=== PATIENT | male | born 1970 | race Caucasian/White ===

== ENCOUNTER → 2017-12-21 13:32 | Outpatient (REF) | payer OTHER, SELFPAY ==
[2017-12-21 20:14] LABS: Amphetamine/Metha Screen,Urine Negative ng/mL (<1000); Barbiturates Screen,Urine Negative ng/mL (<200); Benzodiazepines Screen,Urine Negative ng/mL (200); Cannabinoid Screen,Urine Negative ng/mL (<50); Cocaine Screen,Urine Negative ng/g (<300); Methadone Screen,Urine Negative ng/mL (<300); Opiate Screen,Urine Positive ng/mL (<300); Phencyclidine Screen,Urine Negative ng/mL (<25)
== END ==
LOC: LAB 13:32
PROVIDERS: Visit Provider Emergency Medicine
DX: Z79.899 Other long term (current) drug therapy (principal)
CPT/HCPCS: 80305

== ENCOUNTER → 2018-02-07 10:53 | Outpatient (REF) | payer OTHER, SELFPAY ==
[2018-02-07 14:09] LABS: Amphetamine/Metha Screen,Urine Negative ng/mL (<1000); Barbiturates Screen,Urine Negative ng/mL (<200); Benzodiazepines Screen,Urine Negative ng/mL (200); Cannabinoid Screen,Urine Negative ng/mL (<50); Cocaine Screen,Urine Negative ng/g (<300); Methadone Screen,Urine Negative ng/mL (<300); Opiate Screen,Urine Positive ng/mL (<300); Phencyclidine Screen,Urine Negative ng/mL (<25)
== END ==
LOC: LAB 10:53
PROVIDERS: Visit Provider Emergency Medicine
DX: Z79.899 Other long term (current) drug therapy (principal)
CPT/HCPCS: 80305

== ENCOUNTER → 2018-04-06 13:00 | Outpatient (REF) | payer OTHER, SELFPAY ==
[2018-04-07 19:13] LABS: Amphetamine/Metha Screen,Urine Negative ng/mL (<1000); Barbiturates Screen,Urine Negative ng/mL (<200); Benzodiazepines Screen,Urine Negative ng/mL (200); Cannabinoid Screen,Urine Negative ng/mL (<50); Cocaine Screen,Urine Negative ng/g (<300); Methadone Screen,Urine Negative ng/mL (<300); Opiate Screen,Urine Negative ng/mL (<300); Phencyclidine Screen,Urine Negative ng/mL (<25)
== END ==
LOC: LAB 13:00
PROVIDERS: Visit Provider Emergency Medicine
DX: Z79.899 Other long term (current) drug therapy (principal)
CPT/HCPCS: 80305

== ENCOUNTER → 2018-05-06 09:33 | Outpatient (CLI) | payer OTHER, SELFPAY ==
[2018-05-06 19:33] LABS: Amphetamine/Metha Screen,Urine Negative ng/mL (<1000); Barbiturates Screen,Urine Negative ng/mL (<200); Benzodiazepines Screen,Urine Negative ng/mL (200); Cannabinoid Screen,Urine Negative ng/mL (<50); Cocaine Screen,Urine Negative ng/g (<300); Methadone Screen,Urine Negative ng/mL (<300); Opiate Screen,Urine Negative ng/mL (<300); Phencyclidine Screen,Urine Negative ng/mL (<25)
== END ==
PROVIDERS: Visit Provider Emergency Medicine
DX: Z79.899 Other long term (current) drug therapy (principal)
CPT/HCPCS: 80305

== ENCOUNTER → 2018-05-10 16:52 | Outpatient (CLI) | payer OTHER, SELFPAY | PROVIDERS: Visit Provider Emergency Medicine | DX: Z79.899 Other long term (current) drug therapy (principal) ==

== ENCOUNTER → 2018-06-09 22:46 | Outpatient (CLI) | payer OTHER, SELFPAY ==
--- NOTE | 2018-06-09 23:01 | XR_ITS ---
XR shoulder LT min 2V HISTORY: Pain following injury ITS.REASON: WORK INJURY. LEFT SHOULDER PAIN ORDERING PHYSICIAN: Osorio Barroso MD PATIENT AGE: 47 years Comparison: None FINDINGS: Hypertrophic changes are present at the acromioclavicular joint with a small well-circumscribed calcific density along the superior aspect of the joint. Bony spurring is present superiorly and inferiorly may be causing impingement symptomatology. A small subarticular cystic area suspected overlying the humeral head medially. No fracture or dislocation. No lytic or blastic change. IMPRESSION: No acute fracture Osteoarthritic change of the acromioclavicular joint
== END ==
PROVIDERS: PCP Emergency Medicine; Visit Provider Emergency Medicine
DX: M25.512 Pain in left shoulder (principal)
CPT/HCPCS: 73030

== ENCOUNTER → 2018-08-03 09:19 | Outpatient (CLI) | payer OTHER, SELFPAY ==
[2018-08-03 14:11] LABS: Amphetamine/Metha Screen,Urine Negative ng/mL (<1000); Barbiturates Screen,Urine Negative ng/mL (<200); Benzodiazepines Screen,Urine Negative ng/mL (<200); Cannabinoid Screen,Urine Negative ng/mL (<50); Cocaine Screen,Urine Negative ng/mL (<300); Methadone Screen,Urine Negative ng/mL (<300); Opiate Screen,Urine Positive ng/mL (<300); Phencyclidine Screen,Urine Negative ng/mL (<25)
== END ==
PROVIDERS: Visit Provider Emergency Medicine
DX: Z79.899 Other long term (current) drug therapy (principal)
CPT/HCPCS: 80305

== ENCOUNTER → 2018-09-02 09:57 | Outpatient (REF) | payer OTHER, SELFPAY ==
[2018-09-02 18:14] LABS: Amphetamine/Metha Screen,Urine Negative ng/mL (<1000); Barbiturates Screen,Urine Negative ng/mL (<200); Benzodiazepines Screen,Urine Negative ng/mL (<200); Cannabinoid Screen,Urine Negative ng/mL (<50); Cocaine Screen,Urine Negative ng/mL (<300); Methadone Screen,Urine Negative ng/mL (<300); Opiate Screen,Urine Positive ng/mL (<300); Phencyclidine Screen,Urine Negative ng/mL (<25)
== END ==
LOC: LAB 09:57
PROVIDERS: Visit Provider Emergency Medicine
DX: Z79.899 Other long term (current) drug therapy (principal)
CPT/HCPCS: 80305

== ENCOUNTER → 2018-09-30 13:47 | Outpatient (CLI) | payer OTHER, SELFPAY ==
[2018-09-30 15:47] LABS: Amphetamine/Metha Screen,Urine Negative ng/mL (<1000); Barbiturates Screen,Urine Negative ng/mL (<200); Benzodiazepines Screen,Urine Negative ng/mL (<200); Cannabinoid Screen,Urine Negative ng/mL (<50); Cocaine Screen,Urine Negative ng/mL (<300); Methadone Screen,Urine Negative ng/mL (<300); Opiate Screen,Urine Negative ng/mL (<300); Phencyclidine Screen,Urine Negative ng/mL (<25)
== END ==
PROVIDERS: Visit Provider Emergency Medicine
DX: Z79.899 Other long term (current) drug therapy (principal)
CPT/HCPCS: 80305

== ENCOUNTER → 2018-10-31 14:44 | Outpatient (CLI) | payer OTHER, SELFPAY ==
[2018-10-31 15:19] LABS: Amphetamine/Metha Screen,Urine Negative ng/mL (<1000); Barbiturates Screen,Urine Negative ng/mL (<200); Benzodiazepines Screen,Urine Negative ng/mL (<200); Cannabinoid Screen,Urine Negative ng/mL (<50); Cocaine Screen,Urine Negative ng/mL (<300); Methadone Screen,Urine Negative ng/mL (<300); Opiate Screen,Urine Negative ng/mL (<300); Phencyclidine Screen,Urine Negative ng/mL (<25)
== END ==
PROVIDERS: Visit Provider Emergency Medicine
DX: Z79.899 Other long term (current) drug therapy (principal)
CPT/HCPCS: 80305

== ENCOUNTER → 2018-12-01 13:57 | Outpatient (CLI) | payer OTHER, SELFPAY ==
[2018-12-01 14:41] LABS: Amphetamine/Metha Screen,Urine Negative ng/mL (<1000); Barbiturates Screen,Urine Negative ng/mL (<200); Benzodiazepines Screen,Urine Negative ng/mL (<200); Cannabinoid Screen,Urine Negative ng/mL (<50); Cocaine Screen,Urine Negative ng/mL (<300); Methadone Screen,Urine Negative ng/mL (<300); Opiate Screen,Urine Positive ng/mL (<300); Phencyclidine Screen,Urine Negative ng/mL (<25)
== END ==
PROVIDERS: Visit Provider Emergency Medicine
DX: Z79.899 Other long term (current) drug therapy (principal)
CPT/HCPCS: 80305

== ENCOUNTER → 2019-02-01 18:56 | Outpatient (CLI) | payer OTHER, SELFPAY ==
[2019-02-01 20:30] LABS: Amphetamine/Metha Screen,Urine Negative ng/mL (<1000); Barbiturates Screen,Urine Negative ng/mL (<200); Benzodiazepines Screen,Urine Negative ng/mL (<200); Cannabinoid Screen,Urine Negative ng/mL (<50); Cocaine Screen,Urine Negative ng/mL (<300); Methadone Screen,Urine Negative ng/mL (<300); Opiate Screen,Urine Positive ng/mL (<300); Phencyclidine Screen,Urine Negative ng/mL (<25)
== END ==
PROVIDERS: Visit Provider Emergency Medicine
DX: Z79.899 Other long term (current) drug therapy (principal)
CPT/HCPCS: 80305

== ENCOUNTER → 2019-03-31 14:01 | Outpatient (CLI) | payer OTHER, SELFPAY ==
[2019-03-31 15:16] LABS: Amphetamine/Metha Screen,Urine Negative ng/mL (<1000); Barbiturates Screen,Urine Negative ng/mL (<200); Benzodiazepines Screen,Urine Negative ng/mL (<200); Cannabinoid Screen,Urine Negative ng/mL (<50); Cocaine Screen,Urine Negative ng/mL (<300); Methadone Screen,Urine Negative ng/mL (<300); Opiate Screen,Urine Positive ng/mL (<300); Phencyclidine Screen,Urine Negative ng/mL (<25)
== END ==
PROVIDERS: Visit Provider Emergency Medicine
DX: M50.30 Other cervical disc degeneration, unspecified cervical region (principal)
CPT/HCPCS: 80305

== ENCOUNTER → 2019-05-30 14:08 | Outpatient (CLI) | payer OTHER, SELFPAY ==
[2019-05-30 16:16] LABS: Amphetamine/Metha Screen,Urine Negative ng/mL (<1000); Barbiturates Screen,Urine Negative ng/mL (<200); Benzodiazepines Screen,Urine Negative ng/mL (<200); Cannabinoid Screen,Urine Negative ng/mL (<50); Cocaine Screen,Urine Negative ng/mL (<300); Methadone Screen,Urine Negative ng/mL (<300); Opiate Screen,Urine Positive ng/mL (<300); Phencyclidine Screen,Urine Negative ng/mL (<25)
== END ==
PROVIDERS: Visit Provider Emergency Medicine
DX: Z79.899 Other long term (current) drug therapy (principal)
CPT/HCPCS: 80305

== ENCOUNTER → 2019-08-01 13:21 | Outpatient (CLI) | payer OTHER, SELFPAY ==
[2019-08-01 13:53] LABS: Alanine Aminotransferase 90 U/L (12-78); Albumin Level 4.4 gm/dL (3.4-5.0); Albumin/Globulin Ratio 1.1 (1.1-1.8); Alkaline Phosphatase 89 U/L (46-116); Anion Gap 15.8 mEq/L (5-15); Aspartate Amino Transferase 44 U/L (15-37); Bilirubin,Total 0.5 mg/dL (0.2-1.0); Blood Urea Nitrogen 16 mg/dL (7-18); Calcium 9.6 mg/dL (8.5-10.1); Carbon Dioxide 29 mmol/L (21.0-32.0); Chloride 101 mmol/L (98-107); Creatinine,Serum 1.29 mg/dL (0.70-1.30); Estimated Glomerular Filt Rate 59 ml/min (>60); GFR (African American) 71 ML/MIN (>60); Glucose 163 mg/dL (74-106); Potassium 3.8 mmoL/L (3.5-5.1); Sodium 142 mmol/L (136-145); Total Protein,Serum 8.4 gm/dL (6.4-8.2)
[2019-08-01 14:14] LABS: Basophils % 0.3 % (0.1-2.0); Eosinophils % 0.2 % (0.1-12.0); Hematocrit 47.2 % (42.0-52.0); Hemoglobin 15.7 g/dL (14.1-18.0); Lymphocytes # 2.1 K/mm3 (0.7-4.5); Lymphocytes % 18.3 % (10-50); Mean Corpuscular HGB Conc 33.2 g/dL (31.8-35.4); Mean Corpuscular Hemoglobin 32.2 pg (27.0-31.2); Mean Corpuscular Volume 96.9 fl (80-94); Monocytes # 0.5 K/mm3 (0.1-1.0); Monocytes % 4.3 % (1.7-9.3); Neutrophils # 8.9 K/mm3 (1.8-7.8); Neutrophils % 76.9 % (37.0-80.0); Platelet Count 197 K/mm3 (142-424); Red Blood Count 4.87 M/mm3 (4.60-6.20); Red Cell Distribution Width 14.2 % (11.5-17.5); White Blood Count 11.6 K/mm3 (4.8-10.8)
[2019-08-02 07:28] LABS: Vitamin D 25 Hydroxy 26.8 ng/mL (30.0-100.0)
[2019-08-02 17:34] LABS: Hemoglobin A1C 5.7 % (0.0-7.0)
[2019-08-04 11:42] LABS: Vitamin B12 306 pg/mL (232-1245)
== END ==
PROVIDERS: Visit Provider Emergency Medicine
DX: I10 Essential (primary) hypertension (principal); R71.8 Other abnormality of red blood cells; R73.9 Hyperglycemia, unspecified
CPT/HCPCS: 80053; 82607; 82652; 82746; 83036; 85025

== ENCOUNTER → 2019-09-29 13:35 | Outpatient (CLI) | payer OTHER, SELFPAY ==
[2019-09-29 15:49] LABS: Amphetamine/Metha Screen,Urine Negative ng/mL (<1000); Barbiturates Screen,Urine Negative ng/mL (<200); Benzodiazepines Screen,Urine Negative ng/mL (<200); Cannabinoid Screen,Urine Negative ng/mL (<50); Cocaine Screen,Urine Negative ng/mL (<300); Methadone Screen,Urine Negative ng/mL (<300); Opiate Screen,Urine Positive ng/mL (<300); Phencyclidine Screen,Urine Negative ng/mL (<25)
== END ==
PROVIDERS: Visit Provider Emergency Medicine
DX: Z79.899 Other long term (current) drug therapy (principal)
CPT/HCPCS: 80305

== ENCOUNTER → 2020-01-23 13:39 | Outpatient (CLI) | payer OTHER, SELFPAY ==
[2020-01-23 15:17] LABS: Amphetamine/Metha Screen,Urine Negative ng/ml (<1000)
[2020-01-23 15:18] LABS: Barbiturates Screen,Urine Negative ng/ml (<200); Benzodiazepines Screen,Urine Negative ng/ml (<200)
[2020-01-23 15:19] LABS: Cannabinoid Screen,Urine Negative ng/ml (<50)
[2020-01-23 15:20] LABS: Cocaine Screen,Urine Negative ng/ml (<300); Methadone Screen,Urine Negative ng/ml (<300)
[2020-01-23 15:21] LABS: Opiate Screen,Urine Positive ng/ml (<300)
[2020-01-23 15:22] LABS: Phencyclidine Screen,Urine Negative ng/ml (<25)
== END ==
PROVIDERS: Visit Provider Emergency Medicine
DX: M54.16 Radiculopathy, lumbar region (principal)
CPT/HCPCS: 80305

== ENCOUNTER → 2020-06-14 13:30 | Outpatient (CLI) | payer OTHER, SELFPAY ==
[2020-06-14 13:38] LABS: Basophils % 0.4 % (0.1-2.0); Eosinophils # 0.4 K/mm3 (0.0-0.4); Eosinophils % 4.4 % (0.1-12.0); Hematocrit 43.2 % (42.0-52.0); Hemoglobin 15.1 g/dL (14.1-18.0); Lymphocytes # 2.8 K/mm3 (0.7-4.5); Lymphocytes % 27.5 % (10-50); Mean Corpuscular Hemoglobin 33.4 pg (27.0-31.2); Mean Corpuscular Volume 95.4 fl (80-94); Mean Platelet Volume 11.3 fl (7.4-10.4); Monocytes # 0.7 K/mm3 (0.1-1.0); Monocytes % 6.7 % (1.7-9.3); Neutrophils # 6.2 K/mm3 (1.8-7.8); Neutrophils % 61.1 % (37.0-80.0); Platelet Count 157 K/mm3 (142-424); Red Blood Count 4.53 M/mm3 (4.60-6.20); Red Cell Distribution Width 14.6 % (11.5-17.5); White Blood Count 10.1 K/mm3 (4.8-10.8)
[2020-06-14 13:43] LABS: Chloride 104 mmol/L (98-107); Potassium 4.3 mmoL/L (3.5-5.1); Sodium 140 mmol/L (136-145)
[2020-06-14 13:46] LABS: Alanine Aminotransferase 34 U/L (12-78); Albumin Level 4.2 g/dl (3.5-5.0); Alkaline Phosphatase 77 U/L (38-126); Anion Gap 12.3 mEq/L (5-15); Aspartate Amino Transferase 28 U/L (17-59); Bilirubin,Total 0.5 mg/dl (0.2-1.3); Blood Urea Nitrogen 20 mg/dl (9-20); Carbon Dioxide 28 mmol/L (22.0-30.0); Cholesterol 179 mg/dl (140-200); Estimated Glomerular Filt Rate 78 ml/min (>60); GFR (African American) 95 ML/MIN (>60); Total Protein,Serum 7.1 g/dl (6.3-8.2); Triglycerides 122 mg/dl (30-150); VLDL Cholesterol 24 mg/dL (0-40)
[2020-06-14 13:47] LABS: Calcium 9.3 mg/dl (8.4-10.2); Chol/HDL Ratio 4.1 (1-3.5); Glucose 117 mg/dl (74-100); HDL Cholesterol 44 mg/dl (40-60)
[2020-06-14 13:58] LABS: Direct LDL Cholesterol 116.74 mg/dL (100-129); Erythrocyte Sedimentation Rate 7 mm/hr (0-20)
[2020-06-14 14:04] LABS: 25-OH Vitamin D, Total 47.6 ng/mL (30-100); T4 (Thyroxine) 6.7 ug/dl (5.53-11.0)
[2020-06-14 14:17] LABS: Thyroid Stimulating Hormone 1.21 uIU/mL (0.465-4.68)
[2020-06-14 16:26] LABS: Albumin/Globulin Ratio 1.4 (1.1-1.8); Globulin 2.9 g/dL (1.3-3.2)
== END ==
PROVIDERS: Visit Provider Emergency Medicine
DX: I10 Essential (primary) hypertension (principal); Z79.899 Other long term (current) drug therapy
CPT/HCPCS: 80053; 80061; 82306; 84436; 84443; 85025; 85651

== ENCOUNTER → 2020-06-26 09:42 | Outpatient (CLI) | payer OTHER, SELFPAY | PROVIDERS: PCP Emergency Medicine; Visit Provider Emergency Medicine | DX: M54.5 Low back pain (principal) ==

== ENCOUNTER → 2020-07-18 12:54 | Outpatient (CLI) | payer OTHER, SELFPAY ==
--- NOTE | 2020-07-18 13:00 | MR_ITS ---
PROCEDURE: MR CERVICAL SPINE WO CON CLINICAL INDICATION: neck pain NECK PAIN, TROUBLE RAISING ARMS, PAIN IN BOTH HANDS, PINS AND NEEDLES FEELING IN BOTH HANDS. BEST IMAGES POSSIBLE, PATIENT IN TERRIBLE PAIN, TOOK MEDS FOR PAIN AND RELAXATION WITH LITTLE RELIEF. 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 3-D MIP and myelographic images are also rendered and reviewed FINDINGS: Motion artifact obscures fine detail. Low signal to noise ratio is noted. There is normal alignment. C2-C3: Small posterior disc protrusion versus prominent posterior longitudinal ligament without impingement. C3-C4: Minimal bulging disc. C4-C5: Small central disc protrusion C5-C6: Mild degenerative disc disease. C6-C7: Mild bulging disc C7-T1: Unremarkable IMPRESSION: This exam is very limited secondary to patient motion. Suggest repeating at no additional charge. There is a small central disc protrusion which appears to be at C4-C5 and a small posterior disc protrusion versus prominent posterior longitudinal ligament at C2-C3 with other degenerative changes. Would definitely not base any surgical treatment based on this exam. Dictated by: Luís Zimmerman MD 07/19/2020 14:50 Luís Zimmerman MD in [place] 07/19/2020 14:50
--- NOTE | 2020-07-18 13:00 | MR_ITS ---
PROCEDURE: MR LUMBAR SPINE WO CON CLINICAL INDICATION: back pain LOW BACK PAIN, BILATERAL LEG TINGLING AND NUMBNESS, PREVIOUS BACK SURGERY X2. PREVIOUS MRI 12-11-15 BEST IMAGE POSSIBLE PATIENT IN TERRIBLE PAIN, TOOK MEDS FOR PAIN AND RELAXATION. 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 3-D MIP and myelographic images are also rendered and reviewed FINDINGS: There is mild degree of motion artifact which does limit fine detail evaluation with low signal to noise ratio. There is normal alignment. The spinal cord ends at the L2 level. L1-L2 unremarkable. L2-L3 unremarkable. L3-L4 unremarkable. L4-5 mild facet ligamentum hypertrophy with mild bilateral lateral recess narrowing and mild bilateral foraminal narrowing. L5-S1: There is degenerative disc disease with facet and ligamentum hypertrophy with postsurgical changes from prior laminectomy at L5-S1. There is bulging disc with some minimal central disc protrusion versus osteophyte formation. There is moderate bilateral foraminal narrowing from posterior endplate hypertrophic change and bulging disc.. The foraminal narrowing may be slightly greater on the right compared to the left. No extruded herniated disc are evident. IMPRESSION: Somewhat limited study secondary to motion artifact. Consider repeat exam at no additional charge to the patient if the patient can lie still. L4-5 mild facet ligamentum hypertrophy with mild bilateral lateral recess narrowing and mild bilateral foraminal narrowing. L5-S1: There is degenerative disc disease with facet and ligamentum hypertrophy with postsurgical changes from prior laminectomy at L5-S1. There is bulging disc with some minimal central disc protrusion versus osteophyte formation. There is moderate bilateral foraminal narrowing from posterior endplate hypertrophic change and bulging disc.. The foraminal narrowing may be slightly greater on the right compared to the left. No extruded herniated disc are evident. Dictated by: Luís Zimmerman MD 07/19/2020 14:34 Luís Zimmerman MD in [place] 07/19/2020 14:34
== END ==
PROVIDERS: PCP Emergency Medicine; Visit Provider Emergency Medicine
DX: M54.2 Cervicalgia (principal); M51.16 Intervertebral disc disorders with radiculopathy, lumbar region
CPT/HCPCS: 72141; 72148; 76376

== ENCOUNTER → 2020-09-12 07:59 | Outpatient (CLI) | payer OTHER, SELFPAY ==
--- NOTE | 2020-09-12 07:59 | MR_ITS ---
PROCEDURE: MR CERVICAL SPINE WO CON CLINICAL INDICATION: neck pain BILATERAL ARM PAIN, NUMBNESS, AND TINGLING. HEADACHE. 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 X1YR. COMPARISON: MR MR CERVICAL SPINE WO CON from 07/18/2020 TECHNIQUE: Standard multiplanar multiecho sequences are performed without contrast. 3-D MIP and myelographic images are also rendered and reviewed FINDINGS: There is normal alignment. There is generalized motion artifact which does decrease fine detail. Cannot adequately evaluate the cord due to the motion. C2-C3: Minimal central disc protrusion versus prominent posterior longitudinal ligament without impingement. C3-C4: Unremarkable. C4-C5: Unremarkable. C5-C6: Minimal bulging disc. C6-C7: Minimal bulging disc. C7-T1: Unremarkable IMPRESSION: This exam is limited secondary to motion artifact. Mild cervical spondylosis as described above. No obvious large extruded herniated disc or canal stenosis. Dictated by: Luís Zimmerman MD 09/14/2020 11:37 Luís Zimmerman MD in [place] 09/14/2020 11:37
== END ==
PROVIDERS: PCP Emergency Medicine; Visit Provider Emergency Medicine
DX: M54.2 Cervicalgia (principal)
CPT/HCPCS: 72141; 76376

== ENCOUNTER 2021-04-15 21:11 | Emergency (ER) | payer OTHER, SELFPAY ==
[2021-04-15] VITALS (7 sets, daily range): BP systolic 179–225; BP diastolic 107–122; PULSE 62–74; RESP 18–20; TEMP 36.7–37.1; O2SAT 93–96; BMI 28.2
--- NOTE | 2021-04-15 21:32 | XR_ITS ---
PROCEDURE INFORMATION: Exam: XR Pelvis Exam date and time: 04/15/2021 9:32 PM Age: 50 years old Clinical indication: Injury or trauma; Fall; Blunt trauma (contusions or hematomas); Bilateral; Pelvic region; Injury date: 04/15/2021; Injury details: Fell 4-5 ft off ladder; Prior surgery; Surgery date: 6+ months; Surgery type: Femoral ian; Patient HX: Fell off ladder and landed on left side; Additional info: Fall with left shoulder and arm pain TECHNIQUE: Imaging protocol: XR pelvis. Views: 1 or 2 view. COMPARISON: No relevant prior studies available. FINDINGS: Bones/joints: No acute fracture or dislocation. Intramedullary ian and transverse screw are seen in the proximal femur. Mild bilateral hip joint space narrowing. The SI joints and pubic symphysis are unremarkable. Soft tissues: Unremarkable. IMPRESSION: No acute findings.
--- NOTE | 2021-04-15 21:32 | XR_ITS ---
PROCEDURE INFORMATION: Exam: XR Left Elbow Exam date and time: 04/15/2021 9:32 PM Age: 50 years old Clinical indication: Injury or trauma; Blunt trauma (contusions or hematomas); Injury date: 04/15/2021; Injury details: Fell 4-5 ft off ladder; Patient HX: Pain left elbow post fall; Additional info: Fall with left shoulder and arm pain TECHNIQUE: Imaging protocol: XR Left elbow. Views: 3 or more views. COMPARISON: [facility] SHOULDCMLT XR shoulder LT min 2V 06/09/2018 10:56 PM FINDINGS: Bones/joints: No acute fracture or dislocation. Normal bone mineralization. Soft tissues: No effusion or soft tissue swelling. IMPRESSION: No acute findings.
--- NOTE | 2021-04-15 21:32 | XR_ITS ---
PROCEDURE INFORMATION: Exam: XR Left Hand Exam date and time: 04/15/2021 9:32 PM Age: 50 years old Clinical indication: Injury or trauma; Blunt trauma (contusions or hematomas); Injury date: 04/15/2021; Injury details: Fell 4-5 ft off ladder; Patient HX: Pain left hand post fall; Additional info: Fall with left shoulder and arm pain TECHNIQUE: Imaging protocol: XR Left hand. Views: 3 or more views. COMPARISON: No relevant prior studies available. FINDINGS: Bones/joints: No acute fracture or dislocation. Joint spaces are preserved. Normal bone mineralization. Normal carpal bone alignment. Radiocarpal joint is preserved. Soft tissues: No soft tissue swelling or radiopaque foreign body. IMPRESSION: No acute findings.
--- NOTE | 2021-04-15 21:32 | CT_ITS ---
PROCEDURE INFORMATION: Exam: CT Thoracic Spine Without Contrast Exam date and time: 04/15/2021 9:32 PM Age: 50 years old Clinical indication: Injury or trauma; Fall; Blunt trauma (contusions or hematomas); Injury date: 04/15/2021; Injury details: Fell off ladder 4-5 feet and pain left shoulder and arm; Additional info: Fall with left shoulder and arm pain TECHNIQUE: Imaging protocol: Computed tomography images of the thoracic spine without contrast. Radiation optimization: All CT scans at this facility use at least one of these dose optimization techniques: automated exposure control; mA and/or kV adjustment per patient size (includes targeted exams where dose is matched to clinical indication); or iterative reconstruction. COMPARISON: No relevant prior studies available. FINDINGS: Vertebrae: No acute fracture. Normal alignment. Discs/Spinal canal/Neural foramina: No significant disc protrusion. No severe spinal canal stenosis. No significant neural foraminal narrowing. Soft tissues: Unremarkable. Vasculature: Mild atherosclerotic changes of the arteries. Mediastinum: Stigmata of old granulomatous disease. Other findings: Please see separate report for CT chest. IMPRESSION: No acute fracture or malalignment of the thoracic spine.
--- NOTE | 2021-04-15 21:32 | XR_ITS ---
PROCEDURE INFORMATION: Exam: XR Left Humerus Exam date and time: 04/15/2021 9:32 PM Age: 50 years old Clinical indication: Injury or trauma; Fall; Blunt trauma (contusions or hematomas); Arm, upper; Injury date: 04/15/2021; Injury details: Fell off ladder 4-5 ft; Patient HX: Fell left shoulder pain; Additional info: Fall with left shoulder and arm pain TECHNIQUE: Imaging protocol: XR Left humerus. Views: 2 or more views. COMPARISON: CR SHOULDCMLT XR shoulder LT min 2V 06/09/2018 10:56 PM FINDINGS: Bones/joints: No acute fracture or dislocation. Normal bone mineralization. Degenerative changes at the acromioclavicular joint. Soft tissues: Normal. IMPRESSION: No acute findings.
--- NOTE | 2021-04-15 21:32 | XR_ITS ---
PROCEDURE INFORMATION: Exam: XR Left Shoulder Exam date and time: 04/15/2021 9:32 PM Age: 50 years old Clinical indication: Injury or trauma; Fall; Blunt trauma (contusions or hematomas); Injury date: 04/15/2021; Injury details: Fell off ladder; Patient HX: Fell 4-5 ft and pain left shoulder and arm; Additional info: Fall with left shoulder and arm pain TECHNIQUE: Imaging protocol: XR Left shoulder. Views: 2 or more views. COMPARISON: CR SHOULDCMLT XR shoulder LT min 2V 06/09/2018 10:56 PM FINDINGS: Bones/joints: No acute fracture or dislocation. Normal bone mineralization. Moderate AC joint marginal spurring. Glenohumeral joint is normal. Included ribs are unremarkable. Soft tissues: No soft tissue swelling or radiopaque foreign body. IMPRESSION: No acute findings. AC joint degenerative change.
--- NOTE | 2021-04-15 21:32 | XR_ITS ---
PROCEDURE INFORMATION: Exam: XR Left Forearm Exam date and time: 04/15/2021 9:32 PM Age: 50 years old Clinical indication: Injury or trauma; Fall; Blunt trauma (contusions or hematomas); Arm, lower; Left; Injury date: 04/15/2021; Injury details: Fell off ladder 4-5 ft; Additional info: Fall with left shoulder and arm pain TECHNIQUE: Imaging protocol: XR Left forearm. Views: 2 views. COMPARISON: CR SHOULDCMLT XR shoulder LT min 2V 06/09/2018 10:56 PM FINDINGS: Bones/joints: No acute fracture or dislocation. Normal bone mineralization. No significant degenerative changes. Soft tissues: Normal. IMPRESSION: No acute findings.
--- NOTE | 2021-04-15 21:32 | CT_ITS ---
PROCEDURE INFORMATION: Exam: CT Head Without Contrast Exam date and time: 04/15/2021 9:32 PM Age: 50 years old Clinical indication: Injury or trauma; Fall; Blunt trauma (contusions or hematomas); Without loss of consciousness; Injury date: 03/29/2021; Injury details: Fell 4-5 feet off ladder landed on left side; Patient HX: Fell pain left shoulder and arm. Trauma protocol; Additional info: Fall with left shoulder and arm pain TECHNIQUE: Imaging protocol: Computed tomography of the head without contrast. Radiation optimization: All CT scans at this facility use at least one of these dose optimization techniques: automated exposure control; mA and/or kV adjustment per patient size (includes targeted exams where dose is matched to clinical indication); or iterative reconstruction. COMPARISON: [facility] CT HEAD W/O CONTRAST 08/20/2017 3:34 PM FINDINGS: Brain: Normal. No hemorrhage. Unremarkable white matter. No mass effect. Cerebral ventricles: No ventriculomegaly. Bones/joints: Unremarkable. No acute fracture. Paranasal sinuses: Visualized sinuses are unremarkable. No fluid levels. Mastoid air cells: Visualized mastoid air cells are well aerated. Soft tissues: Unremarkable. IMPRESSION: No acute intracranial abnormality.
--- NOTE | 2021-04-15 21:32 | XR_ITS ---
PROCEDURE INFORMATION: Exam: XR Chest Exam date and time: 04/15/2021 9:32 PM Age: 50 years old Clinical indication: Injury or trauma; Fall; Blunt trauma (contusions or hematomas); Injury date: 04/15/2021; Injury details: Fell off ladder 4-5 ft; Patient HX: Trauma protocol. Fell off ladder landed on left side pain left shoulder; Additional info: Fall with left shoulder and arm pain TECHNIQUE: Imaging protocol: XR of the chest. Views: 4 or more views. COMPARISON: CR CXR2 CHEST-AP VIEW ONLY 08/20/2017 3:41 PM FINDINGS: Lungs: Unremarkable. No consolidation. Pleural spaces: Unremarkable. No pleural effusion. No pneumothorax. Heart/Mediastinum: Unremarkable. No cardiomegaly. Bones/joints: Unremarkable. IMPRESSION: No acute findings.
--- NOTE | 2021-04-15 21:32 | CT_ITS ---
PROCEDURE INFORMATION: Exam: CT Cervical Spine Without Contrast Exam date and time: 04/15/2021 9:32 PM Age: 50 years old Clinical indication: Injury or trauma; Fall; Blunt trauma; Injury date: 04/15/2021; Injury details: Fell off ladder 4-5 feet and landed on left side pain left shoulder and arm; Additional info: Fall with left shoulder and arm pain TECHNIQUE: Imaging protocol: Computed tomography images of the cervical spine without contrast. Radiation optimization: All CT scans at this facility use at least one of these dose optimization techniques: automated exposure control; mA and/or kV adjustment per patient size (includes targeted exams where dose is matched to clinical indication); or iterative reconstruction. COMPARISON: [facility] CT CERVICAL SPINE W/O CONT 08/20/2017 3:37 PM FINDINGS: Bones/joints: Straightening of the curvature of the cervical spine is likely positional. Discs/Spinal canal/Neural foramina: Multilevel degenerative changes of the cervical spine producing multiple levels of mild spinal canal stenosis. Mastoid air cells: Small right mastoid effusion. Lungs: Lung apices are normal. Soft tissues: Unremarkable. IMPRESSION: No acute fracture or malalignment of the cervical spine.
[2021-04-15 22:01] LABS: Chloride 103 mmol/L (98-107); Sodium 142 mmol/L (136-145)
[2021-04-15 22:02] LABS: Potassium 3.3 mmoL/L (3.5-5.1)
[2021-04-15 22:03] LABS: Basophils % 0.4 % (0.1-2.0); Eosinophils # 0.3 K/mm3 (0.0-0.4); Eosinophils % 2.9 % (0.1-12.0); Hematocrit 45.1 % (42.0-52.0); Lymphocytes # 3.2 K/mm3 (0.7-4.5); Lymphocytes % 29.6 % (10-50); Mean Corpuscular HGB Conc 33.4 g/dL (31.8-35.4); Mean Corpuscular Hemoglobin 31.2 pg (27.0-31.2); Mean Corpuscular Volume 93.6 fl (80-94); Mean Platelet Volume 9.4 fl (7.4-10.4); Monocytes # 0.6 K/mm3 (0.1-1.0); Monocytes % 5.9 % (1.7-9.3); Neutrophils # 6.5 K/mm3 (1.8-7.8); Neutrophils % 61.3 % (37.0-80.0); Platelet Count 171 K/mm3 (142-424); Red Blood Count 4.81 M/mm3 (4.60-6.20); Red Cell Distribution Width 13.7 % (11.5-17.5); White Blood Count 10.7 K/mm3 (4.8-10.8)
[2021-04-15 22:04] LABS: Alanine Aminotransferase 32 U/L (12-78); Alkaline Phosphatase 91 U/L (38-126); Aspartate Amino Transferase 34 U/L (17-59); Bilirubin,Total 0.3 mg/dl (0.2-1.3); Blood Urea Nitrogen 19 mg/dl (9-20); Creatinine Clearance Estimated 102 mL/min (50-200); Estimated Glomerular Filt Rate 64 ml/min (>60); GFR (African American) 77 ML/MIN (>60)
[2021-04-15 22:05] LABS: Albumin Level 4.5 g/dl (3.5-5.0); Albumin/Globulin Ratio 1.4 (1.1-1.8); Anion Gap 9.3 mEq/L (5-15); Calcium 9.2 mg/dl (8.4-10.2); Carbon Dioxide 33 mmol/L (22.0-30.0); Globulin 3.2 g/dL (1.3-3.2); Glucose 150 mg/dl (74-100); Total Protein,Serum 7.7 g/dl (6.3-8.2)
[2021-04-15 22:10] LABS: C-Reactive Protein 3.2 mg/L (0-4)
--- NOTE | 2021-04-15 22:24 | PC.NURSE ---
patient back for radiology
[2021-04-15 22:27] LABS: Procalcitonin 0.046 ng/mL (0.0-2.0)
[2021-04-15 22:29] LABS: Erythrocyte Sedimentation Rate 15 mm/hr (0-20)
--- NOTE | 2021-04-15 22:29 | [facility].EDFALL ---
ED Disposition Clinical Impression: Hypertensive urgency Fall Qualifiers: Encounter type: initial encounter Qualified Code(s): W19.XXXA - Unspecified fall, initial encounter Upper extremity injury Qualifiers: Encounter type: initial encounter Laterality: left Qualified Code(s): S49.92XA - Unspecified injury of left shoulder and upper arm, initial encounter Concussion without loss of consciousness Qualifiers: Encounter type: initial encounter Qualified Code(s): S06.0X0A - Concussion without loss of consciousness, initial encounter Disposition: Home, Self-Care Condition on Discharge: Good Instructions: DI for Concussion Additional Instructions: use meds and see pcp for follow up Referrals: Osorio Barroso MD [Primary Care Provider] - - Critical Care Critical Care Time: No Attestation: On 04/15/21, the high probability of a clinically significant, sudden or life threatening deterioration of the following system(s) required my full and direct attention, intervention and personal management. The time I documented below is in addition to time spent performing reported procedures but includes the following listed in this critical care notation. Medical Decision Making - Medical Records Medical records reviewed: Yes: I reviewed the patient's medical records. - Jose De Jesus Inquiry Pt receiving controlled substance: No Vital Signs: 04/15/21 21:13 Temperature 98.7 F Temperature Source Oral Pulse Rate [Right] 63 Respiratory Rate 20 Blood Pressure [Right Arm] 195/111 H Blood Pressure Mean [Right Arm] 139 Blood Pressure Source [Right Arm] Automatic Cuff 02 Sat by Pulse Oximetry 94 L Oxygen Delivery Method Room Air - Lab Data Lab results reviewed: Yes: I reviewed the patient's lab results. Lab Results 04/15/21 21:20: WBC 10.7, RBC 4.81, Hgb 15.0, Hct 45.1, MCV 93.6, MCH 31.2, MCHC 33.4, RDW 13.7, Plt Count 171, MPV 9.4, Neut % (Auto) 61.3, Lymph % (Auto) 29.6, [place] % (Auto) 5.9, Eos % (Auto) 2.9, Baso % (Auto) 0.4, Neut # (Auto) 6.5, Lymph # (Auto) 3.2, [place] # (Auto) 0.6, Eos # (Auto) 0.3, Baso # (Auto) 0.0, ESR 15 04/15/21 21:20: Sodium 142, Potassium 3.3 L, Chloride 103, Carbon Dioxide 33 H, Anion Gap 9.3, BUN 19, Creatinine 1.20, Estimated Creat Clear 102, Estimated GFR 64, Est GFR ( Amer) 77, Glucose 150 H, Calcium 9.2, Total Bilirubin 0.3, AST 34, ALT 32, Alkaline Phosphatase 91, C-Reactive Protein 3.2, Total Protein 7.7, Albumin 4.5, Globulin 3.2, Albumin/Globulin Ratio 1.4, Procalcitonin 0.046 Result diagrams: 04/15/21 21:20 04/15/21 21:20 Orders (Tests/Meds): ED MEDICATIONS Generic Name Dose Route Start Last Admin Trade Name Freq PRN Reason Stop Dose Admin Sodium Chloride 1,000 mls @ 999 mls/hr 04/15/21 21:45 Sod Chlor 0.9% 1000ml Bag IV 04/15/21 22:45 .[id number] LUZ Discontinued Medications Generic Name Dose Route Start Last Admin Trade Name Freq PRN Reason Stop Dose Admin Hydromorphone HCl 1 mg 04/15/21 21:39 Hydromorphone 2mg/Ml Syringe IV 04/15/21 21:40 ONCE ONE Ondansetron HCl 4 mg 04/15/21 21:39 Ondansetron 4mg/2ml Vial IV 04/15/21 21:40 ONCE ONE ORDERS Category Date Time Status UA [Urinalysis and Microscopic] Stat Lab 04/15/21 21:38 Ordered - Radiology Data #1 Image(s): Chest, Shoulder, Humerus, Elbow, Forearm, Hand, Pelvis - CT Data CT Scan: Head, C-Spine, T-Spine Time Received: 22:[address] Reviewed: Yes: I have viewed the radiologist's interpretation Preliminary Findings: No Fracture Seen Fall HPI - General Chief Complaint: Fall Stated Complaint: fell off ladder 2000 - 4 ft Time Seen by Provider: 04/15/21 21:20 Mode of Arrival: Ambulatory Source of Information: Patient, Spouse, Medical Record Limitations: No Limitations Description of Symptoms (Recalled from ER Triage Doc. by RN): Pt report to falling about 4ft off a ladder, landing on left shoulder/arm. Pt denies any LOC, chest pain, SOB, dizziness, or N/V.
== END 2021-04-15 23:33 | disposition home or self-care (01) ==
PROVIDERS: Emergency Provider Emergency Medicine; PCP Emergency Medicine
DX: I16.0 Hypertensive urgency (principal); S06.0X0A Concussion without loss of consciousness, initial encounter; S49.92XA Unspecified injury of left shoulder and upper arm, initial encounter; W11.XXXA Fall on and from ladder, initial encounter; Y92.019 Unspecified place in single-family (private) house as the place of occurrence of the external cause; E78.5 Hyperlipidemia, unspecified; I10 Essential (primary) hypertension; F17.210 Nicotine dependence, cigarettes, uncomplicated
CPT/HCPCS: 70450; 71045; 72125; 72128; 72170; 73030; 73060; 73080; 73090; 73130; 80053; 84145; 85025; 85651; 86140; 96374; 96375; 96376; 99282; J2405

== ENCOUNTER → 2021-05-27 13:30 | Outpatient (CLI) | payer OTHER, SELFPAY ==
[2021-05-27 14:54] LABS: Amphetamine/Metha Screen,Urine Negative ng/ml (<1000)
[2021-05-27 14:55] LABS: Barbiturates Screen,Urine Negative ng/ml (<200); Benzodiazepines Screen,Urine Negative ng/ml (<200)
[2021-05-27 14:56] LABS: Cannabinoid Screen,Urine Negative ng/ml (<50)
[2021-05-27 14:57] LABS: Cocaine Screen,Urine Negative ng/ml (<300)
[2021-05-27 14:58] LABS: Methadone Screen,Urine Negative ng/ml (<300); Opiate Screen,Urine Negative ng/ml (<300)
[2021-05-27 14:59] LABS: Phencyclidine Screen,Urine Negative ng/ml (<25)
== END ==
PROVIDERS: Visit Provider Emergency Medicine
DX: Z79.899 Other long term (current) drug therapy (principal)
CPT/HCPCS: 80305

== ENCOUNTER → 2021-08-01 15:20 | Outpatient (CLI) | payer OTHER, SELFPAY ==
[2021-08-01 15:40] LABS: Basophils # 0.1 K/mm3 (0-0.2); Basophils % 0.6 % (0.1-2.0); Eosinophils # 0.2 K/mm3 (0.0-0.4); Eosinophils % 1.6 % (0.1-12.0); Hematocrit 49.7 % (42.0-52.0); Hemoglobin 16.4 g/dL (14.1-18.0); Lymphocytes # 2.1 K/mm3 (0.7-4.5); Lymphocytes % 16.9 % (10-50); Mean Corpuscular Hemoglobin 32.6 pg (27.0-31.2); Mean Corpuscular Volume 98.8 fl (80-94); Mean Platelet Volume 12.9 fl (7.4-10.4); Monocytes # 0.7 K/mm3 (0.1-1.0); Monocytes % 6.1 % (1.7-9.3); Neutrophils # 9.1 K/mm3 (1.8-7.8); Neutrophils % 74.9 % (37.0-80.0); Platelet Count 180 K/mm3 (142-424); Red Blood Count 5.03 M/mm3 (4.60-6.20); Red Cell Distribution Width 13.8 % (11.5-17.5); White Blood Count 12.1 K/mm3 (4.8-10.8)
[2021-08-01 16:26] LABS: Free T4 (Free Thyroxine) 1.13 ng/dl (0.78-2.19)
[2021-08-01 16:31] LABS: Alanine Aminotransferase 23 U/L (12-78); Albumin Level 4.6 g/dl (3.5-5.0); Albumin/Globulin Ratio 1.3 (1.1-1.8); Alkaline Phosphatase 98 U/L (38-126); Anion Gap 16.9 mEq/L (5-15); Aspartate Amino Transferase 27 U/L (17-59); Bilirubin,Total 0.6 mg/dl (0.2-1.3); Blood Urea Nitrogen 12 mg/dl (9-20); Calcium 9.6 mg/dl (8.4-10.2); Carbon Dioxide 32 mmol/L (22.0-30.0); Chloride 101 mmol/L (98-107); Chol/HDL Ratio 4.8 (1-3.5); Cholesterol 190 mg/dl (140-200); Estimated Glomerular Filt Rate 78 ml/min (>60); GFR (African American) 95 ML/MIN (>60); Globulin 3.5 g/dL (1.3-3.2); Glucose 96 mg/dl (74-100); HDL Cholesterol 40 mg/dl (40-60); Potassium 3.9 mmoL/L (3.5-5.1); Sodium 146 mmol/L (136-145); Total Protein,Serum 8.1 g/dl (6.3-8.2); Triglycerides 152 mg/dl (30-150); VLDL Cholesterol 30 mg/dL (0-40)
[2021-08-01 16:41] LABS: Direct LDL Cholesterol 117.16 mg/dL (100-129)
[2021-08-01 17:01] LABS: Thyroid Stimulating Hormone 0.65 uIU/mL (0.465-4.68)
== END ==
PROVIDERS: Visit Provider Emergency Medicine
DX: E66.3 Overweight (principal); Z68.29 Body mass index [BMI] 29.0-29.9, adult
CPT/HCPCS: 80053; 80061; 84439; 84443; 85025

== ENCOUNTER → 2021-09-03 08:08 | Outpatient (CLI) | payer OTHER, SELFPAY ==
--- NOTE | 2021-09-03 | CA_ITS ---
APPROVED REPORT Exam: Exercise Treadmill Technologist: Deb Marte Ht: 6 ft 1 in Wt: 213 lbs BSA: 2.21 m2 HR: 48 bpm BP: 142/92 mmHg Indications: Chest pain, Bruit bilat Medical History Medications: Amlodipine,,,,, Lisinopril,,,,, Vitamin B12,,,,, Vitamin D3,,,,, Atorvastatin,,,,, HCTZ,,,,, Carvedilol,,,,, PERCOCET,,,,, Tramadol,,,,, CloPIdogrel,,,,, Vitamin D2,,,,, Trazodone,,,,, Stress Test Details Test: Thai HR Resting HR: 47 bpm Max Heart Rate (APMHR): 167 bpm Max HR Achieved: 116 bpm Target HR (85% APMHR): 141 bpm % of APMHR: 69 Recovery HR: 55 bpm BP Resting BP: 142.0/92.0 mmHg Max BP: 208.0/100.0 mmHg Recovery BP: 153.0/86.0 mmHg ECG Resting ECG: Marked sinus bradycardia, cannot rule out old septal [place], NS T wave abnormalities inferior and lateral Clinical Exercise duration: 09:38 min Highest Stage Achieved: Exercise capacity: 10.1 METs Stress ECG Conclusion Patient exercised 9:38 on Thai Protocol. Test stopped due to shortness of air, fatigue. Symptoms: No chest pain. Brief dizziness in early recovery. Arrhythmias/Ectopy: Occasional PAC ST-T Changes: Normal ST response to exercise. Conclusion: Nondiagnostic GXT to heart rate achieved (65% of PM). Blunted heart rate response on beta wally. Myoview images reported separately. Test Summary Stage 3 03:00 14.0 3.4 99 . 208/100 . . REST . . . . . . . Standing REST 02:51 0.0 0.0 47 . 142/ 92 . . Stage 1 01:00 10.0 1.7 71 . . . . Stage 1 02:00 10.0 1.7 77 . . . . Stage 1 03:00 10.0 1.7 72 . 154/ 98 . . Stage 2 01:00 12.0 2.5 77 . . . . Stage 2 02:00 12.0 2.5 82 . . . . Stage 2 03:00 12.0 2.5 81 . . . . Stage 3 01:00 14.0 3.4 94 . 208/100 . . Stage 3 . . . . . . . Myoview Injected Stage 3 02:00 14.0 3.4 93 . 208/100 . . Stage 3 03:00 14.0 3.4 99 . 208/100 . . Stage 4 00:38 16.0 4.2 109 . . . Stop exercise at 09:38 RECOVERY 01:00 0.0 0.0 78 . . . . RECOVERY 02:00 0.0 0.0 66 . . . . RECOVERY 03:00 0.0 0.0 63 . 206/ 98 . . RECOVERY 04:00 0.0 0.0 62 . 184/ 93 . . RECOVERY 05:00 0.0 0.0 57 . 184/ 93 . . RECOVERY 06:00 0.0 0.0 61 . 153/ 86 . . RECOVERY 07:00 0.0 0.0 59 . 153/ 86 . . RECOVERY 07:23 0.0 0.0 58 . 153/ 86 . . Electronically signed by : Charles Petersen MD 09/04/2021 09:55:59
--- NOTE | 2021-09-03 08:22 | CA_ITS ---
APPROVED REPORT Sampling Theory Teacher: CT Laterality: Bilateral Indications: bruits, DIZZINESS Risk Factors Hypertension: Doppler Spectral Velocity Analysis ECA (R) 103.30/ cm/s ECA (L) 71.80/ cm/s dICA (R) 64.20/26.20 cm/s dICA (L) 69.50/30.50 cm/s Garcia (R) 49.20/23.00 cm/s Garcia (L) 51.30/18.00 cm/s pICA (R) 55.60/19.80 cm/s pICA (L) 48.90/16.10 cm/s dCCA (R) 78.60/23.20 cm/s dCCA (L) 79.30/20.20 cm/s pCCA (R) 105.50/19.50 cm/s pCCA (L) 106.20/26.90 cm/s Vert (R) 53.20/ cm/s Vert (L) 37.40/ cm/s ICA/CCA 0.80 ICA/CCA 0.90 Findings Duplex evaluation demonstrates stenosis of the right proximal internal carotid artery in the range of 20-49%. Duplex evaluation demonstrates stenosis of the left proximal internal carotid artery in the range of 20-49%. Duplex evaluation demonstrates antegrade flow of the bilateral Vertebral Arteries. Thyroid cysts noted. Conclusion Duplex evaluation demonstrates stenosis of the right proximal internal carotid artery in the range of 20-49%. Duplex evaluation demonstrates stenosis of the left proximal internal carotid artery in the range of 20-49%. Duplex evaluation demonstrates antegrade flow of the bilateral Vertebral Arteries. Thyroid cysts noted. Electronically signed by : Luís Zimmerman MD 09/03/2021 16:27:06
--- NOTE | 2021-09-03 09:32 | NM_ITS ---
APPROVED REPORT Exam: Nuclear Stress Test Indication: HTN, FM HX., C.P., SOB, SYNCOPE, FATIGUE, BRUIT KATIE Patient Location: Outpatient Stress Tech: Deb Marte PR Tech:Stephanie Johnston, RL RT (R)(N)(M) Ht: 6 ft 1 in Wt: 220 lbs HR: 48 bpm BSA: 2.24 m2 BMI: 29.0 History: HTN, FM HX., C.P., SOB, SYNCOPE, FATIGUE, BRUIT KATIE PT COULD NOT LAY ON STOMACH FOR PRONE IMAGES DUE TO PAIN IN RT SHOULDER Procedure: Patient exercised on Thai protocol 9:38 minutes and sec, resting heart rate 48 bpm, resting blood pressure 142/96 mmHg, with exercise maximum heart rate achived was 109 bpm which is 65 % of the maximum predicted heart rate and blood pressure was 208/100 mmHg. Test was stopped due to SOA, FATIGUE. Patient denied any complaint of chest pain. Patient has good exercise capacity, achieved 10.0 METs of workload on treadmill, the blood pressure response to exercise was Hypertensive. Electrocardiogram Sinus rhythm, with exercise there is less than 1.[address] segment depression noted from the baseline EKG. The EKG portion of the exercise Myoview is nondiagnostic as patient did not achieve the target heart rate. Cardiac Stress and Resting SPECT Images: Cardiac Stress and Resting SPECT images were obtained using technetium 99m Myoview 30.3 mCi stress and 10.28 mCi at rest. Gated SPECT for analysis of segmental wall motion and calculation of the ejection fraction also done, prone images were not obtained due to patient factors. Cardiac stress and resting SPECT images show a fixed defect in the inferior wall with normal contractility on gated SPECT is likely secondary to soft tissue attenuation, no reversible ischemia seen, computer derived ejection fraction is 47% with no regional wall motion abnormality. Right ventricle is normal size and contractility. Conclusion: 1. The EKG portion of the exercise Myoview is nondiagnostic as patient did not achieve the target heart rate, patient has good exercise capacity achieved 10.0 METS of workload on treadmill, the blood pressure response to exercise was hypertensive, there was no exercise-induced chest discomfort. 2. No obvious scintigraphic evidence of reversible ischemia seen, fixed defect in the inferior wall is likely secondary to soft tissue attenuation. Compared right ejection fraction is 47% with no regional wall motion abnormality, right ventricle is normal size and contractility. Electronically signed by : Charles Petersen MD 09/04/2021 10:51:25
--- NOTE | 2021-09-03 10:52 | HMH.ITSHM ---
Current Home Medications as stated by this patient Freddie Soliman or cash applications representative. []rosuvastatin, levothyroxin, lisinopril, glipizide, omeprazole, metformin, asp
== END ==
PROVIDERS: PCP Emergency Medicine; Visit Provider Emergency Medicine
DX: R07.9 Chest pain, unspecified (principal); R09.89 Other specified symptoms and signs involving the circulatory and respiratory systems
CPT/HCPCS: 78452; 93017; 93880; A9502

== ENCOUNTER → 2021-10-01 07:17 | Outpatient (CLI) | payer OTHER, SELFPAY | PROVIDERS: PCP Emergency Medicine; Visit Provider Emergency Medicine | DX: I10 Essential (primary) hypertension (principal); R94.39 Abnormal result of other cardiovascular function study | CPT/HCPCS: 93225; 93226 ==

== ENCOUNTER → 2021-10-08 08:02 | Outpatient (CLI) | payer OTHER, SELFPAY ==
--- NOTE | 2021-10-08 08:03 | CA_ITS ---
APPROVED REPORT Wooden Tank Erector: Radha Sanchez RVT Study Quality: Good Indications: hypertension Risk Factors Hypertension Renal Artery Doppler Origin (R) 169.0/ cm/sec Proximal (R) 187.8/ cm/sec Mid (R) 147.4/ cm/sec Distal (R) 109.8/ cm/sec Renal Aorta Ratio (R) 0.00 Segmental A. (R) 31.0/12.1 cm/sec RI: 0.60 Segmental A. Sup (R) 31.0/12.1 cm/sec Segmental A. Mid (R) 29.3/13.8 cm/sec Segmental A. Inf (R) 24.1/12.1 cm/sec Origin (L) 98.2/ cm/sec Proximal (L) 117.0/ cm/sec Mid (L) 98.2/ cm/sec Distal (L) 130.0/ cm/sec Renal Aorta Ratio (L) 0.00 Segmental A. (L) 54.4/14.6 cm/sec RI: 0.73 Segmental A. Sup (L) 43.8/22.5 cm/sec Segmental A. Mid (L) 54.4/14.6 cm/sec Segmental A. Inf (L) 37.1/13.3 cm/sec Renal Measurements Kidney Size (R) 11.1x8.1 cm Cortical Thickness (R) 1.4 cm Kidney Size (L) 11.1x6.7 cm Cortical Thickness (L) 1.5 cm Findings Study suggests less than 60% stenosis of the right renal artery. Study suggests no evidence of stenosis of the left renal artery. There is a 2.1 X 1.9 cm hypoechoiec lesion mid pole of left kidney. Consider dedicated renal ultrasound for further evaluation Conclusion Study suggests less than 60% stenosis of the right renal artery. Study suggests no evidence of stenosis of the left renal artery. There is a 2.1 X 1.9 cm hypoechoiec lesion mid pole of left kidney. Consider dedicated renal ultrasound for further evaluation Electronically signed by : Luís Zimmerman MD 10/08/2021 17:19:20
== END ==
PROVIDERS: PCP Emergency Medicine; Visit Provider Emergency Medicine
DX: I10 Essential (primary) hypertension (principal)
CPT/HCPCS: 93976

== ENCOUNTER → 2021-10-16 18:34 | Outpatient (CLI) | payer OTHER, SELFPAY | PROVIDERS: PCP Emergency Medicine; Visit Provider Emergency Medicine | DX: Z20.822 Contact with and (suspected) exposure to COVID-19 (principal) | CPT/HCPCS: C9803; U0003; U0005 ==

== ENCOUNTER → 2021-10-17 07:48 | Outpatient (CLI) | payer OTHER, SELFPAY ==
--- NOTE | 2021-10-17 07:48 | US_ITS ---
PROCEDURE: US KIDNEY CLINICAL INDICATION: COMPARISON: US CA RENAL ARTERY DUPLEX from 10/08/2021 FINDINGS: The right kidney is [id number]. No hydronephrosis, cortical thinning, or renal mass or perinephric fluid collection is evident. The left kidney is [id number]. No hydronephrosis, cortical thinning, or renal mass or perinephric fluid collection is evident. IMPRESSION: Unremarkable bilateral renal ultrasound Dictated by: Luís Zimmerman MD 10/17/2021 18:14 Luís Zimmerman MD in OV 10/17/2021 18:14
== END ==
PROVIDERS: PCP Emergency Medicine; Visit Provider Emergency Medicine
DX: N28.9 Disorder of kidney and ureter, unspecified (principal)
CPT/HCPCS: 76770

== ENCOUNTER → 2022-02-28 17:48 | Outpatient (CLI) | payer OTHER, SELFPAY | PROVIDERS: PCP Emergency Medicine; Visit Provider Physician Assistant | DX: Z01.812 Encounter for preprocedural laboratory examination (principal); Z11.52 Encounter for screening for COVID-19; R07.89 Other chest pain; R55 Syncope and collapse; R00.1 Bradycardia, unspecified; I44.0 Atrioventricular block, first degree; I10 Essential (primary) hypertension; R94.31 Abnormal electrocardiogram [ECG] [EKG] | CPT/HCPCS: C9803; U0003; U0005 ==

== ENCOUNTER 2022-03-02 09:18 | Day surgery (SDC) | payer OTHER, SELFPAY ==
[2022-03-02] VITALS (9 sets, daily range): BP systolic 110–166; BP diastolic 63–109; PULSE 52–87; RESP 18; O2SAT 97–98; BMI 32.1
--- NOTE | 2022-03-02 | IR_ITS ---
APPROVED REPORT Patient Location: Outpatient Blue Leather Sorter: RL Templeton RT (R) PROCEDURES 1. Pocket formation for Permanent Pacemaker Placement. 2. Placement of an atrial sensing and pacing coil into the right atrial appendage. 3. Placement of a ventricular sensing and pacing coil in the right ventricular apex. 4. Permanent Pacemaker Placement. INDICATION 1 AV block, Bradycardia Informed consent was obtained prior to the procedure. COMPLICATIONS NONE Estimated Blood Loss: LESS THAN 10 ML TECHNIQUE 1% Lidocaine with epinephrine used to anesthetized the left anterior aspect of the chest. Scalpel was used to make the initial cutaneous incision while electrocautery was used to dissect down tinto the fascia. The fascia was lifted off the pectoralis muscle and digitally manipulated creating a pocket for the pacemaker. The patient was then placed in Trendelenburg position and the subclavian vein was accessed twice via the Selinger technique, there are two wires in the vein. A 6 Cypriot sheath was placed under fluoroscopic guidance into the subclavian vein over one of the wires while keeping the other wire in place within the subclavian vein. The dilator was removed from the sheath. Using fluoroscopic guidance, the ventricular lead was placed into the right ventricular apex, screwed and secured into place. Electronic interrogation proved acceptable thresholds and voltage within the lead. Using 3-0 silk, the ventricular lead was then secured into place. Lead was secured to the facia using the 3-0 silk. Following this, the sheath was pealed away. An additional 6 Cypriot fresh sheath and dilator was placed over the existing wire. Using fluoroscopic guidance, the atrial lead was the placed into the right atrial appendage and screwed and secured in place. Electrical interrogation demonstrated acceptable thresholds and voltage number. The atrial lead was then secured into place using 3-0 silk. 1 gram of Ancef was used to flush the pocket. Following the pacemaker generator being secured to the fascia and in place, Monocryl was used to close the subcutaneous layers while gary were used to close the cutaneous layer. A pressure dressing was placed and the patient was transferred to the postop holding area in stable condition for postoperative care. INTERROGATION Generator Model number: TakipiROSALBA OLGUIN DR, L311 Generator Serial number: [id number] Atrial lead model number: INGEVITY+ 52CM, 7841 Atrial lead serial number: [id number] P-wave: 4.0mV Impedence: 1.0V@0.4ms Threshold: 719 ohms Right Ventricular lead model number: PHILIP+ 59CM, 7842 Right Ventricular lead serial number: [id number] R-wave: 25.0mV Impedence: 0.5V@0.4ms Threshold: 8700 ohms Pacing Parameters: Mode: DDDR Base/Max Track: 60/130 ppm No diaphragmatic stimulation at 10 volts. IMPRESSION 1. Succesful pocket formation for Permanent Pacemaker Placement. 2. Successful placement of an atrial sensing and pacing coil into the right atrial appendage. 3. Successful placement of a ventricular sensing and pacing coil in the right ventricular apex. 4. Successful Permanent Pacemaker Placement. PLAN 1. Follow up office visit, post op wound care Electronically signed by : Mann Berman MD 03/05/2022 12:09:36
--- NOTE | 2022-03-02 09:25 | XR_ITS ---
FINAL REPORT CLINICAL HISTORY: Confirm pacemaker/AID placement FINDINGS: SINGLE VIEW CHEST. There is cardiomegaly. A left subclavian pacemaker is present. There is pulmonary vascular congestion. The mediastinum is unremarkable. There is mild left lung opacities favoring edema. There is no pneumothorax. IMPRESSION: Mild left lung opacities favoring edema. Reviewed, Interpreted and Dictated by Vaibhav Hathaway III, MD Transcribed by Louise Isidro Authenticated by Vaibhav Hathaway III, MD on 03/02/2022 02:46:55 PM [facility]
[2022-03-02 10:09] LABS: Basophils # 0.2 K/mm3 (0-0.2); Basophils % 2.2 % (0.1-2.0); Eosinophils # 0.3 K/mm3 (0.0-0.4); Hematocrit 46.8 % (42.0-52.0); Hemoglobin 15.4 g/dL (14.1-18.0); Lymphocytes # 1.8 K/mm3 (0.7-4.5); Mean Corpuscular HGB Conc 32.9 g/dL (31.8-35.4); Mean Corpuscular Hemoglobin 32.5 pg (27.0-31.2); Mean Corpuscular Volume 98.6 fl (80-94); Mean Platelet Volume 9.2 fl (7.4-10.4); Monocytes # 0.6 K/mm3 (0.1-1.0); Monocytes % 6.7 % (1.7-9.3); Neutrophils # 6.6 K/mm3 (1.8-7.8); Neutrophils % 69.1 % (37.0-80.0); Platelet Count 187 K/mm3 (142-424); Red Blood Count 4.75 M/mm3 (4.60-6.20); Red Cell Distribution Width 14.3 % (11.5-17.5); White Blood Count 9.6 K/mm3 (4.8-10.8)
[2022-03-02 10:11] LABS: Chloride 105 mmol/L (98-107)
[2022-03-02 10:12] LABS: Potassium 3.8 mmoL/L (3.5-5.1); Sodium 140 mmol/L (136-145)
[2022-03-02 10:14] LABS: Blood Urea Nitrogen 18 mg/dl (9-20); Creatinine Clearance Estimated 118 mL/min (50-200); Estimated Glomerular Filt Rate 70 ml/min (>60); GFR (African American) 85 ML/MIN (>60)
[2022-03-02 10:15] LABS: Anion Gap 10.8 mEq/L (5-15); Calcium 8.9 mg/dl (8.4-10.2); Carbon Dioxide 28 mmol/L (22.0-30.0); Glucose 134 mg/dl (74-100)
== END 2022-03-02 15:17 | disposition home or self-care (01) ==
LOC: CATHLAB 09:20
PROVIDERS: PCP Emergency Medicine; Visit Provider Internal Medicine
DX: I44.0 Atrioventricular block, first degree (principal); Z79.899 Other long term (current) drug therapy; Z88.8 Allergy status to other drugs, medicaments and biological substances; I10 Essential (primary) hypertension; I70.1 Atherosclerosis of renal artery; I25.10 Atherosclerotic heart disease of native coronary artery without angina pectoris; R55 Syncope and collapse
CPT/HCPCS: 33208; 71045; 80048; 85025; C1785; C1898; J2405

== ENCOUNTER 2023-03-18 09:57 | Emergency (ER) | payer OTHER, SELFPAY ==
[2023-03-18 09:58] VITALS: BP 181/82; PULSE 71; RESP 16; TEMP 36.7; O2SAT 98; BMI 28.3
--- NOTE | 2023-03-18 10:21 | HMH.EDGENADL ---
Discharge Plan Disposition Patient Disposition: Home, Self-Care Prescriptions Prescriptions: New Cipro HC 0.2-1 % drops,suspension 3 drp otic (ear) BID 10 Days Qty: 10 0RF azithromycin 250 mg tablet See Rx Instructions .ROUTE .COMPLEX Qty: 6 0RF Rx Instructions: For 250 mg dose pack: take 500 mg today (day 1), then 250 mg for 4 days (days 2-5) cefdinir 300 mg capsule 300 mg PO BID 10 Days Qty: 20 0RF No Action cyanocobalamin (vitamin B-12) 1,000 mcg/mL solution 1,000 mcg IM MONTHLY amlodipine 10 mg tablet 10 mg PO DAILY PRN (Reason: hypertension) 90 Days Qty: 90 1RF cholecalciferol (vitamin D3) 25 mcg (1,000 unit) capsule 1,000 unit PO DAILY 30 Days Qty: 30 1RF clonidine HCl 0.1 mg tablet 0.1 mg PO HS Qty: 30 1RF alprazolam [Xanax] 0.25 mg tablet 0.25 mg PO TID Qty: 90 1RF pregabalin 100 mg capsule 100 mg PO TID PRN (Reason: nerve) Qty: 90 1RF tramadol 50 mg tablet 50 mg PO TID PRN (Reason: breakthrough pain) Qty: 90 1RF oxycodone-acetaminophen [Percocet] 10-325 mg tablet 1 tab PO QID PRN (Reason: pain) Qty: 120 0RF lisinopril 20 mg tablet See Rx Instructions .ROUTE .COMPLEX Qty: 270 0RF Dose Instruction: TAKE 2 TABLET BY MOUTH EVERY MORNING AND 1 AT BEDTIME Rx Instructions: TAKE 2 TABLET BY MOUTH EVERY MORNING AND 1 AT BEDTIME carvedilol 25 mg tablet See Rx Instructions .ROUTE .COMPLEX Qty: 120 0RF Dose Instruction: TAKE 2 TABLETS BY MOUTH TWICE DAILY FOR HIGH BLOOD PRESSURE Rx Instructions: TAKE 2 TABLETS BY MOUTH TWICE DAILY FOR HIGH BLOOD PRESSURE Referrals Follow up/Referrals: Osorio Barroso MD [Primary Care Provider] - See instructions Activity Restrictions/Add. Instructions Additional Instructions/Restrictions: We will make an appointment for you for ENT for next week you should be given information about your appointments before discharge. Return with any changes in mental status high fevers that will not be treated with Tylenol and ibuprofen or worsening of her symptoms after 4872 hours. Clinical Impressions Clinical Impression: Acute right otitis media, External otitis of right ear, Acute mastoiditis without complications, right ear Instructions Patient Instructions: DI for Diarrhea and Traveler's Diarrhea -- Adult, DI for Diarrhea and Traveler's Diarrhea -- Child, DI for Nausea -- Adult, DI for Nausea -- Child Discharge ED Provider: Kristina Richard General Adult HPI General Chief complaint: Nausea/Vomiting/Diarrhea Stated complaint: Fever, ear pain, vomiting Time Seen by Provider: 03/18/23 10:21 History of Present Illness HPI narrative: Patient is a 52-year-old male presenting with severe right ear pain. Had a mild cough that preceded his presentation today which started about a week ago and over the last 4 days has had severe right ear pain. States that any movement of the ear causes severe pain. Denies any swimming or hot tub use. States he has been febrile at home up to 104 orally. No dental pain or preceding sinus pain. No neurologic symptoms. Related Data Home Medications Medication Instructions Recorded Confirmed cyanocobalamin (vitamin B-12) 1,000 mcg IM MONTHLY Supplement 11/20/19 02/05/23 1,000 mcg/mL injection solution Previous Rx's Medication Instructions Recorded alprazolam 0.25 mg tablet (Xanax) 0.25 mg PO TID #90 tabs 02/05/23 amlodipine 10 mg tablet 10 mg PO DAILY PRN hypertension 90 02/05/23 days #90 tabs cholecalciferol (vitamin D3) 25 1,000 unit PO DAILY Supplement 30 02/05/23 mcg (1,000 unit) capsule days #30 caps clonidine HCl 0.1 mg tablet 0.1 mg PO HS #30 tabs 02/05/23 oxycodone-acetaminophen 10 mg-325 1 tab PO QID PRN pain #120 tabs 02/05/23 mg tablet (Percocet) pregabalin 100 mg capsule 100 mg PO TID PRN nerve #90 caps 02/05/23 tramadol 50 mg tablet 50 mg PO TID PRN breakthrough pain 02/05/23 #90 tabs lisinopril 20 mg tablet See Rx Instruction
[2023-03-18 10:30] VITALS: BP 183/95; PULSE 65; O2SAT 98
--- NOTE | 2023-03-18 10:33 | CT_ITS ---
FINAL REPORT TECHNIQUE: After the administration of IV contrast, axial images through the temporal bones was performed by computed tomography. Sagittal and coronal reformatted images were obtained and reviewed. This study was performed with techniques to keep radiation doses as low as reasonably achievable (ALARA). Individualized dose reduction techniques using automated exposure control or adjustment of mA and/or kV according to the patient's size were employed. CLINICAL HISTORY: severe right ear pain, fever to 104, mastoid ttp FINDINGS: Right temporal bone: The internal auditory canal has an unremarkable appearance. The inner ear structures are unremarkable. The external auditory canal has an unremarkable appearance. No abnormality is identified of the middle ear cavity. The ossicles are intact. The mastoid air cells and mastoid antrum have an unremarkable appearance. No bony mass is identified. Left temporal bone: The internal auditory canal has an unremarkable appearance. The inner ear structures are unremarkable. There is fluid or debris in the right external auditory canal. There is partial opacification of the right middle ear cavity. The ossicles are intact. There is partial opacification of multiple mastoid air cells. No bony mass is identified. There is mucosal thickening in multiple sinuses. There is no evidence of abnormal contrast enhancement on the postcontrast images. IMPRESSION: Right otomastoiditis. Small amount of fluid in several left mastoid air cells. Widespread sinusitis. Reviewed, Interpreted and Dictated by Vaibhav Hathaway III, MD Transcribed by Keiko Cope Authenticated and . [facility]
[2023-03-18 10:45] LABS: Basophils % 0.4 % (0.1-2.0); Eosinophils % 0.1 % (0.1-12.0); Hematocrit 41.5 % (42.0-52.0); Hemoglobin 14.4 g/dL (14.1-18.0); Lymphocytes # 1.9 K/mm3 (0.7-4.5); Mean Corpuscular HGB Conc 34.8 g/dL (31.8-35.4); Mean Corpuscular Hemoglobin 32.5 pg (27.0-31.2); Mean Corpuscular Volume 93.3 fl (80-94); Mean Platelet Volume 9.8 fl (7.4-10.4); Monocytes # 0.7 K/mm3 (0.1-1.0); Neutrophils # 7.4 K/mm3 (1.8-7.8); Neutrophils % 73.6 % (37.0-80.0); Platelet Count 135 K/mm3 (142-424); Red Blood Count 4.44 M/mm3 (4.60-6.20); Red Cell Distribution Width 13.9 % (11.5-17.5)
[2023-03-18 10:46] LABS: Chloride 99 mmol/L (98-107); Potassium 3.2 mmoL/L (3.5-5.1); Sodium 138 mmol/L (136-145)
[2023-03-18 10:49] LABS: Alanine Aminotransferase 22 U/L (12-78); Albumin Level 4.2 g/dl (3.5-5.0); Albumin/Globulin Ratio 1.1 (1.1-1.8); Alkaline Phosphatase 73 U/L (38-126); Anion Gap 12.2 mEq/L (5-15); Aspartate Amino Transferase 29 U/L (17-59); Bilirubin,Total 0.6 mg/dl (0.2-1.3); Blood Urea Nitrogen 10 mg/dl (9-20); Calcium 8.4 mg/dl (8.4-10.2); Carbon Dioxide 30 mmol/L (22.0-30.0); Creatinine Clearance Estimated 106 mL/min (50-200); Estimated Glomerular Filt Rate 70 ml/min (>60); GFR (African American) 84 ML/MIN (>60); Globulin 3.7 g/dL (1.3-3.2); Glucose 115 mg/dl (74-100); Total Protein,Serum 7.9 g/dl (6.3-8.2)
[2023-03-18 10:55] LABS: C-Reactive Protein 85.2 mg/L (0-4)
[2023-03-18 11:03] VITALS: BP 203/97; PULSE 68; O2SAT 98
[2023-03-18 11:41] LABS: Erythrocyte Sedimentation Rate 38 mm/hr (0-20)
[2023-03-18 12:07] VITALS: BP 163/85; PULSE 66; O2SAT 96
--- NOTE | 2023-03-18 12:47 | PC.NURSE ---
Rounded on patient, no needs at this time. SO at BS. Call light within reach
[2023-03-18 14:05] VITALS: BP 170/88; PULSE 64; RESP 20; TEMP 36.7; O2SAT 99
[2023-03-18 14:07] VITALS: BP 170/88; PULSE 64; RESP 17; TEMP 36.7; O2SAT 98
== END 2023-03-18 14:09 | disposition home or self-care (01) ==
PROVIDERS: Emergency Provider Student in an Organized Health Care Education/Training Program; PCP Emergency Medicine
DX: H70.001 Acute mastoiditis without complications, right ear (principal); R50.9 Fever, unspecified
CPT/HCPCS: 70481; 80053; 85025; 85651; 86140; 96360; 96374; 96375; 99285; J2405; Q9967

== ENCOUNTER → 2023-06-08 17:04 | Outpatient (CLI) | payer OTHER, SELFPAY ==
[2023-06-08 17:58] LABS: Amphetamine/Metha Screen,Urine Negative ng/ml (<1000)
[2023-06-08 17:59] LABS: Barbiturates Screen,Urine Negative ng/ml (<200)
[2023-06-08 18:00] LABS: Benzodiazepines Screen,Urine Negative ng/ml (<200)
[2023-06-08 18:01] LABS: Cannabinoid Screen,Urine Negative ng/ml (<50)
[2023-06-08 18:02] LABS: Cocaine Screen,Urine Negative ng/ml (<300); Methadone Screen,Urine Negative ng/ml (<300)
[2023-06-08 18:03] LABS: Opiate Screen,Urine Positive ng/ml (<300)
[2023-06-08 18:04] LABS: Phencyclidine Screen,Urine Negative ng/ml (<25)
== END ==
PROVIDERS: PCP Emergency Medicine; Visit Provider Emergency Medicine
DX: Z79.899 Other long term (current) drug therapy (principal)
CPT/HCPCS: 80305

== ENCOUNTER 2023-10-23 14:43 | Inpatient (IN) | payer OTHER, SELFPAY ==
[2023-10-23] VITALS (14 sets, daily range): BP systolic 156–197; BP diastolic 83–107; PULSE 57–71; RESP 14–24; TEMP 36.4–38.2; O2SAT 95–100; BMI 28.3; BMI 29.1
--- NOTE | 2023-10-23 14:55 | ECG_ITS ---
APPROVED REPORT Exam: Resting ECG HR:60 bpm ECG Measurements Heart Rate 60 AXES AR 263 P 65 QRSd 128 QRS 39 QT 414 T 24 QTc 416 Conclusion ELECTRONIC ATRIAL PACEMAKER POSSIBLE INFERIOR MYOCARDIAL INFARCTION , PROBABLY OLD [30 ms Q WAVE IN II/aVF] ABNORMAL RHYTHM ECG UNCONFIRMED REPORT Electronically signed by : Pedrito Fernández MD 10/25/2023 08:25:30
--- NOTE | 2023-10-23 15:14 | XR_ITS ---
PROCEDURE INFORMATION: Exam: XR Right Shoulder Exam date and time: 10/23/2023 3:28 PM Age: 53 years old Clinical indication: Pain; Shoulder; Right; Additional info: Shoulder pain TECHNIQUE: Imaging protocol: Radiologic exam of the right shoulder. Views: 2 or more views. COMPARISON: [facility] [id number] 01/13/2017 11:07 AM FINDINGS: Bones/joints: No evidence of acute fracture or malalignment. Moderate chronic humeral degenerative osteoarthrosis with bulky marginal osteophyte along the inferior margin of the humeral head and subchondral sclerotic changes in the inferior glenoid. Mild degenerative acromioclavicular osteoarthrosis. Soft tissues: Unremarkable. IMPRESSION: 1. No evidence of acute osseous abnormality in the right shoulder. 2. Degenerative osteoarthrosis, as above.
--- NOTE | 2023-10-23 15:14 | XR_ITS ---
PROCEDURE INFORMATION: Exam: XR Right Hip Exam date and time: 10/23/2023 3:32 PM Age: 53 years old Clinical indication: Hip pain; Right hip; Additional info: Right hip pain TECHNIQUE: Imaging protocol: Radiologic exam of the right hip. Views: 2 or 3 views hip with pelvis when performed. COMPARISON: CR XR PELVIS 1-2V 04/15/2021 9:58 PM FINDINGS: Bones/joints: No evidence of acute fracture or malalignment. Pubic symphysis and bilateral sacroiliac joints are congruent. Soft tissues: Unremarkable. IMPRESSION: No evidence of acute osseous abnormality in the right hip.
--- NOTE | 2023-10-23 15:14 | XR_ITS ---
PROCEDURE INFORMATION: Exam: XR Chest Exam date and time: 10/23/2023 3:28 PM Age: 53 years old Clinical indication: Dyspnea; Prior surgery; Surgery date: 6+ months; Surgery type: Pacemaker TECHNIQUE: Imaging protocol: Radiologic exam of the chest. Views: 1 view. COMPARISON: CR XR CHEST PORTABLE 03/02/2022 1:04 PM FINDINGS: Tubes, catheters and devices: AICD in place, with leads appearing to be in stable position accounting for differences in technique. Lungs: No evidence of acute airspace consolidation. No pulmonary edema. Pleural spaces: No significant pleural effusion. No pneumothorax. Heart/Mediastinum: Cardiomediastinal silouhette is within normal limits. Bones/joints: No evidence of acute osseous abnormality. IMPRESSION: No evidence of acute cardiopulmonary disease.
--- OUTSIDE RECORDS SUMMARY | 2023-10-23 15:15 | XMS_ITS | Clinical Summary ---
Author Name Unknown Address [address] [place] [address] Phone Organization [facility] Address [address] [place] [address] Phone Care Team Providers Care Nurseryman Assistant Name Role Phone Unavailable Unavailable Conditions or Problems No information available. Medications No information available. Medications Administered No information available. Allergies, Adverse Reactions, Alerts No information available. Results No information available. Plan of Care No information available. Procedures No information available. Vital Signs No information available. Immunizations No information available. Advance Directives No information available.
--- NOTE | 2023-10-23 15:18 | HMH.EDCP ---
Discharge Plan Disposition Patient Disposition: Admitted Condition: Fair Clinical Impressions Clinical Impression: Severe sepsis, Nausea vomiting and diarrhea, Cough, JUANITA (acute kidney injury), Acute dehydration, Myocardial injury, Hypokalemia Discharge ED Provider: Mike Giron HPI <Kristina Richard MD - Last Filed: 10/23/23 16:39> General Chief Complaint: Shortness of Breath/Dyspnea Stated Complaint: fever, cough, shoulder/hip pain, heart feels funny Time Seen by Provider: 10/23/23 14:59 Mode of Arrival: Ambulatory Source of Information: Patient Limitations: No Limitations Description of Symptoms (Recalled from ER Triage Doc. by RN): Presenets to ED with c/o low grade temp. x 1 week and V/D that started last night at approx. 0330 that followed with SOA and chest discomfort. Patient further reports chronic shoulder pain that has worsened as well as hip pain. PMH: HTN, 1 stent placed, and a pacemaker. +Brilinita. History of Present Illness HPI narrative: Is a 53-year-old male presents today with multiple complaints. States he had nausea vomiting diarrhea and cough and a low-grade fever up to 100.1 at home over the last several days. Also states he is having right shoulder pain and right hip pain to the point where he was having a hard time ambulating and moving around last night. Patient has full range of motion in his right shoulder and his right hip. Has known osteoarthritis in those regions. Also complains of some chest discomfort after vomiting last night states he feels like there is some pressure around his heart or that he strained a muscle around his heart. Also complains of shortness of breath. Related Data Home Medications Medication Instructions Recorded Confirmed rosuvastatin 40 mg tablet 40 mg PO DAILY Cholesterol 10/01/23 10/24/23 ticagrelor 90 mg tablet (Brilinta) 90 mg PO BID Blood Thinner 10/01/23 10/24/23 carvedilol 25 mg tablet 50 mg PO BIDWMEAL High Blood 10/24/23 10/24/23 Pressure oxycodone-acetaminophen 10 mg-325 1 tab PO QIDP PRN Moderate Pain 10/24/23 10/24/23 mg tablet (Scale Score 5-6) pregabalin 100 mg capsule 100 mg PO TIDP PRN NERVE PAIN 10/24/23 10/24/23 tramadol 50 mg tablet 50 mg PO TIDP PRN Breakthrough 10/24/23 10/24/23 Pain, Severe Previous Rx's Medication Instructions Recorded cholecalciferol (vitamin D3) 25 1,000 unit PO DAILY Supplement 30 02/05/23 mcg (1,000 unit) capsule days #30 caps allopurinol 100 mg tablet 100 mg PO DAILY 30 days #30 tabs 10/25/23 hydralazine 25 mg tablet 25 mg PO TIDP PRN SBP >170 30 days 10/25/23 #90 tabs irbesartan 300 mg tablet 300 mg PO DAILY 30 days #30 tabs 10/25/23 nifedipine 60 mg tablet,extended 60 mg PO BID 30 days #60 tabs 10/25/23 release spironolactone 50 mg tablet 50 mg PO DAILY 30 days #30 tabs 10/25/23 Allergies Allergy/AdvReac Type Severity Reaction Status Date / Time Androgenic Anabolic Steroid Allergy Mild Verified 10/23/23 17:42 aspirin [ASPIRIN] Allergy Unknown FACIAL Verified 10/23/23 17:42 SWELLING Penicillins [PENICILLINS] Allergy Unknown FACIAL Verified 10/23/23 17:42 SWELLING Sulfa (Sulfonamide Allergy Unknown Verified 10/23/23 17:42 Antibiotics) [SULFA (SULFONAMIDE ANTIBIOTICS)] morphine AdvReac Mild Vomiting Verified 10/23/23 17:42 [facility] <Kristina Richard MD - Last Filed: 10/23/23 16:39> [facility] Disclaimer: The information contained in this section may have been updated after the patient was seen, as this information can be updated by other users. Medical History (Updated 10/25/23 @ 12:00 by Karina Saleh APRN) 1st degree AV block Abnormal electrocardiography JUANITA (acute kidney injury) Bradycardia Bright's disease Cardiac pacemaker in situ Chest pain Chronic serous otitis media of right ear Coronary artery disease Femur fracture, left Hearing loss in right ear History of left heart catheterization (LHC) HTN (hypertension) Hyperlipidemia Impacted cerumen of right ear Non-ST
[2023-10-23 15:27] LABS: Basophils # 0.1 K/mm3 (0-0.2); Basophils % 0.4 % (0.1-2.0); Eosinophils # 0.3 K/mm3 (0.0-0.4); Eosinophils % 2.7 % (0.1-12.0); Lymphocytes # 3.1 K/mm3 (0.7-4.5); Lymphocytes % 24.8 % (10-50); Mean Corpuscular HGB Conc 33.3 g/dL (31.8-35.4); Mean Corpuscular Hemoglobin 32.4 pg (27.0-31.2); Mean Corpuscular Volume 97.3 fl (80-94); Mean Platelet Volume 9.5 fl (7.4-10.4); Monocytes # 0.7 K/mm3 (0.1-1.0); Monocytes % 5.3 % (1.7-9.3); Neutrophils # 8.3 K/mm3 (1.8-7.8); Neutrophils % 66.8 % (37.0-80.0); Platelet Count 202 K/mm3 (142-424); Red Cell Distribution Width 14.2 % (11.5-17.5); White Blood Count 12.4 K/mm3 (4.8-10.8)
--- NOTE | 2023-10-23 15:28 | PC.NURSE ---
Rounded on patient call light within reach
[2023-10-23 15:31] LABS: Alanine Aminotransferase 38 U/L (12-78); Alkaline Phosphatase 104 U/L (38-126); Aspartate Amino Transferase 41 U/L (17-59); Bilirubin,Total 0.3 mg/dl (0.2-1.3); Blood Urea Nitrogen 31 mg/dl (9-20); Carbon Dioxide 33 mmol/L (22.0-30.0); Chloride 100 mmol/L (98-107); Creatinine Clearance Estimated 64 mL/min (50-200); Estimated Glomerular Filt Rate 39 ml/min (>60); GFR (African American) 48 ML/MIN (>60); Glucose 151 mg/dl (74-100); Magnesium 2.1 mg/dl (1.6-2.3); Phosphorous 2.5 mg/dl (2.5-4.5)
[2023-10-23 15:32] LABS: Lipase 85 U/L (23-300)
[2023-10-23 15:33] LABS: Albumin Level 4.4 g/dl (3.5-5.0); Albumin/Globulin Ratio 1.2 (1.1-1.8); Anion Gap 7.9 mEq/L (5-15); Globulin 3.6 g/dL (1.3-3.2); Sodium 138 mmol/L (136-145)
[2023-10-23 15:36] LABS: D-Dimer 2.01 ug/mL (0.0-0.5)
[2023-10-23 15:39] LABS: Potassium 2.9 mmoL/L (3.5-5.1)
[2023-10-23 15:45] LABS: NT Pro Brain Natriuretic Pep. 389 pg/mL (0-125); Troponin I 0.04 ng/ml (0.00-0.034)
--- NOTE | 2023-10-23 15:52 | CT_ITS ---
PROCEDURE INFORMATION: Exam: CTA Chest With Contrast Exam date and time: 10/23/2023 4:17 PM Age: 53 years old Clinical indication: Shortness of breath; Prior surgery; Surgery date: 6+ months; Surgery type: Pacemaker; Additional info: Cp, SOA, dimer 2 TECHNIQUE: Imaging protocol: Computed tomographic angiography of the chest with contrast. Exam focused on the arteries. 3D rendering (Not supervised by radiologist): MIP and/or 3D reconstructed images were created by the technologist. Radiation optimization: All CT scans at this facility use at least one of these dose optimization techniques: automated exposure control; mA and/or kV adjustment per patient size (includes targeted exams where dose is matched to clinical indication); or iterative reconstruction. Contrast material: ISOVUE; Contrast volume: 70 ml; Contrast route: INTRAVENOUS (IV); REPORTING DATA: Count of CT and Cardiac NM exams in prior 12 months: This patient has received [address] and 0 known cardiac nuclear medicine studies in the 12 months prior to the current study. COMPARISON: CR XR CHEST PORTABLE 10/23/2023 3:28 PM FINDINGS: Tubes, catheters and devices: AICD in place with lead tips in appropriate position. Pulmonary arteries: No evidence of pulmonary embolism. Aorta: No aortic dissection or aneurysm. Lungs: No evidence of acute airspace consolidation. No pulmonary edema. Click pulmonary granuloma Pleural spaces: No pneumothorax. No pleural effusion. Heart: No cardiomegaly. No significant pericardial effusion. Lymph nodes: Calcified lymph nodes consistent with chronic sequelae of prior granulomatous disease. No pathologically enlarged lymph nodes by CT criteria. Stomach and bowel: Radiopaque 2.5 x 1.0 cm tablet-like object is noted in the gastric fundus with an identical presumed tablet/oral medication retained in the upper esophagus suggestive of dysphasia. Bones/joints: Multi-level bridging disc osteophytes in the mid thoracic spine compatible with diffuse idiopathic skeletal hyperostosis (DISH). No evidence of acute osseous abnormality. Soft tissues: Gynecomastia. IMPRESSION: 1. No evidence of pulmonary embolism or other acute cardiopulmonary process. 2. Radiopaque 2.5 x 1.0 cm presumed tablet/oral medication retained in the upper esophagus suggestive of dysphasia. No evidence of obstructing mass in the esophagus or mediastinum. 3. Gynecomastia. 4. Diffuse idiopathic skeletal hyperostosis (DISH).
[2023-10-23 15:58] LABS: Erythrocyte Sedimentation Rate 102 mm/hr (0-20)
[2023-10-23 16:24] LABS: Lactic Acid 1.6 mmol/L (0.7-2.1)
[2023-10-23 16:25] LABS: Adenovirus,PCR Not Detected (NotDetected); Coronavirus 19, PCR Not Detected (NotDetected); Coronavirus 229E Not Detected (NotDetected); Coronavirus NL63 Not Detected (NotDetected); Coronavirus OC43 Not Detected (NotDetected); Coronovirus HKU1,PCR Not Detected (NotDetected); Human Metapneumovirus Not Detected (NotDetected); Influenza A, PCR Not Detected (NotDetected); Influenza AH1, 2009 Not Detected (NotDetected); Influenza AH1, PCR Not Detected (NotDetected); Influenza AH3,PCR Not Detected (NotDetected); Influenza B, PCR Not Detected (NotDetected); Parainfluenza 1, PCR Not Detected (NotDetected); Parainfluenza 2, PCR Not Detected (NotDetected); Parainfluenza 3, PCR Not Detected (NotDetected); Parainfluenza 4, PCR Not Detected (NotDetected); Respiratory Syncytial Virus Not Detected (NotDetected); Rhinovirus/Enterovirus Not Detected (NotDetected)
--- NOTE | 2023-10-23 16:32 | PC.NURSE ---
called pharmacy machine container washer for vanc consult
--- NOTE | 2023-10-23 16:33 | PC.NURSE ---
SPEAKING WITH (HOSPITALIST) ABOUT A POSSIBLE ADMIT
--- NOTE | 2023-10-23 16:41 | PC.NURSE ---
Rounded on patient; call light within reach
--- NOTE | 2023-10-23 16:47 | EXP.HP ---
History of Present Illness *Admission Date: 10/23/23 *Reason for visit:: fatigue, pain, nausea and vomiting *History of present illness: Mr. Soliman 53-year-old gentleman with history of difficult to control hypertension, pacemaker placement, CAD, Bright disease , and arthritis. He presented to the ER today because of almost a week of low-grade temperature (Tmax 101), and onset of nausea and vomiting over the past 48 hours. He developed acute worsening of pain in the past 24 hours in his right shoulder and right hip. Denies any blood in his vomit or stool. Pain in his shoulders and hip have been so bad that he has been crawling around on the floor to get around. Complaining of some chest discomfort from his vomiting feeling like he has strained his heart. Some intermittent shortness of breath. No loss of consciousness or syncope. Extensive discussion with patient and at bedside about his cardiac history, blood pressure, chronic pain. He states that he has had a few heart caths. His blood pressure has been very difficult to control for years. Has wide fluctuations with common finding of blood pressure 220/120. Of note had a stent placed at [facility] on September 01. At that time his creatinine was reported to be 1.5-1.6. Has had no labs since to assess for improvement. Still making urine. Has not felt well since starting meds at that time. Of note Natan is new after his cath and he has been on a new blood pressure medication which includes chlorthalidone for the past 2-1/2 to 3 months. Workup in the ER concerning for sepsis with organ dysfunction given creatinine 1.8, tachypnea, leukocytosis of 12, and fevers. Unclear source. ER requested admission for further management. Initiated on broad-spectrum antibiotics with fluid bolus in the ER. Cultures obtained. On arrival to the floor, reviewed patient's history further. 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 There is uncertainty as to whether he seen a utilization management nurse before. Does not recall ever having had a renal biopsy. No known history of gout, Given his polyarthritis, I added uric acid to his labs prior to arrival to the floor. Uric acid noted to be 9.5. Review of chart shows that he had a renal ultrasound and 2020 with duplex as well. Normal renal ultrasound with no thinning of the cortices. Less than 60% stenosis of right renal artery. No stenosis on the left. [facility] Disclaimer: The information contained in this section may have been updated after the patient was seen, as this information can be updated by other users. Medical History 1st degree AV block Abnormal electrocardiography Bradycardia Bright's disease Chest pain Chronic serous otitis media of right ear Femur fracture, left Hearing loss in right ear History of left heart catheterization (LHC) HTN (hypertension) Impacted cerumen of right ear Symptomatic bradycardia Syncope Tympanosclerosis, right ear Surgical History History of back surgery History of facial surgery Family History Family history of myocardial infarction Father Mother Social History Smoking Status: Never smoker alcohol intake: current substance use type: denies use current occupational status: employed Travel in the last 8 weeks: None household members: spouse housing: house Review of Systems Review of Systems Review of systems (narrative): 14 point review of systems performed, pertinent positives and negatives as per HPI Meds Home Medications and Allergies Home Medications Medication Instructions Recorded Confirmed Type cholecalciferol (vitamin D3) 25 1,000 unit PO DAILY Supplement 02/05/23 10/23/23 Rx mcg (1,000 unit) capsule days #30 caps carvedilol 25 mg tablet See Rx Instructions .Rou
[2023-10-23 16:52] LABS: Uric Acid 9.5 mg/dl (3.5-8.5)
--- NOTE | 2023-10-23 17:19 | PC.NURSE ---
Rounded on patient and . Nothing needed at this time. Call light within reach of patient
--- NOTE | 2023-10-23 17:20 | PC.NURSE ---
Called report to Jono MARC
[2023-10-23 17:25] LABS: Microscopic, Urine URINE MICROSCOPIC (MICROSCOPIC)
[2023-10-23 17:32] LABS: Appearance,Urine CLEAR (Clear); Bilirubin,Urine Negative (Negative); Blood, Urine TRACE-I (Negative); Color,Urine YELLOW (Yellow); Glucose,Urine (UA) Negative (Negative); Ketones,Urine Negative (Negative); Leukocyte Esterase,Urine Negative (Negative); Nitrate,Urine Negative (Negative); Protein,Urine Negative (Negative); Specific Gravity, Urine 1.015 (1.005-1.030); Urobilinogen,Urine 0.2 EU/dl (0.2)
--- NOTE | 2023-10-23 17:34 | PC.NURSE ---
arrived to floor by stretcher from ED
[2023-10-23 17:53] LABS: RBC,Urine Occasional #/hpf (0-3); Squamous Epithelial Cell,Urine Occasional #/hpf (0-5)
[2023-10-23 18:35] LABS: Troponin I 0.05 ng/ml (0.00-0.034)
[2023-10-23 21:34] LABS: Troponin I 0.06 ng/ml (0.00-0.034)
[2023-10-24] VITALS (7 sets, daily range): BP systolic 122–169; BP diastolic 76–103; PULSE 60–62; RESP 18–22; TEMP 36.5–37.2; O2SAT 97–100
--- NOTE | 2023-10-24 01:05 | ECG_ITS ---
APPROVED REPORT Exam: Resting ECG HR:63 bpm ECG Measurements Heart Rate 63 AXES ND 264 P 84 QRSd 100 QRS 35 QT 415 T 8 QTc 423 Conclusion ELECTRONIC ATRIAL PACEMAKER SEPTAL MYOCARDIAL INFARCTION , PROBABLY OLD [40+ ms Q WAVE IN V1/V2] MODERATE T-WAVE ABNORMALITY, CONSIDER LATERAL ISCHEMIA [-0.1+ mV T-WAVE IN I/aVL/V5/V6] ABNORMAL ECG UNCONFIRMED REPORT Electronically signed by : Pedrito Fernández MD 10/27/2023 18:29:32
--- NOTE | 2023-10-24 01:24 | PC.NURSE ---
Addendum entered by Sri Alvares RN 10/24/23 01:50: Patient is back in bed states chest discomfort is gone and no longer SOB. No new needs Original Note: With 1am round patient complained of chest discomfort and shortness of breath. Patient states he has been dealing with the same issues since the pacemaker was placed months ago. VS were obtained BP was 154/93 HR was 63, O2 was 98% on RA. RN obtained an EKG and looks unchanged form the first one in the ER. The patient states that this feels no different than what he had been dealing with. RN educated patient that if it got worse to please let RN know and we got up into the chair to help with SOB. Patient remains on tele where he is paced. No other issues at this time.
--- NOTE | 2023-10-24 05:13 | PC.NURSE ---
Patient has had a decent night. Has not slept much. Has been up to the chair a couple times and up to the bathroom. Still complaining of hip pain and shoulder pain. See pervious noted about chest discomfort through the night. No other issues noted by patient
[2023-10-24 07:42] LABS: Basophils % 0.2 % (0.1-2.0); Eosinophils # 0.4 K/mm3 (0.0-0.4); Eosinophils % 5.2 % (0.1-12.0); Hematocrit 37.9 % (42.0-52.0); Hemoglobin 13.2 g/dL (14.1-18.0); Lymphocytes # 2.1 K/mm3 (0.7-4.5); Lymphocytes % 28.6 % (10-50); Mean Corpuscular HGB Conc 34.9 g/dL (31.8-35.4); Mean Corpuscular Hemoglobin 33.6 pg (27.0-31.2); Mean Corpuscular Volume 96.3 fl (80-94); Mean Platelet Volume 9.5 fl (7.4-10.4); Monocytes # 0.6 K/mm3 (0.1-1.0); Monocytes % 8.1 % (1.7-9.3); Neutrophils # 4.4 K/mm3 (1.8-7.8); Neutrophils % 57.9 % (37.0-80.0); Platelet Count 191 K/mm3 (142-424); Red Blood Count 3.93 M/mm3 (4.60-6.20); Red Cell Distribution Width 13.9 % (11.5-17.5); White Blood Count 7.5 K/mm3 (4.8-10.8)
[2023-10-24 07:56] LABS: Alanine Aminotransferase 34 U/L (12-78); Alkaline Phosphatase 95 U/L (38-126); Aspartate Amino Transferase 40 U/L (17-59); Bilirubin,Total 0.5 mg/dl (0.2-1.3); Blood Urea Nitrogen 21 mg/dl (9-20); Calcium 8.8 mg/dl (8.4-10.2); Carbon Dioxide 31 mmol/L (22.0-30.0); Chloride 103 mmol/L (98-107); Creatinine Clearance Estimated 93 mL/min (50-200); Estimated Glomerular Filt Rate 57 ml/min (>60); GFR (African American) 69 ML/MIN (>60); Glucose 127 mg/dl (74-100); Magnesium 1.7 mg/dl (1.6-2.3)
[2023-10-24 07:58] LABS: Albumin/Globulin Ratio 1.2 (1.1-1.8); Anion Gap 7.2 mEq/L (5-15); Globulin 3.4 g/dL (1.3-3.2); Potassium 3.2 mmoL/L (3.5-5.1); Sodium 138 mmol/L (136-145); Total Protein,Serum 7.4 g/dl (6.3-8.2)
[2023-10-24 08:02] LABS: C-Reactive Protein 12.7 mg/L (0-4)
--- NOTE | 2023-10-24 08:13 | EXP.PHA.CONS ---
Pharmacy Consult Date: 10/24/23 Time: 08:14 Referring provider: DR AREVALO Reason for Consult:: VANCOMYCIN DOSING CONSULT Allergies Allergy/AdvReac Type Severity Reaction Status Date / Time Androgenic Anabolic Steroid Allergy Mild Verified 10/23/23 17:42 aspirin [ASPIRIN] Allergy Unknown FACIAL Verified 10/23/23 17:42 SWELLING Penicillins [PENICILLINS] Allergy Unknown FACIAL Verified 10/23/23 17:42 SWELLING Sulfa (Sulfonamide Allergy Unknown Verified 10/23/23 17:42 Antibiotics) [SULFA (SULFONAMIDE ANTIBIOTICS)] morphine AdvReac Mild Vomiting Verified 10/23/23 17:42 Home Medications Medication Instructions Recorded Confirmed Type cholecalciferol (vitamin D3) 25 1,000 unit PO DAILY Supplement 30 02/05/23 10/23/23 Rx mcg (1,000 unit) capsule days #30 caps carvedilol 25 mg tablet See Rx Instructions .Route 07/19/23 10/23/23 Rx .COMPLEX #120 tabs azilsartan medoxomil 40 1 tab PO DAILY 08/05/23 10/23/23 History mg-chlorthalidone 25 mg tablet (Edarbyclor) hydralazine 25 mg tablet 25 mg PO Q6H 08/05/23 10/23/23 History amlodipine 10 mg tablet 10 mg PO DAILY 10/01/23 10/23/23 History oxycodone-acetaminophen 10 mg-325 1 tab PO QID PRN pain #120 tabs 10/01/23 10/23/23 Rx mg tablet (Percocet) pregabalin 100 mg capsule 100 mg PO TID PRN nerve #90 caps 10/01/23 10/23/23 Rx rosuvastatin 40 mg tablet 40 mg PO DAILY 10/01/23 10/23/23 History ticagrelor 90 mg tablet (Brilinta) 90 mg PO BID 10/01/23 10/23/23 History tramadol 50 mg tablet 50 mg PO TID PRN breakthrough pain 10/01/23 10/23/23 Rx #90 tabs New Prescriptions to Start Prescriptions: Height: 1.85 m Weight: 102.739 kg Laboratory Results:: Laboratory Results - last 24 hr 10/23/23 14:59: WBC 12.4 H, RBC 4.00 L, Hgb 13.0 L, Hct 39.0 L, MCV 97.3 H, MCH 32.4 H, MCHC 33.3, RDW 14.2, Plt Count 202, MPV 9.5, Neut % (Auto) 66.8, Lymph % (Auto) 24.8, [place] % (Auto) 5.3, Eos % (Auto) 2.7, Baso % (Auto) 0.4, Neut # (Auto) 8.3 H, Lymph # (Auto) 3.1, [place] # (Auto) 0.7, Eos # (Auto) 0.3, Baso # (Auto) 0.1, ESR 102 H, D-Dimer 2.01 H, Sodium 138, Potassium 2.9 L*, Chloride 100, Carbon Dioxide 33 H, Anion Gap 7.9, BUN 31 H, Creatinine 1.80 H, Estimated Creat Clear 64, Estimated GFR 39 L, Est GFR ( Amer) 48 L, Glucose 151 H, Uric Acid 9.5 H, Calcium 9.0, Phosphorus 2.5, Magnesium 2.1, Total Bilirubin 0.3, AST 41, ALT 38, Alkaline Phosphatase 104, Troponin I 0.04 H, C-Reactive Protein 17.0 H, NT-Pro-B Natriuret Pep 389 H, Total Protein 8.0, Albumin 4.4, Globulin 3.6 H, Albumin/Globulin Ratio 1.2, Lipase 85 10/23/23 15:59: Lactate 1.6 10/23/23 16:12: Chlamy pneumoniae PCR TNP, Adenovirus (PCR) Not detected, B. pertussis DNA (PCR) TNP, Coronavirus OC43 (PCR) Not detected, Coronavirus HKU1 (PCR) Not detected, Coronavirus 229E (PCR) Not detected, SARS-CoV-2 (PCR) Not detected, Coronavirus NL63 (PCR) Not detected, Human Metapneumovir PCR Not detected, Influenza A (H1) PCR Not detected, Influ A (H1N1/09) PCR Not detected, Influenza A (H3) PCR Not detected, Influenza Type A (PCR) Not detected, Influenza Type B (PCR) Not detected, M. pneumoniae (PCR) TNP, Parainfluenza 1 (PCR) Not detected, Parainfluenza 2 (PCR) Not detected, Parainfluenza 3 (PCR) Not detected, Parainfluenza 4 (PCR) Not detected, RSV (PCR) Not detected, Entero/Rhino (PCR) Not detected 10/23/23 17:20: Urine Color Yellow, Urine Appearance Clear, Urine pH 6.0, Ur Specific [place] 1.015, Urine Protein Negative, Urine Glucose (UA) Negative, Urine Ketones Negative, Urine Blood Trace-i, Urine Nitrate Negative, Urine Bilirubin Negative, Urine Urobilinogen 0.2, Ur Leukocyte Esterase Negative, Urine RBC Occasional, Urine WBC None, Ur Squamous Epith Cells Occasional, Urine Bacteria None 10/23/23 18:06: Troponin I 0.05 H 10/23/23 20:47: Troponin I 0.06 H 10/24/23 06:00: Sodium 138, Potassium 3.2 L, Chloride 103, Carbon Dioxide 31 H, Anion Gap 7.2, BUN 21 H D, Creatinine 1.30 H D, Estimated Creat Clear 93, Estimated GFR
--- NOTE | 2023-10-24 08:22 | HMH.PHAINT1 ---
Pharmacy Intervention Comments: MEDICATION RECONCILIATION COMPLETE USING EXTERNAL PHARMACY FILL HISTORY, JUNAID REPORT, AND NOTE FROM MOST RECENT MD OFFICE VISIT.
[2023-10-24 11:59] LABS: Erythrocyte Sedimentation Rate 38 mm/hr (0-20)
--- NOTE | 2023-10-24 14:58 | EXP.ACUTE.PN ---
Subjective *Date: 10/24/23 *Time: 14:58 Interval history: Patient still having pain in his hips today but ambulatory and able to walk in the mar[place]. Stable on room air. Blood pressure showing improvement current. He had no chest pain or shortness of breath. No nausea or vomiting. Afebrile since admission. Medical Exam Vital signs and Labs for Last 24 Hours: Vital Signs Temp Pulse Pulse Resp BP BP Pulse Ox 10/24/23 13:00 10/24/23 11:00 10/24/23 09:00 10/24/23 08:00 10/24/23 12:01 161/88 H 10/24/23 11:27 98.0 F 61 18 161/103 H 99 10/24/23 07:41 97.7 F 62 18 169/101 H 100 10/24/23 04:00 60 10/24/23 04:00 97.8 F 61 18 131/76 97 10/24/23 07:00 10/24/23 05:00 10/24/23 03:00 10/24/23 00:00 60 10/23/23 20:00 60 10/24/23 01:00 10/24/23 00:00 98.4 F 60 20 122/76 98 10/23/23 23:00 10/23/23 21:00 10/23/23 20:00 10/23/23 19:41 97.7 F 60 18 157/83 H 98 10/23/23 18:46 10/23/23 17:47 66 10/23/23 18:19 100.8 F H 10/23/23 17:50 62 99 10/23/23 17:50 10/23/23 17:42 98.4 F 62 20 197/98 H 99 10/23/23 17:23 97.6 F 62 22 197/106 H 10/23/23 17:02 62 197/106 H 100 10/23/23 16:31 61 24 156/105 H 99 10/23/23 16:27 66 20 179/93 H 98 10/23/23 16:01 71 14 184/107 H 99 10/23/23 15:46 64 162/91 H 99 10/23/23 15:30 57 L 18 167/88 H 95 O2 Del Method 10/24/23 13:00 Room Air 10/24/23 11:00 Room Air 11/26/23 09:00 Room Air 10/24/23 08:00 Room Air 10/24/23 12:01 10/24/23 11:27 Room Air 10/24/23 07:41 Room Air 10/24/23 04:00 10/24/23 04:00 Room Air 10/24/23 07:00 Room Air 10/24/23 05:00 Room Air 10/24/23 03:00 Room Air 10/24/23 00:00 10/23/23 20:00 10/24/23 01:00 Room Air 10/24/23 00:00 Room Air 10/23/23 23:00 Room Air 10/23/23 21:00 Room Air 10/23/23 20:00 Room Air 10/23/23 19:41 Room Air 10/23/23 18:46 Room Air 10/23/23 17:47 10/23/23 18:19 10/23/23 17:50 Room Air 10/23/23 17:50 Room Air 10/23/23 17:42 Room Air 10/23/23 17:23 Room Air 10/23/23 17:02 10/23/23 16:31 Room Air 10/23/23 16:27 10/23/23 16:01 10/23/23 15:46 10/23/23 15:30 Room Air Intake and Output 10/23/23 10/24/23 10/24/23 23:59 07:59 15:59 Intake Total 1141 / 1501 360 / 1501 Output Total 0 / 0 Balance 1141 / 1501 360 / 1501 Intake: Intake, Oral Amount 241 / 601 360 / 601 Intake, Total IV Amount 900 / 900 KCl 10mEq/100ml 100 ml @ 100 300 / 300 mls/hr IV Q1H LUZ Rx#:[id number] Metronidaz/Sod Chl 500 mg In 100 / 100 100 ml @ 100 mls/hr IV Q8H [facility] Rx#:[id number] Vancomycin HCl 2,000 mg In 0.9 500 / 500 % Sodium Chloride 500 ml @ 166 mls/hr IV ONCE ONE Rx#:[id number] Output: Output, Urine Amount 0 / 0 Other: Number of Unmeasured Voids 2 Weight 100.244 kg 102.739 kg 102.739 kg Patient Weight 10/24/23 23:59 Weight 102.739 kg Laboratory Results - last 24 hr 10/23/23 14:59: WBC 12.4 H, RBC 4.00 L, Hgb 13.0 L, Hct 39.0 L, MCV 97.3 H, MCH 32.4 H, MCHC 33.3, RDW 14.2, Plt Count 202, MPV 9.5, Neut % (Auto) 66.8, Lymph % (Auto) 24.8, [place] % (Auto) 5.3, Eos % (Auto) 2.7, Baso % (Auto) 0.4, Neut # (Auto) 8.3 H, Lymph # (Auto) 3.1, [place] # (Auto) 0.7, Eos # (Auto) 0.3, Baso # (Auto) 0.1, ESR 102 H, D-Dimer 2.01 H, Sodium 138, Potassium 2.9 L*, Chloride 100, Carbon Dioxide 33 H, Anion Gap 7.9, BUN 31 H, Creatinine 1.80 H, Estimated Creat Clear 64, Estimated GFR 39 L, Est GFR ( Amer) 48 L, Glucose 151 H, Uric Acid 9.5 H, Calcium 9.0, Phosphorus 2.5, Magnesium 2.1, Total Bilirubin 0.3, AST 41, ALT 38, Alkaline Phosphatase 104, Troponin I 0.04 H, C-Reactive Protein 17.0 H, NT-Pro-B Natriuret Pep 389 H, Total Protein 8.0, Albumin 4.4, Globulin 3.6 H, Albumin/Globulin Ratio 1.2, Lipase 85 10/23/23 15
--- NOTE | 2023-10-24 18:35 | PC.NURSE ---
pt continues to have rt hip and shoulder pain but stating it feels much better than yesterday. ambulating around room and halls. pt has had better pain control since change in pain meds. x1 c/o nausea earlier this shit, with relief per mar. pt c/o nausea again after 2nd dose (this shift) of flaygl, pt believes flaygl is the cause of nausea both times today. notified md. pts at , no needs at this time.
[2023-10-25] VITALS: BP 147/81; PULSE 60; PULSE 63; RESP 20; TEMP 36.8; O2SAT 97
--- NOTE | 2023-10-25 03:58 | EXP.DC.SUM ---
General Admission date:: 10/23/23 Discharge date: 10/25/23 HPI HPI HPI: Mr. Soliman 53-year-old gentleman with history of difficult to control hypertension, pacemaker placement, CAD, Bright disease , and arthritis. He presented to the ER today because of almost a week of low-grade temperature (Tmax 101), and onset of nausea and vomiting over the past 48 hours. He developed acute worsening of pain in the past 24 hours in his right shoulder and right hip. Denies any blood in his vomit or stool. Pain in his shoulders and hip have been so bad that he has been crawling around on the floor to get around. Complaining of some chest discomfort from his vomiting feeling like he has strained his heart. Some intermittent shortness of breath. No loss of consciousness or syncope. Extensive discussion with patient and at bedside about his cardiac history, blood pressure, chronic pain. He states that he has had a few heart caths. His blood pressure has been very difficult to control for years. Has wide fluctuations with common finding of blood pressure 220/120. Of note had a stent placed at [facility] on September 01. At that time his creatinine was reported to be 1.5-1.6. Has had no labs since to assess for improvement. Still making urine. Has not felt well since starting meds at that time. Of note Natan is new after his cath and he has been on a new blood pressure medication which includes chlorthalidone for the past 2-1/2 to 3 months. Workup in the ER concerning for sepsis with organ dysfunction given creatinine 1.8, tachypnea, leukocytosis of 12, and fevers. Unclear source. ER requested admission for further management. Initiated on broad-spectrum antibiotics with fluid bolus in the ER. Cultures obtained. On arrival to the floor, reviewed patient's history further. 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 There is uncertainty as to whether he seen a division engineer before. Does not recall ever having had a renal biopsy. No known history of gout, Given his polyarthritis, I added uric acid to his labs prior to arrival to the floor. Uric acid noted to be 9.5. Review of chart shows that he had a renal ultrasound and 2020 with duplex as well. Normal renal ultrasound with no thinning of the cortices. Less than 60% stenosis of right renal artery. No stenosis on the left. Hospital Course Hospital Course Hospital Course: 53-year-old Male with Difficult to Control Hypertension, Chronic Pain, Chronic Opiate Therapy, CAD, Recent Stent Placement. Presented to the ER with Nausea and Vomiting and Worsening Pain in His Shoulders and Hip on the Right Side. On Evaluation, Concern for Sepsis and Hypertension. Discussed Case with ER, Request Admission for Further Workup of His Sepsis/SIRS Criteria, Suspected Infection. Medicine Agreed to Admit for Further Management. Patient Found to Have Elevated Uric Acid on Additional Labs. Initiated on Broad-Spectrum Antibiotics. Blood Pressure Difficult to Control and Severely Elevated. Concern for JUANITA Versus CKD. Patient showed improvement in blood pressure with adjustment in regimen. White cell count normalized within 24 hours of initiating antibiotics. Been afebrile since admission. Improved mobility with increased pain control and initiation of treatment for gout. Low concern for sepsis. Stable to discharge home after evaluation by cardiology. Will need close follow-up with his primary scallop binder. Significant medication changes made. Problems addressed as follows: Sepsis Versus Severe Sepsis Versus SIRS, symptoms defervesced -Patient Was Febrile, Tachypneic, Leukocytosis, Suspected Infectious Source with Viral Versus GI. Has been afebrile since admission. White cell count is normalized by morning after admission. Treated with antibiotics for 48 hours. Cultures did not report back positive. Given defervescent's of symptoms, other explanations for his presentation, will discontinue antibiotics. Cont
[2023-10-25 04:00] VITALS: BP 178/94; PULSE 62; PULSE 67; RESP 20; TEMP 36.6; O2SAT 98; BMI 29.2
--- NOTE | 2023-10-25 05:15 | PC.NURSE ---
Patient has had a decent night tonight. Has been in pain most of the night. See MAR. Has been up walking around in the room and in the hallway states it helps a little. Patient has not had any chest pain or SOB that was told to RN. Patient remains paced on tele. No other issues noted.
[2023-10-25 07:26] LABS: Anion Gap 8.2 mEq/L (5-15); Blood Urea Nitrogen 19 mg/dl (9-20); Calcium 8.8 mg/dl (8.4-10.2); Carbon Dioxide 32 mmol/L (22.0-30.0); Chloride 102 mmol/L (98-107); Creatinine Clearance Estimated 84 mL/min (50-200); Estimated Glomerular Filt Rate 53 ml/min (>60); GFR (African American) 64 ML/MIN (>60); Glucose 117 mg/dl (74-100); Potassium 3.2 mmoL/L (3.5-5.1); Sodium 139 mmol/L (136-145)
[2023-10-25 07:33] VITALS: BP 174/87; PULSE 66; RESP 19; TEMP 36.6; O2SAT 98
[2023-10-25 07:33] LABS: Uric Acid 3.6 mg/dl (3.5-8.5)
[2023-10-25 07:35] LABS: Basophils % 0.3 % (0.1-2.0); Eosinophils # 0.5 K/mm3 (0.0-0.4); Eosinophils % 5.3 % (0.1-12.0); Hematocrit 36.5 % (42.0-52.0); Hemoglobin 12.7 g/dL (14.1-18.0); Lymphocytes # 2.1 K/mm3 (0.7-4.5); Lymphocytes % 23.2 % (10-50); MANUAL DIFFERENTIAL MANUAL DIFFERENTIAL (MANUAL DIFF); Mean Corpuscular HGB Conc 34.8 g/dL (31.8-35.4); Mean Corpuscular Hemoglobin 33.2 pg (27.0-31.2); Mean Corpuscular Volume 95.4 fl (80-94); Mean Platelet Volume 9.4 fl (7.4-10.4); Monocytes # 0.6 K/mm3 (0.1-1.0); Monocytes % 6.3 % (1.7-9.3); Neutrophils # 5.8 K/mm3 (1.8-7.8); Platelet Count 203 K/mm3 (142-424); Red Blood Count 3.82 M/mm3 (4.60-6.20); Red Cell Distribution Width 14.1 % (11.5-17.5); White Blood Count 8.9 K/mm3 (4.8-10.8)
[2023-10-25 07:39] LABS: C-Reactive Protein 35.3 mg/L (0-4)
[2023-10-25 07:54] LABS: Magnesium 1.8 mg/dl (1.6-2.3)
[2023-10-25 09:17] LABS: Eosinophils % 6 % (0-3); Lymphocytes % 29 % (10-50); Monocytes % 7 % (2-9); Neutrophils % 58 % (42-76); Platelet Estimate Normal; RBC Morphology Normal; Total Cells Counted 100
[2023-10-25 09:41] LABS: Erythrocyte Sedimentation Rate 58 mm/hr (0-20)
[2023-10-25 10:23] LABS: Troponin I 0.03 ng/ml (0.00-0.034)
[2023-10-25 11:33] VITALS: BP 182/108; PULSE 62; RESP 20; TEMP 36.6; O2SAT 99
--- NOTE | 2023-10-25 11:53 | EXP.CARD.CON ---
History of Present Illness History of Present Illness Consult date: 10/25/23 Requesting physician: Satish Mike Consult reason: chest pain and shortness of breath Chief complaint: chest pain, SOA History of present illness: This is a 53-year-old white gentleman with a history of coronary artery disease, hypertension, hyperlipidemia, pacemaker placement who presented to the emergency department with complaints of chest pain, shortness of breath and low-grade fever. The patient states that he was having a low-grade fever for about a week with nausea, vomiting and diarrhea for 48 hours prior to arrival. He states that he began to get really short of breath and have worsening chest pain after he started vomiting. The patient reports that he had a stent at [facility] in August 2023. He does report that since that time he has been having chest pain intermittently but it did worsen once he was vomiting. He describes this as a sharp pressure in the substernal aspect of his chest. He states it does not radiate. He reports that it is associated with shortness of breath. He states that he has just not felt right since having his most recent stenting and being started on a new blood pressure medication called Edarbi chlor. The patient reports that he notices he is having the chest pain when his blood pressure is significantly elevated. He reports that his blood pressure has dropped low a few times and he notices the chest pain then as well. However, with his blood pressures under good control he does not experience the chest pain. He is also been having right shoulder and right leg pain so much so that he was unable to walk at times. The patient had a stent placed to his coronary arteries on September 01. He is unsure which artery he had stented. He states that he is feeling better now than when he first got admitted since they have stopped his Edarbi chlor and switched his blood pressure medications around. He is still having some chest pain intermittently but this is much better. He did have an elevated troponin consistent with a non-STEMI. [facility] Disclaimer: The information contained in this section may have been updated after the patient was seen, as this information can be updated by other users. Medical History (Updated 10/25/23 @ 12:00 by Karina Saleh APRN) 1st degree AV block Abnormal electrocardiography JUANITA (acute kidney injury) Bradycardia Bright's disease Cardiac pacemaker in situ Chest pain Chronic serous otitis media of right ear Coronary artery disease Femur fracture, left Hearing loss in right ear History of left heart catheterization (LHC) HTN (hypertension) Hyperlipidemia Impacted cerumen of right ear Non-STEMI (non-ST elevated myocardial infarction) Symptomatic bradycardia Syncope Tympanosclerosis, right ear Surgical History History of back surgery History of facial surgery Family History Family history of myocardial infarction Father Mother Social History Smoking Status: Never smoker alcohol intake: current substance use type: denies use current occupational status: employed Travel in the last 8 weeks: None household members: spouse housing: house Review of Systems Review of Systems Review of systems:: pertinent systems reviewed and negative unless documented below Constitutional Constitutional: Reports system reviewed and no additional complaints, except as documented, Reports chills, Reports fatigue, Reports fever(s) and Reports lethargy Eyes Eyes: Reports system reviewed and no additional complaints, except as documented ENT Ears, Nose, Mouth, and Throat: Reports system reviewed and no additional complaints, except as documented *Cardiovascular Cardiovascular: Reports system reviewed and no additional complaints, except as documented,
[2023-10-25 11:56] VITALS: BP 164/92
--- OUTSIDE RECORDS SUMMARY | 2023-10-25 15:15 | XMS_ITS | Clinical Summary ---
Author Name Unknown Address [address] [place] [address] Phone Organization [facility] Address [address] [place] [address] Phone Care Team Providers Care Mainstreaming Facilitator Name Role Phone Unavailable Unavailable Conditions or Problems No information available. Medications No information available. Medications Administered No information available. Allergies, Adverse Reactions, Alerts No information available. Results No information available. Plan of Care No information available. Procedures No information available. Vital Signs No information available. Immunizations No information available. Advance Directives No information available.
--- NOTE | 2023-10-28 13:41 | CARE MANAGER ---
Contacted patient related to hospital discharge. He states he is aware of new medications and follow up appointments. Denies questions or concerns. MONICO Harrington
== END 2023-10-25 13:25 | disposition home or self-care (01) | DRG 871 ==
LOC: ER 16:39 → 2ND 16:59
PROVIDERS: Student in an Organized Health Care Education/Training Program; Admitting Provider Internal Medicine Adolescent Medicine; Emergency Provider Emergency Medicine; PCP Emergency Medicine; Visit Provider Internal Medicine Adolescent Medicine
DX: A41.9 Sepsis, unspecified organism (principal); R65.21 Severe sepsis with septic shock; N17.9 Acute kidney failure, unspecified; I5A Non-ischemic myocardial injury (non-traumatic); E86.0 Dehydration; E87.6 Hypokalemia; Z95.0 Presence of cardiac pacemaker; E78.5 Hyperlipidemia, unspecified; I25.10 Atherosclerotic heart disease of native coronary artery without angina pectoris; I25.2 Old myocardial infarction; M19.011 Primary osteoarthritis, right shoulder; M16.11 Unilateral primary osteoarthritis, right hip; Z95.5 Presence of coronary angioplasty implant and graft; N18.9 Chronic kidney disease, unspecified; M10.9 Gout, unspecified; G89.29 Other chronic pain; I12.9 Hypertensive chronic kidney disease with stage 1 through stage 4 chronic kidney disease, or unspecified chronic kidney disease; Z79.899 Other long term (current) drug therapy; Z79.01 Long term (current) use of anticoagulants
CPT/HCPCS: 36415; 71045; 71275; 73030; 73502; 80048; 80053; 81001; 83605; 83690; 83735; 83880; 84100; 84484; 84550; 85007; 85014; 85018; 85025; 85048; 85049; 85378; 85651; 86140; 87040; 87632; 87635; 93005; 99291; G0378; J0692; J2405; J3370; J3475; Q9967

== ENCOUNTER → 2023-11-02 10:46 | Outpatient (CLI) | payer OTHER, SELFPAY ==
[2023-11-02 11:29] LABS: Basophils % 0.4 % (0.1-2.0); Eosinophils # 0.6 K/mm3 (0.0-0.4); Eosinophils % 6.2 % (0.1-12.0); Hematocrit 38.3 % (42.0-52.0); Hemoglobin 13.4 g/dL (14.1-18.0); Lymphocytes # 2.4 K/mm3 (0.7-4.5); Lymphocytes % 23.9 % (10-50); Mean Corpuscular HGB Conc 34.9 g/dL (31.8-35.4); Mean Corpuscular Hemoglobin 33.6 pg (27.0-31.2); Mean Corpuscular Volume 96.2 fl (80-94); Monocytes # 0.5 K/mm3 (0.1-1.0); Monocytes % 5.2 % (1.7-9.3); Neutrophils # 6.4 K/mm3 (1.8-7.8); Neutrophils % 64.2 % (37.0-80.0); Platelet Count 214 K/mm3 (142-424); Red Blood Count 3.98 M/mm3 (4.60-6.20); Red Cell Distribution Width 13.7 % (11.5-17.5)
[2023-11-02 12:00] LABS: NT Pro Brain Natriuretic Pep. 190 pg/mL (0-125)
[2023-11-02 12:06] LABS: 25-OH Vitamin D, Total 38.7 ng/mL (30-100)
[2023-11-02 12:07] LABS: Free T4 (Free Thyroxine) 0.97 ng/dl (0.78-2.19)
[2023-11-02 12:42] LABS: Chloride 103 mmol/L (98-107)
[2023-11-02 12:43] LABS: Potassium 4.6 mmoL/L (3.5-5.1); Sodium 140 mmol/L (136-145)
[2023-11-02 12:45] LABS: Alanine Aminotransferase 38 U/L (12-78); Alkaline Phosphatase 88 U/L (38-126); Anion Gap 10.6 mEq/L (5-15); Aspartate Amino Transferase 32 U/L (17-59); Bilirubin,Total 0.4 mg/dl (0.2-1.3); Blood Urea Nitrogen 25 mg/dl (9-20); Carbon Dioxide 31 mmol/L (22.0-30.0); Cholesterol 202 mg/dl (140-200); Estimated Glomerular Filt Rate 45 ml/min (>60); GFR (African American) 55 ML/MIN (>60); Iron 87 ug/dL (49-181)
[2023-11-02 12:46] LABS: Albumin Level 4.4 g/dl (3.5-5.0); Albumin/Globulin Ratio 1.3 (1.1-1.8); Calcium 9.2 mg/dl (8.4-10.2); Chol/HDL Ratio 6.3 (1-3.5); Globulin 3.4 g/dL (1.3-3.2); Glucose 123 mg/dl (74-100); HDL Cholesterol 32 mg/dl (40-60); Total Protein,Serum 7.8 g/dl (6.3-8.2)
[2023-11-02 12:55] LABS: Total Iron Binding Capacity 321 ug/dL (261-462)
[2023-11-02 12:57] LABS: Direct LDL Cholesterol 84.86 mg/dL (100-129)
[2023-11-02 13:01] LABS: Triglycerides 481 mg/dl (30-150)
[2023-11-02 13:14] LABS: Uric Acid 5.2 mg/dl (3.5-8.5)
[2023-11-02 13:17] LABS: Prostate Specific Ag Screen 0.6 ng/ml (0.0-4.0)
[2023-11-02 13:21] LABS: Ferritin 217 ng/ml (17.9-464)
[2023-11-02 13:26] LABS: Hemoglobin A1C 5.4 % (4.0-6.0)
[2023-11-02 13:45] LABS: Thyroid Stimulating Hormone 1.08 uIU/mL (0.465-4.68)
[2023-11-02 14:04] LABS: Vitamin B12 377 pg/mL (239-931)
[2023-11-03 11:13] LABS: Testosterone,Total 617 ng/dL (264-916)
== END ==
LOC: LAB 10:47
PROVIDERS: Internal Medicine; PCP Nurse Practitioner Family; Visit Provider Nurse Practitioner Family
DX: R06.00 Dyspnea, unspecified (principal); D64.9 Anemia, unspecified; I20.89 Other forms of angina pectoris; I21.4 Non-ST elevation (NSTEMI) myocardial infarction; I10 Essential (primary) hypertension; M10.9 Gout, unspecified; N17.9 Acute kidney failure, unspecified; E55.9 Vitamin D deficiency, unspecified; M13.0 Polyarthritis, unspecified; E78.5 Hyperlipidemia, unspecified; F41.9 Anxiety disorder, unspecified; R53.83 Other fatigue; G89.29 Other chronic pain; Z13.1 Encounter for screening for diabetes mellitus; R94.31 Abnormal electrocardiogram [ECG] [EKG]; E66.3 Overweight; Z68.29 Body mass index [BMI] 29.0-29.9, adult; Z95.0 Presence of cardiac pacemaker; Z79.899 Other long term (current) drug therapy; Z12.5 Encounter for screening for malignant neoplasm of prostate
CPT/HCPCS: 36415; 80053; 80061; 82306; 82607; 82728; 83036; 83540; 83550; 83880; 84403; 84439; 84443; 84550; 85025; G0103

== ENCOUNTER → 2023-11-05 10:36 | Outpatient (CLI) | payer OTHER, SELFPAY ==
--- NOTE | 2023-11-05 10:38 | CA_ITS ---
APPROVED REPORT EXAM: Comprehensive 2D, Doppler, and color-flow Echocardiogram General Dentist: Radha Sanchez RVT Ht: 6 ft 1 in Wt: 227lbs BSA: 2.27 BP: 142/76 mmHg Indications: ANGINA,PACER,BRIGHTS DISEASE,HX NSTEMI,HTN,HLD 2D Dimensions LA Volume 74.90 mL LA Volume Index 33.00 mL/m2 (M/F) 16-34 M-Mode Dimensions RVDd 3.00 cm (0.9-2.6) LA Diam 3.30 cm (1.9-4.0) LVDd 5.21 cm (3.5-5.7) LVDs 3.61 cm (3.5-5.7) IVSd 1.25 cm (0.6-1.1) PWd 0.81 cm (0.6-1.1) EF (Teich) 57.90% FS 30.70% EDV (Teich) 130.10 mL TAPSE 2.26 (<1.7) ESV (Teich) 54.80 mL LV Diastology E Decel Time 210 (160-240 msec) E/A Ratio 0.7 Aortic Valve SELENE Index 1.30 cm2/m2 AoV Peak Doni. 168.0 (50-130 cm/s) AO Peak GR. 11.30 mmHg AO Mean GR. 5.30 (<5 mmHg) AO VTI 35.0 (18-25 cm) SELENE (VTI) 3.04 (2.5-4.5 cm2) Mitral Valve MV E Max Doni. 61.0 (40-130 cm/s) MV A Velocity 93.0 (40-130 cm/s) E/A Ratio 0.65 MV PHT 62.0 ms Pulmonary Valve PV Peak Velocity 92.0 (50-150 cm/s) Left Ventricle The left ventricle is normal size. The left ventricular systolic function is normal. The left ventricular ejection fraction is within the normal range. There is increased LV wall thickness. There is normal LV segmental wall motion. Transmitral Doppler flow pattern suggests impaired LV relaxation. LVEF is 60%. Right Ventricle The right ventricle is normal size. The right ventricular systolic function is normal. Atria The left atrium size is normal. The right atrium size is normal. There is no Doppler evidence of interatrial shunt. Aortic Valve The aortic valve opens well. There is no aortic valvular stenosis. No aortic regurgitation is present. Mitral Valve The mitral valve is normal in structure. No evidence of mitral valve stenosis. Trace mitral regurgitation. Tricuspid Valve The tricuspid valve leaflets are thin and pliable. Trace tricuspid regurgitation. There is insufficient TR jet to estimate RVSP. Pulmonic Valve The pulmonary valve is normal in structure. Trace pulmonic regurgitation. Great Vessels The aortic root is normal in size. The ascending aorta is normal in size. IVC is normal in size and collapses >50% with inspiration. Pericardium There is no pericardial effusion. Other Information Study Quality: Fair Conclusion Normal biventricular systolic function. No significant valvular stenosis or regurgitation. Electronically signed by : Kathrine Rea MD 11/08/2023 21:06:29
== END ==
PROVIDERS: PCP Family Medicine; Visit Provider Internal Medicine
DX: I11.9 Hypertensive heart disease without heart failure (principal); I21.4 Non-ST elevation (NSTEMI) myocardial infarction; I25.119 Atherosclerotic heart disease of native coronary artery with unspecified angina pectoris; R06.00 Dyspnea, unspecified; R94.31 Abnormal electrocardiogram [ECG] [EKG]; Z95.0 Presence of cardiac pacemaker; E78.5 Hyperlipidemia, unspecified; Z72.0 Tobacco use
CPT/HCPCS: 93306

== ENCOUNTER 2023-11-08 07:58 | Day surgery (SDC) | payer OTHER, SELFPAY ==
[2023-11-08] VITALS (12 sets, daily range): BP systolic 128–149; BP diastolic 64–92; PULSE 60–97; RESP 15–17; O2SAT 96–99; BMI 29.9
--- NOTE | 2023-11-08 | IR_ITS ---
APPROVED REPORT Patient Location: Outpatient [facility] Farmer: RL Sandhu RT (R) PROCEDURES Right heart catheterization Left heart catheterization Left ventriculogram Selective coronary angiogram INDICATION Pulmonary hypertension, Angina pectoris, Informed consent was obtained prior to the procedure. COMPLICATIONS None Estimated Blood Loss: Less than 10 mls TECHNIQUE One percent lidocaine was used to anesthetize the right anterior aspect of the right wrist. The right radial artery was accessed via the Seldinger technique and a 6 Iranian hydrophilic sheath was placed in the right radial artery. Following this one percent lidocaine was used to anesthetize the right anterior aspect of the right neck. The right internal jugular vein was accessed via the Seldinger technique and a 7 Iranian sheath was placed in the right internal jugular vein. Following this an arterial cocktail was administered using 5000U heparin, 2.5 mg verapamil, 1mg Lidocaine and 800mcg nitroglycerin into the right radial sheath. A papa catheter was used to perform left heart catheterization left ventriculogram and selective coronary angiography while a [place]-Geraldine catheter was used to perform right heart catheterization. Saturations were obtained in the pulmonary artery and right atrium. At the end of the procedure the arterial sheath was removed good hemostasis was achieved using Traclet band. Patient was transferred to the postop holding area in stable condition for venous sheath removal. ANGIOGRAPHIC RESULTS The left main artery Normal The left anterior descending artery Has mild proximal and mid vessel 10 to 20% luminal irregularities The circumflex artery Large dominant giving rise to large ramus intermedius with 10% luminal irregularities. The circumflex artery itself has 10% luminal regularities The right coronary artery Vestigial normal The VITAL ventriculogram reveals Not performed The left ventricular end-diastolic pressure Not measured RA pressure 11 mmHg Pulmonary artery pressure 33/20 mmHg Pulmonary artery occlusion pressure 14 mmHg Right atrial saturation 76% Pulmonary artery saturation 73% Aortic saturation 96% Hemoglobin 14.1 Cardiac output 5.9 L/min Cardiac index 2.9 IMPRESSION Mild nonflow limiting coronary disease Mild pulmonary hypertension Borderline elevated pulmonary artery occlusion pressure PLAN 1. Continue medical management 2. Risk factor modification Electronically signed by : Mann Berman MD 11/08/2023 10:02:17
[2023-11-08 08:05] LABS: Microscopic, Urine URINE MICROSCOPIC (MICROSCOPIC)
[2023-11-08 08:56] LABS: Basophils # 0.1 K/mm3 (0-0.2); Basophils % 0.4 % (0.1-2.0); Eosinophils # 0.9 K/mm3 (0.0-0.4); Eosinophils % 6.9 % (0.1-12.0); Hematocrit 40.2 % (42.0-52.0); Hemoglobin 14.1 g/dL (14.1-18.0); Lymphocytes # 2.7 K/mm3 (0.7-4.5); Lymphocytes % 20.6 % (10-50); Mean Corpuscular Hemoglobin 33.7 pg (27.0-31.2); Mean Corpuscular Volume 96.3 fl (80-94); Mean Platelet Volume 9.2 fl (7.4-10.4); Monocytes # 0.6 K/mm3 (0.1-1.0); Monocytes % 4.9 % (1.7-9.3); Neutrophils # 8.8 K/mm3 (1.8-7.8); Neutrophils % 67.1 % (37.0-80.0); Platelet Count 233 K/mm3 (142-424); Red Blood Count 4.17 M/mm3 (4.60-6.20); Red Cell Distribution Width 13.8 % (11.5-17.5); White Blood Count 13.2 K/mm3 (4.8-10.8)
[2023-11-08 09:09] LABS: Chloride 103 mmol/L (98-107)
[2023-11-08 09:10] LABS: Potassium 4.4 mmoL/L (3.5-5.1); Sodium 137 mmol/L (136-145)
[2023-11-08 09:13] LABS: Anion Gap 12.4 mEq/L (5-15); Blood Urea Nitrogen 23 mg/dl (9-20); Calcium 9.1 mg/dl (8.4-10.2); Carbon Dioxide 26 mmol/L (22.0-30.0); Creatinine Clearance Estimated 76 mL/min (50-200); Estimated Glomerular Filt Rate 45 ml/min (>60); GFR (African American) 55 ML/MIN (>60); Glucose 144 mg/dl (74-100)
[2023-11-08 10:49] LABS: Appearance,Urine CLEAR (Clear); Bilirubin,Urine Negative (Negative); Blood, Urine Negative (Negative); Color,Urine YELLOW (Yellow); Glucose,Urine (UA) Negative (Negative); Ketones,Urine Negative (Negative); Leukocyte Esterase,Urine Negative (Negative); Nitrate,Urine Negative (Negative); Protein,Urine Negative (Negative); Urobilinogen,Urine 0.2 EU/dl (0.2)
[2023-11-08 11:37] LABS: Benzodiazepines Screen,Urine Negative ng/ml (<200)
[2023-11-08 11:38] LABS: Amphetamine/Metha Screen,Urine Negative ng/ml (<1000)
[2023-11-08 11:39] LABS: Barbiturates Screen,Urine Negative ng/ml (<200); Methadone Screen,Urine Negative ng/ml (<300)
[2023-11-08 11:40] LABS: Cannabinoid Screen,Urine Negative ng/ml (<50); Cocaine Screen,Urine Negative ng/ml (<300)
[2023-11-08 11:41] LABS: Opiate Screen,Urine Positive ng/ml (<300)
[2023-11-08 11:42] LABS: Phencyclidine Screen,Urine Negative ng/ml (<25)
[2023-11-08 11:44] LABS: Squamous Epithelial Cell,Urine Occasional #/hpf (0-5); WBC,Urine Occasional #/hpf (0-3)
[2023-11-08 11:45] LABS: Bacteria,Urine Trace /lpf
[2023-11-08 14:44] LABS: CATHL Arterial O2 SAT 73.9 % (90-100); CATHL Venous O2 SAT 76.3 % (75-80)
== END 2023-11-08 12:56 | disposition home or self-care (01) ==
PROVIDERS: PCP Nurse Practitioner Family; Visit Provider Internal Medicine
DX: I27.20 Pulmonary hypertension, unspecified (principal); I10 Essential (primary) hypertension; F11.90 Opioid use, unspecified, uncomplicated; Z79.899 Other long term (current) drug therapy; G89.29 Other chronic pain; M10.9 Gout, unspecified; N17.9 Acute kidney failure, unspecified; D64.9 Anemia, unspecified; F17.210 Nicotine dependence, cigarettes, uncomplicated; Z79.01 Long term (current) use of anticoagulants; I20.89 Other forms of angina pectoris
CPT/HCPCS: 80048; 80305; 81001; 82810; 84155; 85025; 87086; 93460; 99152; C1725; C1760; C1769; C1894; J1644; Q9967

== ENCOUNTER → 2023-11-15 09:21 | Outpatient (CLI) | payer OTHER, SELFPAY ==
[2023-11-15 10:10] LABS: Basophils % 0.4 % (0.1-2.0); Eosinophils # 0.5 K/mm3 (0.0-0.4); Hematocrit 40.5 % (42.0-52.0); Hemoglobin 14.3 g/dL (14.1-18.0); Lymphocytes # 2.3 K/mm3 (0.7-4.5); Lymphocytes % 23.2 % (10-50); Mean Corpuscular HGB Conc 35.2 g/dL (31.8-35.4); Mean Corpuscular Hemoglobin 33.4 pg (27.0-31.2); Mean Corpuscular Volume 94.8 fl (80-94); Mean Platelet Volume 8.9 fl (7.4-10.4); Monocytes # 0.7 K/mm3 (0.1-1.0); Monocytes % 6.9 % (1.7-9.3); Neutrophils # 6.3 K/mm3 (1.8-7.8); Neutrophils % 64.5 % (37.0-80.0); Platelet Count 193 K/mm3 (142-424); Red Blood Count 4.27 M/mm3 (4.60-6.20); Red Cell Distribution Width 13.4 % (11.5-17.5); White Blood Count 9.8 K/mm3 (4.8-10.8)
[2023-11-15 10:56] LABS: Albumin Level 4.6 g/dl (3.5-5.0); Anion Gap 12.4 mEq/L (5-15); Blood Urea Nitrogen 21 mg/dl (9-20); Calcium 9.2 mg/dl (8.4-10.2); Carbon Dioxide 26 mmol/L (22.0-30.0); Chloride 106 mmol/L (98-107); Estimated Glomerular Filt Rate 42 ml/min (>60); GFR (African American) 51 ML/MIN (>60); Glucose 78 mg/dl (74-100); Phosphorous 3.5 mg/dl (2.5-4.5); Potassium 4.4 mmoL/L (3.5-5.1); Sodium 140 mmol/L (136-145)
== END ==
PROVIDERS: PCP Nurse Practitioner Family; Visit Provider Hospitalist
DX: N28.9 Disorder of kidney and ureter, unspecified (principal)
CPT/HCPCS: 36415; 80069; 85025

== ENCOUNTER → 2023-11-23 08:05 | Outpatient (POV) | payer OTHER, SELFPAY ==
[2023-11-23 08:35] VITALS: BP 143/77; PULSE 60; RESP 18; O2SAT 98; BMI 29.0
--- NOTE | 2023-11-23 09:49 | EXP.PAIN.OV ---
HPI Data of Consult Patient: new to practice Consult date: 11/23/23 Requesting Physician: Lester Burt CRNA Primary Care Provider: Kim Ortiz APRN Family Provider: Dharmesh Consult Narrative Reason for consult: Chronic cervical neck pain. Bilateral arm radicular symptoms. History of present illness: Mr. Soliman is a 53 year old male who comes our clinic today for initial consultation regarding chronic cervical neck pain he describes as constant, dull, sharp, stabbing. Patient also complains of bilateral arm radicular symptoms to the hands. Patient also complains of low back as well as hip and leg radicular symptoms at times. Patient has tried and failed oral steroids in the recent past which resulted in psychosis. Requiring a emergency room visit. Patient also has recent history of coronary artery disease requiring cardiac stent. Pacemaker. Patient is currently taking Brilinta daily. Patient also taking hydrocodone 10 mg 1 p.o. 4 times daily. Tramadol 50 mg 1 p.o. 3 times daily. Lyrica 100 mg 1 p.o. 3 times daily. Patient on an assortment of blood pressure medications as well. I reviewed in detail with the patient regarding cervical imaging that was done in 2019. His cervical imaging is essentially unremarkable. There is some mild spondylosis throughout the cervical spine. However no disc bulge or spinal stenosis reported. Also discussed with the patient his lumbar MRI from 2019. Patient does not have any extruded or herniated disc at this time. However he does have some bulging disc at 4 5, and 5 S1. Patient's main complaint is cervical spine as well as cervical radicular symptoms. CC: Lester Burt CRNA [facility] Disclaimer: The information contained in this section may have been updated after the patient was seen, as this information can be updated by other users. Medical History 1st degree AV block Abnormal electrocardiogram [ECG] [EKG] Abnormal electrocardiography JUANITA (acute kidney injury) Bradycardia Bright's disease Cardiac pacemaker in situ Chest pain Chronic serous otitis media of right ear Coronary artery disease Femur fracture, left ian in place Hearing loss in right ear History of left heart catheterization (LHC) HTN (hypertension) Established with [facility] cardiology Hyperlipidemia Impacted cerumen of right ear Cleaned under the microscope Non-STEMI (non-ST elevated myocardial infarction) Pulmonary arterial hypertension Symptomatic bradycardia Syncope Tympanosclerosis, right ear Surgical History History of back surgery History of facial surgery Family History Father Family history of myocardial infarction Mother Family history of myocardial infarction Social History (Updated 11/23/23 @ 08:36 by Sherie Doyle RN) Smoking Status: Current every day smoker tobacco type: cigarettes packs per day: 1 alcohol intake: current substance use type: denies use current occupational status: unemployed Travel in the last 8 weeks: None household members: spouse housing: house Meds Home Medications and Allergies Home Medications Medication Instructions Recorded Confirmed Type cholecalciferol (vitamin D3) 25 1,000 unit PO DAILY Supplement 30 02/05/23 11/23/23 Rx mcg (1,000 unit) capsule days #30 caps carvedilol 25 mg tablet 50 mg PO BIDWMEAL High Blood 10/24/23 11/23/23 History Pressure pregabalin 100 mg capsule 100 mg PO TIDP PRN NERVE PAIN 10/24/23 11/23/23 History tramadol 50 mg tablet 50 mg PO TIDP PRN Breakthrough 10/24/23 11/23/23 History Pain, Severe hydralazine 25 mg tablet 25 mg PO TIDP PRN SBP >170 30 days 10/25/23 11/23/23 Rx #90 tabs oxycodone-acetaminophen 10 mg-325 1 tab PO Q6H PRN Moderate Pain 11/09/23 11/23/23 Rx mg tablet (Scale Score 5-6) 30 days #120 tabs nitrofurantoin 100 mg PO Q12H 7 days #14 caps 11/12/23 11/23/23 Rx monohydrate/macrocrystals 100 mg capsule (Macrobid) isosorbide mononitrate 30 mg 30 mg PO DAILY #30 tabs 11/15/23 11/23/23 Rx tablet,extended release 24 hr allopurinol 100 mg tablet 100 mg PO DAILY 30 days #30 tabs 11/18/23 11/23/23 Rx irbesartan 300 mg tablet 300 mg PO DAILY 30 days #30 tabs 11/18/23 11/23/23 Rx nifedipine 60 mg tablet,extended 60 mg PO BID 30 days #60 tabs 11/18/23 11/23/23 Rx release spironolactone 50 mg tablet 50 mg PO DAILY 30 days #30 tabs 11/18/23 11/23/23 Rx ticagrelor 90 mg tablet (Brilinta) 90 mg PO BID Blood Thinner #90 tabs 11/18/23 11/23/23 Rx New Prescriptions to Start Prescriptions: Allergies Allergy/AdvReac Type Severity Reaction Status Date / Time Androgenic Anabolic Steroid Allergy Mild Verified 11/15/23 10:10 aspirin [ASPIRIN] Allergy Unknown FACIAL Verified 11/15/23 10:10 SWELLING Penicillins [PENICILLINS] Allergy Unknown FACIAL Verified 11/15/23 10:10 SWELLING Sulfa (Sulfonamide Allergy Unknown Verified 11/15/23 10:10 Antibiotics) [SULFA (SULFONAMIDE ANTIBIOTICS)] morphine AdvReac Mild Vomiting Verified 11/15/23 10:10 thiazide diuretics Allergy Severe Gout Uncoded 11/15/23 10:10 Objective Vital signs: Pulse Resp BP Pulse Ox O2 Del Method 60 18 143/77 H 98 Room Air 11/23/23 08:35 11/23/23 08:35 11/23/23 08:35 11/23/23 08:35 11/23/23 08:35 Assessment and Plan *Assessment and plan (1) Chronic pain: Status: Chronic Qualifiers: Chronic pain type: chronic pain syndrome Qualified Code(s): G89.4 - Chronic pain syndrome Category: Medical Code(s): G89.29 - Other chronic pain (2) Opioid use: Status: Acute Category: Medical Code(s): F11.90 - Opioid use, unspecified, uncomplicated (3) Cervical pain (neck): Status: Acute Category: Medical Code(s): M54.2 - Cervicalgia (4) Cervical radiculopathy: Status: Acute Category: Medical Code(s): M54.12 - Radiculopathy, cervical region Plan Discussed in detail with the patient regarding treatment options. My suggestion is new CT imaging of the cervical spine. This will help us further discern pathology. I informed the patient we would refer him to neurosurgery if in fact his imaging dictated. Also, patient was told from his PCP Dr. Barroso's office we would take over his narcotic pain medication prescription writing. However, I informed the patient we would not prescribe any scheduled medications at the time of the initial consultation. Also, I informed the patient and his it is possible we do not take over any of his scheduled medications. We briefly discussed intrathecal pain pump for his chronic pain syndrome. However, I informed them I felt it was necessary for us to update imaging on the cervical spine since this is his main complaint prior to making any decisions moving forward. They agreed.
== END ==
LOC: SC.PAIN 08:06
PROVIDERS: PCP Nurse Practitioner Family; Visit Provider Nurse Anesthetist, Certified Registered
DX: G89.4 Chronic pain syndrome (principal); F11.90 Opioid use, unspecified, uncomplicated; M54.2 Cervicalgia; M54.12 Radiculopathy, cervical region
CPT/HCPCS: 99202; G0463

== ENCOUNTER 2023-12-06 10:49 | Outpatient (CLI) | payer OTHER, SELFPAY ==
--- NOTE | 2023-12-06 10:53 | CT_ITS ---
FINAL REPORT TECHNIQUE: Axial images were obtained from skull base to the thoracic inlet by computed tomography. Coronal and sagittal reconstruction process performed. This study was performed with techniques to keep radiation doses as low as reasonably achievable (ALARA). Individualized dose reduction techniques using automated exposure control or adjustment of mA and/or kV according to the patient''s size were employed. CLINICAL HISTORY: NECK PAIN COMPARISON: 04/15/2021 FINDINGS: There is no acute fracture or subluxation. There are mild to moderate degenerative changes. The disc spaces are preserved. The facets are normally aligned. The soft tissues are unremarkable. Limited images of the lung apices are unremarkable. C2-3: Probable small central disc protrusion. C3-4: Disc osteophyte complex with mild right neuroforaminal narrowing. C4-5: Disc osteophyte complex and small central disc protrusion. C5-6: Disc osteophyte complex with mild left neuroforaminal narrowing. C6-7: Disc osteophyte complex. C7-T1: Unremarkable. IMPRESSION: No acute fracture. Small central disc protrusions at C2-3 and C4-5. Mild neuroforaminal narrowing at C3-4 and C5-6. Reviewed, Interpreted and Dictated by Vaibhav Hathaway III, MD Transcribed by Sylwia Starr Authenticated and [facility]
== END 2023-12-06 23:59 ==
LOC: RAD 10:50
PROVIDERS: PCP Nurse Practitioner Family; Visit Provider Nurse Practitioner Family
DX: M54.2 Cervicalgia (principal)
CPT/HCPCS: 72125

== ENCOUNTER 2023-12-08 18:44 | Outpatient (CLI) | payer OTHER, SELFPAY ==
[2023-12-08 20:44] LABS: Amphetamine/Metha Screen,Urine Negative ng/ml (<1000); Barbiturates Screen,Urine Negative ng/ml (<200); Benzodiazepines Screen,Urine Negative ng/ml (<200); Cannabinoid Screen,Urine Negative ng/ml (<50); Methadone Screen,Urine Negative ng/ml (<300); Opiate Screen,Urine Negative ng/ml (<300); Phencyclidine Screen,Urine Negative ng/ml (<25)
[2023-12-08 20:49] LABS: Cocaine Screen,Urine Negative ng/ml (<300)
[2023-12-15 08:15] LABS: Opiates Negative (Cutoff=100); Oxycodone (GC/MS) >3000 ng/mL (Cutoff=100); Oxymorphone (GC/MS) 191 ng/mL (Cutoff=100)
== END 2023-12-08 23:59 ==
LOC: LAB.DROPOF 18:44
PROVIDERS: PCP Nurse Practitioner Family; Visit Provider Nurse Practitioner Family
DX: Z79.899 Other long term (current) drug therapy (principal); M54.12 Radiculopathy, cervical region
CPT/HCPCS: 80307; 80361; 80365; G0480

== ENCOUNTER → 2023-12-15 13:11 | Outpatient (POV) | payer OTHER, SELFPAY ==
--- NOTE | 2023-12-15 13:25 | A.OFFVIS_ITS ---
[facility] Pain Management SOAP Note Subjective:: Patient is a pleasant 53-year-old male who presents today for follow-up of cervical CT findings. We are currently treating the patient for neck pain with cervical radiculopathy symptoms, low back pain with lumbar radiculopathy symptoms. Today he rates his pain an 8 out of 10. Denies any new trauma or injury. He states he continues to have pain in his neck and low back with radiating symptoms to his extremities. Patient does describe this as a constant dull sensation with occasional sharp shooting pains and numbness and tingling into his hands and feet. He states the pain is constant and does state the pain interferes with his ability to perform activities of daily living such as c ooking and cleaning. Patient has tried and failed conservative treatment such as oral medication, heat and ice, topicals, physical therapy, at home stretching exercise for longer than 6 weeks as well as previous back surgery. He is currently managed with Percocet 10 mg 4 times a day and pregabalin 100 mg 3 times a day from his PCP. His Jose De Jesus has been reviewed and is appropriate. Review of Systems: General: No recent weight changes, no fever, no sleep disturbances Respiratory: No cough, no shortness of air, no recurring pulmonary infections Cardiovascular/peripheral vascular: No chest pain, no palpitations, no edema, no shortness of breath Gastrointestinal: No new onset incontinence, normal bowel movements reported Genitourinary: No new onset incontinence Musculoskeletal: Low back pain, leg pain, neck pain, arm pain, chronic pain Psychiatric: [Normal mood/affect] Neurological: [Denies weakness in extremities], [denies balance issues] Objective:: Physical Exam: General: Alert and oriented x3, no acute distress, pleasant and cooperative Lungs: Respirations even and unlabored, symmetrical chest expansion Eyes: PERRL Musculoskeletal: Flexion and extension of lumbar [spine] somewhat guarded secondary to pain, [antalgic gait noted] Neurological: Speech clear, no gross sensory deficit TECHNIQUE: Axial images were obtained from skull base to the thoracic inlet by computed tomography. Coronal and sagittal reconstruction process performed. This study was performed with techniques to keep radiation doses as low as reasonably achievable (ALARA). Individualized dose reduction techniques using automated exposure control or adjustment of mA and/or kV according to the patient''s size were employed. CLINICAL HISTORY: NECK PAIN COMPARISON: 04/15/2021 FINDINGS: There is no acute fracture or subluxation. There are mild to moderate degenerative changes. The disc spaces are preserved. The facets are normally aligned. The soft tissues are unremarkable. Limited images of the lung apices are unremarkable. C2-3: Probable small central disc protrusion. C3-4: Disc osteophyte complex with mild right neuroforaminal narrowing. C4-5: Disc osteophyte complex and small central disc protrusion. C5-6: Disc osteophyte complex with mild left neuroforaminal narrowing. C6-7: Disc osteophyte complex. C7-T1: Unremarkable. IMPRESSION: No acute fracture. Small central disc protrusions at C2-3 and C4-5. Mild neuroforaminal narrowing at C3-4 and C5-6. Reviewed, Interpreted and Dictated by Vaibhav Hathaway III, MD Transcribed by Sylwia Starr Authenticated and [facility] Assessment:: Degenerative disc disease cervical spine with cervical radiculopathy symptoms, low back pain with lumbar radiculopathy symptoms Plan:: Patient continues to experience significant pain throughout multiple areas including his cervical and lumbar spine. I have discussed with the patient that he may benefit from a intrathecal pain pump trial. Risk and benefits were discussed with the patient and he would like to proceed forward with this plan of care. I will order a psychological evaluation and if he is deemed an appropriate candidate at a later date we will proceed forward with a intrathecal pain pump trial. Patient will return to clinic in 1 month for reevaluation of symptoms and plan of care. Patient has been instructed to contact the clinic with any concerns before the next appointment. Dr. Olivier has reviewed this note and agrees with this plan of care. This note was dictated using voice recognition software and make contain errors or omissions. [facility] Disclaimer: The information contained in this section may have been updated after the patient was seen, as this information can be updated by other users. Medical History 1st degree AV block Abnormal electrocardiogram [ECG] [EKG] Abnormal electrocardiography JUANITA (acute kidney injury) Bradycardia Bright's disease Cardiac pacemaker in situ Chest pain Chronic serous otitis media of right ear Coronary artery disease Femur fracture, left ian in place Hearing loss in right ear History of left heart catheterization (LHC) HTN (hypertension) Established with [facility] cardiology Hyperlipidemia Impacted cerumen of right ear Cleaned under the microscope Non-STEMI (non-ST elevated myocardial infarction) Pulmonary arterial hypertension Symptomatic bradycardia Syncope Tympanosclerosis, right ear Surgical History History of back surgery History of facial surgery Family History Father Family history of myocardial infarction Mother Family history of myocardial infarction Social History (Updated 11/23/23 @ 08:36 by Sherie Doyle RN) Smoking Status: Current every day smoker tobacco type: cigarettes packs per day: 1 alcohol intake: current substance use type: denies use current occupational status: unemployed Travel in the last 8 weeks: None household members: spouse housing: house
[2023-12-15 15:56] VITALS: BP 172/79; PULSE 72; RESP 18; O2SAT 99
== END ==
LOC: SC.PAIN 13:11
PROVIDERS: PCP Internal Medicine; Visit Provider Nurse Practitioner Family
DX: M50.10 Cervical disc disorder with radiculopathy, unspecified cervical region (principal); M51.16 Intervertebral disc disorders with radiculopathy, lumbar region
CPT/HCPCS: 99212; G0463

== ENCOUNTER 2024-01-06 08:02 | Outpatient (CLI) | payer OTHER, SELFPAY ==
--- NOTE | 2024-01-06 08:06 | XR_ITS ---
FINAL REPORT CLINICAL HISTORY: FEVER,CHILLS COMPARISON: 10/23/2023 FINDINGS: Two views of the chest were obtained. The heart size and pulmonary vascularity are within normal limits. A left subclavian pacemaker remains in place. The mediastinum is normal. No acute pulmonary abnormality is identified. There is no pneumothorax. The bony thorax is intact. IMPRESSION: No active cardiopulmonary disease. Reviewed, Interpreted and Dictated by Vaibhav Hathaway III, MD Transcribed by Pauline Miranda Authenticated and [facility]
== END 2024-01-06 23:59 ==
LOC: RAD 08:04
PROVIDERS: PCP Nurse Practitioner Family; Visit Provider Internal Medicine Nephrology
DX: R50.9 Fever, unspecified (principal); M54.50 Low back pain, unspecified
CPT/HCPCS: 71046; 87086

== ENCOUNTER → 2024-01-13 08:51 | Outpatient (POV) | payer OTHER, SELFPAY ==
--- NOTE | 2024-01-13 09:37 | A.OFFVIS_ITS ---
[facility] Pain Management SOAP Note Subjective:: Patient is a pleasant 53-year-old male who presents today for follow-up of psychological evaluation. Currently treating the patient for degenerative disc disease of cervical spine with cervical radiculopathy symptoms, low back pain with lumbar radiculopathy symptoms. Today he rates his pain a 9 out of 10. Patient denies any new trauma or injury. He does state that he continues to have chronic overall back pain that is constant. He states the pain does interfere with his ability to perform activities of daily living such as cooking and cleaning. Patient at our last visit had been discussed with antibiotics the intrathecal pain pump trial was something he would like to proceed forward with. Today he states he still would like to move forward with this plan of care. Patient has tried and failed conservative treatment such as oral medication, heat and ice, physical therapy, at home stretching exercise for longer than 6 weeks as well as previous back surgery. He is currently managed with Percocet 10 mg 4 times a day and pregabalin 100 mg 3 times a day from his primary care carlos brink. His Jose De Jesus has been reviewed and is appropriate. Review of Systems: General: No recent weight changes, no fever, no sleep disturbances Respiratory: No cough, no shortness of air, no recurring pulmonary infections Cardiovascular/peripheral vascular: No chest pain, no palpitations, no edema, no shortness of breath Gastrointestinal: No new onset incontinence, normal bowel movements reported Genitourinary: No new onset incontinence Musculoskeletal: Neck pain, low back pain Psychiatric: [Normal mood/affect] Neurological: [Denies weakness in extremities], [denies balance issues] Objective:: Physical Exam: General: Alert and oriented x3, no acute distress, pleasant and cooperative Lungs: Respirations even and unlabored, symmetrical chest expansion Eyes: PERRL Musculoskeletal: Flexion and extension of lumbar [spine] somewhat guarded secondary to pain, [antalgic gait noted] Neurological: Speech clear, no gross sensory deficit Assessment:: Degenerative disc disease of cervical and lumbar spine with cervical and lumbar radiculopathy symptoms, chronic pain syndrome Plan:: Patient continues to experience significant pain throughout back with limited range of motion in his lumbar spine. I have reviewed over the risk and benefits of the intrathecal pain pump trial and he would like to proceed forward with this option. Patient was deemed an appropriate candidate for the device from his psychological evaluation. Patient has tried and failed conservative therapies including previous back surgery. We will submit to insurance for the intrathecal pain pump trial and contact the patient once we have approval with date and time. Patient is currently on blood thinner written by Dr. Berman's office. We will reach out to his office and confirm he can stop this medication prior to this procedure. I have also discussed with the patient that we will have him wean down off of his regular pain medication prior to the trial of date for more accurate results. Patient has been instructed to contact the clinic with any concerns before the next appointment. Dr. Olivier has reviewed this note and agrees with this plan of care. This note was dictated using voice recognition software and make contain errors or omissions. [facility] Disclaimer: The information contained in this section may have been updated after the patient was seen, as this information can be updated by other users. Medical History 1st degree AV block Abnormal electrocardiogram [ECG] [EKG] Abnormal electrocardiography JUANITA (acute kidney injury) Bradycardia Bright's disease Cardiac pacemaker in situ Chest pain Chronic serous otitis media of right ear Coronary artery disease Femur fracture, left ian in place Hearing loss in right ear History of left heart catheterization (LHC) HTN (hypertension) Established with [facility] cardiology Hyperlipidemia Impacted cerumen of right ear Cleaned under the microscope Non-STEMI (non-ST elevated myocardial infarction) Pulmonary arterial hypertension Symptomatic bradycardia Syncope Tympanosclerosis, right ear Surgical History History of back surgery History of facial surgery Family History Father Family history of myocardial infarction Mother Family history of myocardial infarction Social History Smoking Status: Current every day smoker tobacco type: cigarettes packs per day: 1 alcohol intake: current substance use type: denies use current occupational status: unemployed Travel in the last 8 weeks: None household members: spouse housing: house
[2024-01-13 10:50] VITALS: BP 134/68; PULSE 60; RESP 18; O2SAT 97
== END ==
LOC: SC.PAIN 08:51
PROVIDERS: PCP Nurse Practitioner Family; Visit Provider Nurse Practitioner Family
DX: M50.10 Cervical disc disorder with radiculopathy, unspecified cervical region (principal); M51.16 Intervertebral disc disorders with radiculopathy, lumbar region; G89.4 Chronic pain syndrome
CPT/HCPCS: 99212; G0463

== ENCOUNTER 2024-01-24 15:08 | Outpatient (CLI) | payer OTHER, SELFPAY ==
[2024-01-24 16:35] LABS: Chloride 109 mmol/L (98-107); Potassium 4.4 mmoL/L (3.5-5.1); Sodium 140 mmol/L (136-145)
[2024-01-24 16:38] LABS: Anion Gap 9.4 mEq/L (5-15); Blood Urea Nitrogen 30 mg/dl (9-20); Calcium 9.5 mg/dl (8.4-10.2); Carbon Dioxide 26 mmol/L (22.0-30.0); Estimated Glomerular Filt Rate 49 ml/min (>60); GFR (African American) 59 ML/MIN (>60); Glucose 85 mg/dl (74-100)
[2024-01-24 16:46] LABS: NT Pro Brain Natriuretic Pep. 69.9 pg/mL (0-125)
== END 2024-01-24 23:59 ==
LOC: LAB 15:08
PROVIDERS: PCP Nurse Practitioner Family; Visit Provider Internal Medicine
DX: R06.00 Dyspnea, unspecified (principal); I20.89 Other forms of angina pectoris; I27.21 Secondary pulmonary arterial hypertension; R94.31 Abnormal electrocardiogram [ECG] [EKG]; I21.4 Non-ST elevation (NSTEMI) myocardial infarction; I10 Essential (primary) hypertension; E78.5 Hyperlipidemia, unspecified; N05.9 Unspecified nephritic syndrome with unspecified morphologic changes; Z95.0 Presence of cardiac pacemaker
CPT/HCPCS: 36415; 80048; 83880

== ENCOUNTER 2024-02-01 07:53 | Outpatient (CLI) | payer OTHER, SELFPAY ==
--- NOTE | 2024-02-01 | CA_ITS ---
FINAL REPORT TECHNIQUE: Grayscale, color Doppler and duplex Doppler ultrasound of the kidneys, aorta and renal arteries was performed. Multiple velocities were measured. CLINICAL HISTORY: HTN,ABN KIDNEY FUNCTION COMPARISON: None FINDINGS: Aorta velocity: 116 cm/sec Right kidney: 11.1 cm. No evidence of hydronephrosis or mass. Right intrarenal RI: 0.54-0.67 Right renal artery velocity: 205 cm/sec. Right RAR (Renal artery-Aortic Ratio): 1.77 Left Kidney: 11.2 cm. No evidence of hydronephrosis or mass. Left intrarenal RI: 0.44-0.62 Left renal artery velocity: 181 cm/sec. Left RAR (Renal Artery-Aortic Ratio): 1.56 IMPRESSION: Less than 60% renal artery stenosis bilaterally. CT angiogram or postcontrast MR angiogram would be more sensitive for evaluation of possible renal artery stenosis. Reviewed, Interpreted and Dictated by Vaibhav Hathaway III, MD Transcribed by Jailyn Granados Authenticated and [facility]
--- NOTE | 2024-02-01 08:22 | US_ITS ---
FINAL REPORT TECHNIQUE: Ultrasound images of the kidneys and bladder were obtained. CLINICAL HISTORY: ABN RENAL FUNCTION COMPARISON: 10/17/2021 FINDINGS: The right kidney measures 11.2 cm in length. It is normal in echogenicity. There is no hydronephrosis. The left kidney measures 11.0 cm in length. It is normal in echogenicity. There is no hydronephrosis. The spleen is unremarkable. There is fatty infiltration of the liver. IMPRESSION: Unremarkable renal ultrasound. Incidental fatty liver. Reviewed, Interpreted and Dictated by Vaibhav Hathaway III, MD Transcribed by Jailyn Granados Authenticated and [facility]
[2024-02-01 08:55] LABS: Microscopic, Urine URINE MICROSCOPIC (MICROSCOPIC)
[2024-02-01 09:13] LABS: Basophils # 0.1 K/mm3 (0-0.2); Basophils % 0.7 % (0.1-2.0); Eosinophils # 0.4 K/mm3 (0.0-0.4); Eosinophils % 4.2 % (0.1-12.0); Hematocrit 43.7 % (42.0-52.0); Hemoglobin 14.2 g/dL (14.1-18.0); Lymphocytes # 2.2 K/mm3 (0.7-4.5); Lymphocytes % 25.1 % (10-50); Mean Corpuscular HGB Conc 32.6 g/dL (31.8-35.4); Mean Corpuscular Hemoglobin 32.4 pg (27.0-31.2); Mean Corpuscular Volume 99.5 fl (80-94); Monocytes # 0.7 K/mm3 (0.1-1.0); Monocytes % 7.5 % (1.7-9.3); Neutrophils # 5.4 K/mm3 (1.8-7.8); Neutrophils % 62.6 % (37.0-80.0); Platelet Count 227 K/mm3 (142-424); Red Blood Count 4.39 M/mm3 (4.60-6.20); Red Cell Distribution Width 13.2 % (11.5-17.5); White Blood Count 8.7 K/mm3 (4.8-10.8)
[2024-02-01 09:17] LABS: Appearance,Urine CLEAR (Clear); Bilirubin,Urine Negative (Negative); Blood, Urine Negative (Negative); Color,Urine YELLOW (Yellow); Glucose,Urine (UA) Negative (Negative); Ketones,Urine Negative (Negative); Leukocyte Esterase,Urine Negative (Negative); Nitrate,Urine Negative (Negative); PH,Urine 5.5 (5.0-8.5); Protein,Urine Negative (Negative); Urobilinogen,Urine 0.2 EU/dl (0.2)
[2024-02-01 10:02] LABS: Albumin Level 4.9 g/dl (3.5-5.0); Anion Gap 18.2 mEq/L (5-15); Bacteria,Urine Trace /lpf; Blood Urea Nitrogen 26 mg/dl (9-20); Calcium 9.9 mg/dl (8.4-10.2); Carbon Dioxide 23 mmol/L (22.0-30.0); Chloride 104 mmol/L (98-107); Estimated Glomerular Filt Rate 53 ml/min (>60); GFR (African American) 64 ML/MIN (>60); Glucose 200 mg/dl (74-100); Potassium 4.2 mmoL/L (3.5-5.1); Sodium 141 mmol/L (136-145); WBC,Urine Occasional #/hpf (0-3)
[2024-02-01 12:20] LABS: Creatinine,Urine Random 22 mg/dL (Not Estab.)
[2024-02-02 11:13] LABS: Complement C3 126 mg/dL (82-167)
[2024-02-03 15:12] LABS: Albumin, U 42.9 % (.); Alpha-1-Globulin, U 4.2 % (.); Alpha-2-Globulin, U 15.7 % (.); Beta Globulin, U 16.1 % (.); Gamma Globulin, U 21.1 % (.); M-Spike, % Not Observed % (Not Observed); Protein,Total,Urine <4.0 mg/dL (Not Estab.)
[2024-02-05 09:37] LABS: PDF: SCANNED IMAGE
[2024-02-09 23:19] LABS: Renin 7.821
[2024-02-09 23:20] LABS: Antinuclear Antibodies, IFA Positive
== END 2024-02-01 23:59 ==
PROVIDERS: PCP Nurse Practitioner Family; Visit Provider Internal Medicine Nephrology
DX: N28.9 Disorder of kidney and ureter, unspecified (principal)
CPT/HCPCS: 36415; 76770; 80069; 81001; 82088; 82570; 84156; 84166; 84244; 85025; 86038; 86161; 93976

== ENCOUNTER 2024-02-03 18:16 | Outpatient (CLI) | payer OTHER, SELFPAY | END 2024-02-03 23:59 | LOC: LAB.DROPOF 18:20 | PROVIDERS: PCP Internal Medicine Nephrology; Visit Provider Internal Medicine Nephrology | DX: N28.9 Disorder of kidney and ureter, unspecified (principal) | CPT/HCPCS: 82570; 84156; 84166 ==

== ENCOUNTER 2024-02-11 18:27 | Outpatient (CLI) | payer OTHER, SELFPAY ==
[2024-02-11 21:32] LABS: Collection Time,Urine 24 hours; Total Volume,Urine 1400 mL (800-1800)
[2024-02-11 21:53] LABS: Creatinine 24 Hour,Urine 1554 mg/24hr (630-2500)
[2024-02-11 21:54] LABS: Creatinine,Urine Random 111 mg/dL (Not Estab.)
[2024-02-15 14:16] LABS: Albumin, U 61.6 % (.); Alpha-1-Globulin, U 2.5 % (.); Alpha-2-Globulin, U 9.3 % (.); Beta Globulin, U 13.7 % (.); Gamma Globulin, U 12.8 % (.); M-Spike, % Not Observed % (Not Observed); Prot,24hr calculated 195 mg/24 hr (30-150); Protein,Total,Urine 13.9 mg/dL (Not Estab.)
[2024-02-16 08:11] LABS: PDF: SCANNED IMAGE
== END 2024-02-11 23:59 ==
LOC: LAB 18:31
PROVIDERS: PCP Nurse Practitioner Family; Visit Provider Internal Medicine Nephrology
DX: Z79.899 Other long term (current) drug therapy (principal); I25.10 Atherosclerotic heart disease of native coronary artery without angina pectoris; R06.09 Other forms of dyspnea; I10 Essential (primary) hypertension
CPT/HCPCS: 82570; 84156; 84166

== ENCOUNTER 2024-02-23 08:05 | Emergency (ER) | payer OTHER, SELFPAY ==
[2024-02-23] VITALS (10 sets, daily range): BP systolic 115–137; BP diastolic 63–78; PULSE 60–65; RESP 14–18; TEMP 36.4–36.6; O2SAT 94–98; BMI 30.9
--- NOTE | 2024-02-23 08:06 | ECG_ITS ---
APPROVED REPORT Exam: Resting ECG HR:63 bpm ECG Measurements Heart Rate 63 AXES MA 209 P 21 QRSd 105 QRS 24 QT 420 T 94 QTc 427 Conclusion ELECTRONIC ATRIAL PACEMAKER NONSPECIFIC ST & T-WAVE ABNORMALITY Electronically signed by : DONNY ELLIS, 02/23/2024 15:27:54
--- NOTE | 2024-02-23 08:12 | XR_ITS ---
FINAL REPORT TECHNIQUE: Chest PA & Lateral CLINICAL HISTORY: chest pain/shortness of breath COMPARISON: 01/06/2024 FINDINGS: 2 views of the chest were performed. The heart size is mildly enlarged. A left-sided pacer is present. The mediastinum is within normal limits. There is no acute cardiopulmonary process. There are no pleural effusions. There is no pneumothorax. The bony thorax appears intact. IMPRESSION: No acute cardiopulmonary process. Reviewed, Interpreted and Dictated by Ravin Alford MD Transcribed by Jailyn Granados Authenticated and [facility]
--- NOTE | 2024-02-23 08:14 | PC.NURSE ---
DR ELLIS AT BEDSIDE
--- NOTE | 2024-02-23 08:14 | PC.NURSE ---
Dr. Nick at BS for pt eval
[2024-02-23 08:17] LABS: Influenza A, PCR Not Detected (NotDetected); Influenza B, PCR Not Detected (NotDetected)
--- NOTE | 2024-02-23 08:19 | ED_ITS ---
Discharge Plan Disposition Patient Disposition: Home, Self-Care Condition: Good Prescriptions Prescriptions: No Action allopurinol 100 mg tablet 100 mg PO DAILY 30 Days Qty: 30 1RF cholecalciferol (vitamin D3) 25 mcg (1,000 unit) capsule 1,000 unit PO DAILY 30 Days Qty: 30 1RF isosorbide mononitrate 60 mg tablet extended release 24 hr 60 mg PO DAILY Qty: 30 4RF hydralazine 50 mg tablet 50 mg PO BID PRN (Reason: SBP >170) 30 Days Qty: 60 3RF oxycodone-acetaminophen 10-325 mg tablet 1 tab PO Q6H PRN (Reason: Moderate Pain (Scale Score 5-6)) 30 Days Qty: 120 0RF carvedilol 25 mg tablet 50 mg PO BIDWMEAL Qty: 120 2RF irbesartan 300 mg tablet 300 mg PO DAILY 30 Days Qty: 30 0RF Brilinta 90 mg tablet 90 mg PO BID Qty: 90 0RF spironolactone 50 mg tablet See Rx Instructions .ROUTE .COMPLEX Qty: 30 0RF Dose Instruction: TAKE ONE TABLET BY MOUTH ONCE A DAY Rx Instructions: TAKE ONE TABLET BY MOUTH ONCE A DAY Referrals Follow up/Referrals: Provider,Referral, MD [Referring] - See instructions Activity Restrictions/Add. Instructions Additional Instructions/Restrictions: You were evaluated in the emergency department today. Please take Tylenol at home as needed for pain and fever. Hydrate is much as possible. 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 Return to the emergency department for new or worsening symptoms. Clinical Impressions Clinical Impression: COVID-19, Arthralgia, Chest pressure Instructions Patient Instructions: DI for COVID-19 (Suspected or Confirmed ) Discharge ED Provider: Brigid Nick General Adult HPI General Chief complaint: Chest Pain Stated complaint: chest pain Time Seen by Provider: 02/23/24 08:12 History of Present Illness HPI narrative: This patient is a 53-year-old male with a history of chronic pain with opioid dependence, polyarthritis, CAD, hypertension, hyperlipidemia, cardiac pacemaker, and pulmonary hypertension presenting to the emergency department for evaluation with concern for body aches, back pain, chest pressure, and generally feeling unwell that started yesterday. According to the patient's , he was evaluated yesterday in cardiology clinic yesterday and had medications changed. He had been having high blood pressure issues as well as ankle swelling, so he was taken off of nifedipine and started on hydralazine 3 times a day. Previously, he had only been on hydralazine as needed. She notes that yesterday, he started having bodyaches, and overnight he complained of significant joint pain, mostly generalized. She notes that he did have a positive EVERARDO at nephrology, which she is being worked up for, however this severe joint pain is out of the ordinary for him. He also complains of the chest pressure. She denies that she is concerned that the male have the flu, as everyone at home is currently sick. Of note, patient has been holding brilinta (last dose 02/19) for carpal tunnel surgery, scheduled tentatively for Saturday 02/24. Related Data Previous Rx's Medication Instructions Recorded carvedilol 25 mg tablet 50 mg (2 x 25 mg) PO BIDWMEAL High 12/28/23 Blood Pressure #120 tabs allopurinol 100 mg tablet 100 mg PO DAILY 30 days #30 tabs 01/06/24 cholecalciferol (vitamin D3) 25 1,000 unit PO DAILY Supplement 30 01/06/24 mcg (1,000 unit) capsule days #30 caps irbesartan 300 mg tablet 300 mg PO DAILY 30 days #30 tabs 01/21/24 oxycodone-acetaminophen 10 mg-325 1 tab PO Q6H PRN Moderate Pain 02/01/24 mg tablet (Scale Score 5-6) 30 days #120 tabs ticagrelor 90 mg tablet (Brilinta) 90 mg PO BID Blood Thinner #90 tabs 02/02/24 isosorbide mononitrate 60 mg 60 mg PO DAILY #30 tabs 02/07/24 tablet,extended release 24 hr spironolactone 50 mg tablet See Rx Instructions .Route 02/18/24 .COMPLEX #30 tabs hydralazine 50 mg tablet 50 mg PO BID PRN SBP >170 30 days 02/22/24 #60 tabs Allergies Allergy/AdvReac Type Severity Reaction Status Date / Time Androgenic Anabolic Steroid Allergy Mild Verified 02/22/24 14:17 aspirin [ASPIRIN] Allergy Unknown FACIAL Verified 02/22/24 14:17 SWELLING Penicillins [PENICILLINS] Allergy Unknown FACIAL Verified 02/22/24 14:17 SWELLING Sulfa (Sulfonamide Allergy Unknown Verified 02/22/24 14:17 Antibiotics) [SULFA (SULFONAMIDE ANTIBIOTICS)] morphine AdvReac Mild Vomiting Verified 02/22/24 14:17 NSAIDS (Non-Steroidal AdvReac Other Verified 02/23/24 08:38 Anti-Inflamma thiazide diuretics Allergy Severe Other Uncoded 02/23/24 08:38 [facility] Disclaimer: The information contained in this section may have been updated after the patient was seen, as this information can be updated by other users. Medical History Pulmonary arterial hypertension Abnormal electrocardiogram [ECG] [EKG] Non-STEMI (non-ST elevated myocardial infarction) Hyperlipidemia Coronary artery disease Bright's disease Femur fracture, left History of left heart catheterization (LHC) Cardiac pacemaker in situ JUANITA (acute kidney injury) Chronic serous otitis media of right ear Impacted cerumen of right ear Hearing loss in right ear Tympanosclerosis, right ear Syncope Symptomatic bradycardia 1st degree AV block Bradycardia Chest pain Abnormal electrocardiography HTN (hypertension) Surgical History History of facial surgery History of back surgery Family History Father Family history of myocardial infarction Mother Family history of myocardial infarction Social History Smoking Status: Never smoker alcohol intake: current substance use type: denies use current occupational status: unemployed Travel in the last 8 weeks: None household members: spouse housing: house ROS Obtained: Yes All systems reviewed & no additional complaints except as documented Physical Exam General General appearance: alert and in no apparent distress Head Head exam: atraumatic and normocephalic Eye Eye exam: Present normal appearance, PERRL and EOMI ENT ENT exam: Present normal exam, normal oropharynx, mucous membranes moist and normal external ear exam Neck Neck exam: Present normal inspection, full ROM and trachea midline; Absent tenderness Chest Chest inspection: Present normal inspection and symmetric chest wall rise; Absent tenderness Respiratory Respiratory exam: Present normal lung sounds bilaterally; Absent respiratory distress, wheezes, stridor or accessory muscle use Cardiovascular Cardiovascular exam: Present regular rate and normal rhythm Abdominal Exam Abdominal exam: Present soft; Absent distention, tenderness or guarding Extremities Exam Extremities exam: Present normal inspection, full ROM and normal capillary refill; Absent tenderness or edema Back Exam Back exam: Present normal inspection and full ROM; Absent tenderness Neurological Exam Neurological exam: Present alert, oriented X3, CN II-XII intact and normal gait; Absent motor sensory deficit Psychiatric Psychiatric exam: Present normal affect and normal mood Skin Skin exam: Present warm and dry Medical Decision Making Medical Records Medical records reviewed: Yes I reviewed the patient's medical records. Jose De Jesus Inquiry Pt receiving controlled substance: No Vital Signs: 02/23/24 08:05 02/23/24 08:30 02/23/24 09:00 Temperature 97.8 F Temperature Source Oral Pulse Rate 64 65 Pulse Rate [Apical] 63 Respiratory Rate 18 14 15 Blood Pressure 118/74 122/73 Blood Pressure [Right Arm] 137/71 Blood Pressure Mean [Right Arm] 93 Blood Pressure Source [Right Arm] Automatic Cuff Blood Pressure Position [Right Arm] Sitting 02 Sat by Pulse Oximetry 97 96 97 Oxygen Delivery Method Room Air Room Air Room Air 02/23/24 09:30 02/23/24 10:00 02/23/24 10:54 Temperature Temperature Source Pulse Rate 63 61 60 Pulse Rate [Apical] Respiratory Rate Blood Pressure 122/71 118/70 118/78 Blood Pressure [Right Arm] Blood Pressure Mean [Right Arm] Blood Pressure Source [Right Arm] Blood Pressure Position [Right Arm] 02 Sat by Pulse Oximetry 97 94 L 97 Oxygen Delivery Method Room Air Room Air 02/23/24 11:00 02/23/24 11:31 02/23/24 11:45 Temperature Temperature Source Pulse Rate 62 60 60 Pulse Rate [Apical] Respiratory Rate Blood Pressure 131/67 135/70 135/70 Blood Pressure [Right Arm] Blood Pressure Mean [Right Arm] Blood Pressure Source [Right Arm] Blood Pressure Position [Right Arm] 02 Sat by Pulse Oximetry 97 98 96 Oxygen Delivery Method Room Air Room Air Lab Data Lab results reviewed: Yes I reviewed the patient's lab results. Lab Results 02/23/24 08:11: WBC 6.3, RBC 4.05 L, Hgb 13.2 L, Hct 40.9 L, MCV 100.9 H, MCH 32.5 H, MCHC 32.2, RDW 13.8, Plt Count 144, MPV 9.6, Neut % (Auto) 65.7, Lymph % (Auto) 23.4, [place] % (Auto) 8.1, Eos % (Auto) 1.6, Baso % (Auto) 1.2, Neut # (Auto) 4.1, Lymph # (Auto) 1.5, [place] # (Auto) 0.5, Eos # (Auto) 0.1, Baso # (Auto) 0.1, Sodium 136, Potassium 4.0, Chloride 105, Carbon Dioxide 26, Anion Gap 9.0, BUN 24 H, Creatinine 1.60 H, Estimated Creat Clear 79, Estimated GFR 45 L, Est GFR ( Amer) 55 L, Glucose 199 H, Calcium 8.9, Total Bilirubin 0.3, AST 44, ALT 58, Alkaline Phosphatase 76, Total Creatine Kinase 173 H, Troponin I 0.05 H, NT-Pro-B Natriuret Pep 219 H, Total Protein 7.1, Albumin 4.0, Globulin 3.1, Albumin/Globulin Ratio 1.3, SARS-CoV-2 (PCR) Detected A, Influenza A Untype (PCR) Not detected, Influenza Type B (PCR) Not detected 02/23/24 10:35: Urine Color Yellow, Urine Appearance Clear, Urine pH 6.0, Ur Specific Hoffman >= 1.030, Urine Protein Trace, Urine Glucose (UA) Negative, Urine Ketones Negative, Urine Blood Negative, Urine Nitrate Negative, Urine Bilirubin Negative, Urine Urobilinogen 0.2, Ur Leukocyte Esterase Negative, Urine RBC Occasional, Urine WBC Occasional, Ur Squamous Epith Cells Occasional, Urine Bacteria Trace 02/23/24 11:08: Troponin I 0.04 H 02/23/24 08:11 02/23/24 08:11 Orders (Tests/Meds): ED MEDICATIONS Discontinued Medications Generic Name Dose Route Start Last Admin Trade Name Freq PRN Reason Stop Dose Admin Acetaminophen 1,000 mg 02/23/24 08:22 02/23/24 08:43 Acetaminophen 1,000mg/100ml Vial IV 02/23/24 08:23 1,000 mg ONCE ONE Administration Lactated Ringer's 1,000 mls @ 999 mls/hr 02/23/24 09:21 02/23/24 09:30 Lactated Ringer's 1000 Ml Bag IV 02/23/24 10:21 999 mls/hr .Q1H1M ONE Administration Ketorolac Tromethamine 15 mg 02/23/24 08:22 02/23/24 08:38 Ketorolac 30mg/Ml Vial IV 02/23/24 08:23 Not Given ONCE ONE Morphine Sulfate 4 mg 02/23/24 09:21 02/23/24 09:28 Morphine 4mg/Ml Syringe IV 02/23/24 09:22 Not Given ONCE ONE Ondansetron HCl 4 mg 02/23/24 09:21 02/23/24 09:30 Ondansetron 4mg/2ml Vial IV 02/23/24 09:22 4 mg ONCE ONE Administration Oxycodone HCl 5 mg 02/23/24 09:26 02/23/24 09:30 Oxycodone 5mg Immediate Release Tablet PO 02/23/24 09:27 5 mg ONCE ONE Administration ORDERS Category Date Time Status XR chest 2V Stat Exams 02/23/24 08:12 Completed Complete Blood Count Auto Diff Stat Lab 02/23/24 08:11 Completed Comprehensive Metabolic Panel Stat Lab 02/23/24 08:11 Completed Creatine Kinase Stat Lab 02/23/24 08:11 Completed NT Pro Brain Natriuretic Pep. Stat Lab 02/23/24 08:11 Completed Rapid PCR Covid and Flu A/B Stat Lab 02/23/24 08:11 Completed Troponin I Q3H Lab 02/23/24 11:08 Completed Troponin I Q3H Lab 02/23/24 14:15 Ordered Troponin I Stat Lab 02/23/24 08:11 Completed Urinalysis and Microscopic Stat Lab 02/23/24 10:35 Completed ECG Data Tracing #1: I reviewed this ECG and interpreted as documented below: Paced rhythm at [address] changes concerning for ischemia. ECG initial impression date: 02/23/24 ECG initial impression time: 08:08 HEART Score History (anamnesis): Slightly suspicious ECG: Non-specific disturbance Age: 45-65 years Risk factors: Atherosclerosis history Troponin: 1-3x normal limit HEART Score: 5 Medical Decision Narrative: In summary, this patient is a 53-year-old male presenting to the Emergency Department for evaluation of chest pressure and generalized body ache. Differential diagnoses considered include but are not limited to viral syndrome, pneumonia, respiratory failure, ACS, dysrhythmia, rhabdomyolysis, CHF exacerbation. Ruling out the most morbid conditions drove assessment. On exam, the patient is resting in bed with normal vital signs on cardiac telemetry. Workup included CBC, CMP, troponin, BNP, CK, urinalysis, chest x- ray, and viral swab. Patient was given IV acetaminophen for symptomatic improvement. I independently interpreted chest x-ray prior to the radiologist read and noted no acute focal consolidation, pneumothorax, or other concerns. Please see their read for final interpretation. Labs were obtained that demonstrated mildly elevated initial troponin at 0.05, however patient has chronically elevated troponins, likely related to chronic kidney disease. Patient does test positive for COVID-19, which I feel is likely the source of all of his symptoms. He continues to have pain after administration of Tylenol, so he was given a bolus of IV fluids as well as oral oxycodone, as he is chronically on opiates at home, to assess for symptomatic improvement in his polyarthralgias. At 0915, patient was placed in ED observation status pending second troponin and reassessment to determine whether or not the patient would be appropriate for discharge versus admission. The patient was provided serial reevaluations and cardiac monitoring while awaiting ultimate disposition. Ultimately, around noon, the patient's second troponin came back at 0.04, which is not significantly changed from prior troponin. Vitals are reassuring on cardiac telemetry, and overall he states that he is feeling better. I had an interactive discussion with Felix with cardiology who advised that he felt patient was okay for discharge from cardiac standpoint given stable troponins and no significant changes on EKG. Patient and family agreeable to this plan. At this time, it is deemed that patient is appropriate for discharge with instructions for supportive management of COVID-19. Strict return precautions were given. Patient was ultimately discharged at 12:15 PM after 3 hours in ED observation. Critical Care Critical Care Time Critical Care Time: No
--- NOTE | 2024-02-23 08:19 | PC.NURSE ---
PT TO XR
[2024-02-23 08:21] LABS: Basophils # 0.1 K/mm3 (0-0.2); Basophils % 1.2 % (0.1-2.0); Eosinophils # 0.1 K/mm3 (0.0-0.4); Eosinophils % 1.6 % (0.1-12.0); Hematocrit 40.9 % (42.0-52.0); Hemoglobin 13.2 g/dL (14.1-18.0); Lymphocytes # 1.5 K/mm3 (0.7-4.5); Lymphocytes % 23.4 % (10-50); Mean Corpuscular HGB Conc 32.2 g/dL (31.8-35.4); Mean Corpuscular Hemoglobin 32.5 pg (27.0-31.2); Mean Corpuscular Volume 100.9 fl (80-94); Mean Platelet Volume 9.6 fl (7.4-10.4); Monocytes # 0.5 K/mm3 (0.1-1.0); Monocytes % 8.1 % (1.7-9.3); Neutrophils # 4.1 K/mm3 (1.8-7.8); Neutrophils % 65.7 % (37.0-80.0); Platelet Count 144 K/mm3 (142-424); Red Blood Count 4.05 M/mm3 (4.60-6.20); Red Cell Distribution Width 13.8 % (11.5-17.5); White Blood Count 6.3 K/mm3 (4.8-10.8)
--- NOTE | 2024-02-23 08:22 | PC.NURSE ---
PT RETURNED FROM XR
[2024-02-23 08:34] LABS: Chloride 105 mmol/L (98-107); Sodium 136 mmol/L (136-145)
[2024-02-23 08:36] LABS: Alanine Aminotransferase 58 U/L (12-78); Alkaline Phosphatase 76 U/L (38-126); Aspartate Amino Transferase 44 U/L (17-59); Bilirubin,Total 0.3 mg/dl (0.2-1.3); Blood Urea Nitrogen 24 mg/dl (9-20); Creatine Kinase 173 U/L (55-170); Creatinine Clearance Estimated 79 mL/min (50-200); Estimated Glomerular Filt Rate 45 ml/min (>60); GFR (African American) 55 ML/MIN (>60)
[2024-02-23 08:37] LABS: Albumin/Globulin Ratio 1.3 (1.1-1.8); Calcium 8.9 mg/dl (8.4-10.2); Globulin 3.1 g/dL (1.3-3.2); Glucose 199 mg/dl (74-100); Total Protein,Serum 7.1 g/dl (6.3-8.2)
[2024-02-23] MEDS: ACETAMINOPHEN 1,000MG/100ML VIAL 1000 MG IV (08:43)
--- NOTE | 2024-02-23 08:45 | PC.NURSE ---
Called lab, per Dr. Nick, to ensure they saw the added order for a BNP. Lab reports it it running now.
[2024-02-23 08:47] LABS: Troponin I 0.05 ng/ml (0.00-0.034)
[2024-02-23 09:07] LABS: NT Pro Brain Natriuretic Pep. 219 pg/mL (0-125)
[2024-02-23 09:13] LABS: Carbon Dioxide 26 mmol/L (22.0-30.0)
[2024-02-23 09:17] LABS: Coronavirus 19, PCR Detected (NotDetected)
--- NOTE | 2024-02-23 09:24 | PC.NURSE ---
ROUNDED ON PT, SITTING ON BEDSIDE. REPORTS NO RELIEF FROM IV TYLENOL. NOTIFIED
[2024-02-23] MEDS: LACTATED RINGERS 1000ML 1,000 ML 999 ML IV (09:30)
[2024-02-23] MEDS: ONDANSETRON 4MG/2ML VIAL 4 MG IV (09:30)
[2024-02-23] MEDS: OXYCODONE 5MG IMMEDIATE RELEASE TABLET 5 MG PO (09:30)
[2024-02-23 10:39] LABS: Microscopic, Urine URINE MICROSCOPIC (MICROSCOPIC)
[2024-02-23 10:43] LABS: Appearance,Urine CLEAR (Clear); Bilirubin,Urine Negative (Negative); Blood, Urine Negative (Negative); Color,Urine YELLOW (Yellow); Glucose,Urine (UA) Negative (Negative); Ketones,Urine Negative (Negative); Leukocyte Esterase,Urine Negative (Negative); Nitrate,Urine Negative (Negative); Protein,Urine TRACE (Negative); Specific Gravity, Urine >= 1.030 (1.005-1.030); Urobilinogen,Urine 0.2 EU/dl (0.2)
--- NOTE | 2024-02-23 11:11 | PC.NURSE ---
second trop collected and sent to lab
[2024-02-23 11:13] LABS: Bacteria,Urine Trace /lpf; RBC,Urine Occasional #/hpf (0-3); Squamous Epithelial Cell,Urine Occasional #/hpf (0-5); WBC,Urine Occasional #/hpf (0-3)
[2024-02-23 11:52] LABS: Troponin I 0.04 ng/ml (0.00-0.034)
--- NOTE | 2024-02-23 12:07 | PC.NURSE ---
called cardiology per Dr Nick to speak with them about this pt
--- NOTE | 2024-02-23 12:08 | PC.NURSE ---
DR ELLIS SPEAKING WITH CARDIOLOGY
--- NOTE | 2024-02-23 12:08 | PC.NURSE ---
DR ELLIS AT BEDSIDE TO UPDATE PT AND
== END 2024-02-23 12:19 | disposition home or self-care (01) ==
PROVIDERS: Emergency Provider Emergency Medicine; PCP Nurse Practitioner Family
DX: U07.1 COVID-19 (principal); R07.9 Chest pain, unspecified; M79.18 Myalgia, other site; I27.20 Pulmonary hypertension, unspecified; I11.9 Hypertensive heart disease without heart failure; I25.10 Atherosclerotic heart disease of native coronary artery without angina pectoris; E78.5 Hyperlipidemia, unspecified; Z95.0 Presence of cardiac pacemaker
CPT/HCPCS: 71046; 80053; 81001; 82550; 83880; 84484; 85025; 87636; 93005; 96361; 96374; 96375; 99285; J0131; J2405

== ENCOUNTER 2024-03-10 09:50 | Day surgery (SDC) | payer OTHER, SELFPAY ==
[2024-03-10 09:54] VITALS: BP 151/76; PULSE 52; RESP 16; TEMP 36.3; O2SAT 96; BMI 4530.4
[2024-03-10] MEDS: LIDOCAINE 1% 30ML PF VIAL 30 ML (11:53)
[2024-03-10] MEDS: FENTANYL 100MCG/2ML VIAL 100 MCG (11:53)
[2024-03-10] MEDS: CLINDAMYCIN PHOSPHATE/D5W 900 MG/50 ML PIGGYBACK 100 MG IV (11:54)
[2024-03-10 11:55] VITALS: BP 168/93; PULSE 63; RESP 18; O2SAT 97
[2024-03-10 11:56] VITALS: BP 168/93; PULSE 61; RESP 18; O2SAT 97
[2024-03-10 12:05] VITALS: BP 145/87; PULSE 60; RESP 18; O2SAT 95
[2024-03-10 12:20] VITALS: BP 129/80; PULSE 60; RESP 18; O2SAT 97
[2024-03-10 12:31] VITALS: BP 143/94; PULSE 61; RESP 18; O2SAT 100
--- NOTE | 2024-03-10 14:35 | EXP.PAIN.PRO ---
Procedure Date: 03/10/24 Time: 14:35 Anesthesiologist:: Shawn Olivier MD Complications:: None Pre-procedure Diagnosis:: Postlaminectomy syndrome lumbar spine with lumbar radiculopathy symptoms Post-procedure Diagnosis:: Same Indications for Procedure:: This patient is a pleasant 53-year-old white male who we are treating for postlaminectomy syndrome lumbar spine with lumbar radiculopathy symptoms. He has failed all previous conservative treatments including injections, oral medications, physical therapy and previous surgery. This patient presents for a intrathecal pump trial today. He has had a successful psychological evaluation. He is weaned off of his oral pain medications. Procedure Details:: Pain pump trial Informed consent was obtained and the risk and benefits of the procedure was explained to the patient. The patient was taken to the procedure room and placed prone on the procedure table. Patient was prepped and draped in sterile fashion. C-arm fluoroscopy was used to view the lumbar spine. The skin and subcutaneous tissues were anesthetized using lidocaine. I placed a 18-gauge spinal needle into the L2-L3 interspace and advanced until clear CSF was obtained. After this intrathecal catheter was inserted and advanced very easily to the L1 vertebral body. The needle was withdrawn. We were able to freely withdraw clear CSF through the catheter. We then injected intrathecal opioid single shot bolus of 25 mcg followed by saline and followed by the previous CSF that was withdrawn. The needle and catheter were then removed and a Band-Aid was placed. Patient tolerated the procedure well with no complications. We reevaluated the patient after 30 minutes to 1 hour. He was also reassessed by physical therapy. This patient had 90 to 100% relief in pain symptoms. Pain score is a 1 out of 10. He was walking better he was much more functional. By all indications this did seem to be a successful intrathecal pump trial. If patient decides to proceed with permanent we will plan on permanent with intrathecal morphine 1 mg per ml to start at 150 mcg/day. Catheter entry will be at the L2-L3 vertebral bodies catheter tip will be at the T8 vertebral body. Plan and Disposition:: We will follow-up with him in 1 week to assess efficacy of this trial. Again if successful we will plan on intrathecal morphine 1 mg per mall to start at 150 mcg/day with catheter tip at the T8 vertebral body and catheter entry at L2-L3.
== END 2024-03-10 12:32 | disposition home or self-care (01) ==
LOC: SC.PAINP 09:50
PROVIDERS: PCP Nurse Practitioner Family; Visit Provider Anesthesiology
DX: M96.1 Postlaminectomy syndrome, not elsewhere classified (principal); M54.16 Radiculopathy, lumbar region
CPT/HCPCS: 62323

== ENCOUNTER 2024-03-14 11:05 | Outpatient (POV) | payer OTHER, SELFPAY | END 2024-03-14 23:59 | disposition home or self-care (01) | LOC: SC 11:05 | PROVIDERS: Visit Provider Nurse Practitioner | DX: Z00.00 Encounter for general adult medical examination without abnormal findings (principal) ==

== ENCOUNTER 2024-03-16 14:28 | Outpatient (CLI) | payer OTHER, SELFPAY ==
--- NOTE | 2024-03-16 14:36 | XR_ITS ---
FINAL REPORT CLINICAL HISTORY: right wrist pain COMPARISON: None FINDINGS: RIGHT WRIST Three views demonstrate no acute fracture or dislocation. There are mild to moderate hypertrophic changes of osteoarthritis at the basilar joint. There is no significant ulnar positive or negative variance. The soft tissues are unremarkable. IMPRESSION: Hypertrophic changes without acute bony abnormality. Reviewed, Interpreted and Dictated by Ravin Alford MD Transcribed by Jailyn Granados Authenticated and [facility]
--- NOTE | 2024-03-16 14:36 | XR_ITS ---
FINAL REPORT CLINICAL HISTORY: left wrist pain COMPARISON: None FINDINGS: LEFT WRIST Three views demonstrate no acute fracture or dislocation. There are minimal hypertrophic changes of the left basilar joint consistent with minimal osteoarthritis. The soft tissues are unremarkable. IMPRESSION: Minimal hypertrophic changes without acute bony abnormality. Reviewed, Interpreted and Dictated by Ravin Alford MD Transcribed by Jailyn Granados Authenticated and . [facility]
== END 2024-03-16 23:59 | disposition home or self-care (01) ==
LOC: RAD 14:29
PROVIDERS: PCP Nurse Practitioner Family; Visit Provider Orthopaedic Surgery
DX: M25.531 Pain in right wrist (principal); M25.532 Pain in left wrist
CPT/HCPCS: 73110

== ENCOUNTER 2024-03-20 08:18 | Outpatient (POV) | payer OTHER, SELFPAY ==
[2024-03-20 08:35] VITALS: BP 136/78; PULSE 60; RESP 18; TEMP 36.8; O2SAT 99; BMI 30.9
--- NOTE | 2024-03-20 09:15 | A.OFFVIS_ITS ---
[facility] Pain Management SOAP Note Subjective:: Patient is a pleasant 53-year-old male who presents today for follow-up of pain pump trial on 03/10/2024. Currently treating the patient for degenerative disc disease of cervical spine with cervical radiculopathy symptoms, low back pain with lumbar radiculopathy symptoms. Today he rates his pain a 9 out of 10. Patient denies any new trauma or injury. He does state that he had 90 to 100% relief with the pain pump trial. Patient was tried with fentanyl 25 mcg bolus. Patient states that this did ended up for at least a couple more hours from the time he left the hospital. Patient states that he did feel like this was allowing him to be more functional with decreased pain symptoms. He states that this does seem to be a better option than his current oral pain medication. He does state that he is scheduled for carpal tunnel surgery on March 29 and that they will be planning on doing his opposite wrist in future as well as rotator cuff surgery. Patient states that the rotator cuff surgery is not scheduled at this time and I really do not know when this will be exactly. He does state this is being done by Moisés Nino here at [facility]. He does state today he is back to his baseline and that his pain does interfere with his ability to perform activities of daily living such as cooking and cleaning. Patient has tried and failed conservative treatment such as oral medication, heat and ice, physical therapy, at home stretching exercise for longer than 6 weeks as well as previous back surgery. He is currently managed with Percocet 10 mg 4 times a day and pregabalin 100 mg 3 times a day from his primary care provider. His Jose De Jesus has been reviewed and is appropriate. Review of Systems: General: No recent weight changes, no fever, no sleep disturbances Respiratory: No cough, no shortness of air, no recurring pulmonary infections Cardiovascular/peripheral vascular: No chest pain, no palpitations, no edema, no shortness of breath Gastrointestinal: No new onset incontinence, normal bowel movements reported Genitourinary: No new onset incontinence Musculoskeletal: Neck pain, low back pain Psychiatric: [Normal mood/affect] Neurological: [Denies weakness in extremities], [denies balance issues] Objective:: Physical Exam: General: Alert and oriented x3, no acute distress, pleasant and cooperative Lungs: Respirations even and unlabored, symmetrical chest expansion Eyes: PERRL Musculoskeletal: Flexion and extension of lumbar [spine] somewhat guarded secondary to pain, [antalgic gait noted] Neurological: Speech clear, no gross sensory deficit Assessment:: 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 Risk and benefits have been discussed and they still wish to continue with this plan of care. Patient denies have a signed agreement that if we proceed forward with the intrathecal pump that there will be a decrease in oral pain medications if this is applicable with the overall goal 2-no oral opioids once the intrathecal pain pump is established. Prior to the intrathecal trial patient was on a fixed schedule with her medications and patient has been compliant with her medication regimen. We will submit for the intrathecal pain pump implant. Patient has tried and failed conservative therapies such as oral medication, heat and ice, t opicals, physical therapy, continued at home stretching exercises. Patient has been counseled regarding his upcoming surgeries that it will be something he will have to talk to his woolen suiting shrinker and anesthesia regarding the increased risk of additional anesthesia. Patient acknowledges understanding. Patient did also discussed at length his previous morphine intolerance with severe vomiting. I have discussed with patient and Dr. Olivier that we will plan on starting him off on Dilaudid 1 mg/mL with a starting dose of 0.1 mg/day with the catheter inserted and advanced to the L1 vertebral body. We will submit to insurance for the intrathecal pain pump implant and contact the patient once we have approval. Patient is on blood thinner from Dr. Berman's office and will have to stop this medication prior to this procedure. Patient has been instructed to contact the clinic with any concerns before the next appointment. Dr. Olivier has reviewed this note and agrees with this plan of care. This note was dictated using voice recognition software and make contain errors or omissions. [facility] Disclaimer: The information contained in this section may have been updated after the patient was seen, as this information can be updated by other users. Medical History Pulmonary arterial hypertension Abnormal electrocardiogram [ECG] [EKG] Non-STEMI (non-ST elevated myocardial infarction) Hyperlipidemia Coronary artery disease Bright's disease Femur fracture, left ian in place History of left heart catheterization (LHC) Cardiac pacemaker in situ JUANITA (acute kidney injury) Chronic serous otitis media of right ear Impacted cerumen of right ear Cleaned under the microscope Hearing loss in right ear Tympanosclerosis, right ear Syncope Symptomatic bradycardia 1st degree AV block Bradycardia Chest pain Abnormal electrocardiography HTN (hypertension) Established with [facility] cardiology Surgical History History of facial surgery History of back surgery Family History Father Family history of myocardial infarction Mother Family history of myocardial infarction Social History Smoking Status: Never smoker alcohol intake: current substance use type: denies use current occupational status: employed Travel in the last 8 weeks: None household members: spouse housing: house
== END 2024-03-20 23:59 ==
LOC: SC.PAIN 08:19
PROVIDERS: PCP Nurse Practitioner Family; Visit Provider Nurse Practitioner Family
DX: M50.10 Cervical disc disorder with radiculopathy, unspecified cervical region (principal); M51.16 Intervertebral disc disorders with radiculopathy, lumbar region; M96.1 Postlaminectomy syndrome, not elsewhere classified; G89.4 Chronic pain syndrome
CPT/HCPCS: 99212; G0463

== ENCOUNTER 2024-03-24 19:03 | Outpatient (CLI) | payer OTHER, SELFPAY ==
[2024-03-24 19:31] LABS: Chloride 107 mmol/L (98-107); Potassium 4.6 mmoL/L (3.5-5.1); Sodium 141 mmol/L (136-145)
[2024-03-24 19:34] LABS: Blood Urea Nitrogen 27 mg/dl (9-20); Estimated Glomerular Filt Rate 39 ml/min (>60); GFR (African American) 48 ML/MIN (>60)
[2024-03-24 19:35] LABS: Anion Gap 12.6 mEq/L (5-15); Calcium 9.7 mg/dl (8.4-10.2); Carbon Dioxide 26 mmol/L (22.0-30.0); Glucose 84 mg/dl (74-100)
== END 2024-03-24 23:59 | disposition home or self-care (01) ==
LOC: LAB 19:04
PROVIDERS: PCP Nurse Practitioner Family; Visit Provider Physician Assistant
DX: I25.118 Atherosclerotic heart disease of native coronary artery with other forms of angina pectoris (principal); I10 Essential (primary) hypertension
CPT/HCPCS: 80048

== ENCOUNTER 2024-03-29 09:22 | Day surgery (SDC) | payer OTHER, SELFPAY ==
[2024-03-28 10:32] VITALS: BMI 30.9
[2024-03-29] VITALS (11 sets, daily range): BP systolic 115–168; BP diastolic 70–98; PULSE 50–63; RESP 14–18; TEMP 36.2–36.5; O2SAT 93–97
[2024-03-29] MEDS: LACTATED RINGERS 1000ML 1,000 ML 25 ML IV (09:38)
--- NOTE | 2024-03-29 12:17 | P.PNANES_ITS ---
[facility] Disclaimer: The information contained in this section may have been updated after the patient was seen, as this information can be updated by other users. Medical History History of fracture of leg Pacemaker Pulmonary arterial hypertension Abnormal electrocardiogram [ECG] [EKG] Non-STEMI (non-ST elevated myocardial infarction) Hyperlipidemia Coronary artery disease Bright's disease Femur fracture, left History of left heart catheterization (LHC) Cardiac pacemaker in situ JUANITA (acute kidney injury) Chronic serous otitis media of right ear Impacted cerumen of right ear Hearing loss in right ear Tympanosclerosis, right ear Syncope Symptomatic bradycardia 1st degree AV block Bradycardia Chest pain Abnormal electrocardiography HTN (hypertension) Surgical History History of facial surgery History of back surgery Family History Father Family history of myocardial infarction Mother Family history of myocardial infarction Other Family history of diabetes mellitus Social History Smoking Status: Never smoker alcohol intake: never substance use type: denies use current occupational status: employed and unemployed Travel in the last 8 weeks: None household members: spouse housing: house [facility] Anesthesia Checklist Patient Identification Patient Identification: Arm Band, Family and Verbal (Name & ) Structural Data Admitted From: Home Planned Operative Procedure/s: Endoscopic CT Release Consent for Planned Operative Procedure(s) Verified: Yes Verified Documents: Surgical Consent and History and Physical NPO Status Verified Time NPO: 19:30 Chart Verification Results Verified: CBC, BMP, ECG and Chest Xray Additional verifications Patient : No Anesthesia Reactions: No Hx Blood Transfusions: No Blood Transfusion Reaction: No Cardiovascular Assessment Heart Sounds: S1 & S2 Pulse Rhythm: Irregular Peripheral Edema: No Airway Assessment Mallampati Score:: Class II C-Spine Mobility Assessed: Yes (Limited extension & flexion) TMJ Mobility Assessed: Yes Dentition: Edentulous Neurological Assessment Level of Consciousness: Awake, Alert, Appropriate and Follows Commands Hx Seizures: No Numbness or tingling in extremities: Yes (arms & legs) Anesthesia Plan Anesthesia Risk discussed: Yes Anesthesia Plan: Verified ASA Class: III Anesthesia Type: MAC
[2024-03-29] MEDS: CLINDAMYCIN PHOSPHATE/D5W 900 MG/50 ML PIGGYBACK 106 MG IV (12:30)
[2024-03-29] MEDS: LIDOCAINE 1% W/EPI 1:100,000 20ML VIAL 20 ML (12:51)
--- NOTE | 2024-03-29 13:07 | EXP.OP.NOTE ---
Date of procedure: 03/29/24 Pre-op Diagnosis:: Left carpal tunnel syndrome Post-op Diagnosis:: Same Procedure performed:: Left endoscopic carpal tunnel release Surgeon:: Jakob Nino DO MECHANIC SENIOR:: Maricel Juan Anesthesia: LMA Estimated blood loss (mL): 0 Operative findings:: See dictation Operative note:: Patient was identified preoperatively. Left wrist marked with yes my initials. Transferred operative suite placed upon operating bed. General anesthesia ministered airway secured. Left upper extremity and prepped draped normal sterile fashion. Once prepped and draped final operative timeout performed to identify proper patient procedure and extremity. Everyone involved the case agreed. No count indication beginning. Did receive preoperative antibiotics with clindamycin. Marking pen was used to angelica plan incision over the volar aspect of the wrist skin crease. Esmarch was used to exsanguinate the extremity and pneumatic tourniquet inflated to 250 mmHg. Skin apices incise the skin careful dissection is taken down to identify the most proximal aspect transverse carpal ligament. Retractors were placed. The dilators from the segue endoscopic carpal tunnel set was utilized followed by the 4.0 mm sled. Then I introduced a camera into the carpal tunnel and into the sled the transverse carpal ligament clearly seen superiorly within the wound. The probe was used to identify the most distal aspect of the transverse carpal ligament rasp was used to remove soft tissue from the undersurface of the transverse carpal ligament and the hook blade was used to incise the transverse carpal ligament and perform complete carpal tunnel release. This was directly visualized. Irrigation of the wound was then performed skin was closed with nylon stitch sterile hand dressing placed. Patient waken from anesthesia taken recovery in stable condition Condition: stable Disposition: PACU Complications:: None apparent
--- NOTE | 2024-03-29 13:18 | P.PNANES_ITS ---
[facility] Anesthesia Record Part I Anesthesia Record I Intake, IV Amount: 300 Hydration: Adequate Estimated blood loss (mL): 5 Urine output (mL): 0 Blood Products used (#): none Blood Pressure: 115/75 SaO2: 94 Pulse Rate: 61 Airway Patency: Patent Respiratory Rate: 15 Temperature: 97.2 F Patient is:: Drowsy, Oral/Nasal airway (10.0 oral airway) and Stable Stable to PACU at:: 13:17
--- NOTE | 2024-03-29 15:44 | P.PNANES_ITS ---
[facility] Anesthesia Record Part II Anesthesia Record Part II Discharge Time: 13:42 Destination: Surgical Day Care (OP Surgery) PACU nurse assessment reviewed?: Yes Patient Condition:: Good Anesthesia Complications:: None Swallowing reflex intact?: Yes Airway Patency: Patent Cyanosis?: No Blood Pressure: 141/90 SaO2: 96 Respiratory Rate: 16 Pulse Rate: 63 Temperature: 97.2 F Mental Status: Alert & Oriented Pain level:: 3 Nausea and/or vomitting:: None Intake, IV Amount: 300 Hydration: Adequate
== END 2024-03-29 14:08 | disposition home or self-care (01) ==
PROVIDERS: PCP Nurse Practitioner Family; Visit Provider Orthopaedic Surgery
PROC: (CPT 64721; principal; 2024-03-29 11:15)
DX: G56.02 Carpal tunnel syndrome, left upper limb (principal)
CPT/HCPCS: 29848; 96374

== ENCOUNTER 2024-04-07 06:03 | Day surgery (SDC) | payer OTHER, SELFPAY ==
[2024-04-07] VITALS (10 sets, daily range): BP systolic 114–149; BP diastolic 75–101; PULSE 59–66; RESP 18; TEMP 36.2–36.6; O2SAT 93–98; BMI 30.9
[2024-04-07] MEDS: LACTATED RINGERS 1000ML 1,000 ML 25 ML IV (06:23)
[2024-04-07 06:57] LABS: Basophils # 0.1 K/mm3 (0-0.2); Basophils % 0.7 % (0.1-2.0); Eosinophils # 0.6 K/mm3 (0.0-0.4); Eosinophils % 5.5 % (0.1-12.0); Hematocrit 39.7 % (42.0-52.0); Hemoglobin 13.3 g/dL (14.1-18.0); Lymphocytes # 2.2 K/mm3 (0.7-4.5); Lymphocytes % 22.2 % (10-50); Mean Corpuscular HGB Conc 33.4 g/dL (31.8-35.4); Mean Corpuscular Hemoglobin 32.7 pg (27.0-31.2); Mean Corpuscular Volume 97.8 fl (80-94); Mean Platelet Volume 8.8 fl (7.4-10.4); Monocytes # 0.8 K/mm3 (0.1-1.0); Monocytes % 8.1 % (1.7-9.3); Neutrophils # 6.2 K/mm3 (1.8-7.8); Neutrophils % 63.4 % (37.0-80.0); Platelet Count 191 K/mm3 (142-424); Red Blood Count 4.06 M/mm3 (4.60-6.20); White Blood Count 9.8 K/mm3 (4.8-10.8)
--- NOTE | 2024-04-07 07:03 | EXP.ANES.CKL ---
[facility] Disclaimer: The information contained in this section may have been updated after the patient was seen, as this information can be updated by other users. Medical History History of fracture of leg Pacemaker Pulmonary arterial hypertension Abnormal electrocardiogram [ECG] [EKG] Non-STEMI (non-ST elevated myocardial infarction) Hyperlipidemia Coronary artery disease Bright's disease Femur fracture, left History of left heart catheterization (LHC) Cardiac pacemaker in situ JUANITA (acute kidney injury) Chronic serous otitis media of right ear Impacted cerumen of right ear Hearing loss in right ear Tympanosclerosis, right ear Syncope Symptomatic bradycardia 1st degree AV block Bradycardia Chest pain Abnormal electrocardiography HTN (hypertension) Surgical History History of facial surgery History of back surgery Family History Father Family history of myocardial infarction Mother Family history of myocardial infarction Other Family history of diabetes mellitus Social History Smoking Status: Never smoker alcohol intake: never substance use type: denies use current occupational status: employed and unemployed Travel in the last 8 weeks: None household members: spouse housing: house [facility] Anesthesia Checklist Patient Identification Patient Identification: Arm Band and Verbal (Name & ) Structural Data Admitted From: Home Planned Operative Procedure/s: IPPP Consent for Planned Operative Procedure(s) Verified: Yes NPO Status Verified Time NPO: 00:00 Chart Verification Results Verified: CBC, BMP and ECG Additional verifications Anesthesia Reactions: No Hx Blood Transfusions: No Blood Transfusion Reaction: No Airway Assessment Mallampati Score:: Class II C-Spine Mobility Assessed: Yes TMJ Mobility Assessed: Yes Dentition: Edentulous Neurological Assessment Level of Consciousness: Awake Hx Seizures: No Numbness or tingling in extremities: Yes Anesthesia Plan Anesthesia Risk discussed: Yes Anesthesia Plan: Verified ASA Class: III Anesthesia Type: MAC
[2024-04-07 07:08] LABS: Anion Gap 16.7 mEq/L (5-15); Blood Urea Nitrogen 24 mg/dl (9-20); Calcium 9.5 mg/dl (8.4-10.2); Carbon Dioxide 25 mmol/L (22.0-30.0); Chloride 103 mmol/L (98-107); Creatinine Clearance Estimated 90 mL/min (50-200); Estimated Glomerular Filt Rate 53 ml/min (>60); GFR (African American) 64 ML/MIN (>60); Glucose 117 mg/dl (74-100); Potassium 4.7 mmoL/L (3.5-5.1); Sodium 140 mmol/L (136-145)
[2024-04-07] MEDS: VANCOMYCIN HCL 2,000 MG in 0.9 % SODIUM CHLORIDE 250 ML 125 MG IV (07:28)
[2024-04-07 07:40] LABS: Amphetamine/Metha Screen,Urine Negative ng/ml (<1000)
[2024-04-07 07:41] LABS: Barbiturates Screen,Urine Negative ng/ml (<200)
[2024-04-07 07:42] LABS: Benzodiazepines Screen,Urine Negative ng/ml (<200); Cannabinoid Screen,Urine Negative ng/ml (<50)
[2024-04-07 07:43] LABS: Cocaine Screen,Urine Negative ng/ml (<300); Methadone Screen,Urine Negative ng/ml (<300)
[2024-04-07 07:46] LABS: Opiate Screen,Urine Positive ng/ml (<300); Phencyclidine Screen,Urine Negative ng/ml (<25)
[2024-04-07] MEDS: LIDOCAINE 1% W/EPI 1:100,000 20ML VIAL 40 ML (07:46)
[2024-04-07] MEDS: SODIUM CHLORIDE 0.9% 20ML VIAL 40 ML IV (07:47)
[2024-04-07] MEDS: GENTAMICIN 80 MG/2 ML VIAL (07:48)
--- NOTE | 2024-04-07 08:47 | EXP.OP.NOTE ---
Date of procedure: 04/07/24 Pre-op Diagnosis:: Postlaminectomy syndrome lumbar spine with lumbar radiculopathy symptoms Post-op Diagnosis:: Same Procedure performed:: Permanent placement intrathecal pain pump with tunneled intrathecal catheter and pump generator placement Surgeon:: Shawn Olivier MD CHOREOGRAPHY DIRECTOR:: Sulaiman Waldron Anesthesia: MAC Estimated blood loss (mL): 5 Clinical Note:: This patient is a pleasant 53-year-old white male who we are treating for low back pain with lumbar radicular symptoms. He has failed all previous conservative treatments including injections, oral medications, physical therapy and he is not a candidate for surgery. He has had a successful psychological evaluation and a successful intrathecal pump trial. He presents for permanent placement of his intrathecal pain pump today. Operative findings:: None Operative note:: Informed consent was obtained risk and benefits of the procedure were explained to the patient. The patient was taken the operating room placed prone on the procedure table. He was prepped and draped in sterile fashion. C-arm fluoroscopy was used to view the left flank. [place]wick between the 12th rib and iliac crest the skin and subcutaneous tissues were anesthetized using lidocaine. I made incision dissected out the pump pocket. C-arm fluoroscopy was then used to view the lumbar spine. The skin and subcutaneous tissues adjacent to the L4-5 interspace were anesthetized using lidocaine. I made an incision dissected down to the lumbar paraspinous fascia. A 17-gauge spinal needle was inserted and advanced into the L3-L4 interspace until clear CSF was obtained. After this intrathecal catheter was inserted and advanced to the T10 vertebral body. We are unable to advance any further posteriorly as there was kinking of the catheter. Catheter was midline and posterior it was in good position at the T10 vertebral body. The stylette of the catheter and the needle withdrawn. The catheter was secured to the fascia with an anchor device and 2-0 Prolene. I tunneled the catheter from the back to the pump pocket and attached catheter to the pump. Prior to this I filled the pump with 20 mL of intrathecal Dilaudid 1 mg/mL. We were able to freely withdraw clear CSF through the sideport. The pump was then placed in the pocket with an antibiotic pouch. Both incisions were then closed with 2-0 Vicryl followed by 4-0 nylon and gary. The patient was placed in an abdominal binder taken recovery in stable condition. The patient tolerated the procedure well with no complications. Patient was given some postop medications for postop pain. He was discharged home neurologic intact with good relief of pain symptoms. Pump was interrogated and started at 100 mcg/day of intrathecal Dilaudid. Plan and disposition: We will follow-up with this patient in 1 week for wound check and reprogram. Will follow-up in 2 to 3 weeks for suture and staple removal. Condition: stable Disposition: PACU Complications:: None
[2024-04-07] MEDS: HYDROMORPHONE 2MG/ML SYRINGE 0.5 MG IV ×2 (08:56→09:03)
[2024-04-07] MEDS: OXYCODONE 10MG W/APAP 325MG TABLET 1 EACH PO (09:25)
[2024-04-07] MEDS: CYCLOBENZAPRINE 10MG TABLET 10 MG PO (10:07)
== END 2024-04-07 10:10 | disposition home or self-care (01) ==
PROVIDERS: PCP Nurse Practitioner Family; Visit Provider Anesthesiology
PROC: (CPT 62350; principal; 2024-04-07 07:30)
DX: M96.1 Postlaminectomy syndrome, not elsewhere classified (principal); M54.16 Radiculopathy, lumbar region
CPT/HCPCS: 62350; 62362; 80048; 80307; 85025; 96374; C1755; C1772; J2704; J3370

== ENCOUNTER 2024-04-13 11:15 | Outpatient (POV) | payer OTHER, SELFPAY ==
[2024-04-13 11:31] VITALS: BP 132/78; PULSE 79; RESP 18; O2SAT 98; BMI 31.6
--- NOTE | 2024-04-13 11:52 | EXP.PAIN.PRO ---
Procedure Date: 04/13/24 Time: 11:52 Anesthesiologist:: Brigid Nino APRN Complications:: None Pre-procedure Diagnosis:: Degenerative disc disease of cervical and lumbar spine with cervical and lumbar radiculopathy symptoms, lumbar postlaminectomy syndrome, chronic pain syndrome Post-procedure Diagnosis:: Same Indications for Procedure:: Patient is a pleasant 53-year-old male who presents today for 1 week postop of intrathecal pain pump placement on 04/07/2024. Today he rates his pain a 8 out of 10. Patient states he continues to have pain throughout his back and bilateral shoulders. He denies any new issues following this procedure and states overall he has done well. Patient does state he still has not gotten a surgical date for his shoulder surgery. He states they are waiting on insurance approval. Patient does state since having his pump placed that he was decreased on the oral pain medications and that he is only taking these as needed just for the shoulder pain. Patient is currently managed with Percocet 10 mg twice a day and pregabalin 100 mg 3 times a day from his PCP. He denies any side effects from these medications. Patient is currently managed with Dilaudid 1 mg/mL with a daily dose of 100 mcg/day. He denies any side effects from this medication. His Jose De Jesus has been reviewed and is appropriate. Review of Systems: General: No recent weight changes, no fever, no sleep disturbances Respiratory: No cough, no shortness of air, no recurring pulmonary infections Cardiovascular/peripheral vascular: No chest pain, no palpitations, no edema, no shortness of breath Gastrointestinal: No new onset incontinence, normal bowel movements reported Genitourinary: No new onset incontinence Musculoskeletal: Low back pain, bilateral shoulder pain Psychiatric: [Normal mood/affect] Neurological: [Denies weakness in extremities], [denies balance issues] Skin: Incision sites are clean, dry, well-approximated with minimal erythema noted and gary intact Procedure Details:: Informed consent was obtained and the risk and benefits of the procedure were explained to the patient. Patient was taken to the procedure room where noninvasive monitoring was placed including noninvasive blood pressure cuff and pulse oximeter. Patient's pump was interrogated and was reprogrammed to Dilaudid 0.115 mg/day. The patient tolerated the procedure well with no complications. Plan and Disposition:: Patient tolerated his intrathecal increase with no complications and was discharged neurologically intact. Patient was counseled to continue his postop restrictions for the full 6 weeks including no submerging in water until his incisions are fully healed, minimal bending, twisting or lifting and to continue to wear his abdominal binder to prevent seroma formation. I have counseled the patient that he is at increased risk due to taking oral pain medications and his pump however due to his chronic pain related to his shoulder and rotator cuff tear that he is waiting on surgery we do understand that this is only for temporary basis. Patient has been counseled that once he has surgery we will plan on making sure he is not on any orals and just managed with the intrathecal pain pump. Patient acknowledges understanding and agrees with this plan of care. We will order the patient a compounded cream. Patient will return to clinic in 2 weeks for reevaluation of symptoms and plan of care as well as staple removal. He is incision is clean, dry, well-approximated with gary intact and minimal erythema noted. Patient has been instructed to contact the clinic with any concerns before the next appointment. Dr. Olivier has reviewed this note and agrees with this plan of care. This note was dictated using voice recognition software and make contain errors or omissions. -- It Is medically necessary for this patient to continue to have their intrathecal pump refilled at regular intervals. This patient had an intrathecal pain pump implanted after meeting criteria of chronic intractable pain for greater than 3 months and failing conservative treatments. Patient has committed and been compliant to the treatment plan and all planned follow up care. Since implantation of the intrathecal pain pump, the patient has had decreased pain and been more functional. Oral medications have been reduced including intake of oral opioids. Patient continues to do well with intrathecal therapy with decrease in pain symptoms and increase in functional status. Stopping intrathecal medications can lead to life threatening withdrawal, seizures, cardiac arrest, severe pain, and possible . Pumps that are not refilled at regular intervals can be damages and cause and need for replacement. We continually titrate dose and concentration to optimize pain relief and function. We are limited in concentration for certain drugs to safely deliver medications through the pump and stay within the recommendations from the Polyan[employer] Consensus [employer] Guidelines. Depending on dose and concentration these pumps may need to be refilled sooner than 3 months as we titrate.
== END 2024-04-13 23:59 | disposition home or self-care (01) ==
PROVIDERS: PCP Nurse Practitioner Family; Visit Provider Nurse Practitioner Family
DX: M50.10 Cervical disc disorder with radiculopathy, unspecified cervical region (principal); M51.16 Intervertebral disc disorders with radiculopathy, lumbar region; M96.1 Postlaminectomy syndrome, not elsewhere classified; G89.4 Chronic pain syndrome; Z97.8 Presence of other specified devices; Z45.1 Encounter for adjustment and management of infusion pump
CPT/HCPCS: 62368; 99212; G0463

== ENCOUNTER 2024-05-01 11:09 | Outpatient (POV) | payer OTHER, SELFPAY ==
--- NOTE | 2024-05-01 11:29 | EXP.PAIN.PRO ---
Procedure Date: 05/01/24 Time: 11:29 Anesthesiologist:: Brigid Nino APRN Complications:: None Pre-procedure Diagnosis:: Degenerative disc disease of cervical and lumbar spine with cervical and lumbar radiculopathy symptoms, lumbar postlaminectomy syndrome, chronic pain syndrome Post-procedure Diagnosis:: Same Indications for Procedure:: Patient is a pleasant 53-year-old male who presents today for intrathecal adjustment and reprogram as well as suture and staple removal. Patient rates his pain today a 6 out of 10. Patient denies any new trauma or injury. He does state that he still doing well with his pump however feels like it could use additional adjustment. Patient is currently managed with Dilaudid 1 mg/mL with 0.115 mg/day. He denies any side effects from this medication. Patient is also managed with Percocet 10 mg twice a day and pregabalin 100 mg 3 times a day from his PCP for his other aches and pains until he has his shoulder surgery. His Jose De Jesus has been reviewed and is appropriate. Physical Exam: General: Alert and oriented x3, no acute distress, pleasant and cooperative Lungs: Respirations even and unlabored, symmetrical chest expansion Eyes: PERRL Musculoskeletal: Flexion and extension of lumbar [spine] somewhat guarded secondary to pain, [antalgic gait noted] Neurological: Speech clear, no gross sensory deficit Skin: Incisions sites are clean, dry, well-approximated with minimal erythema Procedure Details:: Informed consent was obtained and the risk and benefits of the procedure were explained to the patient. Patient was taken to the procedure room where noninvasive monitoring was placed including noninvasive blood pressure cuff and pulse oximeter. Patient's pump was interrogated and was reprogrammed to Dilaudid 0.1382 mg/day. The patient tolerated the procedure well with no complications. Plan and Disposition:: Patient tolerated his intrathecal increase with no complications and was discharged neurologically intact. Patient was counseled to continue his postop restrictions now that the sutures are out. Steri-Strips were applied. Patient will return to clinic in 1 month for reevaluation of symptoms and plan of care. We will see the patient back in the clinic at the next intrathecal refill. Patient has been instructed to contact the clinic with any concerns before the next appointment. Dr. Olivier has reviewed this note and agrees with this plan of care. This note was dictated using voice recognition software and make contain errors or omissions. -- It Is medically necessary for this patient to continue to have their intrathecal pump refilled at regular intervals. This patient had an intrathecal pain pump implanted after meeting criteria of chronic intractable pain for greater than 3 months and failing conservative treatments. Patient has committed and been compliant to the treatment plan and all planned follow up care. Since implantation of the intrathecal pain pump, the patient has had decreased pain and been more functional. Oral medications have been reduced including intake of oral opioids. Patient continues to do well with intrathecal therapy with decrease in pain symptoms and increase in functional status. Stopping intrathecal medications can lead to life threatening withdrawal, seizures, cardiac arrest, severe pain, and possible . Pumps that are not refilled at regular intervals can be damages and cause and need for replacement. We continually titrate dose and concentration to optimize pain relief and function. We are limited in concentration for certain drugs to safely deliver medications through the pump and stay within the recommendations from the Polyanalges[employer] Consensus Committee Guidelines. Depending on dose and concentration these pumps may need to be refilled sooner than 3 months as we titrate.
[2024-05-01 11:50] VITALS: BP 144/73; PULSE 60; RESP 18; O2SAT 96; BMI 30.3
== END 2024-05-01 23:59 | disposition home or self-care (01) ==
PROVIDERS: Visit Provider Nurse Practitioner Family
DX: M50.10 Cervical disc disorder with radiculopathy, unspecified cervical region (principal); M51.16 Intervertebral disc disorders with radiculopathy, lumbar region; M96.1 Postlaminectomy syndrome, not elsewhere classified; G89.4 Chronic pain syndrome; Z97.8 Presence of other specified devices; Z45.1 Encounter for adjustment and management of infusion pump; Z48.02 Encounter for removal of sutures
CPT/HCPCS: 62368; 99212; 99213; G0463

== ENCOUNTER 2024-05-08 10:35 | Outpatient (POV) | payer OTHER, SELFPAY ==
[2024-05-08 11:09] VITALS: BP 135/85; PULSE 72; RESP 18; O2SAT 98; BMI 30.3
--- NOTE | 2024-05-08 11:24 | P.PCN_ITS ---
Procedure Date: 05/08/24 Time: 11:24 Anesthesiologist:: Brigid Nino APRN Complications:: None Pre-procedure Diagnosis:: Degenerative disc disease of cervical and lumbar spine with cervical and lumbar radiculopathy symptoms, lumbar postlaminectomy syndrome, chronic pain syndrome Post-procedure Diagnosis:: Same Indications for Procedure:: Patient is a pleasant 53-year-old male who presents today for intrathecal adjustment and reprogram. Today he rates his pain a 9 out of 10. Patient s tates that he does feel like he has had increased pain from our last visit unrelated to any specific trauma or injury. Patient does state from our last visit that he was delayed when he picked up his antibiotic from surgery and he just needed finished it however that his had noticed some drainage and some odor and did apply an occlusive dressing. Patient states that today does not seem to be intensified but did want to come in for follow-up and verify that his incision was doing okay. Patient is currently managed with Dilaudid 1 mg/mL with a daily dose of 0.1382 mg/day. He denies any side effects from this medication. He is also prescribed Percocet and pregabalin from his PCP for other pains. His Jose De Jesus has been reviewed and is appropriate. Physical Exam: General: Alert and oriented x3, no acute distress, pleasant and cooperative Lungs: Respirations even and unlabored, symmetrical chest expansion Eyes: PERRL Musculoskeletal: Flexion and extension of lumbar [spine] somewhat guarded secondary to pain, [antalgic gait noted] Neurological: Speech clear, no gross sensory deficit Skin: Left lateral incision does have moderate erythema noted along the lateral side with minimal drainage noted Procedure Details:: Informed consent was obtained and the risk and benefits of the procedure were explained to the patient. Patient was taken to the procedure room where noninvasive monitoring was placed including noninvasive blood pressure cuff and pulse oximeter. Patient's pump was interrogated and was reprogrammed to Dilaudid 0.1587 mg/day. The patient tolerated the procedure well with no complications. Plan and Disposition:: Patient tolerated his increase with no complications. I have counseled the patient as a precaution due to the drainage and odor that his did notice over the weekend I will send in a 7-day supply of antibiotics. Due to the patient's sulfa allergy we will not send in Bactrim but did clindamycin 300 mg 3 times daily. Patient was discharged neurologically intact. Patient will return to clinic in a week and a half for reevaluation of symptoms and plan of care. We will see the patient back in the clinic at the next intrathecal refill. Patient has been instructed to contact the clinic with any concerns before the next appointment. Dr. Olivier has reviewed this note and agrees with this plan of care. This note was dictated using voice recognition software and make contain errors or omissions. -- It Is medically necessary for this patient to continue to have their intrathecal pump refilled at regular intervals. This patient had an intrathecal pain pump implanted after meeting criteria of chronic intractable pain for greater than 3 months and failing conservative treatments. Patient has committed and been compliant to the treatment plan and all planned follow up care. Since implantation of the intrathecal pain pump, the patient has had decreased pain and been more functional. Oral medications have been reduced including intake of oral opioids. Patient continues to do well with intrathecal therapy with decrease in pain symptoms and increase in functional status. Stopping intrathecal medications can lead to life threatening withdrawal, seizures, cardiac arrest, severe pain, and possible . Pumps that are not refilled at regular intervals can be damages and cause and need for replacement. We continually titrate dose and concentration to optimize pain relief and function. We are limited in concentration for certain drugs to safely deliver medications through the pump and stay within the recommendations from the Polyanalges[employer] Consensus Committee Guidelines. Depending on dose and concentration these pumps may need to be refilled sooner than 3 months as we titrate.
== END 2024-05-08 23:59 | disposition home or self-care (01) ==
PROVIDERS: Visit Provider Nurse Practitioner Family
DX: M50.10 Cervical disc disorder with radiculopathy, unspecified cervical region (principal); M51.16 Intervertebral disc disorders with radiculopathy, lumbar region; M96.1 Postlaminectomy syndrome, not elsewhere classified; G89.4 Chronic pain syndrome; Z45.1 Encounter for adjustment and management of infusion pump; Z97.8 Presence of other specified devices
CPT/HCPCS: 62368; 99212; G0463

== ENCOUNTER 2024-05-10 07:21 | Day surgery (SDC) | payer OTHER, SELFPAY ==
[2024-05-08 14:28] VITALS: BMI 30.7
[2024-05-10 07:45] VITALS: BP 130/70; PULSE 62; RESP 16; TEMP 36.4; O2SAT 96
[2024-05-10] MEDS: LACTATED RINGERS 1000ML 1,000 ML 25 ML IV (07:55)
--- NOTE | 2024-05-10 08:09 | P.PNANES_ITS ---
[facility] Disclaimer: The information contained in this section may have been updated after the patient was seen, as this information can be updated by other users. Medical History History of fracture of leg Pacemaker Pulmonary arterial hypertension Abnormal electrocardiogram [ECG] [EKG] Non-STEMI (non-ST elevated myocardial infarction) Hyperlipidemia Coronary artery disease Bright's disease Femur fracture, left History of left heart catheterization (LHC) Cardiac pacemaker in situ JUANITA (acute kidney injury) Chronic serous otitis media of right ear Impacted cerumen of right ear Hearing loss in right ear Tympanosclerosis, right ear Syncope Symptomatic bradycardia 1st degree AV block Bradycardia Chest pain Abnormal electrocardiography HTN (hypertension) Surgical History History of facial surgery History of back surgery Family History Father Family history of myocardial infarction Mother Family history of myocardial infarction Other Family history of diabetes mellitus Social History Smoking Status: Never smoker alcohol intake: never substance use type: denies use current occupational status: retired Travel in the last 8 weeks: None household members: spouse housing: house [facility] Anesthesia Checklist Patient Identification Patient Identification: Arm Band and Verbal (Name & ) Structural Data Admitted From: Home Planned Operative Procedure/s: CTR Consent for Planned Operative Procedure(s) Verified: Yes Verified Documents: Surgical Consent, History and Physical and Cardiac Clearance NPO Status Verified Time NPO: 00:00 Additional verifications Anesthesia Reactions: No Hx Blood Transfusions: Yes Blood Transfusion Reaction: No Airway Assessment Mallampati Score:: Class IV C-Spine Mobility Assessed: Yes TMJ Mobility Assessed: Yes Dentition: Good Dentition Neurological Assessment Level of Consciousness: Awake Hx Seizures: No Numbness or tingling in extremities: No Anesthesia Plan Anesthesia Risk discussed: Yes Anesthesia Plan: Verified ASA Class: III Anesthesia Type: MAC
[2024-05-10] MEDS: CLINDAMYCIN PHOSPHATE/D5W 900 MG/50 ML PIGGYBACK 100 MG IV (09:50)
[2024-05-10] MEDS: LIDOCAINE 1% W/EPI 1:100,000 20ML VIAL 20 ML (09:50)
--- NOTE | 2024-05-10 10:09 | EXP.OP.NOTE ---
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 Right wrist marked with yes my initials. Taken operating placed upon operating bed given sedation. Right upper extremity was prepped and draped in normal sterile fashion. Once prepped and draped final operative timeout performed to identify proper patient procedure and extremity. Everyone involved the case agreed. There is no count indication beginning. Did receive preoperative antibiotics. Marking pen was used to angelica bony landmarks of the wrist as well as planned incision over the volar wrist. Esmarch was used to exsanguinate the extremity and pneumatic tourniquet was inflated to 250 mmHg. Local anesthesia was infiltrated to the skin incision site and around the carpal tunnel with 1% lidocaine with epinephrine. Once adequate anesthesia obtained skin knife is used to incise through skin careful dissection was taken down with the scissors and Ragnell retractors to identify the most proximal aspect of the transverse carpal ligament. Skin hook retractor was placed. The smaller dilator followed by the larger dilator from the segue endoscopic carpal tunnel set was utilized followed by the right sided sled into the carpal tunnel. Once this was completed camera was placed in the sled and into the carpal tunnel transverse carpal ligament clearly seen superiorly within the camera. Probe was used to identify the most distal aspect the transverse carpal ligament rasp was used to remove soft tissue from the undersurface of the transverse carpal ligament and then the hook knife was used to open the transverse carpal ligament for release of the carpal tunnel. Irrigation performed skin closed with nylon suture sterile hand dressing placed patient waken anesthesia taken recovery stable condition. Condition: stable Disposition: PACU Complications:: None apparent
[2024-05-10 10:14] VITALS: BP 124/59; PULSE 60; RESP 19; TEMP 36.8; O2SAT 93
[2024-05-10 10:24] VITALS: BP 129/77; PULSE 60; RESP 18; O2SAT 92
[2024-05-10 10:44] VITALS: BP 129/82; PULSE 60; RESP 17; O2SAT 94
== END 2024-05-10 10:44 | disposition home or self-care (01) ==
PROVIDERS: PCP Nurse Practitioner Family; Visit Provider Orthopaedic Surgery
PROC: (CPT 64721; principal; 2024-05-10 09:00)
DX: G56.01 Carpal tunnel syndrome, right upper limb (principal)
CPT/HCPCS: 29848; 96374; J1100; J2250; J2405; J3010; J7120

== ENCOUNTER 2024-05-15 10:14 | Outpatient (CLI) | payer OTHER, SELFPAY ==
[2024-05-15 10:20] LABS: Microscopic, Urine URINE MICROSCOPIC (MICROSCOPIC)
[2024-05-15 10:41] LABS: Hematocrit 38.1 % (42.0-52.0); Hemoglobin 12.7 g/dL (14.1-18.0); Mean Corpuscular HGB Conc 33.4 g/dL (31.8-35.4); Mean Corpuscular Hemoglobin 32.5 pg (27.0-31.2); Mean Corpuscular Volume 97.3 fl (80-94); Platelet Count 185 K/mm3 (142-424); Red Blood Count 3.92 M/mm3 (4.60-6.20); Red Cell Distribution Width 14.4 % (11.5-17.5); White Blood Count 9.6 K/mm3 (4.8-10.8)
[2024-05-15 10:43] LABS: Appearance,Urine CLEAR (Clear); Bilirubin,Urine Negative (Negative); Blood, Urine Negative (Negative); Color,Urine YELLOW (Yellow); Glucose,Urine (UA) Negative (Negative); Ketones,Urine Negative (Negative); Leukocyte Esterase,Urine Negative (Negative); Nitrate,Urine Negative (Negative); Protein,Urine Negative (Negative); Specific Gravity, Urine 1.025 (1.005-1.030); Urobilinogen,Urine 0.2 EU/dl (0.2)
[2024-05-15 11:01] LABS: Bacteria,Urine Trace /lpf
[2024-05-15 11:03] LABS: Creatinine,Urine Random 161 mg/dL (Not Estab.)
[2024-05-15 11:49] LABS: Albumin Level 4.3 g/dl (3.5-5.0); Chloride 104 mmol/L (98-107); Potassium 4.7 mmoL/L (3.5-5.1); Sodium 139 mmol/L (136-145)
[2024-05-15 11:52] LABS: Anion Gap 12.7 mEq/L (5-15); Blood Urea Nitrogen 27 mg/dl (9-20); Calcium 9.9 mg/dl (8.4-10.2); Carbon Dioxide 27 mmol/L (22.0-30.0); Estimated Glomerular Filt Rate 53 ml/min (>60); GFR (African American) 64 ML/MIN (>60); Glucose 118 mg/dl (74-100); Phosphorous 4.2 mg/dl (2.5-4.5)
[2024-05-15 12:28] LABS: Intact Parathyroid Hormone 25.6 pg/mL (7.5-53.5)
[2024-05-15 12:41] LABS: 25-OH Vitamin D, Total 56.2 ng/mL (30-100)
== END 2024-05-15 23:59 | disposition home or self-care (01) ==
LOC: LAB 10:15
PROVIDERS: PCP Nurse Practitioner Family; Visit Provider Nurse Practitioner
DX: N17.9 Acute kidney failure, unspecified (principal); E55.9 Vitamin D deficiency, unspecified; Z68.33 Body mass index [BMI] 33.0-33.9, adult; E66.9 Obesity, unspecified
CPT/HCPCS: 36415; 80069; 81001; 82306; 82570; 83970; 84156; 85014; 85018; 85048; 85049

== ENCOUNTER 2024-05-15 13:26 | Outpatient (POV) | payer OTHER, SELFPAY | END 2024-05-15 23:59 | disposition home or self-care (01) | LOC: SC 13:26 | PROVIDERS: Visit Provider Nurse Practitioner | DX: Z00.00 Encounter for general adult medical examination without abnormal findings (principal) ==

== ENCOUNTER 2024-05-18 15:11 | Outpatient (POV) | payer OTHER, SELFPAY ==
--- NOTE | 2024-05-18 15:33 | EXP.PAIN.PRO ---
Procedure Date: 05/18/24 Time: 15:33 Anesthesiologist:: Brgiid Nino APRN Complications:: None Pre-procedure Diagnosis:: Degenerative disc disease of cervical and lumbar spine with cervical and lumbar radiculopathy symptoms, lumbar postlaminectomy syndrome, chronic pain Post-procedure Diagnosis:: Same Indications for Procedure:: Patient is a pleasant 53-year-old male who presents today for intrathecal adjustment and reprogram. Today he rates his pain a 3 out of 10. He does state that his pain is better however when he is up doing more activity the pain will increase. Patient is currently managed with intrathecal Dilaudid 1 mg/mL with a daily dose of 0.1587 mg/day. Patient denies any side effects from this medication. He is requesting a little increase. Patient is prescribed Percocet and pregabalin from his PCP for other pains related to his shoulder that is going to have surgery coming up on. Patient does state that his incision is still doing well and that it has not been draining. He states he does still have the small open area but does feel like it is improved from our last visit. His Jose De Jesus has been reviewed and is appropriate. Physical Exam: General: Alert and oriented x3, no acute distress, pleasant and cooperative Lungs: Respirations even and unlabored, symmetrical chest expansion Eyes: PERRL Musculoskeletal: Flexion and extension of lumbar [spine] somewhat guarded secondary to pain, [antalgic gait noted] Neurological: Speech clear, no gross sensory deficit Skin: Incisions are clean, dry, overall well-approximated overall with minimal erythema noted Procedure Details:: Informed consent was obtained and the risk and benefits of the procedure were explained to the patient. Patient was taken to the procedure room where noninvasive monitoring was placed including noninvasive blood pressure cuff and pulse oximeter. Patient's pump was interrogated and was reprogrammed to Dilaudid 0.1828 mg/day. The patient tolerated the procedure well with no complications. Plan and Disposition:: Patient tolerated his intrathecal increase with no complications and was discharged neurologically intact. I did marriage counselor the patient that I do believe the lateral incision is just going to take longer to heal. Patient incision does look fine and does not look like its infected. Patient had been given antibiotic at his last visit. Patient was counseled to still continue his postop restrictions of minimal bending, twisting or lifting, no submerging in water until his incision is fully healed and to continue to use his abdominal binder as needed to prevent seroma formation. We will plan on seeing the patient back in 3 weeks for reevaluation of symptoms and plan of care. Patient has been instructed to contact the clinic with any concerns before the next appointment. Dr. Olivier has reviewed this note and agrees with this plan of care. This note was dictated using voice recognition software and make contain errors or omissions. -- It Is medically necessary for this patient to continue to have their intrathecal pump refilled at regular intervals. This patient had an intrathecal pain pump implanted after meeting criteria of chronic intractable pain for greater than 3 months and failing conservative treatments. Patient has committed and been compliant to the treatment plan and all planned follow up care. Since implantation of the intrathecal pain pump, the patient has had decreased pain and been more functional. Oral medications have been reduced including intake of oral opioids. Patient continues to do well with intrathecal therapy with decrease in pain symptoms and increase in functional status. Stopping intrathecal medications can lead to life threatening withdrawal, seizures, cardiac arrest, severe pain, and possible . Pumps that are not refilled at regular intervals can be damages and cause and need for replacement. We continually titrate dose and concentration to optimize pain relief and function. We are limited in concentration for certain drugs to safely deliver medications through the pump and stay within the recommendations from the Polyanalgesic Consensus Committee Guidelines. Depending on dose and concentration these pumps may need to be refilled sooner than 3 months as we titrate.
[2024-05-18 15:45] VITALS: BP 131/70; PULSE 60; RESP 18; O2SAT 99; BMI 31.6
== END 2024-05-18 23:59 | disposition home or self-care (01) ==
PROVIDERS: PCP Nurse Practitioner Family; Visit Provider Nurse Practitioner Family
DX: M50.10 Cervical disc disorder with radiculopathy, unspecified cervical region (principal); M51.16 Intervertebral disc disorders with radiculopathy, lumbar region; M96.1 Postlaminectomy syndrome, not elsewhere classified; G89.29 Other chronic pain; Z97.8 Presence of other specified devices; Z45.1 Encounter for adjustment and management of infusion pump
CPT/HCPCS: 62368; 99213; G0463

== ENCOUNTER 2024-06-08 15:00 | Outpatient (POV) | payer OTHER, SELFPAY ==
[2024-06-08 15:23] VITALS: BP 151/73; PULSE 58; RESP 16; O2SAT 97; BMI 31.6
--- NOTE | 2024-06-08 15:30 | EXP.PAIN.PRO ---
Procedure Date: 06/08/24 Time: 15:30 Anesthesiologist:: Brigid Nino APRN Complications:: None Pre-procedure Diagnosis:: Degenerative disc disease of cervical and lumbar spine with cervical and lumbar radiculopathy symptoms, lumbar postlaminectomy syndrome, chronic pain syndrome Post-procedure Diagnosis:: same Indications for Procedure:: Patient is a pleasant 53-year-old male who presents today for follow-up. 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 Patient does state however that he was been doing over using a sickle to cut grass around his pond when he started having worsening pain. Patient does state that it requires a lot of bending when you are using that and that he is not sure if he just pulled something however the pain has continued. Patient is currently managed with Dilaudid 1 mg/mL with a daily dose of 0.1828 mg/day. He denies any side effects from this medication. Patient is prescribed Percocet and pregabalin from his PCP and compounded cream from our office. Patient is still scheduled to have shoulder surgery coming up. His Jose De Jesus has been reviewed and is appropriate. Physical Exam: General: Alert and oriented x3, no acute distress, pleasant and cooperative Lungs: Respirations even and unlabored, symmetrical chest expansion Eyes: PERRL Musculoskeletal: Flexion and extension of lumbar [spine] somewhat guarded secondary to pain, [antalgic gait noted] Neurological: Speech clear, no gross sensory deficit Procedure Details:: Informed consent was obtained and the risk and benefits of the procedure were explained to the patient. Patient was taken to the procedure room where noninvasive monitoring was placed including noninvasive blood pressure cuff and pulse oximeter. Patient's pump was interrogated and was reprogrammed to Dilaudid 0.2196 milligrams per day. The patient tolerated the procedure well with no complications. Plan and Disposition:: Patient tolerated his intrathecal increase with no complications and was discharged neurologically intact. I have counseled the patient that it may be that he just pulled a muscle and will take time. Patient states its only been 3 days. I have counseled the patient that I would like to see him back in 2 weeks to evaluate if the pain has improved and if not we may look into ordering some imaging. Patient is agreeable to this plan of care. Patient has been instructed to contact the clinic with any concerns before the next appointment. Dr. Olivier has reviewed this note and agrees with this plan of care. This note was dictated using voice recognition software and make contain errors or omissions. -- It Is medically necessary for this patient to continue to have their intrathecal pump refilled at regular intervals. This patient had an intrathecal pain pump implanted after meeting criteria of chronic intractable pain for greater than 3 months and failing conservative treatments. Patient has committed and been compliant to the treatment plan and all planned follow up care. Since implantation of the intrathecal pain pump, the patient has had decreased pain and been more functional. Oral medications have been reduced including intake of oral opioids. Patient continues to do well with intrathecal therapy with decrease in pain symptoms and increase in functional status. Stopping intrathecal medications can lead to life threatening withdrawal, seizures, cardiac arrest, severe pain, and possible . Pumps that are not refilled at regular intervals can be damages and cause and need for replacement. We continually titrate dose and concentration to optimize pain relief and function. We are limited in concentration for certain drugs to safely deliver medications through the pump and stay within the recommendations from the Polyanalgesic Consensus Committee Guidelines. Depending on dose and concentration these pumps may need to be refilled sooner than 3 months as we titrate.
== END 2024-06-08 23:59 | disposition home or self-care (01) ==
PROVIDERS: PCP Nurse Practitioner Family; Visit Provider Nurse Practitioner Family
DX: M51.16 Intervertebral disc disorders with radiculopathy, lumbar region (principal); M96.1 Postlaminectomy syndrome, not elsewhere classified; Z96.89 Presence of other specified functional implants; Z45.1 Encounter for adjustment and management of infusion pump; Z95.0 Presence of cardiac pacemaker; G89.4 Chronic pain syndrome; M50.10 Cervical disc disorder with radiculopathy, unspecified cervical region
CPT/HCPCS: 62368; 99213; G0463

== ENCOUNTER 2024-06-26 12:57 | Outpatient (POV) | payer OTHER, SELFPAY ==
--- NOTE | 2024-06-26 13:51 | XR_ITS ---
FINAL REPORT CLINICAL HISTORY: LBP COMPARISON: None FINDINGS: AP, lateral, and oblique views of the lumbar spine were obtained. There is no acute fracture or acute malalignment. Vertebral body height is preserved. Mild multilevel degenerative disc disease most pronounced at L2-3 and L5-S1. No acute paraspinal abnormality is identified. Presumed medical reservoir noted in the posterior soft tissues. IMPRESSION: Degenerative changes without acute osseous abnormalities lumbar spine. Reviewed, Interpreted and Dictated by Yolanda Cardozo MD Transcribed by Jailyn Granados Authenticated and [facility]
--- NOTE | 2024-06-26 13:57 | EXP.PAIN.SOA ---
[facility] Disclaimer: The information contained in this section may have been updated after the patient was seen, as this information can be updated by other users. Medical History History of fracture of leg Pacemaker Pulmonary arterial hypertension Abnormal electrocardiogram [ECG] [EKG] Non-STEMI (non-ST elevated myocardial infarction) Hyperlipidemia Coronary artery disease Bright's disease Femur fracture, left ian in place History of left heart catheterization (LHC) Cardiac pacemaker in situ JUANITA (acute kidney injury) Chronic serous otitis media of right ear Impacted cerumen of right ear Cleaned under the microscope Hearing loss in right ear Tympanosclerosis, right ear Syncope Symptomatic bradycardia 1st degree AV block Bradycardia Chest pain Abnormal electrocardiography HTN (hypertension) Established with [facility] cardiology Surgical History History of facial surgery History of back surgery Family History Father Family history of myocardial infarction Mother Family history of myocardial infarction Other Family history of diabetes mellitus Social History Smoking Status: Never smoker alcohol intake: never substance use type: denies use current occupational status: other Travel in the last 8 weeks: None household members: spouse housing: house PM Subjective & Objective Subjective Subjective:: Patient is a pleasant 54-year-old male who presents today for follow-up. Today he rates his pain a 10 out of 10. Patient denies any new trauma or injury. He does state that he still continues to have chronic low back pain that does go into his left leg. He does state today coming into the office he is doing fine however any type of work or activities such as mopping or sweeping his pain shoots up to severe. Patient denies any recent imaging. He does state he is concerned that something more is going on. Patient is currently managed with intrathecal Dilaudid 1 mg/mL with a daily dose of 0.2196 mg/day. He denies any side effects from this medication. His Jose De Jesus has been reviewed and is appropriate. Review of Systems: General: No recent weight changes, no fever, no sleep disturbances Respiratory: No cough, no shortness of air, no recurring pulmonary infections Cardiovascular/peripheral vascular: No chest pain, no palpitations, no edema, no shortness of breath Gastrointestinal: No new onset incontinence, normal bowel movements reported Genitourinary: No new onset incontinence Musculoskeletal: Low back pain Psychiatric: [Normal mood/affect] Neurological: [Denies weakness in extremities], [denies balance issues] Pain at rest (0-10 scale): 10 Objective Objective:: Physical Exam: General: Alert and oriented x3, no acute distress, pleasant and cooperative Lungs: Respirations even and unlabored, symmetrical chest expansion Eyes: PERRL Musculoskeletal: Flexion and extension of lumbar [spine] somewhat guarded secondary to pain, [antalgic gait noted] Neurological: Speech clear, no gross sensory deficit Has patient had previous pain injection?: No Conservative treatment options previously tried: Home exercise plan Length of treatment: Longer than 12 weeks Meds Home Medications and Allergies Home Medications ?Medication ?Instructions ?Recorded ?Confirmed ?Type irbesartan 300 mg tablet 300 mg PO DAILY 90 days #90 tabs 03/08/24 06/08/24 Rx nifedipine 30 mg tablet,extended 30 mg PO DAILY 03/28/24 06/08/24 History release hydromorphone (PF) 1 mg/mL 1 mg continuous epidural CONT Pain 05/01/24 06/08/24 History injection solution allopurinol 100 mg tablet 100 mg PO DAILY 05/08/24 06/08/24 History (Zyloprim) cholecalciferol (vitamin D3) 25 1,000 unit PO DAILY Supplement 05/08/24 06/08/24 History mcg (1,000 unit) capsule (Vitamin D3) spironolactone 50 mg tablet 50 mg PO DAILY 05/08/24 06/08/24 History (Aldactone) oxycodone-acetaminophen 10 mg-325 1 tab PO QID Shoulder pain 30 days 06/08/24 06/08/24 Rx mg tablet (Percocet) #120 tabs carvedilol 25 mg tablet See Rx Instructions .Route 06/19/24 Rx .COMPLEX #120 tabs hydralazine 50 mg tablet 50 mg PO BID PRN bp #180 tabs 06/19/24 Rx isosorbide mononitrate 60 mg 60 mg PO .bedtime #90 tabs 06/19/24 Rx tablet,extended release 24 hr ticagrelor 90 mg tablet (Brilinta) See Rx Instructions .Route 07/22/24 Rx .COMPLEX #60 tabs New Prescriptions to Start Prescriptions: Allergies Allergy/AdvReac Type Severity Reaction Status Date / Time Thiazides Allergy Intermediate Unknown Verified 05/31/24 09:17 allergy reaction Androgenic Anabolic Steroid Allergy Mild Unknown Verified 05/31/24 09:17 allergy reaction aspirin [ASPIRIN] Allergy Unknown FACIAL Verified 05/31/24 09:17 SWELLING Penicillins [PENICILLINS] Allergy Unknown FACIAL Verified 05/31/24 09:17 SWELLING Sulfa (Sulfonamide Allergy Unknown Unknown Verified 05/31/24 09:17 Antibiotics) allergy [SULFA (SULFONAMIDE reaction ANTIBIOTICS)] morphine AdvReac Mild Vomiting Verified 05/31/24 09:17 NSAIDS (Non-Steroidal AdvReac Other Verified 05/31/24 09:17 Anti-Inflamma Assessment and Plan *Assessment and plan (1) Low back pain: Status: Acute Qualifiers: Chronicity: chronic Back pain laterality: bilateral Sciatica presence: without sciatica Qualified Code(s): M54.50 - Low back pain, unspecified; G89.29 - Other chronic pain Category: Medical Code(s): M54.50 - Low back pain, unspecified (2) Lumbar radiculopathy: Status: Acute Category: Medical Code(s): M54.16 - Radiculopathy, lumbar region Plan Patient continues to experience significant pain throughout his low back with the simplest activities. I have discussed with the patient since he has not had any updated imaging of his lumbar spine since 2019 that I will order x-ray and MRI without contrast to follow. Patient does have a pacemaker in place and this will have to be compatible with this device. Patient does see Dr. Berman's office and we will have to confirm what its facility to send him to for this imaging. I have counseled him that it will most likely be up in [place]. Patient acknowledges understanding and does state in the past he has had to do that as well. We did set him up on his PTM device today and gave 18% option with up to 4 boluses per day. Patient will return to clinic in 1 month following his imaging for reevaluation of symptoms and plan of care. Patient has been instructed to contact the clinic with any concerns before the next appointment. Dr. Olivier has reviewed this note and agrees with this plan of care. This note was dictated using voice recognition software and make contain errors or omissions. All injections are used with Lidocaine or Bupivacaine and Depo Medrol.
[2024-06-26 14:30] VITALS: BP 137/77; PULSE 60; RESP 18; O2SAT 97; BMI 31.1
== END 2024-06-26 23:59 | disposition home or self-care (01) ==
PROVIDERS: PCP Nurse Practitioner Family; Visit Provider Nurse Practitioner Family
DX: G89.29 Other chronic pain (principal); M54.50 Low back pain, unspecified; M54.16 Radiculopathy, lumbar region
CPT/HCPCS: 62368; 72110; 99213; G0463

== ENCOUNTER 2024-07-11 08:02 | Day surgery (SDC) | payer OTHER, SELFPAY ==
[2024-07-11 08:24] VITALS: BP 115/63; PULSE 63; RESP 16; TEMP 36.8; O2SAT 96; BMI 31.2
[2024-07-11 08:45] VITALS: BP 130/63; PULSE 61; RESP 18; O2SAT 97
[2024-07-11 08:46] VITALS: BP 130/63; PULSE 60; RESP 18; O2SAT 96
[2024-07-11 08:58] VITALS: BP 118/71; PULSE 59; RESP 16; O2SAT 97
--- NOTE | 2024-07-11 09:03 | P.PCN_ITS ---
Procedure Date: 07/11/24 Time: 08:45 Anesthesiologist:: Lester Burt CRNA Complications:: None Pre-procedure Diagnosis:: Degenerative disc lumbar spine multilevels. Lumbar radiculopathy Post-procedure Diagnosis:: Same. Indications for Procedure:: Patient is a very pleasant 54-year-old male that comes our clinic today for intrathecal pain pump interrogation and refill. He is currently being managed with hydromorphone 1 mg/mL. His current rate is 0.2196 mg/day. Patient reporting some pain over the right sacroiliac joint. The pain began as sharp and stabbing and now is described as dull aching. Patient reports he was weed eating at his home when the pain began. Unfortunately, patient has side effects to cortisone in the past. I informed the patient we would increase the pump rate today by 20%. Patient is awake alert [place] x 3. In no acute distress. Flexion-extension earl mbar spine somewhat guarded secondary to pain. Deep tendon reflexes upper and lower extremities normal. Motor strength upper and lower extremities normal. There is no gross sensory deficit. Gait is normal. Procedure Details:: Details of the procedure explained the patient. The patient taken procedure and placed in sitting position. They over the pumps cleansed using chlorhexidine as a cleansing solution. The pump was interrogated. The pump was accessed with ease using a 22-gauge inch and half needle. 1.5 mL of solution was withdrawn discarded appropriate. The pump was then filled with 20 cc of solution containing hydromorphone 1 mg/mL. The rate was increased by 20%. The new rate will be 0.2635 mg/day. Patient tolerated procedure without difficulty. There are no complications Plan and Disposition:: Patient was discharged without incident.
--- NOTE | 2024-07-11 09:20 | PC.NURSE ---
pt given mt dew at this time. pt attempting to provide specimen for uds.
== END 2024-07-11 09:35 | disposition home or self-care (01) ==
PROVIDERS: PCP Nurse Practitioner Family; Visit Provider Nurse Anesthetist, Certified Registered
DX: M51.36 Other intervertebral disc degeneration, lumbar region (principal)
CPT/HCPCS: 95991

== ENCOUNTER 2024-07-26 12:51 | Outpatient (POV) | payer OTHER, SELFPAY ==
[2024-07-26 13:21] VITALS: BP 122/67; PULSE 60; RESP 16; O2SAT 97; BMI 30.6
--- NOTE | 2024-07-26 13:48 | P.PCN_ITS ---
Procedure Date: 07/26/24 Time: 13:49 Anesthesiologist:: Brigid Nino APRN Complications:: None Pre-procedure Diagnosis:: Degenerative disc disease of lumbar spine with lumbar radiculopathy symptoms Post-procedure Diagnosis:: Same Indications for Procedure:: Patient is a pleasant 54-year-old male who presents today for intrathecal adjustment and reprogram as well as follow-up of x-ray imaging of his lumbar spine. Today he rates his pain a 6 out of 10. He denies any new trauma or injury. He does state he just continues to have chronic pain in multiple areas including his shoulders, back and legs. Patient does state that he is scheduled for shoulder surgery coming up on the ninth and that his other shoulder is just as bad and will probably require surgical intervention after. Patient is currently managed with Dilaudid 1 mg/mL with a daily dose of 0.2635 mg/day. He denies any side effects from this medication. His Jose De Jesus has been reviewed and is appropriate. Patient is currently prescribed oral pain medications for his shoulder from an outside provider. Physical Exam: General: Alert and oriented x3, no acute distress, pleasant and cooperative Lungs: Respirations even and unlabored, symmetrical chest expansion Eyes: PERRL Musculoskeletal: Flexion and extension of lumbar [spine] somewhat guarded secondary to pain, [antalgic gait noted] Neurological: Speech clear, no gross sensory deficit Procedure Details:: Informed consent was obtained and the risk and benefits of the procedure were explained to the patient. Patient was taken to the procedure room where noninvasive monitoring was placed including noninvasive blood pressure cuff and pulse oximeter. Patient's pump was interrogated and was reprogrammed to Dilaudid 0.3422 mg/day. The patient tolerated the procedure well with no complications. Plan and Disposition:: Patient tolerated his intrathecal increase with no complications and was discharged neurologically intact. I did discuss with the patient that we will plan on increasing his Dilaudid concentration to 3 mg/mL to lengthen his time between refills. Patient is agreeable to this plan of care. Patient will return to clinic in 1 month for reevaluation of symptoms and plan of care. We will see the patient back in the clinic at the next intrathecal refill. Patient has been instructed to contact the clinic with any concerns before the next appointment. Dr. Olivier has reviewed this note and agrees with this plan of care. This note was dictated using voice recognition software and make contain errors or omissions. -- It Is medically necessary for this patient to continue to have their intrathecal pump refilled at regular intervals. This patient had an intrathecal pain pump implanted after meeting criteria of chronic intractable pain for greater than 3 months and failing conservative treatments. Patient has committed and been compliant to the treatment plan and all planned follow up care. Since implantation of the intrathecal pain pump, the patient has had decreased pain and been more functional. Oral medications have been reduced including intake of oral opioids. Patient continues to do well with intrathecal therapy with decr ease in pain symptoms and increase in functional status. Stopping intrathecal medications can lead to life threatening withdrawal, seizures, cardiac arrest, severe pain, and possible . Pumps that are not refilled at regular intervals can be damages and cause and need for replacement. We continually titrate dose and concentration to optimize pain relief and function. We are limited in concentration for certain drugs to safely deliver medications through the pump and stay within the recommendations from the Polyanalgesic Consensus Committee Guidelines. Depending on dose and concentration these pumps may need to be refilled sooner than 3 months as we titrate.
== END 2024-07-26 23:59 | disposition home or self-care (01) ==
PROVIDERS: PCP Nurse Practitioner Family; Visit Provider Nurse Practitioner Family
DX: M51.36 Other intervertebral disc degeneration, lumbar region (principal)
CPT/HCPCS: 62368; 99213; G0463

== ENCOUNTER 2024-07-27 12:41 | Outpatient (CLI) | payer OTHER, SELFPAY ==
--- NOTE | 2024-07-27 | CT_ITS ---
FINAL REPORT TECHNIQUE: Axial images were obtained of the lumbar spine by computed tomography. Coronal and sagittal reconstruction process performed. This study was performed with techniques to keep radiation doses as low as reasonably achievable (ALARA). Individualized dose reduction techniques using automated exposure control or adjustment of mA and/or kV according to the patient''s size were employed. CLINICAL HISTORY: .LOW BACK PAIN , WORSE SINCE PAIN PUMP PUT IN RECENTLY COMPARISON: Medial none FINDINGS: There is moderate disc space narrowing at L5-S1. Endplate sclerosis is noted at the superior endplate of S1. There is no malalignment. L1-2: No significant spinal canal compromise or neural foraminal narrowing. L2-3: Mild disc bulge. Mild bilateral neural foraminal narrowing. L3-4: Mild diffuse disc bulge. Bilateral facet hypertrophy. Mild spinal canal compromise. Mild bilateral neural foraminal narrowing. L4-5: Mild diffuse disc bulge. Bilateral facet hypertrophy. Mild spinal canal compromise. Mild bilateral neural foraminal narrowing. L5-S1: Prominent posterior osteophyte formation. Moderate left and [id number] right neural foraminal narrowing. Incidental note is made of a pain pump catheter in the lower thoracic/upper lumbar spine. IMPRESSION: Multilevel degenerative changes as above. Reviewed, Interpreted and Dictated by Ravin Alford MD Transcribed by Jailyn Granados Authenticated and . [facility]
== END 2024-07-27 23:59 | disposition home or self-care (01) ==
LOC: RAD 12:41
PROVIDERS: PCP Nurse Practitioner Family; Visit Provider Nurse Practitioner Family
DX: M54.50 Low back pain, unspecified (principal)
CPT/HCPCS: 72131

== ENCOUNTER 2024-08-22 12:42 | Day surgery (SDC) | payer OTHER, SELFPAY ==
[2024-08-22 13:06] VITALS: BP 143/82; PULSE 70; RESP 16; TEMP 36.8; O2SAT 97; BMI 32.3
[2024-08-22 13:22] VITALS: BP 145/89; PULSE 70; RESP 18; O2SAT 98
[2024-08-22 13:27] VITALS: BP 145/89; PULSE 70; RESP 18; O2SAT 98
--- NOTE | 2024-08-22 13:35 | P.PCN_ITS ---
Procedure Date: 08/22/24 Time: 13:30 Anesthesiologist:: Lester Burt CRNA Complications:: None Pre-procedure Diagnosis:: Degenerative disc lumbar spine multilevels. Lumbar radiculopathy. Multilevel lumbar disc bulge. Lumbar spinal stenosis. Post-procedure Diagnosis:: Same. Indications for Procedure:: Patient is a very pleasant 54-year-old male who comes our clinic today for intrathecal pain pump interrogation and refill. Patient currently being managed with hydromorphone 1 mg/mL at a rate of 0.34 to 2 mg/day.. We will be changing the patient's medication to hydromorphone 3 mg/mL. Patient not requesting any changes or adjustments in the intrathecal pain pump rate. He is not reporting side effects or complications. He rates his pain 3/10. Procedure Details:: Details of the procedure explained to the patient. The patient taken procedure and placed in the sitting position. The area of the pump was cleansed using chlorhexidine as a cleansing solution. The pump was interrogated. The pump was accessed with ease using 22-gauge inch and half needle. 3 mL of solution was withdrawn discarded appropriate. The pump was then filled with 20 cc of solution containing hydromorphone 3 mg/mL. The pump rate will continue at 0. 3418 mg/day.. Patient tolerated procedure without difficulty. There are no complications. Plan and Disposition:: Patient was discharged without incident.
[2024-08-22 13:38] VITALS: BP 130/82; PULSE 67; RESP 18; O2SAT 99
== END 2024-08-22 13:41 | disposition home or self-care (01) ==
PROVIDERS: PCP Nurse Practitioner Family; Visit Provider Nurse Anesthetist, Certified Registered
DX: M51.16 Intervertebral disc disorders with radiculopathy, lumbar region (principal); M48.061 Spinal stenosis, lumbar region without neurogenic claudication
CPT/HCPCS: 95991

== ENCOUNTER 2024-09-22 12:52 | Outpatient (POV) | payer OTHER, SELFPAY ==
--- NOTE | 2024-09-22 14:07 | EXP.PAIN.PRO ---
Procedure Date: 09/22/24 Time: 14:07 Anesthesiologist:: Brigid Nino APRN Complications:: None Pre-procedure Diagnosis:: Degenerative disc disease of lumbar spine with lumbar radiculopathy symptoms, lumbar spinal stenosis Post-procedure Diagnosis:: Same Indications for Procedure:: Patient is a pleasant 54-year-old male who presents today for intrathecal adjustment and reprogram. Today he rates his pain at 4 5 out of 10. Patient denies any new trauma or injury. He does state that he continues to have significant pain in and around his low back that when it hits it will be so severe that it almost takes him down to his knees. Patient states that this is occurring more and more frequently and that he just feels like his pump is still not at the right level. Patient is currently managed with Dilaudid 3 mg/mL with a daily dose of 0.3418 mg/day. He denies any side effects from this medication. Patient is on Percocet from his PCP for his other aches and pains specifically for his shoulder. Patient is possibly having shoulder surgery coming up. His Jose De Jesus has been reviewed and is appropriate. Physical Exam: General: Alert and oriented x3, no acute distress, pleasant and cooperative Lungs: Respirations even and unlabored, symmetrical chest expansion Eyes: PERRL Musculoskeletal: Flexion and extension of lumbar [spine] somewhat guarded secondary to pain, [antalgic gait noted] Neurological: Speech clear, no gross sensory deficit Procedure Details:: Informed consent was obtained and the risk and benefits of the procedure were explained to the patient. Patient was taken to the procedure room where noninvasive monitoring was placed including noninvasive blood pressure cuff and pulse oximeter. Patient's pump was interrogated and was reprogrammed to Dilaudid 0.4438 mg/day. The patient tolerated the procedure well with no complications. Plan and Disposition:: I did discuss with the patient that in future he may benefit from lumbar medial branch block injections however he states that he has had these once before in the past and he went crazy with it. He states that he ended at requiring about 20 people to help stop him from getting up. I did discuss with the patient that we will see how he does with the intrathecal increase today and that he will come back in 2 weeks for additional evaluation and follow-up. I did discuss with the patient in the 2-week follow-up if he still has not noticed significant decrease in pain symptoms we will look at going ahead and sending him to neurosurgery for consult. He agrees with this plan of care. Patient has been instructed to contact the clinic with any concerns before the next appointment. Dr. Olivier has reviewed this note and agrees with this plan of care. This note was dictated using voice recognition software and make contain errors or omissions. All injections are used with Lidocaine or Bupivacaine and Depo Medrol.
[2024-09-22 14:38] VITALS: BP 157/84; PULSE 60; RESP 16; O2SAT 100; BMI 30.3
== END 2024-09-22 23:59 | disposition home or self-care (01) ==
PROVIDERS: PCP Nurse Practitioner Family; Visit Provider Nurse Practitioner Family
DX: M51.16 Intervertebral disc disorders with radiculopathy, lumbar region (principal); M48.061 Spinal stenosis, lumbar region without neurogenic claudication
CPT/HCPCS: 62368; 99212; 99213; G0463

== ENCOUNTER 2024-10-11 12:57 | Outpatient (POV) | payer OTHER, SELFPAY ==
[2024-10-11 13:12] VITALS: BP 148/76; PULSE 61; RESP 16; O2SAT 97; BMI 30.9
--- NOTE | 2024-10-11 13:20 | P.PCN_ITS ---
Procedure Date: 10/11/24 Time: 13:20 Anesthesiologist:: Brigid Nino APRN Complications:: None Pre-procedure Diagnosis:: Degenerative disc disease of lumbar spine with lumbar radiculopathy symptoms, lumbar spinal stenosis, shoulder pain, sacroiliitis Post-procedure Diagnosis:: Same Indications for Procedure:: Patient is a pleasant 54-year-old male who presents today for follow-up. Today he rates his pain a 5 out of 10. Patient denies any new injury or trauma. He does state that the increase from our last visit did help however it just seems like it only works for a little while. Patient states that he will be doing the simplest activity and all of a sudden has worsening pain. He states the pain is all across his low back and goes into his hip and upper thighs. He describes it as an aching, throbbing sensation with pressure. Patient does state the pain interferes with his ability to perform activities of daily living such as cooking and cleaning. Patient does state that they have talked about doing additional back surgery but that is the last thing he wants to do. Patient on her last visit had been discussed with possible injection therapy and he does state that he would like to see about doing this. Patient did have his right shoulder replacement and is in physical therapy now. He states he still recovering from that. Patient is planning on having his left shoulder replaced however they have told him that it would be at least 6 months due to his heart history. Patient is currently managed with Dilaudid 3 mg/mL with a daily dose of 0.4438 mg/day. He denies any side effects from this medication. He is also prescribed Percocet from his primary care for the shoulder pain. His Jose De Jesus has been reviewed and is appropriate. Physical Exam: General: Alert and oriented x3, no acute distress, pleasant and cooperative Lungs: Respirations even and unlabored, symmetrical chest expansion Eyes: PERRL Musculoskeletal: Flexion and extension of lumbar [spine] somewhat guarded secondary to pain, [antalgic gait noted] point tenderness along bilateral SIs with positive bilateral Yvonne's, Shanae's, Gaenslen's, compression and distraction exam Neurological: Speech clear, no gross sensory deficit Procedure Details:: Informed consent was obtained and the risk and benefits of the procedure were explained to the patient. Patient was taken to the procedure room where noninvasive monitoring was placed including noninvasive blood pressure cuff and pulse oximeter. Patient's pump was interrogated and was reprogrammed to Dilaudid 0.577 mg/day. The patient tolerated the procedure well with no complications. Plan and Disposition:: Patient tolerated his intrathecal adjustment and reprogram with no complications. I did discuss with the patient due to his limited range of motion and point tenderness across his bilateral SIs that he may benefit from bilateral SI injections. He did have positive bilateral Yvonne's, Shanae's, Gaenslen's, compression and distraction exam. Risk and benefits of these injections were explained to the patient he would like to proceed forward with this plan of care. Patient has tried and failed conservative therapy including continued at home stretching exercise for longer than 12 weeks. Patient will be scheduled for bilateral SI injections under fluoroscopy. We will see the patient back in the clinic at the next intrathecal refill. Patient has been instructed to contact the clinic with any concerns before the next appointment. Dr. Olivier has reviewed this note and agrees with this plan of care. This note was dictated using voice recognition software and make contain errors or omissions. -- It Is medically necessary for this patient to continue to have their intrathecal pump refilled at regular intervals. This patient had an intrathecal pain pump implanted after meeting criteria of chronic intractable pain for greater than 3 months and failing conservative treatments. Patient has committed and been compliant to the treatment plan and all planned follow up care. Since implantation of the intrathecal pain pump, the patient has had decreased pain and been more functional. Oral medications have been reduced including intake of oral opioids. Patient continues to do well with intrathecal therapy with decrease in pain symptoms and increase in functional status. Stopping intrathecal medications can lead to life threatening withdrawal, seizures, cardiac arrest, severe pain, and possible . Pumps that are not refilled at regular intervals can be damages and cause and need for replacement. We continua lly titrate dose and concentration to optimize pain relief and function. We are limited in concentration for certain drugs to safely deliver medications through the pump and stay within the recommendations from the Polyanalgesic Consensus Committee Guidelines. Depending on dose and concentration these pumps may need to be refilled sooner than 3 months as we titrate.
== END 2024-10-11 23:59 | disposition home or self-care (01) ==
PROVIDERS: PCP Nurse Practitioner Family; Visit Provider Nurse Practitioner Family
DX: M51.16 Intervertebral disc disorders with radiculopathy, lumbar region (principal); M48.061 Spinal stenosis, lumbar region without neurogenic claudication; M46.1 Sacroiliitis, not elsewhere classified; M25.519 Pain in unspecified shoulder; Z73.89 Other problems related to life management difficulty
CPT/HCPCS: 62368; 99213; G0463

== ENCOUNTER 2024-11-07 11:15 | Day surgery (SDC) | payer OTHER, SELFPAY ==
[2024-11-07 12:24] VITALS: BP 156/77; PULSE 59; RESP 20; O2SAT 97
[2024-11-07 12:25] VITALS: BP 164/68; PULSE 60; RESP 16; TEMP 36.2; O2SAT 97; BMI 35.1
[2024-11-07] MEDS: BUPIVACAINE 0.25% 10ML INJ 25 MG IJ (12:28)
[2024-11-07] MEDS: methylPREDNISolone ACETATE 80MG/ML VIAL 80 MG (12:29)
[2024-11-07] MEDS: LIDOCAINE 1% 5ML PF VIAL 5 ML (12:29)
[2024-11-07 12:43] VITALS: BP 177/66; PULSE 60; RESP 16; O2SAT 98
--- NOTE | 2024-11-07 12:46 | P.PCN_ITS ---
Procedure Date: 11/07/24 Time: 12:40 Anesthesiologist:: Lester Burt CRNA Complications:: None Pre-procedure Diagnosis:: Bilateral sacroiliitis Post-procedure Diagnosis:: Same Indications for Procedure:: Patient is a pleasant 54-year-old male who comes our clinic today for bilateral sacroiliac joint injections of cortisone and local anesthetic. Patient describes low lumbar back pain off the midline bilaterally is constant, dull, aching. He reports difficulty sitting. Difficulty standing. Difficulty with ambulation. All of this due to bilateral posterior hip pain. He reports having difficulty transitioning from sitting to standing. He rates his pain 8/10. Procedure Details:: Procedure: Bilateral sacroiliac joint injections under fluoroscopy Informed consent was obtained and the risks and benefits of the procedure were explained to the patient.~ The patient was taken to the procedure room and noninvasive monitors were placed including a noninvasive blood pressure cuff and pulse oximeter.~ The patient was placed prone on the procedure table. Both hips were cleansed using Betadine as a cleansing solution. C-arm fluoroscopy was used to view the right sacroiliac joint.~ The skin and subcutaneous tissues were anesthetized using lidocaine 1.5% and a 25-gauge needle.~ After this, a 22-gauge spinal needle was inserted under fluoroscopic guidance into the inferior aspect of the right sacroiliac joint.~ Omnipaque dye was injected and good spread was seen throughout the joint.~ After this, approximately 5 mL of bupivacaine, 0.25% and Depo-Medrol, 40 mg was incrementally injected into the right sacroiliac joint. We then moved to the left sacroiliac joint.~ The skin and subcutaneous tissues were anesthetized using lidocaine 1.5% and a 25-gauge needle.~ After this, a 22- gauge spinal needle was inserted under fluoroscopic guidance into the inferior aspect of the left sacroiliac joint.~ Omnipaque dye was injected and good spread was seen throughout the joint. After this, approximately 5 mL of bupivacaine, 0.25% and Depo-Medrol, 40 mg was incrementally injected into the left sacroiliac joint.~ The patient tolerated the procedure well with no complications. The patient was observed in the Pain Clinic and then was discharged home neurologically intact. Plan and Disposition:: Patient was discharged without incident.
[2024-11-07 12:56] LABS: Microscopic, Urine URINE MICROSCOPIC (MICROSCOPIC)
[2024-11-07 13:25] LABS: Hematocrit 38.7 % (42.0-52.0); Hemoglobin 12.9 g/dL (14.1-18.0); Mean Corpuscular HGB Conc 33.2 g/dL (31.8-35.4); Mean Corpuscular Hemoglobin 31.9 pg (27.0-31.2); Platelet Count 184 K/mm3 (142-424); Red Blood Count 4.03 M/mm3 (4.60-6.20); Red Cell Distribution Width 13.8 % (11.5-17.5); White Blood Count 8.7 K/mm3 (4.8-10.8)
[2024-11-07 14:07] LABS: Albumin Level 3.9 g/dl (3.5-5.0); Anion Gap 9.8 mEq/L (5-15); Blood Urea Nitrogen 17 mg/dl (9-20); Carbon Dioxide 30 mmol/L (22.0-30.0); Chloride 104 mmol/L (98-107); Creatinine Clearance Estimated 101 mL/min (50-200); Estimated Glomerular Filt Rate 52 ml/min (>60); GFR (African American) 63 ML/MIN (>60); Glucose 132 mg/dl (74-100); Phosphorous 3.2 mg/dl (2.5-4.5); Potassium 3.8 mmoL/L (3.5-5.1); Sodium 140 mmol/L (136-145)
[2024-11-07 14:44] LABS: Appearance,Urine CLEAR (Clear); Bilirubin,Urine Negative (Negative); Blood, Urine Negative (Negative); Color,Urine YELLOW (Yellow); Glucose,Urine (UA) Negative (Negative); Ketones,Urine Negative (Negative); Leukocyte Esterase,Urine Negative (Negative); Nitrate,Urine Negative (Negative); Protein,Urine Negative (Negative); Specific Gravity, Urine 1.025 (1.005-1.030); Urobilinogen,Urine 0.2 EU/dl (0.2)
[2024-11-07 15:14] LABS: Iron 68 ug/dL (49-181)
[2024-11-07 15:24] LABS: Total Iron Binding Capacity 313 ug/dL (261-462)
[2024-11-07 15:33] LABS: Creatinine,Urine Random 117 mg/dL (Not Estab.)
[2024-11-07 15:50] LABS: Ferritin 189 ng/ml (17.9-464)
== END 2024-11-07 12:43 | disposition home or self-care (01) ==
LOC: SC.PAINP 11:16
PROVIDERS: Nurse Practitioner; PCP Nurse Practitioner Family; Visit Provider Nurse Anesthetist, Certified Registered
DX: M46.1 Sacroiliitis, not elsewhere classified (principal); N18.31 Chronic kidney disease, stage 3a; D64.9 Anemia, unspecified
CPT/HCPCS: 27096; 36415; 80069; 81001; 82043; 82570; 82728; 83540; 83550; 84156; 85027; G0260; J1010

== ENCOUNTER 2024-11-17 09:15 | Day surgery (SDC) | payer OTHER, SELFPAY ==
--- NOTE | 2024-11-17 09:40 | EXP.PAIN.PRO ---
Procedure Date: 11/17/24 Time: 09:52 Anesthesiologist:: Brigid Nino APRN Complications:: None Pre-procedure Diagnosis:: Degenerative disc disease of cervical and lumbar spine with cervical and lumbar radiculopathy symptoms, chronic pain syndrome, bilateral shoulder pain Post-procedure Diagnosis:: Same Indications for Procedure:: Patient is a pleasant 54-year-old male who presents today for intrathecal refill and reprogram. Today he rates his pain a 4 or 5 out of 10. Patient does state that he has noticed more improvements where we have been increasing his pump. He does state a lot of his pain today is still related to shoulder as well as his left knee has really been bothering him. Patient states that he had a [place] function here recently and felt like he aggravated or possibly did something to his left knee. Patient is currently managed with Dilaudid 3 mg/mL with a daily dose of 0.577 mg/day. He denies any side effects from this medication. Patient is managed with Percocet for his extra pain in his shoulders. Patient did go through 1 surgery procedure and they are waiting to do the opposite shoulder currently. His Jose De Jesus has been reviewed and is appropriate. Physical Exam: General: Alert and oriented x3, no acute distress, pleasant and cooperative Lungs: Respirations even and unlabored, symmetrical chest expansion Eyes: PERRL Musculoskeletal: Flexion and extension of lumbar [spine] somewhat guarded secondary to pain, [antalgic gait noted] Neurological: Speech clear, no gross sensory deficit Procedure Details:: Informed consent was obtained and the risk and benefits of the procedure were explained to the patient. The patient had noninvasive monitoring placed including noninvasive blood pressure cuff and pulse oximeter. Patient's pump was interrogated. The area over the pump was cleansed with chlorhexidine as a cleansing solution. In sterile fashion the pump was accessed with a 22-gauge needle. Approximately 4 mls of the pump solution was removed and discarded appropriately. The pump was then refilled with 20 mL's of Dilaudid 3 mg/mL. The needle was withdrawn and a bandage was placed over the puncture site. The infusion rate was reprogrammed and Dilaudid 0.6632 mg/day. The patient tolerated well with no complication. Plan and Disposition:: Patient tolerated his intrathecal refill and reprogram with no complications and was discharged neurologically intact. I did discuss with the patient that I will order an x-ray of his left knee just to rule out any possible fracture. Patient agrees with this plan of care. Patient will return to clinic for his next intrathecal refill. We will see the patient back in the clinic at the next intrathecal refill. Patient has been instructed to contact the clinic with any concerns before the next appointment. Dr. Olivier has reviewed this note and agrees with this plan of care. This note was dictated using voice recognition software and make contain errors or omissions. -- It Is medically necessary for this patient to continue to have their intrathecal pump refilled at regular intervals. This patient had an intrathecal pain pump implanted after meeting criteria of chronic intractable pain for greater than 3 months and failing conservative treatments. Patient has committed and been compliant to the treatment plan and all planned follow up care. Since implantation of the intrathecal pain pump, the patient has had decreased pain and been more functional. Oral medications have been reduced including intake of oral opioids. Patient continues to do well with intrathecal therapy with decrease in pain symptoms and increase in functional status. Stopping intrathecal medications can lead to life threatening withdrawal, seizures, cardiac arrest, severe pain, and possible . Pumps that are not refilled at regular intervals can be damages and cause and need for replacement. We continually titrate dose and concentration to optimize pain relief and function. We are limited in concentration for certain drugs to safely deliver medications through the pump and stay within the recommendations from the Polyanalgesic Consensus Committee Guidelines. Depending on dose and concentration these pumps may need to be refilled sooner than 3 months as we titrate. A UDS is needed to verify patient's compliance with our office pain contract. This is ordered based off specific treatments related to chronic pain with the potential to abuse certain medications.
[2024-11-17 09:43] VITALS: BP 152/78; PULSE 74; RESP 16; TEMP 36.6; O2SAT 98; BMI 35.1
[2024-11-17 09:45] VITALS: BP 156/96; PULSE 60; RESP 18; O2SAT 97
[2024-11-17 09:53] VITALS: BP 156/96; PULSE 60; RESP 18; O2SAT 97
[2024-11-17 10:12] VITALS: BP 143/88; PULSE 60; RESP 16; O2SAT 99
--- NOTE | 2024-11-17 10:17 | XR_ITS ---
FINAL REPORT CLINICAL HISTORY: PAIN COMPARISON: None FINDINGS: LEFT KNEE Three views demonstrate no acute fracture or dislocation. The patient is status post ORIF changes of the femur. There is mild tricompartmental degenerative change. A small joint effusion is noted. No acute soft tissue abnormality is seen. IMPRESSION: Chronic changes as above. Reviewed, Interpreted and Dictated by Verónica Lima MD Transcribed by Kelly Morales Authenticated and [facility]
== END 2024-11-17 10:12 | disposition home or self-care (01) ==
PROVIDERS: PCP Nurse Practitioner Family; Visit Provider Nurse Practitioner Family
DX: M51.16 Intervertebral disc disorders with radiculopathy, lumbar region (principal); M50.10 Cervical disc disorder with radiculopathy, unspecified cervical region; G89.4 Chronic pain syndrome; M25.511 Pain in right shoulder; M25.512 Pain in left shoulder; M25.562 Pain in left knee
CPT/HCPCS: 62370; 73562; 99212; G0463

== ENCOUNTER 2024-11-28 10:00 | Outpatient (RCR) | payer OTHER, SELFPAY | END 2024-11-28 23:59 | disposition home or self-care (01) | LOC: OT 10:00 | PROVIDERS: Visit Provider Physician Assistant | DX: M25.511 Pain in right shoulder (principal); Z98.890 Other specified postprocedural states | CPT/HCPCS: 97110; 97140; 97166; 97168 ==

== ENCOUNTER 2024-11-30 10:00 | Outpatient (RCR) | payer OTHER, SELFPAY | END 2024-11-30 23:59 | disposition home or self-care (01) | LOC: OT 10:00 | PROVIDERS: Visit Provider Physician Assistant | DX: Z47.1 Aftercare following joint replacement surgery (principal); Z96.611 Presence of right artificial shoulder joint ==

== ENCOUNTER 2024-12-13 15:08 | Outpatient (POV) | payer OTHER, SELFPAY ==
--- NOTE | 2024-12-13 15:51 | EXP.PAIN.PRO ---
Procedure Date: 12/13/24 Time: 15:51 Anesthesiologist:: Brigid Nino APRN Complications:: None Pre-procedure Diagnosis:: Degenerative disc disease of lumbar spine with lumbar radiculopathy symptoms, chronic shoulder pain, bilateral sacroiliitis Post-procedure Diagnosis:: Same Indications for Procedure:: Patient is a pleasant 54-year-old male who presents today for follow-up. He rates his pain a 4 out of 10. He does state that the bilateral SI injections that we did 11/07/2024 did provide significant relief of at least 80% and lasted significantly for 3 weeks at least. He does state the pain is not as severe and he is able to do more with decreased pain. He states that he was able to even wash the dishes and standing in a prolonged position for more than 15 minutes without having to stop and take a break. He does state that he is feeling a little bit more of that low back and hip pain today however it is still manageable. Patient is currently managed with Dilaudid 3 mg/mL with a daily dose of 0.6632 mg/day. He denies any side effects from this medication. His Jose De Jesus has been reviewed and is appropriate. Physical Exam: General: Alert and oriented x3, no acute distress, pleasant and cooperative Lungs: Respirations even and unlabored, symmetrical chest expansion Eyes: PERRL Musculoskeletal: Flexion and extension of lumbar [spine] somewhat guarded secondary to pain, [antalgic gait noted] Neurological: Speech clear, no gross sensory deficit Procedure Details:: Informed consent was obtained and the risk and benefits of the procedure were explained to the patient. Patient did have noninvasive monitoring was placed including noninvasive blood pressure cuff and pulse oximeter. Patient's pump was interrogated and was reprogrammed to increased by 10%. The patient tolerated the procedure well with no complications. Plan and Disposition:: Patient tolerated his intrathecal increase and reprogramming with no complications and was discharged neurologically intact. Patient will return to clinic on or before his next intrathecal refill date. We will see the patient back in the clinic at the next intrathecal refill. Patient has been instructed to contact the clinic with any concerns before the next appointment. Dr. Olivier has reviewed this note and agrees with this plan of care. This note was dictated using voice recognition software and make contain errors or omissions. -- It Is medically necessary for this patient to continue to have their intrathecal pump refilled at regular intervals. This patient had an intrathecal pain pump implanted after meeting criteria of chronic intractable pain for greater than 3 months and failing conservative treatments. Patient has committed and been compliant to the treatment plan and all planned follow up care. Since implantation of the intrathecal pain pump, the patient has had decreased pain and been more functional. Oral medications have been reduced including intake of oral opioids. Patient continues to do well with intrathecal therapy with decrease in pain symptoms and increase in functional status. Stopping intrathecal medications can lead to life threatening withdrawal, seizures, cardiac arrest, severe pain, and possible . Pumps that are not refilled at regular intervals can be damages and cause and need for replacement. We continually titrate dose and concentration to optimize pain relief and function. We are limited in concentration for certain drugs to safely deliver medications through the pump and stay within the recommendations from the Polyanalgesic Consensus Committee Guidelines. Depending on dose and concentration these pumps may need to be refilled sooner than 3 months as we titrate. A UDS is needed to verify patient's compliance with our office pain contract. This is ordered based off specific treatments related to chronic pain with the potential to abuse certain medications.
[2024-12-13 15:58] VITALS: BP 173/100; PULSE 65; RESP 16; O2SAT 98; BMI 34.9
== END 2024-12-13 23:59 | disposition home or self-care (01) ==
PROVIDERS: PCP Nurse Practitioner Family; Visit Provider Nurse Practitioner Family
DX: M51.16 Intervertebral disc disorders with radiculopathy, lumbar region (principal); M46.1 Sacroiliitis, not elsewhere classified; M25.519 Pain in unspecified shoulder; G89.29 Other chronic pain
CPT/HCPCS: 62368; 99212; 99213; G0463

== ENCOUNTER 2024-12-26 09:14 | Outpatient (CLI) | payer OTHER, SELFPAY ==
--- NOTE | 2024-12-26 09:24 | CT_ITS ---
FINAL REPORT TECHNIQUE: Axial images through the left knee was performed by computed tomography with and without contrast. Reformatted images were obtained and reviewed. This study was performed with techniques to keep radiation doses as low as reasonably achievable, (ALARA). Individualized dose reduction techniques using automated exposure control or adjustment of mA and/or kV according to the patient's size were employed. CLINICAL HISTORY: knee instab/pain FINDINGS: Streak artifact is seen from intramedullary ian in the distal femur. There are 2 transverse screws in the distal femoral metadiaphysis. There is mild narrowing of the medial and lateral joint spaces. Chondrocalcinosis is present. There are hypertrophic changes at the medial and lateral joint margins. There is degenerative cyst formation in the lateral tibial plateau measuring up to 8 mm. Moderate joint effusion is identified. There is mild enhancement at the margin of the joint effusion. There is no evidence of bony erosion or periosteal reaction. IMPRESSION: Intramedullary ian in the distal femur. Chondrocalcinosis. Moderate joint effusion with the mild marginal enhancement. Recommend arthrocentesis with fluid analysis. Reviewed, Interpreted and Dictated by Ravin Alford MD Transcribed by Keiko Cope Authenticated and [facility]
--- NOTE | 2024-12-26 09:24 | XR_ITS ---
FINAL REPORT CLINICAL HISTORY: R Foot pain FINDINGS: Right foot Three views were obtained. There is no fracture or dislocation. There is mild joint space narrowing of the first interphalangeal joint. There are mild hypertrophic changes of osteoarthritis. The mortise is intact. No soft tissue abnormality is identified. IMPRESSION: Mild osteoarthritis. Reviewed, Interpreted and Dictated by Ravin Alford MD Transcribed by Keiko Cope Authenticated and [facility]
[2024-12-26 09:36] LABS: Blood Urea Nitrogen 22 mg/dl (9-20); Estimated Glomerular Filt Rate 52 ml/min (>60); GFR (African American) 63 ML/MIN (>60)
[2024-12-26] MEDS: SODIUM CHLORIDE 0.9% 10ML SYR (RAD ONLY) 10 ML IV (10:30)
[2024-12-26] MEDS: IOPAMIDOL-370 (76%);100ML BOTTLE 75 ML IV (10:30)
== END 2024-12-26 23:59 | disposition home or self-care (01) ==
PROVIDERS: PCP Nurse Practitioner Family; Visit Provider Family Medicine
DX: M25.462 Effusion, left knee (principal); M25.562 Pain in left knee; M25.362 Other instability, left knee; M79.671 Pain in right foot
CPT/HCPCS: 36415; 73630; 73702; 82565; 84520; Q9967

== ENCOUNTER → 2025-01-19 08:29 | Day surgery (SDC) | payer OTHER, SELFPAY ==
[2025-01-19 08:50] VITALS: BP 103/64; PULSE 65; RESP 16; TEMP 36.8; O2SAT 98; BMI 34.9
--- NOTE | 2025-01-19 09:10 | PC.NURSE ---
upon opening pt medication this morning prior to pt appt MONICO Churchill noted leaking of pt medication. Syringe is sealed, no holes or cracks noted in syringe. Approx 1.5mL less of medication was noted in syringe (18.5mL) versus 20mL that was expected. MONICO Churchill notified myself, I contacted [facility]- pharmacy staff was not available at that time, had to leave a voicemail. [id number]-[facility] pharmacist Patito called back. Explained to her that syringe was noted to have less medication and appears to be leaking. Stated syringe should not be used to fill pt's pump. States to reorder medication and they can have it to us by Wednesday. Information given to provider BRODERICK Santos. She verbalized okay with plan Spoke with pt explained to him that [facility] has advised us to not use the syringe r/t risk of contamination. We will reorder medication to be delivered on wednesday. Pt states to call him and let him know what time to be here, I stated to pt I will but to expect it to be around 1pm. Pt verbalized understanding. New order for medication has been placed into [facility] portal system
== END ==
LOC: SC.PAIN 08:30
PROVIDERS: PCP Nurse Practitioner Family; Visit Provider Nurse Practitioner Family
DX: M51.16 Intervertebral disc disorders with radiculopathy, lumbar region (principal); Z53.09 Procedure and treatment not carried out because of other contraindication

== ENCOUNTER 2025-01-22 12:55 | Day surgery (SDC) | payer OTHER, SELFPAY ==
[2025-01-22 13:00] VITALS: BP 117/71; PULSE 65; RESP 16; TEMP 36.9; O2SAT 97; BMI 34.9
--- NOTE | 2025-01-22 13:07 | EXP.PAIN.PRO ---
Procedure Date: 01/22/25 Time: 13:17 Anesthesiologist:: Brigid Nino APRN Complications:: None Pre-procedure Diagnosis:: Degenerative disc disease of lumbar spine with lumbar radiculopathy symptoms Post-procedure Diagnosis:: Same Indications for Procedure:: Patient is a pleasant 54-year-old male who presents today for intrathecal refill and reprogram. Today he rates his pain a out of 10. He denies any new trauma or injury. Patient does have Dilaudid 3 mg/mL with a daily dose of 0.7304 mg/day in his intrathecal pump. Patient does also get Percocet from an outside provider for his chronic shoulder pain. His Jose De Jesus has been reviewed and is appropriate. Physical Exam: General: Alert and oriented x3, no acute distress, pleasant and cooperative Lungs: Respirations even and unlabored, symmetrical chest expansion Eyes: PERRL Musculoskeletal: Flexion and extension of lumbar [spine] somewhat guarded secondary to pain, [antalgic gait noted] Neurological: Speech clear, no gross sensory deficit Procedure Details:: informed consent was obtained and the risk and benefits of the procedure were explained to the patient. The patient had noninvasive monitoring placed including noninvasive blood pressure cuff and pulse oximeter. Patient's pump was interrogated. The area over the pump was cleansed with chlorhexidine as a cleansing solution.In sterile fashion the pump was accessed with a 22-gauge needle. Approximately 2.6 mls of the pump solution was removed and discarded appropriately. The pump was then refilled with 20 mL's of Dilaudid 3 mg/mL. The needle was withdrawn and a bandage was placed over the puncture site. The infusion rate was reprogrammed and increased to 0.949 mg/day. The patient tolerated well with no complication. Plan and Disposition:: Patient tolerated the procedure well with no complications and was discharged neurologically intact. Patient will return to clinic in 2 weeks for possible readjustment and reprogram. Patient agrees with this plan of care. We will see the patient back in the clinic at the next intrathecal refill. Patient has been instructed to contact the clinic with any concerns before the next appointment. Dr. Olivier has reviewed this note and agrees with this plan of care. This note was dictated using voice recognition software and make contain errors or omissions. -- It Is medically necessary for this patient to continue to have their intrathecal pump refilled at regular intervals. This patient had an intrathecal pain pump implanted after meeting criteria of chronic intractable pain for greater than 3 months and failing conservative treatments. Patient has committed and been compliant to the treatment plan and all planned follow up care. Since implantation of the intrathecal pain pump, the patient has had decreased pain and been more functional. Oral medications have been reduced including intake of oral opioids. Patient continues to do well with intrathecal therapy with decrease in pain symptoms and increase in functional status. Stopping intrathecal medications can lead to life threatening withdrawal, seizures, cardiac arrest, severe pain, and possible . Pumps that are not refilled at regular intervals can be damages and cause and need for replacement. We continually titrate dose and concentration to optimize pain relief and function. We are limited in concentration for certain drugs to safely deliver medications through the pump and stay within the recommendations from the Polyanalgesic Consensus Committee Guidelines. Depending on dose and concentration these pumps may need to be refilled sooner than 3 months as we titrate. A UDS is needed to verify patient's compliance with our office pain contract. This is ordered based off specific treatments related to chronic pain with the potential to abuse certain medications.
[2025-01-22 13:12] VITALS: BP 139/77; PULSE 63; RESP 16; O2SAT 96
[2025-01-22 13:18] VITALS: BP 139/77; PULSE 63; RESP 16; O2SAT 96
[2025-01-22 13:24] VITALS: BP 114/78; PULSE 62; RESP 16; O2SAT 96
== END 2025-01-22 13:24 | disposition home or self-care (01) ==
PROVIDERS: PCP Nurse Practitioner Family; Visit Provider Nurse Practitioner Family
DX: M51.16 Intervertebral disc disorders with radiculopathy, lumbar region (principal)
CPT/HCPCS: 62370

== ENCOUNTER 2025-02-05 10:37 | Outpatient (POV) | payer OTHER, SELFPAY ==
[2025-02-05 10:59] VITALS: BP 115/64; PULSE 63; RESP 18; O2SAT 98; BMI 35.6
--- NOTE | 2025-02-05 11:01 | P.PCN_ITS ---
Procedure Date: 02/05/25 Time: 11:02 Anesthesiologist:: Brigid Nino APRN Complications:: None Pre-procedure Diagnosis:: Degenerative disc disease of lumbar spine, bilateral hip pain, sacroiliitis, chronic pain syndrome, bilateral shoulder pain, left knee pain Post-procedure Diagnosis:: Same Indications for Procedure:: Patient is a pleasant 54-year-old male who presents today for intrathecal adjustment and reprogram as well as worsening pain in his low back and hips. He does rate his overall pain a 4 or 5 out of 10. Patient does state that he has his chronic low back pain however is experiencing worsening pain in his bilateral hips. He does state that he is interested in additional injection therapy like what he had previously as those did provide significant improvement. Patient does describe his pain as an aching, throbbing sensation that is worse with increased activity or movement. He does state the pain is interfering with his ability perform activities of daily living such as cooking and cleaning. Patient does have a history of reaction to steroids and at the [facility] [place] visit had 40 mg of Depo-Medrol injected instead of the typical 80 mg. He states that he did do well with this. Patient is currently managed with Dilaudid 3 mg/mL with a daily dose of 0.949 mg/day. He denies any side effects from this medication however is requesting an adjustment. His Jose De Jesus has been reviewed and is appropriate. Physical Exam: General: Alert and oriented x3, no acute distress, pleasant and cooperative Lungs: Respirations even and unlabored, symmetrical chest expansion Eyes: PERRL Musculoskeletal: Flexion and extension of lumbar [spine] somewhat guarded secondary to pain, [antalgic gait noted] point tenderness along bilateral SIs with positive bilateral Yvonne's, Shanae's, Gaenslen's, compression and distraction exam Neurological: Speech clear, no gross sensory deficit Procedure Details:: Informed consent was obtained and the risk and benefits of the procedure were explained to the patient. Patient did have noninvasive monitoring was placed including noninvasive blood pressure cuff and pulse oximeter. Patient's pump was interrogated and was reprogrammed to Dilaudid 1.1872 mg/day. The patient tolerated the procedure well with no complications. Plan and Disposition:: Patient tolerated the procedure well with no complications and was discharged neurologically intact. I did go over with the patient regarding his worsening bilateral SI pain with limited range of motion of his lumbar spine and a positive bilateral Yvonne's, Shanae's, Gaenslen's, compression and distraction exam. We did discuss about repeat SI injections and he would like to proceed forward with this plan of care. Risk and benefits were discussed. Patient had his last SI injections in October that did provide 80% relief and did ease down a lot of his overall hip pain. Patient has had sacroiliitis for longer than 3 months. Patient will be given a date for repeat bilateral SI injections under fluoroscopy. We will make sure that we use the smaller dosage of steroids. Patient will also be giving an additional follow-up appointment in 2 weeks for additional adjustment of his pump. Patient agrees with this plan of care. We will see the patient back in the clinic at the next intrathecal refill. Patient has been instructed to contact the clinic with any concerns before the next appointment. Dr. Olivier has reviewed this note and agrees with this plan of care. This note was dictated using voice recognition software and make contain errors or omissions. -- It Is medically necessary for this patient to continue to have their intrathecal pump refilled at regular intervals. This patient had an intrathecal pain pump implanted after meeting criteria of chronic intractable pain for greater than 3 months and failing conservative treatments. Patient has committed and been compliant to the treatment plan and all planned follow up care. Since implantation of the intrathecal pain pump, the patient has had decreased pain and been more functional. Oral medications have been reduced including intake of oral opioids. Patient continues to do well with intrathecal therapy with decrease in pain symptoms and increase in functional status. Stopping intrathecal medications can lead to life threatening withdrawal, seizures, cardiac arrest, severe pain, and possible . Pumps that are not refilled at regular intervals can be damages and cause and need for replacement. We continually titrate dose and concentration to optimize pain relief and function. We are limited in concentration for certain drugs to safely deliver medications through the pump and stay within the recommendations from the [employer] Consensus [employer] Guidelines. Depending on dose and concentration these pumps may need to be refilled sooner than 3 months as we titrate. A UDS is needed to verify patient's compliance with our office pain contract. This is ordered based off specific treatments related to chronic pain with the potential to abuse certain medications.
== END 2025-02-05 23:59 | disposition home or self-care (01) ==
PROVIDERS: PCP Nurse Practitioner Family; Visit Provider Nurse Practitioner Family
DX: G89.4 Chronic pain syndrome (principal); M51.362 Other intervertebral disc degeneration, lumbar region with discogenic back pain and lower extremity pain; M25.551 Pain in right hip; M25.552 Pain in left hip; M46.1 Sacroiliitis, not elsewhere classified; M25.511 Pain in right shoulder; M25.512 Pain in left shoulder; M25.562 Pain in left knee
CPT/HCPCS: 62368; 99212; 99213; G0463

== ENCOUNTER 2025-02-19 10:35 | Outpatient (POV) | payer OTHER, SELFPAY ==
--- NOTE | 2025-02-19 10:57 | EXP.PAIN.PRO ---
Procedure Date: 02/19/25 Time: 10:57 Anesthesiologist:: Brigid Nino APRN Complications:: None Pre-procedure Diagnosis:: Degenerative disc disease of lumbar spine with lumbar radiculopathy symptoms, chronic pain syndrome, bilateral shoulder pain Post-procedure Diagnosis:: Same Indications for Procedure:: Patient is a pleasant 54-year-old male who presents today for follow-up. He does rate his pain today a 3 out of 10. He denies any new trauma or injury. He does state that overall he feels like the pump adjustments we have been doing have really made a difference. Patient states he is able to get around easier and feels like he can even stand for longer periods of time overall. He does state he will still have increasing pain when he has been doing more activities for a longer period of time that it definitely feels like referral in the right direction. Patient is scheduled for injection therapy of bilateral SI injections on 13 March. Patient is currently managed with intrathecal Dilaudid 3 mg/mL with a daily dose of 1.1872 mg/day. He denies any side effects. His Jose De Jesus has been reviewed. Physical Exam: General: Alert and oriented x3, no acute distress, pleasant and cooperative Lungs: Respirations even and unlabored, symmetrical chest expansion Eyes: PERRL Musculoskeletal: Flexion and extension of lumbar [spine] somewhat guarded secondary to pain, [antalgic gait noted] Neurological: Speech clear, no gross sensory deficit Procedure Details:: Informed consent was obtained and the risk and benefits of the procedure were explained to the patient. Patient did have noninvasive monitoring was placed including noninvasive blood pressure cuff and pulse oximeter. Patient's pump was interrogated and was reprogrammed to Dilaudid 1.4247 mg/day. The patient tolerated the procedure well with no complications. Plan and Disposition:: Patient tolerated the procedure well with no complications and was discharged neurologically intact. Patient will return to clinic on or before their next intrathecal refill date. We will see the patient back in the clinic at the next intrathecal refill. Patient has been instructed to contact the clinic with any concerns before the next appointment. Dr. Olivier has reviewed this note and agrees with this plan of care. This note was dictated using voice recognition software and make contain errors or omissions. -- It Is medically necessary for this patient to continue to have their intrathecal pump refilled at regular intervals. This patient had an intrathecal pain pump implanted after meeting criteria of chronic intractable pain for greater than 3 months and failing conservative treatments. Patient has committed and been compliant to the treatment plan and all planned follow up care. Since implantation of the intrathecal pain pump, the patient has had decreased pain and been more functional. Oral medications have been reduced including intake of oral opioids. Patient continues to do well with intrathecal therapy with decrease in pain symptoms and increase in functional status. Stopping intrathecal medications can lead to life threatening withdrawal, seizures, cardiac arrest, severe pain, and possible . Pumps that are not refilled at regular intervals can be damages and cause and need for replacement. We continually titrate dose and concentration to optimize pain relief and function. We are limited in concentration for certain drugs to safely deliver medications through the pump and stay within the recommendations from the [employer]yan[employer] Consensus [employer] Guidelines. Depending on dose and concentration these pumps may need to be refilled sooner than 3 months as we titrate. A UDS is needed to verify patient's compliance with our office pain contract. This is ordered based off specific treatments related to chronic pain with the potential to abuse certain medications.
[2025-02-19 11:00] VITALS: BP 133/73; PULSE 61; RESP 16; O2SAT 99; BMI 35.6
== END 2025-02-19 23:59 | disposition home or self-care (01) ==
PROVIDERS: PCP Nurse Practitioner Family; Visit Provider Nurse Practitioner Family
DX: M51.16 Intervertebral disc disorders with radiculopathy, lumbar region (principal); G89.4 Chronic pain syndrome; M25.511 Pain in right shoulder; M25.512 Pain in left shoulder
CPT/HCPCS: 62368; 99212; 99213; G0463

== ENCOUNTER 2025-03-02 08:48 | Day surgery (SDC) | payer OTHER, SELFPAY ==
--- NOTE | 2025-03-02 08:58 | P.PCN_ITS ---
Procedure Date: 03/02/25 Time: 09:10 Anesthesiologist:: Brigid Nino APRN Complications:: None Pre-procedure Diagnosis:: Degenerative disc disease of lumbar spine with lumbar radiculopathy symptoms, bilateral shoulder pain, bilateral knee pain Post-procedure Diagnosis:: Same Indications for Procedure:: Patient is a pleasant 54-year-old male who presents today for intrathecal refill and reprogram. Today he rates his pain a 3 out of 10 in his overall back. He states the increases have been working really well.Patient does have a Dilaudid intrathecal pump with Dilaudid 3 mg/mL with a daily dose of 1.4247 mg/day.He is also prescribed Percocet from his PCP for his chronic shoulder and knee pain. He does state today however that he has questionable loss of continued pain in his left knee. Patient states this has been going on for months and progressively worsened. He rates that pain at least a 5 or more. He states that it is worse with increased activity or ambulation and it does interfere with his ability perform activities of daily living such as cooking and cleaning. Patient states that he does have to use a crutch even to walk when the pain does increase. Patient states that he has had fluid taken off that knee in the past and denies any previous surgery or replacement he is interested in additional injection therapy. His Jose De Jesus has been reviewed. Physical Exam: General: Alert and oriented x3, no acute distress, pleasant and cooperative Lungs: Respirations even and unlabored, symmetrical chest expansion Eyes: PERRL Musculoskeletal: Flexion and extension of left knee somewhat guarded secondary to pain, [antalgic gait noted] Neurological: Speech clear, no gross sensory deficit Procedure Details:: Informed consent was obtained and the risk and benefits of the procedure were explained to the patient. The patient had noninvasive monitoring placed including noninvasive blood pressure cuff and pulse oximeter. Patient's pump was interrogated. The area over the pump was cleansed with chlorhexidine as a cleansing solution. In sterile fashion the pump was accessed with a 22-gauge needle. Approximately 4 mls of the pump solution was removed and discarded appropriately. The pump was then refilled with 20 mL's of the lot of 3 mg/mL. The needle was withdrawn and a bandage was placed over the puncture site. The infusion rate was reprogrammed and continued at its current dose. The patient tolerated well with no complication. Plan and Disposition:: Patient tolerated the procedure well with no complications and was discharged neurologically intact. I did discuss with the patient that he may benefit from a left knee intra-articular injection. Risk and benefits were discussed with the patient and he would like to proceed forward with this plan of care. Patient has tried and failed conservative therapy including oral medications, heat and ice, topicals, at home stretching exercise for longer than 12 weeks. Patient has been in physical therapy multiple times in the past with no additional changes. Patient will be scheduled for a left intra-articular injection in his knee. Patient has not had these injections in the past. Patient will return to clinic on or before their next intrathecal refill date. We will see the patient back in the clinic at the next intrathecal refill. Patient has been instructed to contact the clinic with any concerns before the next appointment. Dr. Olivier has reviewed this note and agrees with this plan of care. This note was dictated using voice recognition software and make contain errors or omissions. -- It Is medically necessary for this patient to continue to have their intrathecal pump refilled at regular intervals. This patient had an intrathecal pain pump implanted after meeting criteria of chronic intractable pain for greater than 3 months and failing conservative treatments. Patient has committed and been compliant to the treatment plan and all planned follow up care. Since implant ation of the intrathecal pain pump, the patient has had decreased pain and been more functional. Oral medications have been reduced including intake of oral opioids. Patient continues to do well with intrathecal therapy with decrease in pain symptoms and increase in functional status. Stopping intrathecal medications can lead to life threatening withdrawal, seizures, cardiac arrest, severe pain, and possible . Pumps that are not refilled at regular intervals can be damages and cause and need for replacement. We continually titrate dose and concentration to optimize pain relief and function. We are limited in concentration for certain drugs to safely deliver medications through the pump and stay within the recommendations from the Pol[employer]al[employer] Consensus Committee Guidelines. Depending on dose and concentration these pumps may need to be refilled sooner than 3 months as we titrate. A UDS is needed to verify patient's compliance with our office pain contract. This is ordered based off specific treatments related to chronic pain with the potential to abuse certain medications.
[2025-03-02 09:02] VITALS: BP 118/76; PULSE 60; RESP 16; TEMP 36.8; O2SAT 98; BMI 35.2
[2025-03-02 09:04] VITALS: BP 154/77; PULSE 60; RESP 18; O2SAT 97
[2025-03-02 09:06] VITALS: BP 154/77; PULSE 60; RESP 18; O2SAT 97
[2025-03-02 09:10] VITALS: BP 140/77; PULSE 61; RESP 16; O2SAT 97
== END 2025-03-02 09:10 | disposition home or self-care (01) ==
PROVIDERS: PCP Nurse Practitioner Family; Visit Provider Nurse Practitioner Family
DX: M51.16 Intervertebral disc disorders with radiculopathy, lumbar region (principal); M25.511 Pain in right shoulder; M25.512 Pain in left shoulder; M25.561 Pain in right knee; M25.562 Pain in left knee
CPT/HCPCS: 62370; 99212; G0463

== ENCOUNTER 2025-03-05 11:16 | Emergency (ER) | payer OTHER, SELFPAY ==
[2025-03-05] VITALS (8 sets, daily range): BP systolic 127–146; BP diastolic 78–86; PULSE 60–61; RESP 12–22; TEMP 36.6–36.7; O2SAT 98–100; BMI 35.2
--- NOTE | 2025-03-05 11:18 | ECG_ITS ---
APPROVED REPORT Exam: Resting ECG HR:60 bpm ECG Measurements Heart Rate 60 AXES CA 245 P 100 QRSd 103 QRS 34 QT 410 T 15 QTc 411 Conclusion ELECTRONIC ATRIAL PACEMAKER ABNORMAL RHYTHM ECG No STEMI Electronically signed by : EMILY HOWARD, 03/06/2025 06:52:53
--- NOTE | 2025-03-05 11:26 | XR_ITS ---
FINAL REPORT CLINICAL HISTORY: Precordial chest pain COMPARISON: 02/23/2024 FINDINGS: A single view of the chest was obtained. There is mild cardiomegaly. A left subclavian pacemaker is noted. The lungs are underinflated. There is no acute pulmonary abnormality. There is no pleural effusion. There is no pneumothorax. There is no acute osseous abnormality. IMPRESSION: Underinflation with no acute pulmonary abnormality. Reviewed, Interpreted and Dictated by Ravin Alford MD Transcribed by Afia Gusman Authenticated and [facility]
[2025-03-05 11:50] LABS: Basophils % 0.2 % (0.1-2.0); Eosinophils # 0.3 K/mm3 (0.0-0.4); Eosinophils % 2.8 % (0.1-12.0); Hematocrit 39.8 % (42.0-52.0); Hemoglobin 13.3 g/dL (14.1-18.0); Lymphocytes # 1.7 K/mm3 (0.7-4.5); Lymphocytes % 18.5 % (10-50); Mean Corpuscular HGB Conc 33.4 g/dL (31.8-35.4); Mean Corpuscular Hemoglobin 32.5 pg (27.0-31.2); Mean Corpuscular Volume 97.3 fl (80-94); Mean Platelet Volume 10.9 fl (7.4-10.4); Monocytes # 0.9 K/mm3 (0.1-1.0); Monocytes % 9.6 % (1.7-9.3); Neutrophils # 6.3 K/mm3 (1.8-7.8); Neutrophils % 68.4 % (37.0-80.0); Platelet Count 208 K/mm3 (142-424); Red Blood Count 4.09 M/mm3 (4.60-6.20); Red Cell Distribution Width 13.2 % (11.5-17.5); White Blood Count 9.2 K/mm3 (4.8-10.8)
[2025-03-05 12:08] LABS: Alanine Aminotransferase 72 U/L (12-78); Albumin Level 4.3 g/dl (3.5-5.0); Albumin/Globulin Ratio 1.2 (1.1-1.8); Alkaline Phosphatase 102 U/L (38-126); Anion Gap 12.1 mEq/L (5-15); Aspartate Amino Transferase 48 U/L (17-59); Bilirubin,Total 0.7 mg/dl (0.2-1.3); Blood Urea Nitrogen 23 mg/dl (9-20); Calcium 9.3 mg/dl (8.4-10.2); Carbon Dioxide 30 mmol/L (22.0-30.0); Chloride 101 mmol/L (98-107); Creatinine Clearance Estimated 88 mL/min (50-200); Estimated Glomerular Filt Rate 45 ml/min (>60); GFR (African American) 54 ML/MIN (>60); Globulin 3.5 g/dL (1.3-3.2); Glucose 166 mg/dl (74-100); Potassium 5.1 mmoL/L (3.5-5.1); Sodium 138 mmol/L (136-145); Total Protein,Serum 7.8 g/dl (6.3-8.2)
[2025-03-05 12:14] LABS: D-Dimer 0.61 ug/mL (0.0-0.5)
[2025-03-05 12:20] LABS: NT Pro Brain Natriuretic Pep. 21.1 pg/mL (0-125)
[2025-03-05 12:32] LABS: Troponin I 0.01 ng/ml (0.00-0.034)
[2025-03-05 12:33] LABS: Coronavirus 19, PCR Not Detected (NotDetected); Influenza A, PCR Not Detected (NotDetected); Influenza B, PCR Not Detected (NotDetected)
--- NOTE | 2025-03-05 13:40 | ED_ITS ---
Discharge Plan Disposition Patient Disposition: Home, Self-Care Condition: Good Prescriptions Prescriptions: No Action spironolactone [Aldactone] 50 mg tablet 50 mg PO DAILY Repatha SureClick 140 mg/mL pen injector 140 mg SQ Q2W Qty: 3 11RF Wegovy 0.25 mg/0.5 mL pen injector 0.25 mg SQ Q7D Qty: 2 0RF oxycodone-acetaminophen 10-325 mg tablet 1 tab PO QID PRN (Reason: pain) Qty: 120 0RF nifedipine 30 mg tablet extended release 24hr 30 mg PO DAILY finasteride 5 mg tablet 5 mg PO DAILY irbesartan 300 mg tablet 300 mg PO DAILY 90 Days Qty: 90 3RF hydralazine 50 mg tablet 50 mg PO BID PRN (Reason: bp) Qty: 180 1RF isosorbide mononitrate 60 mg tablet extended release 24 hr See Rx Instructions .ROUTE .COMPLEX Qty: 90 3RF Dose Instruction: TAKE ONE TABLET BY MOUTH ONCE A DAY Rx Instructions: TAKE ONE TABLET BY MOUTH ONCE A DAY carvedilol 25 mg tablet See Rx Instructions .ROUTE .COMPLEX Qty: 120 2RF Dose Instruction: TAKE TWO TABLETS BY MOUTH 2 TIMES A DAY WITH MEALS FOR HIGH BLOOD PRESSURE Rx Instructions: TAKE TWO TABLETS BY MOUTH 2 TIMES A DAY WITH MEALS FOR HIGH BLOOD PRESSURE Brilinta 90 mg tablet See Rx Instructions .ROUTE .COMPLEX Qty: 60 2RF Dose Instruction: TAKE ONE TABLET BY MOUTH 2 TIMES A DAY FOR BLOOD THINNER Rx Instructions: TAKE ONE TABLET BY MOUTH 2 TIMES A DAY FOR BLOOD THINNER allopurinol [Zyloprim] 100 mg tablet 100 mg PO DAILY Rx Instructions: TAKE ONE TABLET BY MOUTH ONCE A DAY cholecalciferol (vitamin D3) [Vitamin D3] 25 mcg (1,000 unit) capsule 1,000 unit PO DAILY nifedipine 30 mg Tablet Extended Release 30 mg PO DAILY hydromorphone (PF) 1 mg/mL Solution 1 mg continuous epidural CONT Rx Instructions: SEE EMR FOR CURRENT DAILY DOSE Referrals Follow up/Referrals: Ross Bar APRN [Primary Care Provider] - See instructions Lloyd Rea MD [Staff Physician] - See instructions Activity Restrictions/Add. Instructions Additional Instructions/Restrictions: You were evaluated in the emergency department today. At this time, your workup is reassuring. Please follow-up very closely with your primary care provider as well as with cardiology. Return to the emergency department for new or worsening symptoms. Clinical Impressions Clinical Impression: Chest pain Stand Alone Forms Stand Alone Forms: Work/School Release Instructions Patient Instructions: DI for Atypical Chest Pain Print Language Print Language: Belarusian Discharge ED Provider: Brigid Nick HPI General Chief Complaint: Chest Pain Stated Complaint: CHEST PAIN Time Seen by Provider: 03/05/25 11:32 Mode of Arrival: Ambulatory Source of Information: Patient and Spouse Description of Symptoms (Recalled from ER Triage Doc. by RN): pt to the ED with SOb since yesterday and chest pain that started this morning. pt reports its a dull pain in the left side of his chest without radiation and rates it a 3/10 at this time. History of Present Illness HPI narrative: This patient is a 54-year-old male with a history of COPD, hypertension, CAD, pacemaker in place, hyperlipidemia presented to the emergency department for evaluation with concern for chest pain and shortness of breath. Patient intermittently has chest pains or shortness of breath often, but symptoms seem to be a little bit worse yesterday and this morning. He notes that they started to improve right before he got here. Chest pain is left-sided, nonradiating. It is a 3 out of 10 currently. No fevers, cough, congestion, abdominal pain, nausea, vomiting, changes bowel movements, or other concerns. Related Data Home Medications ?Medication ?Instructions ?Recorded ?Confirmed nifedipine 30 mg tablet,extended 30 mg PO DAILY 03/28/24 03/02/25 release hydromorphone (PF) 1 mg/mL 1 mg continuous epidural CONT Pain 05/01/24 03/02/25 injection solution allopurinol 100 mg tablet 100 mg PO DAILY 05/08/24 03/02/25 (Zyloprim) cholecalciferol (vitamin D3) 25 1,000 unit PO DAILY Supplement 05/08/24 03/02/25 mcg (1,000 unit) capsule (Vitamin D3) spironolactone 50 mg tablet 50 mg PO DAILY 05/08/24 03/02/25 (Aldactone) finasteride 5 mg tablet 5 mg PO DAILY 12/19/24 03/02/25 nifedipine 30 mg tablet,extended 30 mg PO DAILY 12/19/24 03/02/25 release 24 hr Previous Rx's ?Medication ?Instructions ?Recorded irbesartan 300 mg tablet 300 mg PO DAILY 90 days #90 tabs 03/08/24 evolocumab 140 mg/mL subcutaneous 140 mg SQ Q2W #3 mL 10/31/24 pen injector (Repatha SureClick) semaglutide (weight loss) 0.25 0.25 mg (0.5 mL) SQ Q7D #2 mL 10/31/24 mg/0.5 mL subcutaneous pen injector (Wegovy) hydralazine 50 mg tablet 50 mg PO BID PRN bp #180 tabs 12/01/24 carvedilol 25 mg tablet See Rx Instructions .Route 01/25/25 .COMPLEX #120 tabs isosorbide mononitrate 60 mg See Rx Instructions .Route 01/25/25 tablet,extended release 24 hr .COMPLEX #90 tabs oxycodone-acetaminophen 10 mg-325 1 tab PO QID PRN pain #120 tabs 02/20/25 mg tablet ticagrelor 90 mg tablet (Brilinta) See Rx Instructions .Route 02/27/25 .COMPLEX #60 tabs Allergies Allergy/AdvReac Type Severity Reaction Status Date / Time Thiazides Allergy Intermediate Unknown Verified 02/20/25 09:07 allergy reaction Androgenic Anabolic Steroid Allergy Mild Unknown Verified 02/20/25 09:07 allergy reaction aspirin (ASPIRIN) Allergy Unknown FACIAL Verified 02/20/25 09:07 SWELLING Penicillins (PENICILLINS) Allergy Unknown FACIAL Verified 02/20/25 09:07 SWELLING Sulfa (Sulfonamide Allergy Unknown Unknown Verified 02/20/25 09:07 Antibiotics) (SULFA allergy (SULFONAMIDE ANTIBIOTICS)) reaction morphine AdvReac Mild Vomiting Verified 02/20/25 09:07 NSAIDS (Non-Steroidal AdvReac Other Verified 02/20/25 09:07 Anti-Inflamma PFSH PFS Disclaimer: The information contained in this section may have been updated after the patient was seen, as this information can be updated by other users. Medical History History of fracture of leg Pacemaker Pulmonary arterial hypertension Abnormal electrocardiogram [ECG] [EKG] Non-STEMI (non-ST elevated myocardial infarction) Hyperlipidemia Coronary artery disease Bright's disease Femur fracture, left History of left heart catheterization (LHC) Cardiac pacemaker in situ JUANITA (acute kidney injury) Chronic serous otitis media of right ear Impacted cerumen of right ear Hearing loss in right ear Tympanosclerosis, right ear Syncope Symptomatic bradycardia 1st degree AV block Bradycardia Chest pain Abnormal electrocardiography HTN (hypertension) Surgical History History of facial surgery History of back surgery Family History Father Family history of myocardial infarction Mother Family history of myocardial infarction Other Family history of diabetes mellitus Social History Smoking Status: Never smoker alcohol intake: never substance use type: denies use current occupational status: other Travel in the last 8 weeks: None household members: spouse housing: house Have you lived/traveled outside [place] in past 30 days?: No Contact w/someone who lives/traveled outside US past 30 days?: No Exposure to someone with infectious disease in past 14 days?: No Do you have a fever (greater than 100.4 F or 38 C)?: No Have you tested positive for COVID-19: No Exposed to someone with COVID-19 in past 14 days?: No Do you have a sore throat?: No Do you have a cough?: No Do you have any weakness?: No Do you have any diarrhea?: No Are you experiencing any unusual bleeding?: No Do you have any muscle aches/pain?: No Do you have any abdominal pain?: No Are you experiencing loss of taste or smell?: No Other Medical History Have you received the Flu Vaccine for this season: No Have you received the Pneumonia Vaccine: No ROS Obtained: Yes All systems reviewed & no additional complaints except as documented Physical Exam General General appearance: alert and in no apparent distress Head Head exam: atraumatic and normocephalic Eye Eye exam: Present normal appearance, PERRL and EOMI ENT ENT exam: Present normal exam, normal oropharynx, mucous membranes moist and normal external ear exam Neck Neck exam: Present normal inspection, full ROM and trachea midline; Absent tenderness Chest Chest inspection: Present normal inspection and symmetric chest wall rise; Absent tenderness Respiratory Respiratory exam: Present normal lung sounds bilaterally; Absent respiratory distress, wheezes, stridor or accessory muscle use Cardiovascular Cardiovascular exam: Present regular rate and normal rhythm Abdominal Exam Abdominal exam: Present soft; Absent distention, tenderness or guarding Extremities Exam Extremities exam: Present normal inspection, full ROM and normal capillary refill; Absent tenderness or edema Back Exam Back exam: Present normal inspection and full ROM; Absent tenderness Neurological Exam Neurological exam: Present alert, oriented X3, CN II-XII intact and normal gait; Absent motor sensory deficit Psychiatric Psychiatric exam: Present normal affect and normal mood Skin Skin exam: Present warm and dry HEART Score HEART Score HEART Score assessment performed?: Yes History (anamnesis): Slightly suspicious ECG: Normal Age: 45-65 years Risk factors: Atherosclerosis history Troponin: </= normal limit HEART Score: 3 Critical Care Critical Care Time Critical Care Time: No Medical Decision Making Jose De Jesus Inquiry Pt receiving controlled substance: No Vital Signs Vital Signs: 03/05/25 11:20 03/05/25 11:24 03/05/25 11:40 Temperature 98.1 F Temperature Source Oral Pulse Rate 60 60 Pulse Rate [Left Radial] 60 Respiratory Rate 17 20 Blood Pressure 146/86 H Blood Pressure [Right Arm] 131/79 Blood Pressure Mean [Right Arm] 96 Blood Pressure Source Blood Pressure Source [Right Arm] Automatic Cuff Blood Pressure Position Blood Pressure Position [Right Arm] Sitting 02 Sat by Pulse Oximetry 98 100 Oxygen Delivery Method Room Air 03/05/25 12:00 03/05/25 12:30 03/05/25 13:00 Temperature Temperature Source Pulse Rate 60 61 Pulse Rate [Left Radial] Respiratory Rate 22 15 12 Blood Pressure 127/78 136/85 129/85 Blood Pressure [Right Arm] Blood Pressure Mean [Right Arm] Blood Pressure Source Blood Pressure Source [Right Arm] Blood Pressure Position Blood Pressure Position [Right Arm] 02 Sat by Pulse Oximetry 100 100 Oxygen Delivery Method 03/05/25 13:30 03/05/25 15:00 Temperature 97.9 F Temperature Source Oral Pulse Rate 60 Pulse Rate [Left Radial] Respiratory Rate 13 18 Blood Pressure 132/85 130/81 Blood Pressure [Right Arm] Blood Pressure Mean [Right Arm] Blood Pressure Source Automatic Cuff Blood Pressure Source [Right Arm] Blood Pressure Position Sitting Blood Pressure Position [Right Arm] 02 Sat by Pulse Oximetry Oxygen Delivery Method Room Air Lab Data Labs: Lab Results 03/05/25 11:40: WBC 9.2, RBC 4.09 L, Hgb 13.3 L, Hct 39.8 L, MCV 97.3 H, MCH 32.5 H, MCHC 33.4, RDW 13.2, Plt Count 208, MPV 10.9 H, Neut % (Auto) 68.4, Lymph % (Auto) 18.5, [place] % (Auto) 9.6 H, Eos % (Auto) 2.8, Baso % (Auto) 0.2, Neut # (Auto) 6.3, Lymph # (Auto) 1.7, [place] # (Auto) 0.9, Eos # (Auto) 0.3, Baso # (Auto) 0.0, D-Dimer 0.61 H, Sodium 138, Potassium 5.1, Chloride 101, Carbon Dioxide 30, Anion Gap 12.1, BUN 23 H, Creatinine 1.60 H, Estimated Creat Clear 88, Estimated GFR 45 L, Est GFR ( Amer) 54 L, Glucose 166 H, Calcium 9.3, Total Bilirubin 0.7, AST 48, ALT 72, Alkaline Phosphatase 102, Troponin I 0.01, NT-Pro-B Natriuret Pep 21.1, Total Protein 7.8, Albumin 4.3, Globulin 3.5 H, Albumin/Globulin Ratio 1.2 03/05/25 12:27: SARS-CoV-2 (PCR) Not detected, Influenza A Untype (PCR) Not detected, Influenza Type B (PCR) Not detected 03/05/25 13:39: Troponin I 0.01 03/05/25 11:40 03/05/25 11:40 Response Orders (Tests/Meds): ORDERS Category Date Time Status XR chest portable Stat Exams 03/05/25 11:26 Completed BNP [NT Pro Brain Natriuretic Pep.] Stat Lab 03/05/25 11:40 Completed Complete Blood Count Auto Diff Stat Lab 03/05/25 11:40 Completed Comprehensive Metabolic Panel Stat Lab 03/05/25 11:40 Completed D-Dimer Stat Lab 03/05/25 11:40 Completed Rapid PCR Covid and Flu A/B Stat Lab 03/05/25 12:27 Completed Troponin I Q3H Lab 03/05/25 13:39 Completed Troponin I Stat Lab 03/05/25 11:40 Completed ECG Data Tracing #1: Attestation: I reviewed this ECG and interpreted as documented below: ECG Narrative: Atrially paced with a ventricular rate of [address] changes concerning for STEMI. ECG initial impression date: 03/05/25 ECG initial impression time: 11:19 MDM Narrative Medical Decision Narrative: In summary, this patient is a 54-year-old male presenting to the Emergency Department for evaluation of chest pain and shortness of breath. Differential diagnoses considered include but are not limited to yes, dysrhythmia, unstable angina, stable angina, COPD exacerbation, CHF, pneumonia, PE. Ruling out the most morbid conditions drove assessment. It should be noted patient's history includes COPD, CAD, hypertension, hyperlipidemia which may or may not be at goal therapy. This complicates all aspects of care by increasing patient's risk for morbidity. I reviewed patient's past medical records and noted most recent cardiology evaluation from October.. Patient had a normal echo 10/2023, he had stents in August 2023. On exam, the patient is sitting upright in no acute distress. Vitals are normal on cardiac telemetry. EKG obtained is reassuring. Cannot use PERC criteria to exclude PE, though I feel it is unlikely based on Wells score, given age. Workup included CBC, CMP, troponin, D-dimer, BNP, chest x-ray, EKG. I independently interpreted chest x-ray prior to the radiologist read and noted no large focal consolidation concerning for pneumonia, no pulmonary edema. Please see their read for final interpretation. Labs were obtained that demonstrated negative troponins x 2, D-dimer this negative per years criteria. CBC is reassuring with no significant leukocytosis or anemia, chemistry demonstrates creatinine that is elevated around the patient's baseline. Overall, workup is very reassuring and not concerning for acute pathology that requires admission. I feel he is appropriate for discharge home with close follow-up with cardiology on an outpatient basis. He was given instructions to do so, strict return precautions, and he was discharged after all questions were answered..
[2025-03-05 14:28] LABS: Troponin I 0.01 ng/ml (0.00-0.034)
--- NOTE | 2025-03-05 14:56 | PC.NURSE ---
DR ELLIS AT BEDSIDE TO UPDATE PT AND FAMILY
== END 2025-03-05 15:00 | disposition home or self-care (01) ==
PROVIDERS: Emergency Provider Emergency Medicine; PCP Nurse Practitioner Family
DX: R07.9 Chest pain, unspecified (principal); R06.02 Shortness of breath; E78.5 Hyperlipidemia, unspecified; J44.9 Chronic obstructive pulmonary disease, unspecified; I10 Essential (primary) hypertension; I25.10 Atherosclerotic heart disease of native coronary artery without angina pectoris; Z95.0 Presence of cardiac pacemaker
CPT/HCPCS: 71045; 80053; 83880; 84484; 85025; 85378; 87636; 93005; 99284

== ENCOUNTER 2025-03-13 09:26 | Day surgery (SDC) | payer OTHER, SELFPAY ==
[2025-03-13 09:37] VITALS: BP 117/64; PULSE 60; RESP 16; TEMP 36.9; O2SAT 98; BMI 35.2
--- NOTE | 2025-03-13 09:51 | P.PCN_ITS ---
Procedure Date: 03/13/25 Time: 09:40 Anesthesiologist:: Lester Burt CRNA Complications:: None Pre-procedure Diagnosis:: Bilateral sacroiliitis. Degenerative disc lumbar spine multilevels. Lumbar radiculopathy. Lumbar postlaminectomy syndrome. Post-procedure Diagnosis:: Same. Indications for Procedure:: Patient is a very pleasant 54-year-old male who comes our office today for bilateral sacroiliac joint injections cortisone local anesthetic. Patient describes low lumbar back pain of the midline bilaterally. Bilateral posterior hip pain. Difficulty transitioning from sitting to standing. He rates his pain 7/10. Procedure Details:: Procedure: Bilateral sacroiliac joint injections under fluoroscopy Informed consent was obtained and the risks and benefits of the procedure were explained to the patient.~ The patient was taken to the procedure room and noninvasive monitors were placed including a noninvasive blood pressure cuff and pulse oximeter.~ The patient was placed prone on the procedure table. Both hips were cleansed using Betadine as a cleansing solution. C-arm fluoroscopy was used to view the right sacroiliac joint.~ The skin and subcutaneous tissues were anesthetized using lidocaine 1.5% and a 25-gauge needle.~ After this, a 22-gauge spinal needle was inserted under fluoroscopic guidance into the inferior aspect of the right sacroiliac joint.~ Omnipaque dye was injected and good spread was seen throughout the joint.~ After this, approximately 5 mL of bupivacaine, 0.25% and Depo-Medrol, 20 mg was incrementally injected into the right sacroiliac joint. We then moved to the left sacroiliac joint.~ The skin and subcutaneous tissues were anesthetized using lidocaine 1.5% and a 25-gauge needle.~ After this, a 22- gauge spinal needle was inserted under fluoroscopic guidance into the inferior aspect of the left sacroiliac joint.~ Omnipaque dye was injected and good spread was seen throughout the joint. After this, approximately 5 mL of bupivacaine, 0.25% and Depo-Medrol, 20 mg was incrementally injected into the left sacroiliac joint.~ The patient tolerated the procedure well with no complications. The patient was observed in the Pain Clinic and then was discharged home neurologically intact. Plan and Disposition:: Patient was discharged without incident.
[2025-03-13 09:55] VITALS: BP 121/72; PULSE 62; RESP 16; O2SAT 100
[2025-03-13] MEDS: BUPIVACAINE 0.25% 10ML INJ 25 MG IJ (10:10)
[2025-03-13] MEDS: methylPREDNISolone ACETATE 80MG/ML VIAL 80 MG (10:12)
[2025-03-13] MEDS: LIDOCAINE 1% 5ML PF VIAL 5 ML (10:12)
[2025-03-13 10:13] VITALS: BP 129/69; PULSE 65; RESP 18; O2SAT 98
[2025-03-13 10:15] VITALS: BP 129/69; PULSE 65; RESP 18; O2SAT 98
== END 2025-03-13 09:55 | disposition home or self-care (01) ==
PROVIDERS: PCP Nurse Practitioner Family; Visit Provider Nurse Anesthetist, Certified Registered
DX: M46.1 Sacroiliitis, not elsewhere classified (principal); M51.16 Intervertebral disc disorders with radiculopathy, lumbar region; M96.1 Postlaminectomy syndrome, not elsewhere classified
CPT/HCPCS: 27096; G0260; J1010

== ENCOUNTER 2025-03-26 09:56 | Outpatient (POV) | payer OTHER, SELFPAY ==
--- NOTE | 2025-03-26 10:19 | P.PCN_ITS ---
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 He does right at least 60 to 80% improvement following these injections and feels like they are still helping. He states when he's sitting he is not having the pain like what it was. He does state however anytime he is up doing more activities he does have the chronic low back pain. He states that they have been redoing his daughters doctors office and that anytime trying to do something causes the worsening pain that is constant. Patient does have a intrathecal pump with Dilaudid 3 mg/mL with a daily dose of 1.4247 mg/day. His Jose De Jesus has been reviewed. Physical Exam: General: Alert and oriented x3, no acute distress, pleasant and cooperative Lungs: Respirations even and unlabored, symmetrical chest expansion Eyes: PERRL Musculoskeletal: Flexion and extension of lumbar [spine] somewhat guarded secondary to pain, [antalgic gait noted] Neurological: Speech clear, no gross sensory deficit Procedure Details:: Informed consent was obtained and the risk and benefits of the procedure were explained to the patient. Patient did have noninvasive monitoring was placed including noninvasive blood pressure cuff and pulse oximeter. Patient's pump was interrogated and was reprogrammed to Dilaudid 1.7071 mg/day. The patient tolerated the procedure well with no complications. Plan and Disposition:: Patient has had significant improvement following his SI injections and does not require any additional injection therapy at this time. Patient tolerated the procedure well with no complications and was discharged neurologically intact. Patient will return to clinic on or before their next intrathecal refill date. We will see the patient back in the clinic at the next intrathecal refill. Patient has been instructed to contact the clinic with any concerns before the next appointment. Dr. Olivier has reviewed this note and agrees with this plan of care. This note was dictated using voice recognition software and make contain errors or omissions. -- It Is medically necessary for this patient to continue to have their intrathecal pump refilled at regular intervals. This patient had an intrathecal pain pump implanted after meeting criteria of chronic intractable pain for greater than 3 months and failing conservative treatments. Patient has committed and been compliant to the treatment plan and all planned follow up care. Since implantation of the intrathecal pain pump, the patient has had decreased pain and been more functional. Oral medications have been reduced including intake of oral opioids. Patient continues to do well with intrathecal therapy with d ecrease in pain symptoms and increase in functional status. Stopping intrathecal medications can lead to life threatening withdrawal, seizures, cardiac arrest, severe pain, and possible . Pumps that are not refilled at regular intervals can be damages and cause and need for replacement. We continually titrate dose and concentration to optimize pain relief and function. We are limited in concentration for certain drugs to safely deliver medications through the pump and stay within the recommendations from the Polyanalges[employer] Consensus Committee Guidelines. Depending on dose and concentration these pumps may need to be refilled sooner than 3 months as we titrate. A UDS is needed to verify patient's compliance with our office pain contract. This is ordered based off specific treatments related to chronic pain with the potential to abuse certain medications.
[2025-03-26 10:25] VITALS: BP 103/47; PULSE 60; RESP 18; O2SAT 97; BMI 35.2
== END 2025-03-26 23:59 | disposition home or self-care (01) ==
PROVIDERS: PCP Nurse Practitioner Family; Visit Provider Nurse Practitioner Family
DX: G89.4 Chronic pain syndrome (principal); M51.369 Other intervertebral disc degeneration, lumbar region without mention of lumbar back pain or lower extremity pain; M46.1 Sacroiliitis, not elsewhere classified; M25.511 Pain in right shoulder; M25.512 Pain in left shoulder
CPT/HCPCS: 62368; 99212; 99213; G0463

== ENCOUNTER 2025-03-30 08:58 | Day surgery (SDC) | payer OTHER, SELFPAY ==
[2025-03-30 09:09] VITALS: BP 120/60; PULSE 61; RESP 16; O2SAT 97; BMI 35.2
--- NOTE | 2025-03-30 09:12 | EXP.HP ---
History of Present Illness *Admission Date: 03/30/25 *Reason for visit:: Intrathecal refill; DDD *History of present illness: Degenerative disc disease [facility] Disclaimer: The information contained in this section may have been updated after the patient was seen, as this information can be updated by other users. Medical History History of fracture of leg Pacemaker Pulmonary arterial hypertension Abnormal electrocardiogram [ECG] [EKG] Non-STEMI (non-ST elevated myocardial infarction) Hyperlipidemia Coronary artery disease Bright's disease Femur fracture, left History of left heart catheterization (LHC) Cardiac pacemaker in situ JUANITA (acute kidney injury) Chronic serous otitis media of right ear Impacted cerumen of right ear Hearing loss in right ear Tympanosclerosis, right ear Syncope Symptomatic bradycardia 1st degree AV block Bradycardia Chest pain Abnormal electrocardiography HTN (hypertension) Surgical History History of facial surgery History of back surgery Family History Father Family history of myocardial infarction Mother Family history of myocardial infarction Other Family history of diabetes mellitus Social History Smoking Status: Never smoker alcohol intake: never substance use type: denies use current occupational status: other Travel in the last 8 weeks?: None household members: spouse housing: house Have you lived/traveled outside US in past 30 days?: No Contact w/someone who lives/traveled outside US past 30 days?: No Exposure to someone with infectious disease in past 14 days?: No Do you have a fever (greater than 100.4 F or 38 C)?: No Have you tested positive for COVID-19?: No Exposed to someone with COVID-19 in past 14 days?: No Do you have a sore throat?: No Do you have a cough?: No Do you have any weakness?: No Do you have any diarrhea?: No Are you experiencing any unusual bleeding?: No Do you have any muscle aches/pain?: No Do you have any abdominal pain?: No Are you experiencing loss of taste or smell?: No Other Medical History Have you received the Flu Vaccine for this season: Yes Have you received the Pneumonia Vaccine: Yes Review of Systems Review of Systems Review of systems:: pertinent systems reviewed and negative unless documented below Review of systems (narrative): Review of Systems: General: No recent weight changes, no fever, no sleep disturbances Respiratory: No cough, no shortness of air, no recurring pulmonary infections Cardiovascular/peripheral vascular: No chest pain, no palpitations, no edema, no shortness of breath Gastrointestinal: No new onset incontinence, normal bowel movements reported Genitourinary: No new onset incontinence Musculoskeletal: Chronic back pain Psychiatric: [Normal mood/affect] Neurological: [Denies weakness in extremities], [denies balance issues] Meds Home Medications and Allergies Home Medications ?Medication ?Instructions ?Recorded ?Confirmed ?Type nifedipine 30 mg tablet,extended 30 mg PO DAILY 03/28/24 03/26/25 History release hydromorphone (PF) 1 mg/mL 1 mg continuous epidural CONT Pain 05/01/24 03/26/25 History injection solution cholecalciferol (vitamin D3) 25 1,000 unit PO DAILY Supplement 05/08/24 03/26/25 History mcg (1,000 unit) capsule (Vitamin D3) evolocumab 140 mg/mL subcutaneous 140 mg SQ Q2W #3 mL 10/31/24 03/26/25 Rx pen injector (Repatha SureClick) semaglutide (weight loss) 0.25 0.25 mg (0.5 mL) SQ Q7D #2 mL 10/31/24 03/26/25 Rx mg/0.5 mL subcutaneous pen injector (Wegovy) hydralazine 50 mg tablet 50 mg PO BID PRN bp #180 tabs 12/01/24 03/26/25 Rx finasteride 5 mg tablet 5 mg PO DAILY 12/19/24 03/26/25 History nifedipine 30 mg tablet,extended 30 mg PO DAILY 12/19/24 03/26/25 History release 24 hr carvedilol 25 mg tablet See Rx Instructions .Route 01/25/25 03/26/25 Rx .COMPLEX #120 tabs isosorbide mononitrate 60 mg See Rx Instructions .Route 01/25/25 03/26/25 Rx tablet,extended release 24 hr .COMPLEX #90 tabs ticagrelor 90 mg tablet (Brilinta) See Rx Instructions .Route 02/27/25 03/26/25 Rx .COMPLEX #60 tabs irbesartan 300 mg tablet See Rx Instructions .Route 03/26/25 Rx .COMPLEX #30 tabs spironolactone 50 mg tablet See Rx Instructions .Route 03/26/25 Rx .COMPLEX #60 tabs allopurinol 100 mg tablet 100 mg PO DAILY #90 tabs 03/27/25 Rx (Zyloprim) oxycodone-acetaminophen 10 mg-325 1 tab PO QID PRN pain #120 tabs 03/29/25 Rx mg tablet New Prescriptions to Start Prescriptions: Allergies Allergy/AdvReac Type Severity Reaction Status Date / Time Thiazides Allergy Intermediate Unknown Verified 02/20/25 09:07 allergy reaction Androgenic Anabolic Steroid Allergy Mild Unknown Verified 02/20/25 09:07 allergy reaction aspirin (ASPIRIN) Allergy Unknown FACIAL Verified 02/20/25 09:07 SWELLING Penicillins (PENICILLINS) Allergy Unknown FACIAL Verified 02/20/25 09:07 SWELLING Sulfa (Sulfonamide Allergy Unknown Unknown Verified 02/20/25 09:07 Antibiotics) (SULFA allergy (SULFONAMIDE ANTIBIOTICS)) reaction morphine AdvReac Mild Vomiting Verified 02/20/25 09:07 NSAIDS (Non-Steroidal AdvReac Other Verified 02/20/25 09:07 Anti-Inflamma Exam Constitutional Constitutional: no acute distress *Routine HEENT Exam Head: Present normocephalic and atraumatic Eye: Present PERRL ENT: Present mucous membranes moist *Routine Neck Exam Neck: Present supple *Routine Respiratory Exam Respiratory: Present CTA bilaterally *Routine Cardiovascular Exam Cardiovascular: Present RRR *Routine Abdominal Exam Abdominal: Present soft *Routine Rectal Exam Rectal:: deferred *Routine Genitalia Exam Genitalia:: normal male Routine Back/Spine/Pelvis Exam Back/Spine: Present pain with flexion *Routine Skin Exam Skin: Present intact and warm *Routine Neurological Exam Neurological: Present alert and oriented X3 Routine Psychiatric Exam Psychiatric: Present normal affect Assessment and Plan *Assessment and plan (1) Cervical radiculopathy: Status: Acute Category: Medical Code(s): M54.12 - Radiculopathy, cervical region (2) Cervical pain (neck): Status: Acute Category: Medical Code(s): M54.2 - Cervicalgia (3) Degenerative disc disease, cervical: Status: Acute Category: Medical Code(s): M50.30 - Other cervical disc degeneration, unspecified cervical region (4) Lumbar disc disease with radiculopathy: Status: Acute Category: Medical Code(s): M51.16 - Intervertebral disc disorders with radiculopathy, lumbar region Plan Patient has been instructed to contact the clinic with any concerns before the next appointment. Dr. Olivier has reviewed this note and agrees with this plan of care. This note was dictated using voice recognition software and make contain errors or omissions. All injections are used with Lidocaine, Bupivacaine and dexamethasone. Occasionally urine drug screen is needed to verify patient's compliance with our office pain contract. This is ordered based off specific treatments related to chronic pain with the potential to abuse certain medications.
--- NOTE | 2025-03-30 09:14 | P.PCN_ITS ---
Procedure Date: 03/30/25 Time: 09:24 Anesthesiologist:: Brigid Nino APRN Complications:: None Pre-procedure Diagnosis:: Degenerative disc disease of cervical spine and lumbar spine, chronic shoulder pain, chronic pain syndrome Post-procedure Diagnosis:: Same Indications for Procedure:: Patient is a pleasant 54-year-old male who presents today for intrathecal refill and reprogram. Today he rates his pain a 2 out of 10. He does state that his last increase has really helped. He is currently managed with Dilaudid 3 mg/mL with a daily dose of 1.7071 mg/day he denies any side effects.Patient is currently managed with Percocet from his primary care for his chronic shoulder pain. His Jose De Jesus has been reviewed and is appropriate. Physical Exam: General: Alert and oriented x3, no acute distress, pleasant and cooperative Lungs: Respirations even and unlabored, symmetrical chest expansion Eyes: PERRL Musculoskeletal: Flexion and extension of lumbar [spine] somewhat guarded secondary to pain, [antalgic gait noted] Neurological: Speech clear, no gross sensory deficit Procedure Details:: Informed consent was obtained and the risk and benefits of the procedure were explained to the patient. The patient had noninvasive monitoring placed including noninvasive blood pressure cuff and pulse oximeter. Patient's pump was interrogated. The area over the pump was cleansed with chlorhexidine as a cleansing solution. In sterile fashion the pump was accessed with a 22-gauge needle. Approximately 5.7 mls of the pump solution was removed and discarded appropriately. The pump was then refilled with 20 mL's of Dilaudid 5 mg/mL. The needle was withdrawn and a bandage was placed over the puncture site. The infusion rate was reprogrammed at Dilaudid 1.7051 mg/day. The patient tolerated well with no complication. Plan and Disposition:: Patient tolerated the procedure well with no complications and was discharged neurologically intact. Patient was counseled that he is having a concentration change today and that he will have a bridge bolus to get the old medication completely out that the catheter to the new dosage of 5 mg/mL. Patient acknowledges understanding. Patient will return to clinic on or before their next intrathecal refill date. We will see the patient back in the clinic at the next intrathecal refill. Patient has been instructed to contact the clinic with any concerns before the next appointment. Dr. Olivier has reviewed this note and agrees with this plan of care. This note was dictated using voice recognition software and make contain errors or omissions. -- It Is medically necessary for this patient to continue to have their intrathecal pump refilled at regular intervals. This patient had an intrathecal pain pump implanted after meeting criteria of chronic intractable pain for greater than 3 months and failing conservative treatments. Patient has committed and been compliant to the treatment plan and all planned follow up care. Since impl antation of the intrathecal pain pump, the patient has had decreased pain and been more functional. Oral medications have been reduced including intake of oral opioids. Patient continues to do well with intrathecal therapy with decrease in pain symptoms and increase in functional status. Stopping intrathecal medications can lead to life threatening withdrawal, seizures, cardiac arrest, severe pain, and possible . Pumps that are not refilled at regular intervals can be damages and cause and need for replacement. We continually titrate dose and concentration to optimize pain relief and function. We are limited in concentration for certain drugs to safely deliver medications through the pump and stay within the recommendations from the Polyanalgesic Consensus Committee Guidelines. Depending on dose and concentration these pumps may need to be refilled sooner than 3 months as we titrate. A UDS is needed to verify patient's compliance with our office pain contract. This is ordered based off specific treatments related to chronic pain with the potential to abuse certain medications.
[2025-03-30 09:17] VITALS: BP 109/60; PULSE 65; RESP 18; O2SAT 95
[2025-03-30 09:32] VITALS: BP 112/68; PULSE 65; RESP 16; O2SAT 97
== END 2025-03-30 09:32 | disposition home or self-care (01) ==
PROVIDERS: PCP Nurse Practitioner Family; Visit Provider Nurse Practitioner Family
DX: G89.4 Chronic pain syndrome (principal); M50.30 Other cervical disc degeneration, unspecified cervical region; M51.369 Other intervertebral disc degeneration, lumbar region without mention of lumbar back pain or lower extremity pain; M25.519 Pain in unspecified shoulder
CPT/HCPCS: 62370; 99221

== ENCOUNTER 2025-04-10 14:00 | Outpatient (CLI) | payer OTHER, SELFPAY | END 2025-04-10 23:59 | disposition home or self-care (01) | LOC: RT 14:00 | PROVIDERS: PCP Nurse Practitioner Family; Visit Provider Internal Medicine | DX: I49.1 Atrial premature depolarization (principal); I47.19 Other supraventricular tachycardia; I49.3 Ventricular premature depolarization; I47.29 Other ventricular tachycardia; I49.8 Other specified cardiac arrhythmias; I21.4 Non-ST elevation (NSTEMI) myocardial infarction; R94.31 Abnormal electrocardiogram [ECG] [EKG]; Z95.810 Presence of automatic (implantable) cardiac defibrillator | CPT/HCPCS: 93270 ==

== ENCOUNTER 2025-04-25 08:03 | Outpatient (CLI) | payer OTHER, SELFPAY ==
--- NOTE | 2025-04-25 08:06 | CA_ITS ---
APPROVED REPORT EXAM: Comprehensive 2D, Doppler, and color-flow Echocardiogram Specialty Trimmer: GLENYS Moreira, RVS Ht: 6 ft 1 in Wt: 265lbs BSA: 2.42 BP: 135/62 mmHg Indications: CP, SOB, HTN, HLD, Pacer, Brights disease 2D Dimensions IVSd 1.31 cm LVEF (Visual) 66.20 % PWd 1.11 cm LA Volume 84.30 mL LVDd 3.87 cm LA Volume Index 34.00 mL/m2 (M/F) 16-34 LVDs 2.48 cm Left Atrium 3.41 cm M-Mode Dimensions LA Diam 3.45 cm (1.9-4.0) EPSs 0.68 cm TAPSE 2.02 (<1.7) LV Diastology E Decel Time 408 (160-240 msec) E/A Ratio 0.53 MED A' 10.90 cm/s LAT A' 11.80 cm/s Aortic Valve SELENE Index 1.34 cm2/m2 AoV Peak Doni. 139.0 (50-130 cm/s) AO Peak GR. 7.70 mmHg AO Mean GR. 3.90 (<5 mmHg) AO VTI 26.3 (18-25 cm) SELENE (VTI) 3.33 (2.5-4.5 cm2) Mitral Valve MV A Velocity 70.0 (40-130 cm/s) E/A Ratio 0.53 Left Ventricle The left ventricle is normal size. The left ventricular systolic function is normal. The left ventricular ejection fraction is within the normal range. There is increased LV wall thickness. An intracavitary gradient is present. No evidence of LVOT obstruction. There is normal LV segmental wall motion. Transmitral Doppler flow pattern suggests impaired LV relaxation. LVEF is 65-70%. Right Ventricle The right ventricle is normal size. The right ventricular systolic function is normal. Atria The left atrium size is normal. The right atrium size is normal. There is no Doppler evidence of interatrial shunt. Aortic Valve The aortic valve opens well. There is no aortic valvular stenosis. No aortic regurgitation is present. Mitral Valve The mitral valve is normal in structure. No evidence of mitral valve stenosis. Trace mitral regurgitation. Tricuspid Valve Tricuspid valve is grossly normal in structure and function. Trace tricuspid regurgitation. There is insufficient TR jet to estimate RVSP. Pulmonic Valve The pulmonary valve is normal in structure. Trace pulmonic regurgitation. Great Vessels The aortic root is normal in size. IVC is normal in size and collapses >50% with inspiration. Pericardium There is no pericardial effusion. Other Information Study Quality: Fair Conclusion Normal biventricular systolic function. Intracavitary gradient is present. No evidence of LVOT obstruction. No significant valvular stenosis or regurgitation. In the setting of presence of intracavitary gradient, further evaluation with cardiac MRI (HCM protocol) may be suggested, if clinically indicated and/or feasible. Electronically signed by : Kathrine Rea MD 04/30/2025 22:08:44
== END 2025-04-25 23:59 | disposition home or self-care (01) ==
LOC: RT 08:04
PROVIDERS: PCP Nurse Practitioner Family; Visit Provider Internal Medicine
DX: I21.4 Non-ST elevation (NSTEMI) myocardial infarction (principal); E78.5 Hyperlipidemia, unspecified; N05.9 Unspecified nephritic syndrome with unspecified morphologic changes; I10 Essential (primary) hypertension; R93.1 Abnormal findings on diagnostic imaging of heart and coronary circulation; Z95.818 Presence of other cardiac implants and grafts
CPT/HCPCS: 93306

== ENCOUNTER 2025-05-03 14:32 | Outpatient (CLI) | payer OTHER, SELFPAY ==
--- NOTE | 2025-05-03 15:00 | CT_ITS ---
FINAL REPORT TECHNIQUE: Axial images through the temporal bones were performed after the administration of intravenous contrast. Coronal reconstructions were subsequently performed. This study was performed with techniques to keep radiation doses as low as reasonably achievable (ALARA). Individualized dose reduction techniques using automated exposure control or adjustment of mA and/or kV according to the patient's size were employed. CLINICAL HISTORY: rule out mastoiditis pt states that he is having dizzy spells COMPARISON: 03/18/2023 FINDINGS: CT TEMPORAL BONES: CT examination of the temporal bones were compared to a prior exam from 03/18/2023. Right temporal bone: The external auditory canal is normal in appearance. The middle ear cavity is unremarkable with intact ossicles. There is a small amount of fluid present in the posterior right mastoid air cells. No evidence of bone destruction is seen. The internal auditory canal, cochlea, and semicircular canals are unremarkable. Left temporal bone: The external auditory canal is normal in appearance. The middle ear cavity is unremarkable with intact ossicles. The mastoid air cells are clear. No evidence of bone destruction is seen. The internal auditory canal, cochlea, and semicircular canals are unremarkable. The paranasal sinuses are clear. No air-fluid levels are noted. Postoperative changes are noted in the frontal sinus. IMPRESSION: A small amount of fluid is present in the posterior right mastoid air cells. No evidence of bone destruction is identified. The left mastoid air cells are clear. Reviewed, Interpreted and Dictated by Yolanda Cardozo MD Transcribed by Pauline Miranda Authenticated and [facility]
[2025-05-03 15:30] LABS: Blood Urea Nitrogen 39 mg/dl (9-20); Estimated Glomerular Filt Rate 37 ml/min (>60); GFR (African American) 45 ML/MIN (>60)
[2025-05-03 15:58] LABS: Alanine Aminotransferase 61 U/L (12-78); Albumin Level 4.7 g/dl (3.5-5.0); Alkaline Phosphatase 100 U/L (38-126); Aspartate Amino Transferase 40 U/L (17-59); Bilirubin,Direct 0.3 mg/dl (0.0-0.4); Bilirubin,Indirect 0.1 mg/dL (0.0-0.9); Bilirubin,Total 0.4 mg/dl (0.2-1.3); Bilirubin,Unconjugated 0.2 mg/dL (0.0-1.1); Chol/HDL Ratio 5.8 (1-3.5); Cholesterol 174 mg/dl (140-200); HDL Cholesterol 30 mg/dl (40-60); Total Protein,Serum 8.1 g/dl (6.3-8.2); Triglycerides 385 mg/dl (30-150); VLDL Cholesterol 77 mg/dL (0-40)
[2025-05-03] MEDS: SODIUM CHLORIDE 0.9% 10ML SYR (RAD ONLY) 10 ML IV (16:08)
[2025-05-03] MEDS: IOPAMIDOL-370 (76%);100ML BOTTLE 60 ML IV (16:08)
[2025-05-03 16:15] LABS: Direct LDL Cholesterol 78.47 mg/dL (100-129)
== END 2025-05-03 23:59 | disposition home or self-care (01) ==
LOC: RAD 14:33
PROVIDERS: Internal Medicine; PCP Nurse Practitioner Family; Visit Provider Nurse Practitioner
DX: H74.8X1 Other specified disorders of right middle ear and mastoid (principal); H92.01 Otalgia, right ear; R42 Dizziness and giddiness; I10 Essential (primary) hypertension
CPT/HCPCS: 36415; 70481; 80061; 80076; 82565; 84520; Q9967

== ENCOUNTER 2025-05-17 14:56 | Day surgery (SDC) | payer OTHER, SELFPAY ==
--- NOTE | 2025-05-17 15:08 | EXP.PM.HP ---
History of Present Illness *Admission Date: 05/17/25 *Reason for visit:: Intrathecal refill; DDD *History of present illness: Same [facility] Disclaimer: The information contained in this section may have been updated after the patient was seen, as this information can be updated by other users. Medical History (Updated 05/16/25 @ 14:25 by Lex Bauman RN) Abnormal echocardiogram Mastoiditis of right side Dizziness Right ear pain History of fracture of leg Pacemaker Pulmonary arterial hypertension Abnormal electrocardiogram [ECG] [EKG] Non-STEMI (non-ST elevated myocardial infarction) Hyperlipidemia Coronary artery disease Bright's disease Femur fracture, left History of left heart catheterization (LHC) Cardiac pacemaker in situ JUANITA (acute kidney injury) Chronic serous otitis media of right ear Impacted cerumen of right ear Hearing loss in right ear Tympanosclerosis, right ear Syncope Symptomatic bradycardia 1st degree AV block Bradycardia Chest pain Abnormal electrocardiography HTN (hypertension) Surgical History History of facial surgery History of back surgery Family History Father Family history of myocardial infarction Mother Family history of myocardial infarction Other Family history of diabetes mellitus Social History Smoking Status: Never smoker alcohol intake: never substance use type: denies use current occupational status: other Travel in the last 8 weeks?: None household members: spouse housing: house Have you lived/traveled outside US in past 30 days?: No Contact w/someone who lives/traveled outside US past 30 days?: No Exposure to someone with infectious disease in past 14 days?: No Do you have a fever (greater than 100.4 F or 38 C)?: No Have you tested positive for COVID-19?: No Exposed to someone with COVID-19 in past 14 days?: No Do you have a sore throat?: No Do you have a cough?: No Do you have any weakness?: No Do you have any diarrhea?: No Are you experiencing any unusual bleeding?: No Do you have any muscle aches/pain?: No Do you have any abdominal pain?: No Are you experiencing loss of taste or smell?: No Other Medical History Have you received the Flu Vaccine for this season: Yes Have you received the Pneumonia Vaccine: Yes Review of Systems Review of Systems Review of systems:: pertinent systems reviewed and negative unless documented below Review of systems (narrative): Review of Systems: General: No recent weight changes, no fever, no sleep disturbances Respiratory: No cough, no shortness of air, no recurring pulmonary infections Cardiovascular/peripheral vascular: No chest pain, no palpitations, no edema, no shortness of breath Gastrointestinal: No new onset incontinence, normal bowel movements reported Genitourinary: No new onset incontinence Musculoskeletal: Chronic back pain Psychiatric: [Normal mood/affect] Neurological: [Denies weakness in extremities], [denies balance issues] Meds Home Medications and Allergies Home Medications ?Medication ?Instructions ?Recorded ?Confirmed ?Type hydromorphone (PF) 1 mg/mL 1 mg continuous epidural CONT Pain 05/01/24 05/16/25 History injection solution evolocumab 140 mg/mL subcutaneous 140 mg SQ Q2W #3 mL 10/31/24 05/16/25 Rx pen injector (Alize Rg) finasteride 5 mg tablet 5 mg PO DAILY 12/19/24 05/16/25 History irbesartan 300 mg tablet See Rx Instructions .Route 03/26/25 05/16/25 Rx .COMPLEX #30 tabs spironolactone 50 mg tablet See Rx Instructions .Route 03/26/25 05/16/25 Rx .COMPLEX #60 tabs allopurinol 100 mg tablet 100 mg PO DAILY #90 tabs 03/27/25 05/16/25 Rx (Zyloprim) carvedilol 12.5 mg tablet 12.5 mg PO BID #60 tabs 04/10/25 05/16/25 Rx meclizine 25 mg tablet 25 mg PO TID PRN 04/10/25 05/16/25 History nifedipine 30 mg tablet,extended 30 mg PO BID 04/10/25 05/16/25 History release 24 hr dapagliflozin propanediol 10 mg mg PO 04/18/25 05/16/25 History tablet (Farxiga) oxycodone-acetaminophen 10 mg-325 1 tab PO QID PRN pain #120 tabs 04/26/25 05/16/25 Rx mg tablet (Percocet) ticagrelor 90 mg tablet (Brilinta) See Rx Instructions .Route 05/14/25 05/16/25 Rx .COMPLEX #60 tabs furosemide 20 mg tablet (Lasix) 20 mg PO DAILY #90 tabs 05/16/25 05/16/25 Rx isosorbide mononitrate 30 mg 30 mg PO 05/16/25 05/16/25 History tablet,extended release 24 hr isosorbide mononitrate 60 mg 90 mg PO BID 05/16/25 05/16/25 History tablet,extended release 24 hr New Prescriptions to Start Prescriptions: Allergies Allergy/AdvReac Type Severity Reaction Status Date / Time Thiazides Allergy Intermediate Unknown Verified 05/16/25 13:33 allergy reaction Androgenic Anabolic Steroid Allergy Mild Unknown Verified 05/16/25 13:33 allergy reaction aspirin (ASPIRIN) Allergy Unknown FACIAL Verified 05/16/25 13:33 SWELLING Penicillins (PENICILLINS) Allergy Unknown FACIAL Verified 05/16/25 13:33 SWELLING Sulfa (Sulfonamide Allergy Unknown Unknown Verified 05/16/25 13:33 Antibiotics) (SULFA allergy (SULFONAMIDE ANTIBIOTICS)) reaction morphine AdvReac Mild Vomiting Verified 05/16/25 13:33 NSAIDS (Non-Steroidal AdvReac Other Verified 05/16/25 13:33 Anti-Inflamma Exam Constitutional Constitutional: no acute distress *Routine HEENT Exam Head: Present normocephalic and atraumatic Eye: Present PERRL ENT: Present mucous membranes moist *Routine Neck Exam Neck: Present supple *Routine Respiratory Exam Respiratory: Present CTA bilaterally *Routine Cardiovascular Exam Cardiovascular: Present RRR *Routine Abdominal Exam Abdominal: Present soft *Routine Rectal Exam Rectal:: deferred *Routine Genitalia Exam Genitalia:: deferred Routine Back/Spine/Pelvis Exam Back/Spine: Present pain with flexion *Routine Skin Exam Skin: Present intact, dry and warm *Routine Neurological Exam Neurological: Present alert Routine Psychiatric Exam Psychiatric: Present normal affect and normal thought process Assessment and Plan *Assessment and plan (1) Lumbar radiculopathy: Status: Acute Category: Medical Code(s): M54.16 - Radiculopathy, lumbar region (2) Low back pain: Status: Acute Qualifiers: Chronicity: chronic Back pain laterality: bilateral Sciatica presence: without sciatica Qualified Code(s): M54.50 - Low back pain, unspecified; G89.29 - Other chronic pain Category: Medical Code(s): M54.50 - Low back pain, unspecified Plan Patient has been instructed to contact the clinic with any concerns before the next appointment. Dr. Olivier has reviewed this note and agrees with this plan of care. This note was dictated using voice recognition software and make contain errors or omissions. All injections are used with Lidocaine, Bupivacaine and dexamethasone. Occasionally urine drug screen is needed to verify patient's compliance with our office pain contract. This is ordered based off specific treatments related to chronic pain with the potential to abuse certain medications.
--- NOTE | 2025-05-17 15:10 | EXP.PAIN.PRO ---
Procedure Date: 05/17/25 Time: 15:15 Anesthesiologist:: Brigid Nino APRN Complications:: None Pre-procedure Diagnosis:: Degenerative disc disease of lumbar spine with lumbar radiculopathy symptoms, chronic shoulder pain Post-procedure Diagnosis:: Same Indications for Procedure:: Patient is a pleasant 54-year-old male who presents today for intrathecal refill and reprogram. Today he Rates his pain as a 5 out of 10. He does state from our last visit he has seen a specialist there at for altered kidney function. Patient states that they are telling him he cannot do any type of steroids or other medication that would be going through his kidneys. He is currently managed with Dilaudid 5 mg/mL with a daily dose of 1.7051 mg/day. He denies any side effects. Patient does get Percocet from PCP for his chronic shoulder pain. His Jose De Jesus has been reviewed and is appropriate. Physical Exam: General: Alert and oriented x3, no acute distress, pleasant and cooperative Lungs: Respirations even and unlabored, symmetrical chest expansion Eyes: PERRL Musculoskeletal: Flexion and extension of lumbar [spine] somewhat guarded secondary to pain, [antalgic gait noted] Neurological: Speech clear, no gross sensory deficit Procedure Details:: Informed consent was obtained and the risk and benefits of the procedure were explained to the patient. The patient had noninvasive monitoring placed including noninvasive blood pressure cuff and pulse oximeter. Patient's pump was interrogated. The area over the pump was cleansed with chlorhexidine as a cleansing solution. In sterile fashion the pump was accessed with a 22-gauge needle. Approximately 2.4 mls of the pump solution was removed and discarded appropriately. The pump was then refilled with 20 mL's of Dilaudid 5 mg/mL. The needle was withdrawn and a bandage was placed over the puncture site. The infusion rate was reprogrammed and continued at its current dosage of 1.7051 mg/day. The patient tolerated well with no complication. Plan and Disposition:: Patient tolerated the procedure well with no complications and was discharged neurologically intact. Patient will return to clinic on or before their next intrathecal refill date. We will see the patient back in the clinic at the next intrathecal refill. Patient has been instructed to contact the clinic with any concerns before the next appointment. Dr. Olivier has reviewed this note and agrees with this plan of care. This note was dictated using voice recognition software and make contain errors or omissions. -- It Is medically necessary for this patient to continue to have their intrathecal pump refilled at regular intervals. This patient had an intrathecal pain pump implanted after meeting criteria of chronic intractable pain for greater than 3 months and failing conservative treatments. Patient has committed and been compliant to the treatment plan and all planned follow up care. Since implantation of the intrathecal pain pump, the patient has had decreased pain and been more functional. Oral medications have been reduced including intake of oral opioids. Patient continues to do well with intrathecal therapy with decrease in pain symptoms and increase in functional status. Stopping intrathecal medications can lead to life threatening withdrawal, seizures, cardiac arrest, severe pain, and possible . Pumps that are not refilled at regular intervals can be damages and cause and need for replacement. We continually titrate dose and concentration to optimize pain relief and function. We are limited in concentration for certain drugs to safely deliver medications through the pump and stay within the recommendations from the [employer] Consensus [employer] Guidelines. Depending on dose and concentration these pumps may need to be refilled sooner than 3 months as we titrate. A UDS is needed to verify patient's compliance with our office pain contract. This is ordered based off specific treatments related to chronic pain with the potential to abuse certain medications.
[2025-05-17 15:13] VITALS: BP 132/73; PULSE 60; RESP 18; O2SAT 98
[2025-05-17 15:29] VITALS: BP 127/69; PULSE 62; RESP 18; O2SAT 97; BMI 34.9
[2025-05-17 15:38] VITALS: BP 132/73; PULSE 62; RESP 18; O2SAT 98
== END 2025-05-17 15:23 | disposition home or self-care (01) ==
PROVIDERS: PCP Nurse Practitioner Family; Visit Provider Nurse Practitioner Family
DX: M51.16 Intervertebral disc disorders with radiculopathy, lumbar region (principal); G89.29 Other chronic pain; M25.519 Pain in unspecified shoulder; Z95.0 Presence of cardiac pacemaker; I25.10 Atherosclerotic heart disease of native coronary artery without angina pectoris; I10 Essential (primary) hypertension; E78.5 Hyperlipidemia, unspecified; I25.2 Old myocardial infarction; Z88.6 Allergy status to analgesic agent; Z88.0 Allergy status to penicillin; Z88.2 Allergy status to sulfonamides; Z88.8 Allergy status to other drugs, medicaments and biological substances; Z79.899 Other long term (current) drug therapy
CPT/HCPCS: 95991

== ENCOUNTER 2025-05-25 01:11 | Outpatient (CLI) | payer OTHER, SELFPAY ==
[2025-05-25 08:19] LABS: Hematocrit 35.4 % (42.0-52.0); Hemoglobin 12.2 g/dL (14.1-18.0); Mean Corpuscular HGB Conc 34.5 g/dL (31.8-35.4); Mean Corpuscular Volume 95.7 fl (80-94); Nucleated Red Blood Cells # 0 10^3/uL; Nucleated Red Blood Cells % 0 %; Platelet Count 185 K/mm3 (142-424); Red Cell Distribution Width 12.1 % (11.5-17.5); Red Cell Distribution Width-SD 42.4 fL; White Blood Count 9.2 K/mm3 (4.8-10.8)
[2025-05-25 09:01] LABS: Albumin Level 4.1 g/dl (3.5-5.0); Anion Gap 16.2 mEq/L (5-15); Blood Urea Nitrogen 45 mg/dl (9-20); Calcium 9.7 mg/dl (8.4-10.2); Carbon Dioxide 25 mmol/L (22.0-30.0); Chloride 94 mmol/L (98-107); Estimated Glomerular Filt Rate 42 ml/min (>60); GFR (African American) 51 ML/MIN (>60); Glucose 315 mg/dl (74-100); Phosphorous 5.2 mg/dl (2.5-4.5); Potassium 5.2 mmoL/L (3.5-5.1); Sodium 130 mmol/L (136-145)
[2025-05-25 09:14] LABS: Intact Parathyroid Hormone 81.5 pg/mL (7.5-53.5)
== END 2025-05-25 23:59 | disposition home or self-care (01) ==
LOC: LAB 01:14
PROVIDERS: PCP Nurse Practitioner Family; Visit Provider Nurse Practitioner
DX: N18.31 Chronic kidney disease, stage 3a (principal)
CPT/HCPCS: 36415; 80069; 82306; 83970; 85027

== ENCOUNTER 2025-06-21 13:14 | Outpatient (POV) | payer OTHER, SELFPAY ==
--- OUTSIDE RECORDS SUMMARY | 2025-05-25 11:20 | XMS_ITS | Encounter Summary ---
Author Organization [facility] Address [address] [place] [address] Care Team Providers Care Tower Equipment Installer Name Role Phone Ross Bar APRN Primary Care Provider [phone] Reason for Referral * Consultation (Routine) - Authorized Specialty Diagnoses / Procedures Referred By Brinda t Referred To Contact Diagnoses Stage 3a chronic kidney disease (CMS/HCC) Graciela Maki APRN [address] [address] Phone: tel: fax: Referral ID Status Reason Start Date Expiration Date V isits Requested Visits Authorized [id number] Authorized 05/25/2025 11/24/2026 1 1 Reason for Visit * Reason Comments Follow-up Encounter Details Date Type Department Care Team (Late st Contact Info) Description 05/25/2025 11:20 AM EDT Office Visit [facility] [address] [place] [address] Graciela Maki APRN [address] [address] Stage 3a chronic kidney disease (CMS/HCC) (Primary Dx); Essential hypertension; Coronary arteriosclerosis; 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, unspecified site; Disorders of fluid, electrolyte, and acid-base balance; Anemia, unspecified type; Vitamin D deficiency; Pulmonary HTN (CMS/HCC) Social History Tobacco Use Types Packs/Day Years Used Date Smoking Tobacco: Never Smokeless Tobacco: Never Tobacco Cessation:Counseling Given: Not Answered Alcohol Use Standard Drinks/Week Comments Yes 0 (1 standard drink = 0.6 oz pur e alcohol) Sex and Gender Information Value Date Recorded Sex Assigned at Not on file Legal Sex Male 7:42 PM EDT Gender Identity Not on file Sexual Orientation Not on file documented as of this encounter Last Filed Vital Signs Vital Sign Reading Time Taken Comments Blood Pressure 110/55 05/25/2025 11:55 AM EDT Pulse 63 05/25/2025 11:55 AM EDT Temperature - - Respiratory Rate 18 05/25/2025 11:55 AM EDT Oxygen Saturation 91% 05/25/2025 11:55 AM EDT Inhaled Oxygen Concentration - - Weight 121 kg (266 lb) 05/25/2025 11:55 AM EDT Height 185.4 cm (6' 1 ) 05/25/2025 11:55 AM EDT Body Mass Index 35.09 05/25/2025 11:55 AM EDT documented in this encounter Miscellaneous Notes * Progress Notes - Graciela Maki, BRODERICK - 05/25/2025 11:20 AM EDT Nephrology Clinic Follow up Note Freddie Soliman is a 54 y.o. 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 HTN for several years, uncontrolled until addition of nifedipine. JUANITA Oct 2023, had L/R heart cath 11/08/24, continue medical management noted mild nonflow limiting CAD, mild pulmonary htn, elevated PA occlusion pressure. EF 68% mild MR/TR on Echo Creatinine baseline 1.5-1.7 on previous documentation. Denies any current complaints, no CP, no soa, Admission r/t CP no stemi. Possible vasospasm. A1c 7.6 during hospitalization. Working with PCP regarding BS control. Started on lasix 20mg daily per cardiology. Past Medical History: Diagnosis Date Personal history of other diseases of the circulatory system History of hypertension Personal history of other diseases of the musculoskeletal system and connective tissue History of arthritis Personal history of other diseases of the musculoskeletal system and connective tissue History of backache Unspecified nephritic syndrome with unspecified morphologic changes Bright's disease Current Outpatient Medications Medication Instructions allopurinol (ZYLOPRIM) 100 mg, Oral, Daily carvedilol (Coreg) 25 MG tablet cholecalciferol (VITAMIN D-3) 1,000 Units, Oral, Daily dapagliflozin (FARXIGA) 10 mg, Oral, Daily finasteride (PROSCAR) 5 mg, Oral, Daily, Do not crush, chew, or split. furosemide (LASIX) 20 mg, Daily irbesartan (AVAPRO) 300 mg, Oral, Daily isosorbide mononitrate ER (IMDUR) 90 mg, Oral, Daily, Do not crush or chew. meclizine (ANTIVERT) 25 mg, Oral, 3 times daily PRN NIFEdipine XL (Procardia XL) 30 MG 24 hr tablet TAKE ONE TABLET BY MOUTH 2 TIMES A DAY. DO NOT CRUSH, CHEW, OR SPLIT oxyCODONE-acetaminophen (Percocet) 10-325 MG tablet No dose, route, or frequency recorded. spironolactone (ALDACTONE) 50 mg, Oral, 2 times daily ticagrelor (BRILINTA) 90 mg, Oral, 2 times daily Physical Exam Visit Vitals BP 110/55 (BP Location: Left arm, Patient Position: Sitting, BP Cuff Size: Adult long) Pulse 63 Ht 1.854 m (6' 1 ) Wt 121 kg (266 lb) SpO2 91% BMI 35.09 kg/m?? GEN: NAD, sitting in chair, room air EYES: anicteric, EOMI ENT: MMM, Oropharynx clear RESP: patent airways, CTAB, no rales, rhonchi, wheezes CV: RRR, no appreciable murmurs Abd: soft, NT, ND, NABS MS/EXT: no LE edema, no new rashes PSYCH: mood appropriate, affect normal NEURO: AAOx3, follows commands Labs: I have independently reviewed and interpreted the test results and discussed with patient. Labs scanned in to media tab of [employer] from an outside facility. Labs completed on 05/25/25 Imaging: Assessment/Plan: Recurrent JUANITA on CKD Creatinine baseline appears to be ~1.5-1.7 Most recent Creatinine 1.7 05/25/25 Previously followed by [facility] HTN, requiring multiple medications CAD Pulmonary HTN Gout - allopurinol 100mg Poluarthritis Vitamin D deficienty Hx of bright's disease as child LUTs- start proscar (no flomax sulfa allergy) Plan Nifedipine 30mg BID, need to reduce spironolactone to 50mg BID U/A bland no protein Start Proscar Agree with lasix 20mg daily Encouraged BS control. BS on am labs 350. Risk of disease progression reviewed with patient. F/U 6 months, sooner if needed documented in this encounter Plan of Treatment Upcoming Encounters Date Type Department Care Team (Late st Contact Info) Description 07/10/2025 10:30 AM EDT Appointment Cardiac Imaging [address] [place] [address] 07/10/2025 1:00 PM EDT Appointment [facility] [address] [place] [address] 12/07/2025 12:20 PM EST Office Visit [facility] [address] [place] [address] Graciela Maki APRN [address] [facility] [address] [place] [address] Scheduled Orders Name Type Priority Associated Diagnoses Orde r Schedule CBC W/O Differential Lab Routine Stage 3a chronic kidney disease ([facility]) Expected: 05/25/2025 (Approximate), Expires: 11/24/2026 Protein, Random, Urine with Creatinine Lab Routine Stage 3a chronic kidney disease ([facility]/HCC) Expected: 05/25/2025 (Approximate), Expires: 11/24/2026 PTH Intact Total Lab Routine Stage 3a chronic kidney disease ([facility]/HCC) Expected: 05/25/2025 (Approximate), Expires: 11/24/2026 Renal Function Panel, Plasma Lab Routine Stage 3a chronic kidney disease ([facility]/HCC) Expected: 05/25/2025 (Approximate), Expires: 11/24/2026 Urinalysis with reflex microscopic (Culture NOT Included) Lab Routine Stage 3a chronic kidney disease ([facility]/HCC) Expected: 05/25/2025 (Approximate), Expires: 11/24/2026 Vitamin D 25 Hydroxy Lab Routine Stage 3a chronic kidney disease (CMS/HCC) Expected: 05/25/2025 (Approximate), Expires: 11/24/2026 Scheduled Referrals Name Type Priority Associated Diagnoses Order Schedule Follow Up Nephrology Outpatient Referral Routine Stage 3a chronic kidney disease (CMS/HCC) Expected: 11/24/2025 (Approximate), Expires: 06/24/2026 documented as of this encounter Visit Diagnoses Diagnosis Stage 3a chronic kidney disease (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, unspecified site Disorders of fluid, electrolyte, and acid-base balance Anemia, unspecified type Vitamin D deficiency Pulmonary HTN (CMS/[facility]) documented in this encounter Additional Health Concerns Assessment Noted Time A fall risk assessment has been complete d for the patient 03/14/2024 11:15 AM EDT A Body Mass Index follow-up plan has been documented for the patient 05/25/2025 1:02 PM EDT documented as of this encounter Care Teams Tower Equipment Installer Relationship Specialty Start Date End Date Ross Bar APRN [address] [place] [address] PCP - General 03/09/24 documented as of this encounter
--- OUTSIDE RECORDS SUMMARY | 2025-06-21 13:19 | XMS_ITS | Clinical Summary ---
Author Organization [facility] Address [address] [place] [address] Phone Care Team Providers Care Energy Conservation Technician Name Role Phone Unavailable Unavailable Conditions or Problems No information available. Medications No information available. Medications Administered No information available. Allergies, Adverse Reactions, Alerts No information available. Results No information available. Plan of Care No information available. Procedures No information available. Vital Signs No information available. Immunizations No information available. Advance Directives No information available.
--- OUTSIDE RECORDS SUMMARY | 2025-06-21 13:20 | XMS_ITS | Clinical Summary ---
Author Organization [facility] Address [address] [place] [address] Care Team Providers Care Oncology Rn Name Role Phone Ross Bar APRN Primary Care Provider Allergies Active Allergy Reactions Criticality Noted Date Comments Aspirin Swelling,Unknown - P atient states they do not know rxn details High 10/21/2006 Morphine Vomiting 03/09/2024 Nsaids Other - please docum ent in the comment field Low 08/01/2024 Penicillins Unknown - Patient st ates they do not know rxn details Low 10/21/2006 Prednisone Hallucinations Medium 03/14/2024 Sulfacetamide Unknown - Patient st ates they do not know rxn details Low 10/21/2006 Thiazide-Type Diuretics Other - please d ocument in the comment field Low 03/09/2024 gout Medications allopurinol (Zyloprim) 100 MG tablet Take 1 tablet (100 mg) by mouth 1 (one) time each day. Active cholecalciferol 25 MCG (1000 UT) tablet Take 1 tablet (1,000 Units) by mouth 1 (one) time each day. Active irbesartan (Avapro) 300 MG tablet Take 1 tablet (300 mg) by mouth 1 (one) time each day. Active oxyCODONE-acetami nophen (Percocet) 10-325 MG tablet Act az spironolactone (Aldactone) 50 MG tablet Take 1 tablet (50 mg) by mouth 2 (two) times a day. Active ticagrelor (Brilinta) 90 MG tablet Take 1 tablet (90 mg) by mouth 2 (two) times a day. Active carvedilol (Coreg) 25 MG tablet 4 Active finasteride (Proscar) 5 MG tabletIndications :Stage 3a chronic kidney disease (CMS/HCC) Take 1 tablet (5 mg) by mouth 1 (one) time each day. Do not crush, chew, or split. 30 tablet 11 4 11/10/20 25 Active NIFEdipine XL (Procardia XL) 30 MG 24 hr tabletIndications :Essential hypertension TAKE ONE TABLET BY MOUTH 2 TIMES A DAY. DO NOT CRUSH, CHEW, OR SPLIT 60 tablet 11 5 Active meclizine (Antivert) 25 MG tablet Take 1 tablet by mouth 3 times a day as needed for dizziness. 30 tablet 5 Active dapagliflozin (Farxiga) 10 MG tablet Take 1 tablet by mouth daily. 90 tablet 3 5 Active isosorbide mononitrate ER (Imdur) 30 MG 24 hr tablet Take 3 tablets by mouth daily. Do not crush or chew. 90 tablet 2 5 07/01/20 25 Active furosemide (Lasix) 20 MG tablet Take 1 tablet by mouth daily. 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, unspecified site; Disorders of fluid, electrolyte, and acid-base balance; Anemia, unspecified type; Vitamin D deficiency; Pulmonary HTN (CMS/HCC) 05/25/2025 Travel 04/03/2025 Telephone [facility] [address] [place] [address] Dee Dee Fuentes 04/02/2025 Travel 04/01/2025 1:40 PM EDT - 04/02/2025 5:33 PM EDT Hospital Encounter [facility] [address] [place] [address] Cupid, Turbine Mechanic, MD Sorour, MD Josie Capone Evan S, MD ST elevation myocardial infarction (STEMI), unspecified artery (CMS/HCC) (Primary Dx); STEMI (ST elevation myocardial infarction) (CMS/HCC) Discharge Disposition: Home or Self Care 04/01/2025 1:05 PM EDT - 04/01/2025 4:05 PM EDT Surgery Cardiac Director [employer] [address] [place] [id number] Baljinder Wright MD Coronary angiography [17998 (CPT )] 04/01/2025 Travel 04/01/2025 Orders Only External Location [address] [place] [id number] Provider, External from Last 3 Months Immunizations Immunization Administration Dates Next Due Influenza, injectable, quadrivalent, preservativ e free 10/01/2023,12/10/2020 Influenza, seasonal, injectable, preservative fr ee 10/24/2024 Moderna COVID-19 Vaccine (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) 12+ years 02/2021,01/06/2021 Pneumococcal 20-ramon Conj Vaccine 10/01/2023 Pneumococcal Polysaccharide PPV23 12/10/2020 Family History Medical History Relation Name Comments Cardiac disorder Father Cardiac disorder Mother Cardiac disorder Other Relation Name Status Comments Father Mother Other Social History Tobacco Use Types Packs/Day Years [...] on file Sexual Orientation Not on file Last Filed Vital Signs Vital Sign Reading Time Taken Comments Blood Pressure 110/55 05/25/2025 11:55 AM EDT Pulse 63 05/25/2025 11:55 AM EDT Temperature 36.4 C (97.6 F) 04/02/2025 12:26 PM EDT Respiratory Rate 18 05/25/2025 11:55 AM EDT Oxygen Saturation 91% 05/25/2025 11:55 AM EDT Inhaled Oxygen Concentration - - Weight 121 kg (266 lb) 05/25/2025 11:55 AM EDT Height 185.4 cm (6' 1 ) 05/25/2025 11:55 AM EDT Body Mass Index 35.09 05/25/2025 11:55 AM EDT Plan of Treatment Upcoming Encounters Date Type Department Care Team (Late st Contact Info) Description 07/10/2025 10:30 AM EDT Appointment Cardiac Imaging [address] [place] [address] 07/10/2025 1:00 PM EDT Appointment [facility] Radiology [address] [place] [address] 12/07/2025 12:20 PM EST Office Visit [facility] [address] [place] [address] Graciela Maki, BOAT HOIST OPERATOR [address] [facility] [address] [place] [address] Health Maintenance Due Date Last Done Comments [facility]-Depression Screening 1968 [facility]-HIV Screening 1968 [facility]-Hepatitis C Screening 1968 [facility]-/Child/Adol SDOH Screenings 1968 Diabetes: Dental Exam 1978 [facility]- SDOH Screenings 1986 [facility]-Adult SDOH Screenings 1986 [facility]-DTaP,Tdap,and Td Vaccines (1 - Tdap) 1987 [facility]-Hepatitis B Vaccines (1 of 3 - 19+ 3-dose series) 1987 CT Colonography 2013 Colonoscopy 2013 FIT-DNA 2013 FIT 2013 FOBT 2013 Sigmoidoscopy 2013 [facility]-Colorectal Cancer Screening 2013 [facility]-Zoster Vaccines (1 of 2) 2018 [id number] Vaccine (3 - season) 2024 10/02/2021, 01/06/2021 [facility]-Diabetes: Hemoglobin A1C 07/01/2025 04/01/2025, 07/24/2024 [facility]-Influenza Vaccine (#1) 07/30/202510/24, 10/01/2023, 12/10/2020 [facility]-Pneumococcal Vaccine: 50+ Years Completed 10/01/2023, 12/10/2020 [facility]-Obesity Intervention Completed 025, 04/01/2025, 11/10/2024, Additional history exists HPV Vaccines Aged Out No longer eligi ble based on patient's age to complete this topic [facility]-HIB Vaccines Aged Out No longer e ligible based on patient's age to complete this topic [facility]-Hepatitis A Vaccines Aged Out No longer eligible based on patient's age to complete this topic [facility]-IPV Vaccines Aged Out No longer e ligible based on patient's age to complete this topic [facility]-Rotavirus Vaccines Aged Out No lo nger eligible based on patient's age to complete this topic Medical Devices Implanted Type Area Major Sales Associate Device Identifier Shelf Expiration Date Model / Serial / Lot Ingevity +Pacing Lead Rv [employer]-03/02 Implanted:02/2022 (Quantity not on file) Lead Chest Wall Deep Glint [id number] / / Ingevity +Pacing Lead Ra [employer]-03/02 Implanted:02/2022 (Quantity not on file) Lead Chest Wall Deep Glint [id number] / / Accolade Mri [employer] Pacemaker-2021 Implanted:02/2022 (Quantity not on file) Pacemaker Chest Wall [employer] Loop Trolley [id number] / / Description:Complete system implanted on 03/02/2022 Generator model: [id number] RV LEAD MODEL: [id number] RA LEAD MODEL: [id number] Procedures Procedure Name Priority Date/Time Associated Diagnosis Comments FREE HEMOGLOBIN,PLASMA Routine 3:23 AM EDT CBC W/O DIFFERENTIAL Routine 04/02/2025 3:23 AM EDT PHOSPHORUS, PLASMA Routine 04/02/2025 3: 23 AM EDT MAGNESIUM, PLASMA Routine 04/02/2025 3:2 3 AM EDT BASIC METABOLIC PANEL, PLASMA Routine 04/02/2025 3:23 AM EDT URINALYSIS, DIPSTICK STAT 04/02/2025 3:05 AM EDT SARS-COV-2, FLU A, FLU B, AND RSV Routine 04/01/2025 6:26 PM EDT ECG ADULT STAT 04/01/2025 5:47 PM EDT HEMOGLOBIN A1C Add-On 04/01/2025 4:42 PM EDT LIPID PROFILE, PLASMA Add-On 04/01/2025 4:42 PM EDT N-TERMINAL PROBNP, PLASMA STAT 04/01/2025 4:42 PM EDT MAGNESIUM, PLASMA STAT 04/01/2025 4:4 2 PM EDT COMPREHENSIVE METABOLIC PANEL, PLASMA STAT 04/01/2025 4:42 PM EDT CBC W/O DIFFERENTIAL STAT 04/01/2025 4:42 PM EDT POCT GLUCOSE METER UNSOLICITED RESULTS Routine 04/01/2025 4:15 PM EDT XR CHEST 1 VIEW STAT 04/01/2025 3:05 PM EDT OXYGEN THERAPY Routine 04/01/2025 2:27 PM EDT OXYGEN THERAPY Routine 04/01/2025 2:27 PM EDT PERC CORONARY INTERVENTION Routine 04/01/2025 2:24 PM EDT STEMI (ST elevation myocardial infarction) (CMS/HCC) CORONARY ANGIOGRAPHY Routine 04/01/2025 2:24 PM EDT STEMI (ST elevation myocardial infarction) (CMS/HCC) XR OUTSIDE IMAGES 04/01/2025 11: 25 AM EDT from Last 3 Months Results * (ABNORMAL) CBC W/O Differential (04/02/2025 3:23 AM EDT) Only the most recent of2 resultswithin the time period is included. WBC Count 9.99 3.70 - 10.30 10*3/uL LAB HEMATOLOGY METHOD 04/02/2025 3:39 AM EDT [facility] RBC Count 3.92(L) 4.60 - 6.10 10*6/uL LAB HEMATOLOGY METHOD 04/02/2025 3:39 AM EDT [facility] HGB 12.7(L) 13.7 - 17.5 g/dL LAB HEMATOLOGY METHOD 04/02/2025 3:39 AM EDT [facility] HCT 37.7(L) 40.0 - 51.0 % LAB HEMATOLOGY METHOD 04/02/2025 3:39 AM EDT [facility] Platelet Count 178 155 - 369 10*3/uL LAB HEMATOLOGY METHOD 04/02/2025 3:39 AM EDT [facility] MCV 96 79 - 98 fL LAB HEMATOLOGY METHOD 04/02/2025 3:39 AM EDT [facility] MCH 32.4(H) 26.0 - 32.0 pg LAB HEMATOLOGY METHOD 04/02/2025 3:39 AM EDT [facility] MCHC 33.7 30.7 - 35.5 g/dL LAB HEMATOLOGY METHOD 04/02/2025 3:39 AM EDT [facility] RDW 13.0 11.5 - 14.5 % LAB HEMATOLOGY METHOD 04/02/2025 3:39 AM EDT [facility] MPV 10.7 8.8 - 12.5 fL LAB HEMATOLOGY METHOD 04/02/2025 3:39 AM EDT [facility] nRBC 0.0 <=0.0 per 100 WBCs LAB HEMATOLOGY METHOD 04/02/2025 3:39 AM EDT [facility] Blood Venous blood specimen / Unknown Venipuncture / Unknown 04/02/2025 3:23 AM EDT 04/02/2025 3:28 AM EDT us Fidencio Meza MD LAB BLOOD ORDERABLES Final Re sult [facility] [address] [place] [address] * Phosphorus (04/02/2025 3:23 AM EDT) Phosphorus, Plasma 3.8 2.5 - 4.5 mg/dL 04/02/2025 3:56 AM EDT [facility] Blood Venous blood specimen / Unknown Venipuncture / Unknown 04/02/2025 3:23 AM EDT 04/02/2025 3:28 AM EDT us Fidencio Meza MD LAB BLOOD ORDERABLES Final Re sult [facility] [address] [place] [address] * Magnesium (04/02/2025 3:23 AM EDT) Only the most recent of2 resultswithin the time period is included. Magnesium, Plasma 2.1 1.9 - 2.4 mg/dL 04/02/2025 3:56 AM EDT [facility] Blood Venous blood specimen / Unknown Venipuncture / Unknown 04/02/2025 3:23 AM EDT 04/02/2025 3:28 AM EDT us Fidencio Meza MD LAB BLOOD ORDERABLES Final Re sult Performing Organization Address [facility] Co de Phone Number [facility] [address] [place] [address] * (ABNORMAL) Free Hemoglobin, Plasma (04/02/2025 3:23 AM EDT) Free Hemoglobin, Plasma 17(H) <=10 mg/dL 04/02/2025 7:03 AM EDT [facility] Blood Venous blood specimen / Unknown Venipuncture / Unknown 04/02/2025 3:23 AM EDT 04/02/2025 3:27 AM EDT us Fidencio Meza MD LAB BLOOD ORDERABLES Final Re sult Performing Organization Address City/[facility]/ZIP Co de Phone Number [facility] [address] [place] [address] * (ABNORMAL) Basic metabolic panel (04/02/2025 3:23 AM EDT) Glucose, Plasma 201(H) 74 - 99 mg/dL 04/02/2025 3:56 AM EDT [facility] BUN, Plasma 22(H) 7 - 21 mg/dL 04/02/2025 3:56 AM EDT [facility] Creatinine, Plasma 1.25(H) 0.70 - 1.20 mg/dL 04/02/2025 3:56 AM EDT [facility] BUN/Creatinine Ratio 18 04/02/2025 3:56 AM EDT [facility] Sodium, Plasma 141 136 - 145 mmol/L 04/02/2025 3:56 AM EDT [facility] Potassium, Plasma 4.5 3.6 - 4.9 mmol/L 04/02/2025 3:56 AM EDT [facility] Chloride, Plasma 104 97 - 107 mmol/L 04/02/2025 3:56 AM EDT [facility] CO2, Plasma 26 22 - 29 mmol/L 04/02/2025 3:56 AM EDT [facility] Anion Gap 11 6 - 16 mmol/L 04/02/2025 3:56 AM EDT [facility] Total Calcium, Plasma 9.4 8.9 - 10.2 mg/dL 04/02/2025 3:56 AM EDT [facility] eGFRcr 67.6 mL/min/1.7 3m*2 04/02/2025 3:56 AM EDT [facility] Comment:Reported eGFRcr in m L/min/1.73m2 is based the CKD-EPI 2020 equation that does not use a race coefficient. Blood Venous blood specimen / Unknown Venipuncture / Unknown 04/02/2025 3:23 AM EDT 04/02/2025 3:28 AM EDT Fidencio Meza MD LAB BLOOD ORDERABLES Final Re sult [facility] [address] [place] [address] * (ABNORMAL) Urinalysis, manual only (04/02/2025 3:05 AM EDT) Color, Urine Yellow LAB URINALYSIS - AUTOMATED METHOD 04/02/2025 3:25 AM EDT [facility] Clarity, Urine Clear LAB URINALYSIS - AUTOMATED METHOD 04/02/2025 3:25 AM EDT [facility] Spec [place], Urine >1.030(H) 1.005 - 1.030 LAB URINALYSIS - AUTOMATED METHOD 04/02/2025 3:25 AM EDT [facility] pH, Urine 5.5 5.0 - 8.0 LAB URINALYSIS - AUTOMATED METHOD 04/02/2025 3:25 AM EDT [facility] Protein, Urine 30(A) Negative mg/dL LAB URINALYSIS - AUTOMATED METHOD 04/02/2025 3:25 AM EDT [facility] Glucose, Urine Negative Negative mg/dL LAB URINALYSIS - AUTOMATED METHOD 04/02/2025 3:25 AM EDT [facility] Ketones, Urine Negative Negative mg/dL LAB URINALYSIS - AUTOMATED METHOD 04/02/2025 3:25 AM EDT [facility] Blood, Urine Negative Negative LAB URINALYSIS - AUTOMATED METHOD 04/02/2025 3:25 AM EDT [facility] Bilirubin, Urine Negative Negative LAB URINALYSIS - AUTOMATED METHOD 04/02/2025 3:25 AM EDT [facility] Urobilinogen, Urine 0.2 0.2 to 1.0 mg/dL LAB URINALYSIS - AUTOMATED METHOD 04/02/2025 3:25 AM EDT [facility] Leukocytes, Urine Negative Negative LAB URINALYSIS - AUTOMATED METHOD 04/02/2025 3:25 AM EDT [facility] Nitrite, Urine Negative Negative LAB URINALYSIS - AUTOMATED METHOD 04/02/2025 3:25 AM EDT [facility] Urine Urine specimen obtained by clean catch procedure / Unknown Non-blood Collection / Unknown 04/02/2025 3:05 AM EDT 04/02/2025 3:14 AM EDT us Fidencio Meza MD LAB URINE ORDERABLES Final Re sult [facility] [address] [place] [address] * SARS-CoV-2, Flu A, Flu B, and RSV (04/01/2025 6:26 PM EDT) [facility] SARS CoV-2/COVID-19 RNA PCR Result Not Detected Not Detected 04/02/2025 11:03 AM EDT [facility] Influenza A Virus PCR Result Not Detected Not Detected 04/02/2025 11:03 AM EDT [facility] Influenza B Virus PCR Result Not Detected Not Detected 04/02/2025 11:03 AM EDT [facility] Respiratory Syncytial Virus (RSV) PCR Result Not Detected Not Detected 04/02/2025 11:03 AM EDT [facility] Swab Nasopharyngeal structure / Unknown Non-blood Collection / Unknown 04/01/2025 6:26 PM EDT 04/01/2025 6:57 PM EDT Narrative [facility] - 04/02/2025 11:03 AM EDT This test is FDA approved for use with nasopharyngeal specimens in Viral Transport Media (VTM). This test is used for clinical purposes. It should not be regarded as investigational or for research. This laboratory is certified under the Clinical Laboratory improvement Amendments of 1988 (CLIA-88 as qualified to perform high complexity clinical laboratory testing. This test was performed on the BD [employer]igo[employer] Respiratory Viral Panel, a PCR-based method. Negative results should be considered presumptive and do not preclude current or future infection obtained through community transmission or other exposures. Negative results must be considered in the context of an individual's recent exposures, history, presence of clinical signs and symptoms consistent with COVID-19, Influenza A or B, and RSV. Fidencio Meza MD LAB MICROBIOLOGY - GENERAL OR DERABLES Final Result [facility] [address] [place] [address] * ECG Adult (04/01/2025 5:47 PM EDT) [facility] EKG DIAGNOSIS CLASS Abnormal MUSE ECG Ventricular Rate 60 BPM MUSE ECG Atrial Rate 60 BPM MUSE ECG LA Interval 232 ms MUSE ECG QRSD Interval 104 ms MUSE ECG QT Interval 412 ms MUSE ECG QTC Interval 412 ms MUSE ECG P [place] 17 degrees MUSE ECG R [place] 9 degrees MUSE ECG T Wave [place] 27 degrees MUSE ECG Diagnosis Atrial-paced rhythm with prolonged AV conduction MUSE ECG Diagnosis Abnormal ECG MUSE ECG Diagnosis MUSE ECG Diagnosis Confirmed by Lenny White ([id number]) on 04/02/2025 9:15:02 AM MUSE ECG 04/01/2025 5:47 PM EDT 04/02/2025 9:15 AM EDT Fidencio Meza MD ECG ORDERABLES Final Result MUSE ECG * N-Terminal Probnp (04/01/2025 4:42 PM EDT) N-Terminal, PROBNP, Plasma <50 0 - 899 pg/mL 04/01/2025 5:14 PM EDT [facility] Blood Venous blood specimen / Unknown Venipuncture / Unknown 04/01/2025 4:42 PM EDT 04/01/2025 4:44 PM EDT Fidencio Meza MD LAB BLOOD ORDERABLES Final Re sult [facility] [address] [place] [address] * (ABNORMAL) Hemoglobin A1c (04/01/2025 4:42 PM EDT) Hemoglobin A1c 7.6(H) <5.7 % 04/01/2025 8:40 PM EDT [facility] Blood Venous blood specimen / Unknown Venipuncture / Unknown 04/01/2025 4:42 PM EDT 04/01/2025 4:44 PM EDT Narrative [facility] - 04/01/2025 8:40 PM EDT HA1C Interpretive Data: Diagnosis of Diabetes: Diabetic > or = 6.5% Pre-diabetic 5.7 to 6.4% Non-diabetic < or = 5.6% Glycemic Targets for Type I and Type II Diabetics: Non- Adults <7.0% Adults <6.0% Children and Adolescents <7.5% Source: [place] [employer]. Standards of medical care in diabetes,2017. Diabetes Care.2017:40 (suppl 1):S1-S135. Fidencio Meza MD LAB BLOOD ORDERABLES Final Re sult [facility] [address] [place] [address] * (ABNORMAL) Lipid panel (04/01/2025 4:42 PM EDT) [facility] Cholesterol, Plasma 132 <200 mg/dL 04/01/2025 5:44 PM EDT [facility] Comment: Cholesterol Reference Range (age >17 years): Desirable <200 mg/dL Borderline 200 to 239 mg/dL Undesirable >239 mg/dL HDL 39(L) >=40 mg/dL 04/01/2025 5:44 PM EDT [facility] Comment: HDL Cholesterol Reference Ranges (age >17 years): Female, acceptable > or = 50 mg/dL Male, acceptable > or = 40 mg/dL Triglycerides, Plasma 136 <150 mg/dL 04/01/2025 5:44 PM EDT [facility] Comment: Triglyceride Reference Range (age >17 years): Desirable: <150 mg/dL Borderline high: 150 to 199 mg/dL High: 200 to 499 mg/dL Very high: >499 mg/dL Increased risk of pancreatitis: >1000 mg/dL Cholesterol/HDL Ratio 3 04/01/2025 5:44 PM EDT [facility] LDL, Calculated 69 <100 mg/dL 5:44 PM EDT [facility] Comment: LDL Cholesterol Reference Range (age >17 years): Optimal: <100 mg/dL Near or above optimal: 100 - 129 mg/dL Borderline high: 130 - 159 mg/dL High: 160 - 189 mg/dL Very high: >189 mg/dL LDL Cholesterol Reference Range (age <18 years): Desirable: <110 mg/dL Borderline: 110 - 129 mg/dL Undesirable: >130 mg/dL LDL Cholesterol is calculated using the [place]/NIH equation. Fasting greater than or equal to 12 hours? Unknown 04/01/2025 5:44 PM EDT [facility] Blood Venous blood specimen / Unknown Venipuncture / Unknown 04/01/2025 4:42 PM EDT 04/01/2025 4:44 PM EDT Fidencio Meza MD LAB BLOOD ORDERABLES Final Re sult [facility] [address] [place] [address] * (ABNORMAL) Comprehensive metabolic panel (04/01/2025 4:42 PM EDT) Glucose, Plasma 227(H) 74 - 99 mg/dL 04/01/2025 5:14 PM EDT [facility] BUN, Plasma 22(H) 7 - 21 mg/dL 04/01/2025 5:14 PM EDT [facility] Creatinine, Plasma 1.37(H) 0.70 - 1.20 mg/dL 04/01/2025 5:14 PM EDT [facility] BUN/Creatinine Ratio 16 04/01/2025 5:14 PM EDT [facility] Sodium, Plasma 139 136 - 145 mmol/L 04/01/2025 5:14 PM EDT [facility] Potassium, Plasma 4.6 3.6 - 4.9 mmol/L 04/01/2025 5:14 PM EDT [facility] Chloride, Plasma 101 97 - 107 mmol/L 04/01/2025 5:14 PM EDT [facility] CO2, Plasma 27 22 - 29 mmol/L 04/01/2025 5:14 PM EDT [facility] Anion Gap 11 6 - 16 mmol/L 04/01/2025 5:14 PM EDT [facility] Total Calcium, Plasma 9.4 8.9 - 10.2 mg/dL 04/01/2025 5:14 PM EDT [facility] Total Protein 7.3 6.3 - 7.9 g/dL 04/01/2025 5:14 PM EDT [facility] Albumin, Plasma 4.2 3.5 - 5.2 g/dL 04/01/2025 5:14 PM EDT [facility] AST, Plasma 31 10 - 50 U/L 04/01/2025 5:14 PM EDT [facility] ALT, Plasma 51(H) 10 - 50 U/L 04/01/2025 5:14 PM EDT [facility] Alkaline Phosphatase, Plasma 105 40 - 115 U/L 04/01/2025 5:14 PM EDT [facility] Total Bilirubin, Plasma 0.4 0.2 - 1.1 mg/dL 04/01/2025 5:14 PM EDT [facility] eGFRcr 60.5 mL/min/1.7 3m*2 04/01/2025 5:14 PM EDT [facility] Comment:Reported eGFRcr in m L/min/1.73m2 is based the CKD-EPI 2020 equation that does not use a race coefficient. Blood Venous blood specimen / Unknown Venipuncture / Unknown 04/01/2025 4:42 PM EDT 04/01/2025 4:44 PM EDT Fidencio Meza MD LAB BLOOD ORDERABLES Final Re sult [facility] [address] [place] [address] * (ABNORMAL) POCT glucose meter (04/01/2025 4:15 PM EDT) [facility] POCT Glucose 206(H) 74 - 99 mg/dL 04/01/2025 7:33 PM EDT [facility] Comment:Accuracy of a glucos e result obtained from a capillary whole blood specimen relies upon adequate, non-compromised capillary blood flow. If the capillary glucose result is not consistent with the patient's clinical signs and symptoms, glucose testing should be repeated with either an arterial or venous sample on the glucometer or sent to the main labortory for testing. Comment 04/01/2025 7:33 PM EDT [facility] Press Manager ID Kylee Richard 04/01/20 7:33 PM EDT [facility] Device ID [id number] 04/01/2025 7:33 PM EDT [facility] Specimen Type POC Capillary 04/01/2025 7:33 PM EDT [facility] Blood Capillary blood specimen / Unknown 04/01/2025 4:15 PM EDT 04/01/2025 7:33 PM EDT Fidencio Meza MD LAB POINT OF CARE TE ST DOCKED DEVICE UNSOLICITED RESULTS Final Result [facility] [address] [place] [id number] * XR Chest 1 View (04/01/2025 3:05 PM EDT) Anatomical Region Laterality Modality Chest Digital Radiogra phy Impressions 04/01/2025 3:16 PM EDT Hypoventilatory changes. CRITICAL RESULT: No. COMMUNICATION: Per this written report. Drafted by Ann Lopez MD on 04/01/2025 3:15 PM Final report signed by Ann Lopez MD on 04/01/2025 3:16 PM Narrative 04/01/2025 3:16 PM EDT CLINICAL INDICATION: Heart Failure TECHNIQUE: XR CHEST 1 VIEW COMPARISON: Outside radiograph April 01, 2025, 3 hours prior FINDINGS: Left chest wall pacemaker. Low lung volumes. Pulmonary vascular congestion. Basilar atelectasis. No pneumothorax. Stable cardiac silhouette. Procedure Note Ann Lopez MD - 04/01/2025 CLINICAL INDICATION: Heart Failure TECHNIQUE: XR CHEST 1 VIEW COMPARISON: Outside radiograph April 01, 2025, 3 hours prior FINDINGS: Left chest wall pacemaker. Low lung volumes. Pulmonary vascularcongestion. Basilar atelectasis. No pneumothorax. Stable cardiacsilhouette. IMPRESSION: Hypoventilatory changes. CRITICAL RESULT: No. COMMUNICATION: Per this written report. Drafted by Ann Lopez MD on 04/01/2025 3:15 PM Final report signed by Ann Lopez MD on 04/01/2025 3:16 PM Fidencio Meza MD IMG XR PROCEDURES Final Resul t * CORONARY ANGIOGRAPHY, PERC CORONARY INTERVENTION (04/01/2025 2:24 PM EDT) Anatomical Region Laterality Modality Other Narrative 04/02/2025 1:28 PM EDT Conclusion: 1. STEMI activation and ongoing angina 2. No acute coronary occlusion or lesion 3. Patent prior stent in the left posterolateral branch. Recommendations: 1. Admit to CA3 2. Standard cardio preventive therapies Procedure Details The patient was brought to the cardiac catheterization laboratory as emergency STEMI activation. A time out was done to confirm the correct patient, site and procedure. The patient's right wrist was prepped and draped in sterile fashion. The skin overlying the patient's right radial region was anesthetized with 1% lidocaine. Using modified Seldinger technique a 21-gauge micropuncture needle was used to puncture the right radial artery, and 0.021 guidewire was advanced into the radial artery without difficulty. A 6F long sheath was advanced over a guidewire and flushed. At that time a cocktail of heparin and nitroglycerin was given through the radial sheath. A 5F Sarthak catheter was advanced into the ascending aorta over a 0.035 J-tipped guidewire. Selective left and right coronary arteriography was then carried out in a variety of projections using small amounts of isosmolar contrast material, which was injected by hand. The Sarthak catheter was then withdrawn. A TR band was placed, and the radial artery introducer was removed. The TR band was inflated with 13 cc of air. The patient was transferred back to the cath lab radiology technician holding area in good condition. Coronary Findings Diagnostic Dominance: Right Left Main: The left main bifurcates into LAD and circumflex. No significant disease Left Anterior Descending: The LAD gives several small diagonal during it course. No significant disease in the LAD and branches. Left Circumflex: The circumflex gives 2 large posterolateral branches. There is a stent in the second PL branch that is patent. Right Coronary Artery: The RCA gives 2 branching posterior descending arteries. No significant disease. Intervention No interventions have been documented. Hemodynamic Data Pressures Phase: Resting Aortic AO: 117/69 (90) mmHg us Baljinder Wright MD CV CARDIAC CATH PROCEDURES Salma l Result * XR OUTSIDE IMAGES (04/01/2025 11:25 AM EDT) Anatomical Region Laterality Modality Radiographic Sima ging 04/01/2025 11:2 5 AM EDT us External Provider IMG XR PROCEDURES Final Result from Last 3 Months Insurance [facility] Advance Directives * Full Code (Latest Code Status on File) Date Activated Date Inactivated Comments 04/01/2025 2:27 PM 04/02/2025 7:34 PM Question Answer Comments I have reviewed the capacity from the link above and, if needed, have updated to appropriate status: Yes Care Teams Oncology Rn Relationship Specialty Start Date End Date Ross Bar APRN [address] [place] [id number] PCP - General 03/09/24
--- OUTSIDE RECORDS SUMMARY | 2025-06-21 13:20 | XMS_ITS | Encounter Summary ---
Author Organization [employer] ([place], [place], [place], [place]) Address [address] [place] [address] Care Team Providers Care Director Product Name Role Phone Osorio Barroso MD Primary Care Provider [phone] Ross Bar APRN Primary Care Provider [phone] Encounter Details Date Type Department Care Team (Late st Contact Info) Description 01/12/2024 Outside Orders [facility] Cardiology [address] [place] [address] Marissa Mulligan APRN [address] [place] [address] Radiculopathy, cervical region (Primary Dx) Social History Tobacco Use Types Packs/Day Years Used Date Smoking Tobacco: Never Smokeless Tobacco: Never Alcohol Use Standard Drinks/Week Comments Never 0 (1 standard drink = 0.6 oz pur e alcohol) Family and Community Support Answer Melchor e Recorded Help with Day to Day Activities Not on file 12/17/2023 Feeling Lonely or Isolated Not on file 12/17 Educational Attainment Answer Date Antony rded Speak language other than Tanzanian at home Not on file 12/17/2023 Want help with school or training Not on file 12/17/2023 Substance Use Answer Date Recorded Used prescription meds for non-medical reasons N ot on file 12/17/2023 Used illegal drugs past 12 months Not on file 12/17/2023 Sex and Gender Information Value Date Recorded Sex Assigned at Not on file Legal Sex Male 3:48 PM CDT Gender Identity Not on file Sexual Orientation Not on file documented as of this encounter Plan of Treatment Not on file documented as of this encounter Visit Diagnoses Diagnosis Radiculopathy, cervical region- Primary Brachial neuritis or radiculitis nos documented in this encounter Care Teams Director Product Relationship Specialty Start Date End Date Osorio Barroso MD [address] [place] [address] PCP - General Family Medicine 09/01/23 01/16/24 Ross Bar APRN [address] [place] [address] PCP - General Nurse Practitioner 01/17/24 documented as of this encounter
--- OUTSIDE RECORDS SUMMARY | 2025-06-21 13:20 | XMS_ITS | Encounter Summary ---
Author Organization [employer] ([place], [place], [place], [place]) Address [address] [place] [address] Care Team Providers Care Grounds Maintenance Supervisor Name Role Phone Osorio Barroso MD Primary Care Provider [phone] Ross Bar APRN Primary Care Provider [phone] Encounter Details Date Type Department Care Team (Late st Contact Info) Description 01/12/2024 Outside Orders [facility] Central Scheduling [address] [place] [address] Marissa Mulligan APRN [address] [place] [address] Radiculopathy, cervical region (Primary Dx) Social History [...] Date Antony rded Speak language other than [place] Islander at home Not on file 12/17/2023 Want [...] nos documented in this encounter Care Teams Grounds Maintenance Supervisor Relationship Specialty Start Date End Date Osorio Barroso MD [address] [place] [address] PCP - General Family Medicine 09/01/23 01/16/24 Ross Bar APRN [address] [place] [address] PCP - General Nurse Practitioner 01/17/24 documented as of this encounter
--- OUTSIDE RECORDS SUMMARY | 2025-06-21 13:20 | XMS_ITS | Clinical Summary ---
Author Organization [employer] ([place], [place], [place], [place]) Address [address] [place] [address] Care Team Providers Care Lining Parts Sewer Name Role Phone Ross Bar APRN Primary Care Provider [phone] Allergies Active Allergy Reactions Criticality Noted Date Comments Androgenic Anabolic Steroid Low 02/06/20 23 Aspirin Swelling High 02/05/2023 Penicillins Swelling High 02/05/2023 Sulfa (Sulfonamide Antibiotics) 01/27 Medications traMADoL (ULTRAM) 50 mg tablet Take 1 tablet (50 mg total) by mouth 3 (three) times daily as needed. Max Daily Amount: 150 mg 3 Active pregabalin (LYRICA) 100 MG capsule Take 1 capsule (100 mg total) by mouth 3 (three) times daily as needed. Max Daily Amount: 300 mg 3 Active oxyCODONE-aceta minophen (PERCOCET) 10-325 mg per tablet Take 1 tablet by mouth 4 (four) times daily as needed. Max Daily Amount: 4 tablets 3 Active hydrALAZINE (APRESOLINE) 25 MG tablet Take 1 tablet (25 mg total) by mouth every 4 (four) hours as needed for Hypertension (Specify SBP/DBP in PRN comments) SBP >170. 3 Active Edarbyclor 40-25 mg Tab Take 1 tablet by mouth daily. 3 Active cholecalciferol , vitamin D3, 2,000 unit Tab Take 1 tablet (2,000 Units total) by mouth daily. 3 Active amLODIPine (NORVASC) 10 MG tablet Take 1 tablet (10 mg total) by mouth daily. 3 Active ticagrelor (Brilinta) 90 mg Tab tablet Take 1 tablet (90 mg total) by mouth 2 (two) times daily. 180 tablet 3 Active carvediloL (COREG) 25 MG tablet Take 1 tablet (25 mg total) by mouth 2 (two) times daily with breakfast and dinner Pt states he is taking 25 mg PO four times a day.. 90 tablet 3 Active Encounters Date Type Department Care Team Description 04/01/2025 11:08 AM EDT - 04/01/2025 12:51 PM EDT Emergency [facility] Emergency Department [address] [place] [phone] iVoletta Knight MD Chest pain, unspecified type (Primary Dx); SOB (shortness of breath); Dizziness; Congestive heart failure, unspecified HF chronicity, unspecified heart failure type (HCC); Unstable angina (HCC) Discharge Disposition: [facility] from Last 3 Months Immunizations Name Administration Dates Next Due Covid-19 Vaccine MRNA (PF) 18yr+ (Moderna)(IMM60 [id number]) 10/02/2021,01/06/2021 Social History Tobacco Use Types Packs/Day Years Used Date Smoking Tobacco: Never Smokeless Tobacco: Never Tobacco Cessation:Counseling Given: Not Answered Alcohol Use Standard Drinks/Week Comments Never 0 (1 standard drink = 0.6 oz pur e alcohol) Family and Community Support Answer Melchor e Recorded Help with Day to Day Activities Not on file 12/17/2023 Feeling Lonely or Isolated Not on file 12/17 Educational Attainment Answer Date Antony rded Speak language other than Afghan at home Not on file 12/17/2023 Want [...] Sign Reading Time Taken Comments Blood Pressure 158/83 04/01/2025 12:43 PM EDT Pulse 59 04/01/2025 12:43 PM EDT Temperature 36.1 C (96.9 F) 04/01/2025 11:18 AM EDT Respiratory Rate 11 04/01/2025 12:38 PM EDT Oxygen Saturation 100% 04/01/2025 12:43 PM EDT Inhaled Oxygen Concentration - - Weight 122.5 kg (270 lb) 04/01/2025 11:18 AM EDT Height 185.4 cm (6' 1 ) 04/01/2025 11:18 AM EDT Body Mass Index 35.62 04/01/2025 11:18 AM EDT Plan of Treatment Health Maintenance Due Date Last Done Comments CT Colonography 1968 Colonoscopy 1968 Colorectal Cancer Screening 1968 FOBT/FIT 1968 Fit-DNA (Cologuard) 1968 Sigmoidoscopy 1968 Depression Screening (12+) 1980 HIV Screening 1983 Hepatitis C Screening 1986 DTAP/TDAP/TD VACCINES (1 - Tdap) 1987 Lipid Panel 2003 Shingles Vaccine (Zoster) (1 of 2) 2018 COVID-19 VACCINE (3 - season) 07/30/202402/2021, 01/06/2021 Influenza Vaccine (#1) 2025 Tobacco Cessation Counseling and Screening (12+) 04/01/2026 04/01/2025 Pneumococcal 50+ years Completed 10/01/2023, 2020 Medical Devices Implanted Type Area Full Stack Software Engineer Device Identifier Shelf Expiration Date Model / Serial / Lot Pacemaker [employer] [id number] / [id number] / Description:Generator: [id number] Lead: [id number] Lead: [id number] Procedures Procedure Name Priority Date/Time Associated Diagnosis Comments XR CHEST 1 VIEW PORTABLE / BEDSIDE STAT 04/01/2025 11:[address] BRAIN WITHOUT IV CONTRAST STAT 04/01/2025 11:55 AM EDT PROBNP STAT 04/01/2025 11:38 AM EDT [place] RED TOP (EXTRA TUBES) STAT 04/01/2025 11:38 AM EDT [place] BLUE TOP (EXTRA TUBES) STAT 04/01/2025 11:38 AM EDT HIGH SENSITIVITY TROPONIN I STAT 04/01/2025 11:38 AM EDT LIPASE STAT 04/01/2025 11:38 AM EDT COMPREHENSIVE METABOLIC PANEL STAT 04/01/2025 11:38 AM EDT CBC W/ AUTO DIFF STAT 04/01/2025 11:3 8 AM EDT [place] EXTRA TUBES STAT 04/01/2025 11:38 AM EDT FS_MODEL_IP_ECG 12-LEAD STAT 04/01/2025 11:35 AM EDT FS_[facility]_MODEL CRITICAL CARE Routine 04/01/2025 11:33 AM EDT FS_MODEL_IP_ECG 12-LEAD STAT 04/01/2025 11:18 AM EDT from Last 3 Months Results * XR chest 1 view portable / bedside (04/01/2025 11:55 AM EDT) Anatomical Region Laterality Modality X-Ray 04/01/2025 12:3 8 PM EDT Impressions 04/01/2025 12:58 PM EDT No acute process. Images reviewed, interpreted, and dictated by Dr. Yolanda Cardozo. Transcribed by Bonny Lindsay(Good). Narrative 04/01/2025 12:58 PM EDT PORTABLE CHEST HISTORY: Precordial chest pain, shortness of air. COMPARISON: None. FINDINGS: A portable view of the chest was obtained. A left-sided pacemaker is noted. The cardiac silhouette is normal in size. The mediastinal silhouette is within normal limits. The lungs are clear. There is no pleural effusion or pneumothorax. No acute osseous abnormality is identified. Procedure Note Yolanda Cardozo MD - 04/01/2025 PORTABLE CHEST HISTORY: Precordial chest pain, shortness of air. COMPARISON: None. FINDINGS: A portable view of the chest was obtained. A left-sided pacemaker is noted. The cardiac silhouette is normal in size. The mediastinal silhouette is within normal limits. The lungs are clear. There is no pleural effusion or pneumothorax. No acute osseous abnormality is identified. IMPRESSION: No acute process. Images reviewed, interpreted, and dictated by Dr. Yolanda Cardozo. Transcribed by Bonny Lindsay(R). Violetta Knight MD IMG DIAGNOSTIC IMAGING ORD ERABLES Final Result * CT brain without IV contrast (04/01/2025 11:55 AM EDT) Anatomical Region Laterality Modality Brain, Head Computed Tomogra phy (CT) 04/01/2025 12:0 8 PM EDT Impressions 04/01/2025 12:09 PM EDT No intracranial hemorrhage or evidence of acute large cortical infarct. Images reviewed, interpreted, and dictated by Yolanda Cardozo MD [facility] 04/01/2025 12:[address] SCAN OF THE HEAD WITHOUT CONTRAST INDICATION: Vertigo. TECHNIQUE: Multiple axial CT images were performed from the foramen magnum to the vertex without contrast. Coronal reconstruction images were obtained from the axial data. This study was performed with techniques to keep radiation doses as low as reasonably achievable (ALARA). Individualized dose reduction techniques using automated exposure control or adjustment of mA and/or KV according to the patient size were employed. COMPARISON: None. FINDINGS: There is no mass effect or midline shift. There is no hydrocephalus or intracranial hemorrhage. Isidro-white differentiation is preserved. No evidence of acute large cortical infarct. The posterior fossa is without acute abnormality. The basilar cisterns are preserved.. No acute soft tissue abnormality. No acute osseous abnormalities are present. Procedure Note Yolanda Cardozo MD - 04/01/2025 CT SCAN OF THE HEAD WITHOUT CONTRAST INDICATION: Vertigo. TECHNIQUE: Multiple axial CT images were performed from the foramen magnum to the vertex without contrast. Coronal reconstruction images were obtained from the axial data. This study was performed with techniques to keep radiation doses as low as reasonably achievable (ALARA). Individualized dose reduction techniques using automated exposure control or adjustment of mA and/or KV according to the patient size were employed. COMPARISON: None. FINDINGS: There is no mass effect or midline shift. There is no hydrocephalus or intracranial hemorrhage. Isidro-white differentiation is preserved. No evidence of acute large cortical infarct. The posterior fossa is without acute abnormality. The basilar cisterns are preserved.. No acute soft tissue abnormality. No acute osseous abnormalities are present. IMPRESSION: No intracranial hemorrhage or evidence of acute large cortical infarct. Images reviewed, interpreted, and dictated by Yolanda Cardozo MD Violetta Knight MD IMG CT ORDERABLES Final Re sult * Red Top Extra Tubes (04/01/2025 11:38 AM EDT) HOLD SPECIMEN (SJ - BKR) Hold for add-ons. 04/01/2025 1:01 PM EDT [facility] Comment:Auto resulted. Blood Venipuncture / Unknown 04/01/2025 11:38 AM EDT 04/01/2025 11:47 AM EDT Violetta Knight MD LAB BLOOD ORDERABLES Final Result Performing Organization Address [facility] de Phone Number [facility] [address] [place] [address] * Blue Top Extra Tubes (04/01/2025 11:38 AM EDT) HOLD SPECIMEN (SJ - BKR) Hold for add-ons. 04/01/2025 1:01 PM EDT [facility] Comment:Auto resulted. Blood Venipuncture / Unknown 04/01/2025 11:38 AM EDT 04/01/2025 11:47 AM EDT us Violetta Knight MD LAB BLOOD ORDERABLES Final Result [facility] [address] [place] [address], [facility] [phone] * (ABNORMAL) CBC with Auto Diff (04/01/2025 11:38 AM EDT) WBC 8.4 4.8 - 10.8 K/ L 04/01/2025 11:50 AM EDT [facility] RBC 4.05 3.80 - 5.20 M/ L 04/01/2025 11:50 AM EDT [facility] Hemoglobin 13.2 12.8 - 17.4 GM/DL 04/01/2025 11:50 AM EDT [facility] Hematocrit 38.4(L) 39.0 - 51.0 % 04/01/2025 11:50 AM EDT [facility] MCV 95 81 - 101 fL 04/01/2025 11:50 AM EDT [facility] MCH 32.6 27.0 - 34.0 pg 04/01/2025 11:50 AM EDT [facility] MCHC 34.4 32.0 - 36.0 GM/DL 04/01/2025 11:50 AM EDT [facility] RDW 12.7 11.5 - 14.5 % 04/01/2025 11:50 AM EDT [facility] Platelets 181 150 - 400 K/CU MM 04/01/2025 11:50 AM EDT [facility] MPV 10.8 9.4 - 12.4 fL 04/01/2025 11:50 AM EDT [facility] Nucleated Red Blood Cell 0.0 0 - 0.2 % 04/01/2025 11:50 AM EDT [facility] % Neutros 71 37 - 80 % 04/01/2025 11:50 AM EDT [facility] % Lymphs 17 10 - 50 % 04/01/2025 11:50 AM EDT [facility] % Monos 8 5 - 13 % 04/01/2025 11:50 AM EDT [facility] % Eos 3 0 - 7 % 04/01/2025 11:50 AM EDT [facility] % Baso 0 0 - 3 % 04/01/2025 11:50 AM EDT [facility] NRBC Absolute <0.01 0 - 0.012 K/ul 04/01/2025 11:50 AM EDT [facility] # Neutros 6.00 2.00 - 6.90 K/ L 04/01/2025 11:50 AM EDT [facility] # Lymphs 1.40 0.60 - 3.40 K/ L 04/01/2025 11:50 AM EDT [facility] # Monos 0.65 0.00 - 0.90 K/ L 04/01/2025 11:50 AM EDT [facility] # Eos 0.25 0.00 - 0.70 K/ L 04/01/2025 11:50 AM EDT [facility] # Baso 0.03 0.00 - 0.20 K/ L 04/01/2025 11:50 AM EDT [facility] Immature Granulocytes-Re lative 0.80 % 04/01/2025 11:50 AM EDT [facility] # IG 0.07(H) 0.00 - 0.00 K/uL 04/01/2025 11:50 AM EDT [facility] Blood Venipuncture / Unknown 04/01/2025 11:38 AM EDT 04/01/2025 11:47 AM EDT Narrative [facility] - 04/01/2025 11:50 AM EDT When CBC w/ Auto Diff is ordered the lab will add a Manual Differential as a quality check at no additional charge if: Lymphocytes greater than seventy five percent with normal or increased WBC Monocytes greater than Fifteen percent Basophil greater than four percent Bands >10% or several immature myeloids are seen on scan Blast? Flag noted Atypical Lymph flag noted us Violetta Knight MD LAB BLOOD ORDERABLES Final Result [facility] [address] [place] [id number] [phone] * High Sensitivity Troponin I (04/01/2025 11:38 AM EDT) [facility] Troponin I High Sensitivity (pg/mL) 12.6 4 - 60.3 pg/mL 04/01/2025 12:14 PM EDT [facility] Comment: Troponin Result (pg/mL) *Interpretation 4-60.3 *Normal; less than 99th percentile of normal range >60.3 *Abnormal; greater than 99th percentile of normal range Biotin specimen concentration >300 ng/mL may lead to falsely depressed results for patient samples. Do not use this test for renal dysfunction patients (eGFR <60) unless it is confirmed that the patient is not taking Biotin. Blood Venipuncture / Unknown 04/01/2025 11:38 AM EDT 04/01/2025 11:47 AM EDT Violetta Knight MD LAB BLOOD ORDERABLES Final Result [facility] [address] [phone] * PROBNP (04/01/2025 11:38 AM EDT) [facility] ProBNP (pg/mL) 79 5 - 125 pg/mL 04/01/2025 12:14 PM EDT [facility] Blood Venipuncture / Unknown 04/01/2025 11:38 AM EDT 04/01/2025 11:47 AM EDT us Violetta Knight MD LAB BLOOD ORDERABLES Final Result [facility] [address] [phone] * Lipase (04/01/2025 11:38 AM EDT) [facility] Lipase 42 16 - 77 U/L 04/01/2025 12:14 PM EDT [facility] Blood Venipuncture / Unknown 04/01/2025 11:38 AM EDT 04/01/2025 11:47 AM EDT Violetta Knight MD LAB BLOOD ORDERABLES Final Result [facility] [address] [place] [address], [facility] [phone] * (ABNORMAL) Comprehensive metabolic panel (04/01/2025 11:38 AM EDT) Sodium 137 136 - 145 meq/L 04/01/2025 12:15 PM EDT [facility] Potassium 4.8 3.5 - 5.1 meq/L 04/01/2025 12:15 PM EDT [facility] Chloride 102 98 - 107 meq/L 04/01/2025 12:15 PM EDT [facility] CO2 31 21 - 32 meq/L 04/01/2025 12:15 PM EDT [facility] Calcium 9.4 8.5 - 10.1 mg/dL 04/01/2025 12:15 PM EDT [facility] Glucose 237(H) 70 - 99 mg/dL 04/01/2025 12:15 PM EDT [facility] BUN 25(H) 7 - 18 mg/dL 04/01/2025 12:15 PM EDT [facility] Creatinine 1.76(H) 0.70 - 1.20 mg/dL 04/01/2025 12:15 PM EDT [facility] BUN/Creatinine 14 04/01/2025 12:15 PM EDT [facility] Albumin 3.8 3.4 - 5.0 g/dL 04/01/2025 12:15 PM EDT [facility] Alkaline Phosphatase 122(H) 46 - 116 U/L 04/01/2025 12:15 PM EDT [facility] ALT 59 12 - 78 U/L 04/01/2025 12:15 PM EDT [facility] AST 34 15 - 37 U/L 04/01/2025 12:15 PM EDT [facility] Total Bilirubin 0.5 0.2 - 1.0 mg/dL 04/01/2025 12:15 PM EDT [facility] Protein, Total 8.1 6.4 - 8.2 gm/dL 04/01/2025 12:15 PM EDT [facility] Anion Gap 9(L) 11 - 22 04/01/2025 12:15 PM EDT [facility] A/G Ratio 0.9 04/01/2025 12:15 PM EDT [facility] Globulin 4.3 g/dL 04/01/2025 12:15 PM EDT [facility] Osmolality Calc 285.9 mOsm/kg 12:15 PM EDT [facility] eGFR (mL/min/1.73m2) 45(L) >=60 mL/min/1.7 3m2 04/01/2025 12:15 PM EDT [facility] Comment:ESTIMATED GFR IS NOT ACCURATE CREATININE CLEARANCE IN PREDICTING GLOMERULAR FILTRATION RATE. ESTIMATED GFR IS NOT APPLICABLE FOR DIALYSIS PATIENTS. Blood Venipuncture / Unknown 04/01/2025 11:38 AM EDT 04/01/2025 11:47 AM EDT Violetta Knight MD LAB BLOOD ORDERABLES Final Result [facility] [address] [place] [address] * ECG 12 lead (04/01/2025 11:35 AM EDT) Only the most recent of2 resultswithin the time period is included. VENTRICULAR RATE EKG/MIN 59 BPM GE MUSE ATRIAL RATE (MCT) 59 BPM GE MUSE IL Interval 294 ms GE MUSE QRS-INTERVAL (MSEC) 90 ms GE MUSE QT Interval 414 ms GE MUSE QTC Interval 409 ms GE MUSE P [place] 30 degrees GE MUSE R AXIS (MCT) 21 degrees GE MUSE T Wave [place] 67 degrees GE MUSE [place] Diagnosis Atrial-paced rhythm with prolonged AV conduction with frequent AV dual-paced complexes Abnormal ECG Confirmed by Isatu QUINONES RICHARD ([id number]) on 04/02/2025 12:44:59 PM GE MUSE 04/01/2025 11:3 5 AM EDT 04/02/2025 12:44 PM EDT us Violetta Knight MD ECG ORDERABLES Final Resu lt GE MUSE * Critical Care (04/01/2025 11:33 AM EDT) Violetta Benitez MD - 04/01/2025 11:33 AM EDT Violetta Knight MD 04/01/2025 12:40 PM Critical Care Performed by: Violetta Knight MD Authorized by: Violetta Knight MD Critical care provider statement: Critical care time (minutes): 33 Critical care was necessary to treat or prevent imminent or life-threatening deterioration of the following conditions: Cardiac failure Care discussed with: accepting provider at another facility us Violetat Knight MD PROCEDURE/MINOR SURGICAL O RDERABLES Final Result from Last 3 Months Insurance Care Teams [employer]ining [employer] Sewer Relationship Specialty Start Date End Date Ross Bar APRN [address] [place] [address] PCP - General Nurse Practitioner 01/17/24
--- OUTSIDE RECORDS SUMMARY | 2025-06-21 13:20 | XMS_ITS | Referral Summary ---
Author Organization [employer] ([place], [place], [place], [place]) Address [address] [place] [address] Care Team Providers Care Cleaner And Presser Name Role Phone Ross Bar APRN Primary Care Provider [phone] Encounters Date Type Department Care Team Description 04/01/2025 11:08 AM EDT - 04/01/2025 12:51 PM EDT Emergency [facility] [address] [place] [phone] Violetta Knight MD Chest pain, unspecified type (Primary Dx); SOB (shortness of breath); Dizziness; Congestive heart failure, unspecified HF chronicity, unspecified heart failure type (HCC); Unstable angina (HCC) Discharge Disposition: Short Term Hospital from Last 3 Months Allergies Active Allergy Reactions Criticality Noted Date [...] times a day.. 90 tablet 3 Active Immunizations Name Administration Dates Next Due Covid-19 [...] Date Antony rded Speak language other than Swiss at home Not on file 12/17/2023 Want [...] 04/01/2025 11:18 AM EDT Plan of Treatment Not on file Medical Devices Implanted Type Area Waxer Tender Device Identifier Shelf Expiration Date Model / Serial / Lot Pacemaker [employer] [id number] / [id number] / Description:Generator: [id number] Lead: [id number] Lead: [id number] [...] Dr. Yolanda Cardozo. Transcribed by Bonny Lindsay(R). Narrative 04/01/2025 12:58 PM EDT PORTABLE CHEST [...] by Dr. Yolanda Cardozo. Transcribed by Bonny iLndsay(R). Violetta Knight MD IMG DIAGNOSTIC IMAGING ORD ERABLES Final Result * CT brain without IV contrast (04/01/2025 11:55 AM EDT) Anatomical Region Laterality Modality Brain, Head Computed Tomogra phy (CT) 04/01/2025 12:0 8 PM EDT Impressions 04/01/2025 12:09 PM EDT No intracranial hemorrhage or evidence of acute large cortical infarct. Images reviewed, interpreted, and dictated by Yolanda Cardozo MD Narrative 04/01/2025 12:[address] SCAN OF [...] by Yolanda Cardozo MD Violetta Knight MD IM CT ORDERABLES Final Re sult * Red Top Extra Tubes (04/01/2025 11:38 AM EDT) HOLD SPECIMEN (SJ - BKR) Hold for add-ons. 04/01/2025 1:01 PM EDT [facility] Comment:Auto resulted. Blood Venipuncture / Unknown 04/01/2025 11:38 AM EDT 04/01/2025 11:47 AM EDT us Violetta Knight MD LAB BLOOD ORDERABLES Final Result Performing Organization Address [facility] Co de Phone Number [facility] [address] [place] [address] * Blue Top Extra Tubes (04/01/2025 11:38 AM EDT) HOLD SPECIMEN (SJ - BKR) Hold for add-ons. 04/01/2025 1:01 PM EDT [facility] Comment:Auto resulted. Blood Venipuncture / Unknown 04/01/2025 11:38 AM EDT 04/01/2025 11:47 AM EDT us Violetta Knight MD LAB BLOOD ORDERABLES Final Result Performing Organization Address [facility] de Phone Number [facility] [address] [place] [address] * (ABNORMAL) CBC with Auto Diff (04/01/2025 11:38 AM EDT) WBC 8.4 4.8 - 10.8 K/ L 04/01/2025 11:50 AM EDT [facility] RBC 4.05 3.80 - 5.20 M/ L 04/01/2025 11:50 AM EDT [facility] Hemoglobin 13.2 12.8 - 17.4 GM/DL 04/01/2025 11:50 AM EDT [facility] Hematocrit 38.4(L) 39.0 - 51.0 % 04/01/2025 11:50 AM EDT [facility] MCV 95 81 - 101 fL 04/01/2025 11:50 AM EDT [facility] MCH 32.6 27.0 - 34.0 pg 04/01/2025 11:50 AM EDT [facility] MCHC 34.4 32.0 - 36.0 GM/DL 04/01/2025 11:50 AM EDT [facility] RDW 12.7 11.5 - 14.5 % 04/01/2025 11:50 AM EDT [facility] Platelets 181 150 - 400 K/CU MM 04/01/2025 11:50 AM EDT [facility] MPV 10.8 9.4 - 12.4 fL 04/01/2025 11:50 AM EDT [facility] Nucleated Red Blood Cell 0.0 0 - 0.2 % 04/01/2025 11:50 AM EDT [facility] % Neutros 71 37 - 80 % 04/01/2025 11:50 AM EDT [facility] % Lymphs 17 10 - 50 % 04/01/2025 11:50 AM EDT [facility] % Monos 8 5 - 13 % 04/01/2025 11:50 AM EDT [facility] % Eos 3 0 - 7 % 04/01/2025 11:50 AM EDT [facility] % Baso 0 0 - 3 % 04/01/2025 11:50 AM EDT [facility] NRBC Absolute <0.01 0 - 0.012 K/ul 04/01/2025 11:50 AM EDT [facility] # Neutros 6.00 2.00 - 6.90 K/ L 04/01/2025 11:50 AM EDT [facility] # Lymphs 1.40 0.60 - 3.40 K/ L 04/01/2025 11:50 AM EDT [facility] # Monos 0.65 0.00 - 0.90 K/ L 04/01/2025 11:50 AM EDT [facility] # Eos 0.25 0.00 - 0.70 K/ L 04/01/2025 11:50 AM EDT [facility] # Baso 0.03 0.00 - 0.20 K/ L 04/01/2025 11:50 AM EDT [facility] Immature Granulocytes-Re lative 0.80 % 04/01/2025 11:50 AM EDT [facility] # IG 0.07(H) 0.00 - 0.00 K/uL 04/01/2025 11:50 AM EDT [facility] Blood Venipuncture / Unknown 04/01/2025 11:38 AM EDT 04/01/2025 11:47 AM EDT Narrative [facility] - 04/01/2025 11:50 AM EDT When [...] Blast? Flag noted Atypical Lymph flag noted Violetta Knight MD LAB BLOOD ORDERABLES Final Result [facility] [address] [place] [address] * High Sensitivity Troponin I (04/01/2025 11:38 AM EDT) Troponin I High Sensitivity (pg/mL) 12.6 4 - 60.3 pg/mL 04/01/2025 12:14 PM EDT [facility] Comment: Troponin Result (pg/mL) *Interpretation 4-60.3 [...] Knight MD LAB BLOOD ORDERABLES Final Result [facility] [address] [place] [address] * PROBNP (04/01/2025 11:38 AM EDT) ProBNP (pg/mL) 79 5 - 125 pg/mL 04/01/2025 12:14 PM EDT [facility] Blood Venipuncture / Unknown 04/01/2025 11:38 AM EDT 04/01/2025 11:47 AM EDT us Violetta Knight MD LAB BLOOD ORDERABLES Final Result Performing Organization Address City/[facility]/ZIP Co de Phone Number [facility] [address] [place] [address] * Lipase (04/01/2025 11:38 AM EDT) Lipase 42 16 - 77 U/L 04/01/2025 12:14 PM EDT [facility] Blood Venipuncture / Unknown 04/01/2025 11:38 AM EDT 04/01/2025 11:47 AM EDT us Violetta Knight MD LAB BLOOD ORDERABLES Final Result [facility] [address] [place] [address] * (ABNORMAL) Comprehensive metabolic panel (04/01/2025 11:38 AM EDT) Sodium 137 136 - 145 meq/L 04/01/2025 12:15 PM EDT [facility] Potassium 4.8 3.5 - 5.1 meq/L 04/01/2025 12:15 PM EDT [facility] Chloride 102 98 - 107 meq/L 04/01/2025 12:15 PM EDT [facility] CO2 31 21 - 32 meq/L 04/01/2025 12:15 PM EDT [facility] Calcium 9.4 8.5 - 10.1 mg/dL 04/01/2025 12:15 PM EDT [facility] Glucose 237(H) 70 - 99 mg/dL 04/01/2025 12:15 PM EDT [facility] BUN 25(H) 7 - 18 mg/dL 04/01/2025 12:15 PM EDT [facility] Creatinine 1.76(H) 0.70 - 1.20 mg/dL 04/01/2025 12:15 PM EDT [facility] BUN/Creatinine 14 04/01/2025 12:15 PM EDT [facility] Albumin 3.8 3.4 - 5.0 g/dL 04/01/2025 12:15 PM EDT [facility] Alkaline Phosphatase 122(H) 46 - 116 U/L 04/01/2025 12:15 PM EDT [facility] ALT 59 12 - 78 U/L 04/01/2025 12:15 PM EDT [facility] AST 34 15 - 37 U/L 04/01/2025 12:15 PM EDT [facility] Total Bilirubin 0.5 0.2 - 1.0 mg/dL 04/01/2025 12:15 PM EDT [facility] Protein, Total 8.1 6.4 - 8.2 gm/dL 04/01/2025 12:15 PM EDT [facility] Anion Gap 9(L) 11 - 22 04/01/2025 12:15 PM EDT [facility] A/G Ratio 0.9 04/01/2025 12:15 PM EDT [facility] Globulin 4.3 g/dL 04/01/2025 12:15 PM T [facility] Osmolality Calc 285.9 mOsm/kg 12:15 PM EDT [facility] eGFR (mL/min/1.73m2) 45(L) >=60 mL/min/1.7 3m2 04/01/2025 12:15 PM EDT [facility] Comment:ESTIMATED GFR IS NOT ACCURATE CREATININE CLEARANCE IN PREDICTING GLOMERULAR FILTRATION RATE. ESTIMATED GFR IS NOT APPLICABLE FOR DIALYSIS PATIENTS. Blood Venipuncture / Unknown 04/01/2025 11:38 AM EDT 04/01/2025 11:47 AM EDT Violetta Knight MD LAB BLOOD ORDERABLES Final Result Performing Organization Address [facility] Co de Phone Number [facility] [address] [place] [address] * ECG 12 lead (04/01/2025 11:35 AM EDT) Only the most recent of2 resultswithin the time period is included. VENTRICULAR RATE EKG/MIN 59 BPM GE MUSE ATRIAL RATE (MCT) 59 BPM GE MUSE WV Interval 294 ms GE MUSE QRS-INTERVAL (MSEC) 90 ms GE MUSE QT Interval 414 ms GE MUSE QTC Interval 409 ms GE MUSE P [place] 30 degrees GE MUSE R AXIS (MCT) 21 degrees GE MUSE T Wave [place] 67 degrees GE MUSE [place] Diagnosis Atrial-paced rhythm with prolonged AV conduction with frequent AV dual-paced complexes Abnormal ECG Confirmed by Isatu QUINONES, MALIK ([id number]) on 04/02/2025 12:44:59 PM GE MUSE 04/01/2025 11:3 5 AM EDT 04/02/2025 12:44 PM EDT us Violetta Knight MD ECG ORDERABLES Final Resu lt Performing Organization Address [facility] Co de Phone Number GE MUSE * Critical Care (04/01/2025 11:33 AM EDT) Narrative Violetta Knight MD - 04/01/2025 11:33 AM EDT Violetta Knight MD 04/01/2025 12:40 PM Critical Care Performed by: Violetta Knight MD Authorized by: Violetta Knight MD Critical care provider statement: Critical care time (minutes): 33 Critical care was necessary to treat or prevent imminent or life-threatening deterioration of the following conditions: Cardiac failure Care discussed with: accepting provider at another facility Violetta Knight MD PROCEDURE/MINOR SURGICAL O RDERABLES Final Result from Last 3 Months Insurance [employer] Care Teams Cleaner And Presser Relationship Specialty Start Date End Date Ross Bar APRN [address] [place] [address] PCP - General Nurse Practitioner 01/17/24
--- OUTSIDE RECORDS SUMMARY | 2025-06-21 13:20 | XMS_ITS | Encounter Summary ---
Author Organization Healthcare Address [address] [place] [address] Care Team Providers Care Data Conversion Analyst Name Role Phone Ross Bar APRN Primary Care Provider Encounter Details Date Type Department Care Team (Latest Contact Info) Description 05/25/2025 Travel Social History Tobacco Use Types Packs/Day Years Used Date Smoking Tobacco: Never Smokeless Tobacco: Never Alcohol Use Standard Drinks/Week Comments Yes 0 (1 standard drink = 0.6 oz pur e alcohol) Sex and Gender Information Value Date Recorded Sex Assigned at Not on file Legal Sex Male 7:42 PM EDT Gender Identity Not on file Sexual Orientation Not on file documented as of this encounter Plan of Treatment Upcoming Encounters Date Type Department Care Team (Late st Contact Info) Description 07/10/2025 10:30 AM EDT Appointment Cardiac Imaging [address] [place] [address] 07/10/2025 1:00 PM EDT Appointment [facility] Radiology [address] [place] [address] 12/07/2025 12:20 PM EST Office Visit [facility] [address] [place] [address] Graciela Maki APRN [address] [phone] documented as of this encounter Visit Diagnoses Not on filedocumented in this encounter Additional Health Concerns Assessment Noted Time A fall risk assessment has been complete d for the patient 03/14/2024 11:15 AM EDT A Body Mass Index follow-up plan has been documented for the patient 05/25/2025 1:02 PM EDT documented as of this encounter Care Teams Data Conversion Analyst Relationship Specialty Start Date End Date Ross Bar APRN [address] [facility] [address] PCP - General 03/09/24 documented as of this encounter
--- OUTSIDE RECORDS SUMMARY | 2025-06-21 13:20 | XMS_ITS | Clinical Summary ---
Author Organization [facility] Address [address] [place] [address] Care Team Providers Care Travel Services Professional Name Role Phone Jr Ross Bar APRN Primary Care Prov ider Allergies Active Allergy Reactions Criticality Noted Date Comments Aspirin Swelling,Angioedema High 10/21/2006 Morphine Nausea And Vomiting Low 01/06/2024 Penicillins Swelling,Angioedema High 10/21/2006 Prednisone Hallucinations Medium 03/14/2024 Sulfacetamide Unknown (See Comments) Low 10/21/2006 Thiazide-Type Diuretics Other (See Comments) Low gout Medications spironolactone (ALDACTONE) 50 MG tablet Take 1 tablet by mouth. TAKES 1/2 TAB DAILY Active Allopurinol (ZYLOPRIM PO) Active hydrALAZINE (APRESOLINE) 50 MG tablet 4 Active NIFEdipine XL (PROCARDIA XL) 30 MG 24 hr tablet Take 1 tablet by mouth. 4 Active carvedilol (COREG) 25 MG tablet 4 Active Irbesartan (AVAPRO PO) Active Ticagrelor (BRILINTA PO) Active Cholecalciferol 417 MCG/ML liquid Take by mouth. Activ e oxyCODONE-aceta minophen (PERCOCET) 10-325 MG per tabletIndicatio ns:Status post shoulder replacement, right Take 1 tablet by mouth Every 6 (Six) Hours As Needed for Moderate Pain. 4 Active ropivacaine (NAROPIN) 0.2 % infusion (INFUSYSTEM) 2 mg/hr by Peripheral Nerve route Continuous. Active Active Problems Problem Noted Date Diagnosed Date Status post shoulder replacement, right 08/07/20 24 HTN (hypertension) 08/07/2024 CKD (chronic kidney disease) 08/07/2024 Hyperlipidemia 08/07/2024 CAD (coronary artery disease) 08/07/2024 Social History Tobacco Use Types Packs/Day Years Used Date Smoking Tobacco: Never Smokeless Tobacco: Never Tobacco Cessation:Counseling Given: Not Answered Alcohol Use Standard Drinks/Week Comments Never 0 (1 standard drink = 0.6 oz pur e alcohol) Abuse Screen Answer Date Recorded Feels Unsafe at Home or Work/School no 08/07/2024 Feels Threatened by Someone no 07/2024 Does Anyone Try to Keep You From Having Contact with Others or Doing Things Outside Your Home? no 08/07/2024 Physical Signs of Abuse Present no 08/07/2024 Housing Stability Answer Date Recorded Current Living Arrangements home 07/2024 Potentially Unsafe Housing Conditions Not on noa e 08/07/2024 Family and Community Support Answer Melchor e Recorded Help with Day-to-Day Activities Not on file 09/10/2023 Lonely or Isolated Not on file 09/10/2023 Employment Answer Date Recorded Do you want help finding or keeping work or a oumou b? Not on file 09/10/2023 Disabilities Answer Date Recorded Difficulty Concentrating, Remembering or Making Decisions no 08/07/2024 Difficulty Managing Errands Independently no 08/07/2024 Education Answer Date Recorded Help with school or training? Not on file Preferred Language Brazilian 07/24/2024 Sex and Gender Information Value Date Recorded Sex Assigned at Not on file Legal Sex Male 2:51 PM EDT Gender Identity Not on file Sexual Orientation Not on file Last Filed Vital Signs Vital Sign Reading Time Taken Comments Blood Pressure 146/76 08/08/2024 10:40 AM EDT Pulse 70 08/08/2024 10:40 AM EDT Temperature 36.8 C (98.3 F) 08/08/2024 10:40 AM EDT Respiratory Rate 16 08/08/2024 10:40 AM EDT Oxygen Saturation 95% 08/08/2024 10:40 AM EDT Inhaled Oxygen Concentration - - Weight 113 kg (250 lb) 08/07/2024 6:39 AM EDT Height 185.4 cm (6' 1 ) 08/07/2024 6:39 AM EDT Body Mass Index 32.98 08/07/2024 6:39 AM EDT Plan of Treatment Health Maintenance Due Date Last Done Comments TDAP/TD VACCINES (1 - Tdap) 1987 COLOGUARD 2013 COLON CANCER SCREENING 5 YEA R SIGMOIDOSCOPY 2013 COLONOSCOPY [address] CANCER SCREENING [address] COLONOGRAPHY 2013 FECAL OCCULT BLOOD TEST 2013 FIT Testing (1 year) 2013 ZOSTER VACCINE (1 of 2) 2018 ANNUAL PHYSICAL 07/20/2024 HEPATITIS C SCREENING 07/20/2024 COVID-19 Vaccine ( season) 07/30/202402/2021, 01/06/2021 INFLUENZA VACCINE 08/29/2025 10/01/2023, 12/10/2020 LIPID PANEL 04/01/2026 04/01/2025 Pneumococcal Vaccine 50+ Completed 10/01/2023, 11/29 Goals Goal Patient Goal Type Associated Problems Recent Progress Patient-Stated? Author Autogenera marino Goal Care Plan Autogenerated Problem No Kevin, Merari, Hal Rep Medical Devices Implanted Type Area Psychiatric Technician Device Identifier Shelf Expiration Date Model / Serial / Lot Sut Lp Bone Niceloop Nonabs W/Ndl Sz5 24in Grn - [id number] Implanted:Qty: 2 on 08/07/2024 by Ron Cano MD at [facility] Implant Right: Scapula TORNIER [id number] 01/28/2028 [id number] / / [id number] Kwire Equinoxe Glenoid Nitnl 3h358il Ns - [id number] - [id number] Implanted:Qty: 1 on 08/07/2024 by Ron Cano MD at [facility] Implant Right: Scapula EXACTECH [id number] 08/12/2029 [id number] / [id number] / N/A Scrw Equinoxe Torq Define Kt Sq - [id number] - [id number] Implanted:Qty: 1 on 08/07/2024 by Ron Cano MD at [facility] Implant Right: Scapula EXACTECH [id number] 11/28/2028 [id number] / [id number] / N/A Plt Hum Equinoxe Replicat Offst 4.5 - [id number] - [id number] Implanted:Qty: 1 on 08/07/2024 by Ron Cano MD at [facility] Implant Right: Scapula EXACTECH [id number] 02/25/2028 [id number] / [id number] / N/A Hd Hum Equinoxe Sht 50mm - [id number] - [id number] Implanted:Qty: 1 on 08/07/2024 by Ron Cano MD at [facility] Implant Right: Scapula EXACTECH [id number] 08/18/2033 [id number] / [id number] / N/A Totl Shldr Arthroplasty Sys - [id number] Implanted:Qty: 1 on 08/07/2024 by Ron Cano MD at [facility] Implant Right: Scapula EXACTECH CAPSHOULT [id number] / / Stem Hum Tricia Equinoxe Pressfit 6mm Sht - [id number] - [id number] Implanted:Qty: 1 on 08/07/2024 by Ron Cano MD at [facility] Implant Right: Scapula EXACTECH [id number] 04/12/2034 [id number] / [id number] / Sut Fw #2 W/Tpr Ndl / Cir 38in 97cm 26.5mm Nicolas - [id number] Implanted:Qty: 2 on 08/07/2024 by Ron Cano MD at [facility] Implant Right: Shoulder ARTHREX [id number] 03/28/2028 [id number] / / [id number] Hemost Abs Surgifoam Sz100 8x12 10mm - [id number] Implanted:Qty: 1 on 08/07/2024 by Ron Cano MD at [facility] Implant Right: Scapula ETHICON DIV OF J AND J [id number] 03/30/2028 [id number] / / [id number] Cmt Bone Endurance Smartset 40gm - [id number] Implanted:Qty: 1 on 08/07/2024 by Ron Cano MD at [facility] Implant Right: Scapula DEPUY [id number] 09/28/2024 [id number] / / [id number] Aug Cage Equinox Poly Lt - [id number] - [id number] Implanted:Qty: 1 on 08/07/2024 by Ron Cano MD at [facility] Implant Right: Scapula EXACTECH [id number] 10/02/2028 [id number] / [id number] / Sut Lp Bone Niceloop Nonabs Br W/Ndl Sz5 24in Wht/Grn - [id number] Implanted:Qty: 1 on 08/07/2024 by Ron Cano MD at [facility] Implant Right: Scapula TORNIER [id number] 07/29/2027 [id number] / / [id number] Sut Lp Bone Niceloop Nonabs W/Ndl Sz5 24in Wht - [id number] Implanted:Qty: 1 on 08/07/2024 by Ron Cano MD at [facility] Implant Right: Scapula TORNIER [id number] 05/21/2026 [id number] / / [id number] Pacemaker-2021 Implanted:040 02/2022 (Quantity not on file) Pacemaker [employer] [id number] / [id number] / Pain Pump-04/07/2024 Implanted:03/29 (Quantity not on file) Pain Pump [employer] 8667-20 / [id number] / Additional Health Concerns Active Problems Noted Date Diagnosed Date Autogenerated Problem 06/04/2025 Insurance UMR Care Teams Travel Services Professional Relationship Specialty Start Date End Date Jr Ross Bar APRN [address] [place] [address] PCP - General Nurse Practitioner 07/24/24
--- NOTE | 2025-06-21 13:55 | EXP.PAIN.PRO ---
Procedure Date: 06/21/25 Time: 13:42 Anesthesiologist:: Brigid Nino APRN Complications:: None Pre-procedure Diagnosis:: Degenerative disc disease of lumbar spine with lumbar radiculopathy symptoms, chronic shoulder pain Post-procedure Diagnosis:: Same Indications for Procedure:: Patient is a pleasant 55-year-old male who presents today for increased low back pain. He does rate his pain a 6 out of 10. Patient denies any side effects to his pump medication of Dilaudid 5 mg/mL with a daily dose of 1.7051 mg/day. He is requesting an increase. Patient is prescribed Percocet from his PCP for his chronic shoulder pain. His Jose De Jesus has been reviewed and is appropriate. Physical Exam: General: Alert and oriented x3, no acute distress, pleasant and cooperative Lungs: Respirations even and unlabored, symmetrical chest expansion Eyes: PERRL Musculoskeletal: Flexion and extension of lumbar [spine] somewhat guarded secondary to pain, [antalgic gait noted] Neurological: Speech clear, no gross sensory deficit Procedure Details:: Informed consent was obtained and the risk and benefits of the procedure were explained to the patient. Patient did have noninvasive monitoring was placed including noninvasive blood pressure cuff and pulse oximeter. Patient's pump was interrogated and was reprogrammed to Dilaudid 2.0461 mg/day. The patient tolerated the procedure well with no complications. Plan and Disposition:: Patient tolerated the procedure well with no complications and was discharged neurologically intact. Patient will return to clinic on or before their next intrathecal refill date. We will see the patient back in the clinic at the next intrathecal refill. Patient has been instructed to contact the clinic with any concerns before the next appointment. Dr. Olivier has reviewed this note and agrees with this plan of care. This note was dictated using voice recognition software and make contain errors or omissions. -- It Is medically necessary for this patient to continue to have their intrathecal pump refilled at regular intervals. This patient had an intrathecal pain pump implanted after meeting criteria of chronic intractable pain for greater than 3 months and failing conservative treatments. Patient has committed and been compliant to the treatment plan and all planned follow up care. Since implantation of the intrathecal pain pump, the patient has had decreased pain and been more functional. Oral medications have been reduced including intake of oral opioids. Patient continues to do well with intrathecal therapy with decrease in pain symptoms and increase in functional status. Stopping intrathecal medications can lead to life threatening withdrawal, seizures, cardiac arrest, severe pain, and possible . Pumps that are not refilled at regular intervals can be damages and cause and need for replacement. We continually titrate dose and concentration to optimize pain relief and function. We are limited in concentration for certain drugs to safely deliver medications through the pump and stay within the recommendations from the Polyanalgesic Consensus Committee Guidelines. Depending on dose and concentration these pumps may need to be refilled sooner than 3 months as we titrate. A UDS is needed to verify patient's compliance with our office pain contract. This is ordered based off specific treatments related to chronic pain with the potential to abuse certain medications.
[2025-06-21 14:32] VITALS: BP 129/73; PULSE 61; RESP 18; O2SAT 96; BMI 34.5
== END 2025-06-21 23:59 | disposition home or self-care (01) ==
PROVIDERS: PCP Nurse Practitioner Family; Visit Provider Nurse Practitioner Family
DX: M51.16 Intervertebral disc disorders with radiculopathy, lumbar region (principal); M25.519 Pain in unspecified shoulder
CPT/HCPCS: 62368; 99213; G0463

== ENCOUNTER 2025-06-29 09:13 | Day surgery (SDC) | payer OTHER, SELFPAY ==
[2025-06-29 09:20] VITALS: BP 102/49; PULSE 63; RESP 18; O2SAT 96; BMI 34.8
--- NOTE | 2025-06-29 09:20 | EXP.PM.HP ---
History of Present Illness *Admission Date: 06/29/25 *Reason for visit:: Intrathecal refill; DDD *History of present illness: Same [facility] Disclaimer: The information contained in this section may have been updated after the patient was seen, as this information can be updated by other users. Medical History Abnormal echocardiogram Mastoiditis of right side Dizziness Right ear pain History of fracture of leg Pacemaker Pulmonary arterial hypertension Abnormal electrocardiogram [ECG] [EKG] Non-STEMI (non-ST elevated myocardial infarction) Hyperlipidemia Coronary artery disease Bright's disease Femur fracture, left ian in place History of left heart catheterization (LHC) Cardiac pacemaker in situ JUANITA (acute kidney injury) Chronic serous otitis media of right ear Impacted cerumen of right ear Cleaned under the microscope Hearing loss in right ear Tympanosclerosis, right ear Syncope Symptomatic bradycardia 1st degree AV block Bradycardia Chest pain Abnormal electrocardiography HTN (hypertension) Established with [facility] cardiology Surgical History History of facial surgery History of back surgery Family History Father Family history of myocardial infarction Mother Family history of myocardial infarction Other Family history of diabetes mellitus Social History Smoking Status: Never smoker alcohol intake: never substance use type: denies use current occupational status: other Travel in the last 8 weeks?: None household members: spouse housing: house Have you lived/traveled outside US in past 30 days?: No Contact w/someone who lives/traveled outside US past 30 days?: No Exposure to someone with infectious disease in past 14 days?: No Do you have a fever (greater than 100.4 F or 38 C)?: No Have you tested positive for COVID-19?: No Exposed to someone with COVID-19 in past 14 days?: No Do you have a sore throat?: No Do you have a cough?: No Do you have any weakness?: No Are you experiencing any nausea/vomitting?: No Do you have any diarrhea?: No Are you experiencing any unusual bleeding?: No Do you have any muscle aches/pain?: No Do you have any abdominal pain?: No Are you experiencing loss of taste or smell?: No Other Medical History Have you received the Flu Vaccine for this season: Yes Have you received the Pneumonia Vaccine: Yes Review of Systems Review of Systems Review of systems:: pertinent systems reviewed and negative unless documented below Review of systems (narrative): Review of Systems: General: No recent weight changes, no fever, no sleep disturbances Respiratory: No cough, no shortness of air, no recurring pulmonary infections Cardiovascular/peripheral vascular: No chest pain, no palpitations, no edema, no shortness of breath Gastrointestinal: No new onset incontinence, normal bowel movements reported Genitourinary: No new onset incontinence Musculoskeletal: Chronic back pain, shoulder pain Psychiatric: [Normal mood/affect] Neurological: [Denies weakness in extremities], [denies balance issues] Meds Home Medications and Allergies Home Medications ?Medication ?Instructions ?Recorded ?Confirmed ?Type hydromorphone (PF) 1 mg/mL 1 mg continuous epidural CONT Pain 05/01/24 06/29/25 History injection solution evolocumab 140 mg/mL subcutaneous 140 mg SQ Q2W #3 mL 10/31/24 06/29/25 Rx pen injector (Alize Rg) finasteride 5 mg tablet 5 mg PO DAILY 12/19/24 06/29/25 History irbesartan 300 mg tablet See Rx Instructions .Route 03/26/25 06/29/25 Rx .COMPLEX #30 tabs spironolactone 50 mg tablet See Rx Instructions .Route 03/26/25 06/29/25 Rx .COMPLEX #60 tabs allopurinol 100 mg tablet 100 mg PO DAILY #90 tabs 03/27/25 06/29/25 Rx (Zyloprim) carvedilol 12.5 mg tablet 12.5 mg PO BID #60 tabs 04/10/25 06/29/25 Rx meclizine 25 mg tablet 25 mg PO TID PRN Dizziness 04/10/25 06/29/25 History ticagrelor 90 mg tablet (Brilinta) See Rx Instructions .Route 05/14/25 06/29/25 Rx .COMPLEX #60 tabs furosemide 20 mg tablet (Lasix) 20 mg PO DAILY #90 tabs 05/16/25 06/29/25 Rx isosorbide mononitrate 30 mg 30 mg PO DAILY BLOOD PRESSURE 05/16/25 06/29/25 History tablet,extended release 24 hr isosorbide mononitrate 60 mg 90 mg PO BID 05/16/25 06/29/25 History tablet,extended release 24 hr nifedipine 60 mg tablet,extended 60 mg PO BID #60 tabs 06/14/25 06/29/25 Rx release oxycodone-acetaminophen 10 mg-325 1 tab PO QID PRN pain #120 tabs 06/22/25 06/29/25 Rx mg tablet (Percocet) New Prescriptions to Start Prescriptions: Allergies Allergy/AdvReac Type Severity Reaction Status Date / Time Thiazides Allergy Intermediate Unknown Verified 06/20/25 09:29 allergy reaction Androgenic Anabolic Steroid Allergy Mild Unknown Verified 06/20/25 09:29 allergy reaction aspirin (ASPIRIN) Allergy Unknown FACIAL Verified 06/20/25 09:29 SWELLING Penicillins (PENICILLINS) Allergy Unknown FACIAL Verified 06/20/25 09:29 SWELLING Sulfa (Sulfonamide Allergy Unknown Unknown Verified 06/20/25 09:29 Antibiotics) (SULFA allergy (SULFONAMIDE ANTIBIOTICS)) reaction morphine AdvReac Mild Vomiting Verified 06/20/25 09:29 NSAIDS (Non-Steroidal AdvReac Other Verified 06/20/25 09:29 Anti-Inflamma Exam Constitutional Constitutional: no acute distress *Routine HEENT Exam Head: Present normocephalic and atraumatic Eye: Present PERRL ENT: Present mucous membranes moist *Routine Neck Exam Neck: Present supple *Routine Respiratory Exam Respiratory: Present CTA bilaterally *Routine Cardiovascular Exam Cardiovascular: Present RRR *Routine Abdominal Exam Abdominal: Present soft *Routine Rectal Exam Rectal:: deferred *Routine Genitalia Exam Genitalia:: deferred Routine Back/Spine/Pelvis Exam Back/Spine: Present pain with flexion *Routine Skin Exam Skin: Present intact and warm *Routine Neurological Exam Neurological: Present alert and oriented X3 Routine Psychiatric Exam Psychiatric: Present normal affect and normal thought process Assessment and Plan *Assessment and plan (1) Lumbar radiculopathy: Status: Acute Category: Medical Code(s): M54.16 - Radiculopathy, lumbar region (2) Low back pain: Status: Acute Qualifiers: Chronicity: chronic Back pain laterality: bilateral Sciatica presence: without sciatica Qualified Code(s): M54.50 - Low back pain, unspecified; G89.29 - Other chronic pain Category: Medical Code(s): M54.50 - Low back pain, unspecified (3) Bilateral shoulder pain: Status: Acute Qualifiers: Chronicity: chronic Qualified Code(s): M25.511 - Pain in right shoulder; M25.512 - Pain in left shoulder; G89.29 - Other chronic pain Category: Medical Code(s): M25.511 - Pain in right shoulder; M25.512 - Pain in left shoulder Plan Patient has been instructed to contact the clinic with any concerns before the next appointment. Dr. Olivier has reviewed this note and agrees with this plan of care. This note was dictated using voice recognition software and make contain errors or omissions. All injections are used with Lidocaine, Bupivacaine and dexamethasone. Occasionally urine drug screen is needed to verify patient's compliance with our office pain contract. This is ordered based off specific treatments related to chronic pain with the potential to abuse certain medications.
--- NOTE | 2025-06-29 09:22 | EXP.PAIN.PRO ---
Procedure Date: 06/29/25 Time: 10:01 Anesthesiologist:: Brigid Nino APRN Complications:: None Pre-procedure Diagnosis:: Degenerative disc disease of lumbar spine with lumbar radiculopathy symptoms, chronic shoulder pain Post-procedure Diagnosis:: Same Indications for Procedure:: Patient is a pleasant 55-year-old male who presents today for intrathecal refill and reprogram. Today he rates his pain a 6 out of 10. Patient does state that he is still having issues with his blood pressure and that they are trying to do additional testing and adjustments to medication. Patient does state that they have also discussed the possibility that they may end up having to do heart surgery. Patient states he does have a follow-up coming up. Patient denies any other changes. Patient does state that he has been having trouble with his bolus device that it is taking forever to deliver the dose as well as just booting up. He is currently managed with Dilaudid 5 mg/mL with a daily dose of 2.0461 mg/day. He denies any side effects. He is requesting an increase. His Jose De Jesus has been reviewed and is appropriate. Physical Exam: General: Alert and oriented x3, no acute distress, pleasant and cooperative Lungs: Respirations even and unlabored, symmetrical chest expansion Eyes: PERRL Musculoskeletal: Flexion and extension of lumbar [spine] somewhat guarded secondary to pain, [antalgic gait noted] Neurological: Speech clear, no gross sensory deficit Procedure Details:: Informed consent was obtained and the risk and benefits of the procedure were explained to the patient. The patient had noninvasive monitoring placed including noninvasive blood pressure cuff and pulse oximeter. Patient's pump was interrogated. The area over the pump was cleansed with chlorhexidine as a cleansing solution. In sterile fashion the pump was accessed with a 22-gauge needle. Approximately 4.6 mls of the pump solution was removed and discarded appropriately. The pump was then refilled with 20 mL's of Dilaudid 5 mg/mL. The needle was withdrawn and a bandage was placed over the puncture site. The infusion rate was reprogrammed and increased 10% to 2.2522 mg/day. The patient tolerated well with no complication. Plan and Disposition:: Patient tolerated the procedure well with no complications and was discharged neurologically intact. Patient will return to clinic on or before their next intrathecal refill date. We will see the patient back in the clinic at the next intrathecal refill. Patient has been instructed to contact the clinic with any concerns before the next appointment. Dr. Olivier has reviewed this note and agrees with this plan of care. This note was dictated using voice recognition software and make contain errors or omissions. -- It Is medically necessary for this patient to continue to have their intrathecal pump refilled at regular intervals. This patient had an intrathecal pain pump implanted after meeting criteria of chronic intractable pain for greater than 3 months and failing conservative treatments. Patient has committed and been compliant to the treatment plan and all planned follow up care. Since implantation of the intrathecal pain pump, the patient has had decreased pain and been more functional. Oral medications have been reduced including intake of oral opioids. Patient continues to do well with intrathecal therapy with decrease in pain symptoms and increase in functional status. Stopping intrathecal medications can lead to life threatening withdrawal, seizures, cardiac arrest, severe pain, and possible . Pumps that are not refilled at regular intervals can be damages and cause and need for replacement. We continually titrate dose and concentration to optimize pain relief and function. We are limited in concentration for certain drugs to safely deliver medications through the pump and stay within the recommendations from the Polyanalgesic Consensus Committee Guidelines. Depending on dose and concentration these pumps may need to be refilled sooner than 3 months as we titrate. A UDS is needed to verify patient's compliance with our office pain contract. This is ordered based off specific treatments related to chronic pain with the potential to abuse certain medications.
[2025-06-29 09:57] VITALS: BP 90/60; PULSE 60; RESP 18; O2SAT 97
[2025-06-29 10:09] VITALS: BP 98/59; PULSE 60; RESP 18; O2SAT 98
== END 2025-06-29 10:09 | disposition home or self-care (01) ==
PROVIDERS: PCP Nurse Practitioner Family; Visit Provider Nurse Practitioner Family
DX: Z45.1 Encounter for adjustment and management of infusion pump (principal); M51.16 Intervertebral disc disorders with radiculopathy, lumbar region; G89.29 Other chronic pain; M54.50 Low back pain, unspecified; M25.511 Pain in right shoulder; M25.512 Pain in left shoulder; I10 Essential (primary) hypertension; I25.2 Old myocardial infarction; E78.5 Hyperlipidemia, unspecified; I25.10 Atherosclerotic heart disease of native coronary artery without angina pectoris; Z95.0 Presence of cardiac pacemaker; I44.0 Atrioventricular block, first degree; R00.1 Bradycardia, unspecified; Z79.899 Other long term (current) drug therapy; Z88.6 Allergy status to analgesic agent; Z88.5 Allergy status to narcotic agent; Z88.2 Allergy status to sulfonamides; Z88.8 Allergy status to other drugs, medicaments and biological substances
CPT/HCPCS: 62370

== ENCOUNTER 2025-07-05 11:54 | Outpatient (CLI) | payer OTHER, SELFPAY ==
--- OUTSIDE RECORDS SUMMARY | 2025-05-25 11:20 | XMS_ITS | Encounter Summary ---
Author Organization [facility] Address [address] [place] [address] Care Team Providers Care Toll Operator Name Role Phone Ross Bar APRN Primary Care Provider [phone] Reason for Referral * Consultation (Routine) - Authorized Specialty Diagnoses / Procedures Referred By Brinda t Referred To Contact Diagnoses Stage 3a chronic kidney disease (CMS/HCC) Graciela Maki APRN [address] [address] Phone: tel: fax: Referral ID Status Reason Start Date Expiration Date V isits Requested Visits Authorized [id number] Authorized 05/25/2025 11/24/2026 1 1 Reason for Visit * Reason Comments Follow-up Encounter Details Date Type Department Care Team (Late st Contact Info) Description 05/25/2025 11:20 AM EDT Office Visit [facility] [address] [place] [phone] Graciela Maki APRN [address] [address] Stage 3a chronic kidney disease [...] Labs scanned in to media tab of [employer] from an outside facility. Labs completed on [...] AM EDT Appointment Cardiac Imaging [address] [place] [id number] 07/10/2025 1:00 PM EDT Appointment [facility] [address] [place] [address] 12/07/2025 12:20 PM EST Office Visit [facility] [address] [place] [address] Graciela Maki APRN [address] [facility] [address] [place] [address] Scheduled Orders Name Type Priority Associated Diagnoses Orde r Schedule CBC W/O Differential Lab Routine Stage 3a chronic kidney disease ([facility]) Expected: 05/25/2025 (Approximate), Expires: 11/24/2026 Protein, Random, Urine with Creatinine Lab Routine Stage 3a chronic kidney disease ([facility]/HCC) Expected: 05/25/2025 (Approximate), Expires: 11/24/2026 PTH Intact Total Lab Routine Stage 3a chronic kidney disease ([facility]/HCC) Expected: 05/25/2025 (Approximate), Expires: 11/24/2026 Renal Function Panel, Plasma Lab Routine Stage 3a chronic kidney disease ([facility]) Expected: 05/25/2025 (Approximate), Expires: 11/24/2026 Urinalysis with reflex microscopic (Culture NOT Included) Lab Routine Stage 3a chronic kidney disease ([facility]) Expected: 05/25/2025 (Approximate), Expires: 11/24/2026 Vitamin D 25 Hydroxy Lab Routine Stage 3a chronic kidney disease (CMS/HCC) Expected: 05/25/2025 (Approximate), Expires: 11/24/2026 Scheduled Referrals Name Type Priority Associated Diagnoses Order Schedule Follow Up Nephrology Outpatient Referral Routine Stage 3a chronic kidney disease (CMS/HCC) Expected: 11/24/2025 (Approximate), Expires: 06/24/2026 documented as of this encounter Visit Diagnoses Diagnosis Stage 3a chronic kidney disease (CMS/[facility])- Primary Essential hypertension Unspecified essential hypertension Coronary arteriosclerosis Coronary atherosclerosis of unspecified type of vessel, [place] or graft 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, unspecified site Disorders of fluid, electrolyte, and acid-base balance Anemia, unspecified type Vitamin D deficiency Pulmonary HTN (CMS/[facility]) documented in this encounter Additional Health Concerns Assessment Noted Time A fall risk assessment has been complete d for the patient 03/14/2024 11:15 AM EDT A Body Mass Index follow-up plan has been documented for the patient 05/25/2025 1:02 PM EDT documented as of this encounter Care Teams Toll Operator Relationship Specialty Start Date End Date Ross Bar APRN [address] [place] [address] PCP - General 03/09/24 documented as of this encounter
--- NOTE | 2025-07-05 | CA_ITS ---
APPROVED REPORT Exam: Pharmacologic Technologist: Maria G Arguello Ht: 6 ft 1 in Wt: 265 lbs BSA: 2.42 m2 Medical History Medications: allopurinol, carvedilol, farxiga, evolocumab, finasteride, furosemide, hydromorphone, irbesartan, isosorbide mononitrate ER, meclizine, nifedipine ER, percocet, spironolactone, ticagrelor. Stress Test Details Test: Exercise stress converted to pharmacologic stress due to failure to obtain a diagnostic stress test. Reason for pharmacologic stress test: changed from exercise stress test due to inability to reach target heart rate. HR Resting HR: 70 bpm Max Heart Rate (APMHR): 163.703303 bpm Max HR Achieved: 76 bpm Target HR (85% APMHR): 138.118079 bpm % of APMHR: 46.63 Recovery HR: 68 bpm BP Resting BP: 154.0/60.0 mmHg Max BP: 154.0/60.0 mmHg Recovery BP: 139.0/72.0 mmHg ECG Resting ECG: SR no ectopy. Stress ECG Conclusion Pt reports low BP @ home, [facility] decreased Irbesartan to 150 mg daily. Vasodilation 1 Min: dyspnea. Symptoms: Dyspnea. Arrhythmias/Ectopy: None. ST-T Changes: Less than 1mm. Electronically signed by : Kathrine Rea MD 07/06/2025 09:52:52
--- OUTSIDE RECORDS SUMMARY | 2025-07-05 11:56 | XMS_ITS | Encounter Summary ---
Author Organization Healthcare Address [address] [place] [address] Care Team Providers Care Materials Planner/Production Planner Name Role Phone Dipika Ross Funk APRN Primary Care Provider [phone] Encounter Details Date Type Department Care Team (Late Contact Info) Description 07/03/2025 Telephone [facility] [address] [place] [id number] Larisa Montalvo, RN [facility] Social History Tobacco Use Types Packs/Day Years [...] Encounters Date Type Department Care Team (Late Contact Info) Description 07/10/2025 10:30 AM EDT Appointment Cardiac Imaging [address] [place] [address] 07/10/2025 1:00 PM EDT Appointment [facility] [address] [place] [address] 12/07/2025 12:20 PM EST Office Visit [facility] [address] [place] [address] Graciela Maki, CITY BUS DRIVER [address] [address] documented as of this encounter Visit Diagnoses Not on filedocumented in this encounter Additional Health Concerns Assessment Noted Time A fall risk assessment has been complete d for the patient 03/14/2024 11:15 AM EDT A Body Mass Index follow-up plan has been documented for the patient 05/25/2025 1:02 PM EDT documented as of this encounter Care Teams Materials Planner/Production Planner Relationship Specialty Start Date End Date Ross Bar APRN [address] [place] [address] PCP - General 03/09/24 documented as of this encounter
--- OUTSIDE RECORDS SUMMARY | 2025-07-05 11:56 | XMS_ITS | Clinical Summary ---
Author Organization [facility] Address [address] [place] [address] Care Team Providers Care Veterinary Anatomist Name Role Phone Jr Ross Bar APRN [...] or training? Not on file Preferred Language Kosovan 07/24/2024 Sex and Gender Information Value Date [...] Hal Rep Medical Devices Implanted Type Area Parts Order And Stock Clerk Device Identifier Shelf Expiration Date Model / Serial / Lot Sut Lp Bone Niceloop Nonabs W/Ndl Sz5 24in Grn - [id number] Implanted:Qty: 2 on 08/07/2024 by Ron Cano MD at [facility] Implant Right: Scapula TORNIER [id number] 01/28/2028 [id number] / / [id number] Kwire Equinoxe Glenoid Nitnl [id number] Ns - [id number] - [id number] Implanted:Qty: 1 on 08/07/2024 by Ron Cano MD at [facility] Implant Right: Scapula EXACTECH [id number] 08/12/2029 [id number] / [id number] / N/A Scrw Equinoxe Torq Define Kt Sq - [id number] - [id number] Implanted:Qty: 1 on 08/07/2024 by Ron Cano MD at [facility] Implant Right: Scapula EXACTECH [id number] 11/28/2028 [id number] / [id number] / N/A Plt Hum Equinoxe Replicat Offst 4.5 - [id number] - [id number] Implanted:Qty: 1 on 08/07/2024 by Ron Cano MD at [facility] Implant Right: Scapula EXACTECH [id number] 02/25/2028 [id number] / [id number] / N/A Hd Hum Equinoxe Sht 50mm - [id number] - [id number] Implanted:Qty: 1 on 08/07/2024 by Ron Cano MD at [facility] Implant Right: Scapula EXACTECH [id number] 08/18/2033 [id number] / [id number] / N/A Totl Shldr Arthroplasty Sys - [id number] Implanted:Qty: 1 on 08/07/2024 by Ron Cano MD at [facility] Implant Right: Scapula EXACTECH CAPSHOULT [id number] / / Stem Hum Tricia Equinoxe Pressfit 6mm Sht - [id number] - [id number] Implanted:Qty: 1 on 08/07/2024 by Ron Cano MD at [facility] Implant Right: Scapula EXACTECH [id number] 04/12/2034 [id number] / [id number] / Sut Fw #2 W/Tpr Ndl / Cir 38in 97cm 26.5mm Nicolas - [id number] Implanted:Qty: 2 on 08/07/2024 by Ron Cano MD at [facility] Implant Right: Shoulder ARTHREX [id number] 03/28/2028 [id number] / / [id number] Hemost Abs Surgifoam Sz100 8x12 10mm - [id number] Implanted:Qty: 1 on 08/07/2024 by Ron Cano MD at [facility] Implant Right: Scapula ETHICON DIV OF J AND J [id number] 03/30/2028 [id number] / / [id number] Cmt Bone Endurance Smartset 40gm - [id number] Implanted:Qty: 1 on 08/07/2024 by Ron Cano MD at [facility] Implant Right: Scapula DEPUY [id number] 09/28/2024 [id number] / / [id number] Aug Cage Equinox Poly Lt - [id number] - [id number] Implanted:Qty: 1 on 08/07/2024 by Ron Cano MD at [facility] Implant Right: Scapula EXACTECH [id number] 10/02/2028 [id number] / [id number] / Sut Lp Bone Niceloop Nonabs Br W/Ndl Sz5 24in Wht/Grn - [id number] Implanted:Qty: 1 on 08/07/2024 by Ron Cano MD at [facility] Implant Right: Scapula TORNIER [id number] 07/29/2027 [id number] / / [id number] Sut Lp Bone Niceloop Nonabs W/Ndl Sz5 24in Wht - [id number] Implanted:Qty: 1 on 08/07/2024 by Ron Cano MD at [facility] Implant Right: Scapula TORNIER [id number] 05/21/2026 [id number] / / [id number] Pacemaker-2021 Implanted:040 02/2022 (Quantity not on file) Pacemaker [employer] [id number] / [id number] / Pain Pump-04/07/2024 Implanted:03/29 (Quantity not on file) Pain Pump MEDTRONIC 8667-20 / [id number] / Additional Health Concerns Active Problems Noted Date Diagnosed Date Autogenerated Problem 06/04/2025 Insurance [employer] Care Teams Veterinary Anatomist Relationship Specialty Start Date End Date Jr Ross Bar APRN [address] [place] [address] PCP - General Nurse Practitioner 07/24/24
--- OUTSIDE RECORDS SUMMARY | 2025-07-05 11:56 | XMS_ITS | Clinical Summary ---
Author Organization [facility] Address [address] [place] [address] Care Team Providers Care Weigher And Mixer Name Role Phone Dipika Ross Funk APRN Primary Care Provider Allergies Active Allergy [...] oxyCODONE-acetami nophen (Percocet) 10-325 MG tablet Act za spironolactone (Aldactone) 50 MG tablet Take 1 [...] crush or chew. 90 tablet 2 5 Active furosemide (Lasix) 20 MG tablet Take 1 tablet by mouth daily. 5 Active Active Problems Problem Noted Date Diagnosed Date Chest pain 04/01/2025 Encounters Date Type Department Care Team Description 07/03/2025 Telephone [facility] [place] 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, unspecified site; Disorders of fluid, electrolyte, and acid-base balance; Anemia, unspecified type; Vitamin D deficiency; Pulmonary HTN (CMS/HCC) 05/25/2025 Travel from Last 3 Months Immunizations Immunization Administration Dates Next Due Influenza, injectable, quadrivalent, preservativ e free 10/01/2023,12/10/2020 Influenza, seasonal, injectable, preservative fr ee 10/24/2024 Moderna COVID-19 Vaccine (Hydro Operator) 12+ years 02/2021,01/06/2021 Pneumococcal 20-ramon Conj Vaccine [...] AM EDT Appointment Cardiac Imaging [address] [place] [address] 07/10/2025 1:00 PM EDT Appointment [facility] [address] [place] [address] 12/07/2025 12:20 PM EST Office Visit [facility] [address] [place] [address] Graciela Maki, PROJECT CONTROLLER [address] [address] Health Maintenance Due Date Last Done [...] 2013 [facility]-Zoster Vaccines (1 of 2) 2018 HCM-MXKNL-58 Vaccine ( season) 2024 10/02/2021, 01/06/2021 [facility]-Diabetes: Hemoglobin A1C [...] this topic Medical Devices Implanted Type Area Kiln Firer Device Identifier Shelf Expiration Date Model / Serial / Lot Ingevity +Pacing Lead Rv [employer]-03/02 Implanted:0 02/2022 (Quantity not on file) Lead Chest Wall [employer] [id number] / / Ingevity +Pacing Lead Ra [employer]-03/02 Implanted:0 02/2022 (Quantity not on file) Lead Chest [employer] [id number] / / Accolade Mri [employer] Pacemaker-2021 Implanted:0 02/2022 (Quantity not on file) Pacemaker Chest [employer] L311 / / Description:Complete system implanted on 03/02/2022 Generator model: L311 RV LEAD MODEL: [id number] RA LEAD MODEL: [id number] Procedures Procedure Name Priority Date/Time Associated Diagnosis Comments HEMOGLOBIN A1C Add-On 04/01/2025 4:42 PM EDT from Last 3 Months or Most Recently Relevant to Health Maintenance Results * (ABNORMAL) Hemoglobin A1c (04/01/2025 4:42 PM EDT) Hemoglobin A1c 7.6(H) <5.7 % 04/01/2025 8:40 PM EDT [facility] Blood Venous blood specimen / Unknown Venipuncture / Unknown 04/01/2025 4:42 PM EDT 04/01/2025 4:44 PM EDT Narrative [facility] - 04/01/2025 8:40 PM EDT HA1C Interpretive Data: Diagnosis of Diabetes: Diabetic > or = 6.5% Pre-diabetic 5.7 to 6.4% Non-diabetic < or = 5.6% Glycemic Targets for Type I and Type II Diabetics: Non- Adults <7.0% Adults <6.0% Children and Adolescents <7.5% Source: [employer] Diabetes Association. Standards of medical care in diabetes,2017. Diabetes Care.2017:40 (suppl 1):S1-S135. us Fidencio Meza MD LAB BLOOD ORDERABLES Final Re sult [facility] [address] [place] [address] from Last 3 Months or Most Recently Relevant to Health Maintenance Insurance [facility] [place] [phone] Advance Directives * Full Code (Latest Code Status on File) Date Activated Date Inactivated Comments 04/01/2025 2:27 PM 04/02/2025 7:34 PM Question Answer Comments I have reviewed the capacity from the link above and, if needed, have updated to appropriate status: Yes Care Teams Weigher And Mixer Relationship Specialty Start Date End Date Ross Bar APRN [address] [place] [id number] PCP - General 03/09/24
--- OUTSIDE RECORDS SUMMARY | 2025-07-05 11:56 | XMS_ITS | Clinical Summary ---
Author Organization [facility] Address [address] [place] [address] Phone Care Team Providers Care Sound Equipment Mechanic Name Role Phone Unavailable Unavailable Conditions or Problems No information available. Medications No information available. Medications Administered No information available. Allergies, Adverse Reactions, Alerts No information available. Results No information available. Plan of Care No information available. Procedures No information available. Vital Signs No information available. Immunizations No information available. Advance Directives No information available.
--- OUTSIDE RECORDS SUMMARY | 2025-07-05 11:56 | XMS_ITS | Encounter Summary ---
Author Organization [facility] Address [address] [place] [address] Care Team Providers Care Metal Hardener Name Role Phone Ross Bar APRN Primary Care Provider [phone] Encounter Details Date Type Department Care Team [...] AM EDT Appointment Cardiac Imaging [address] [place] [address] 07/10/2025 1:00 PM EDT Appointment [facility] Radiology [address] [place] [address] 12/07/2025 12:20 PM EST Office Visit [facility] [address] [place] [address] Graciela Maki APRN [address] [address] documented as of this encounter Visit Diagnoses Not on filedocumented in this encounter Additional Health Concerns Assessment Noted Time A fall risk assessment has been complete d for the patient 03/14/2024 11:15 AM EDT A Body Mass Index follow-up plan has been documented for the patient 05/25/2025 1:02 PM EDT documented as of this encounter Care Teams Metal Hardener Relationship Specialty Start Date End Date Ross Bar APRN [address] [facility] [place] [address] PCP - General 03/09/24 documented as of this encounter
--- OUTSIDE RECORDS SUMMARY | 2025-07-05 11:56 | XMS_ITS | Encounter Summary ---
Author Organization [facility] Address [address] [id number] Care Team Providers Care Grading Machine Operator Name Role Phone Ross Bar APRN Primary Care Provider [phone] Encounter Details Date Type Department Care Team (Late st Contact Info) Description 07/03/2025 Telephone [facility] [place] [address] [place] [address] [place] [address] Social History Tobacco Use Types Packs/Day Years [...] on file documented as of this encounter Miscellaneous Notes * Telephone Encounter - Graciela Gonzalez - 07/03/2025 12:39 PM EDT Patient Name: Freddie Soliman :1970 Date:07/03/2025 Affiliate site: [facility] Referring Physician: Dr. Rea Education/ Information provided: This Nurse Liaison spoke with of Freddie Soliman prior to an appointment on 07/10/2025. Explained nurse liaison services offered through [facility]. Discussed appointment necessity, and subspecialty clinic the pt will be seeing. She verbalizes understanding. Patient will have script for medicine to take before the MRI ,per , otherwise, denied any barriers to arriving to clinic visit. All questions answered. Provided with liaison contact information and encouraged patient to call with any questions, concerns or assistance needs. Will follow up with patient after appointment. Graciela Gonzalez [facility] Nurse Liaison [phone] documented in this encounter Plan of Treatment Upcoming Encounters Date Type Department Care Team ([facility] st Contact Info) Description 07/10/2025 10:30 AM EDT Appointment Cardiac Imaging [address] [place] [phone] 07/10/2025 1:00 PM EDT Appointment [facility] Radiology [address] [place] [phone] 12/07/2025 12:20 PM EST Office Visit [facility] [address] [place] [address] Graciela Maki, ELECTRICIAN MAINTENANCE [address] [address] documented as of this encounter Visit Diagnoses Not on filedocumented in this encounter Additional Health Concerns Assessment Noted Time A fall risk assessment has been complete d for the patient 03/14/2024 11:15 AM EDT A Body Mass Index follow-up plan has been documented for the patient 05/25/2025 1:02 PM EDT documented as of this encounter Care Teams Grading Machine Operator Relationship Specialty Start Date End Date Ross Bar APRN [address] [place] [address] PCP - General 03/09/24 documented as of this encounter
--- OUTSIDE RECORDS SUMMARY | 2025-07-05 11:56 | XMS_ITS | Encounter Summary ---
Author Organization [facility] Address [address] [place] [address] Care Team Providers Care Blow Pit Operator Name Role Phone Ross Bar APRN Primary Care Provider Encounter Details Date Type Department Care Team (Latest Contact Info) Description 07/03/2025 Travel Social History Tobacco Use Types Packs/Day [...] AM EDT Appointment Cardiac Imaging [address] [place] [address] 07/10/2025 1:00 PM EDT Appointment [facility] Rad[facility] [address] [place] [address] 12/07/2025 12:20 PM EST Office Visit [facility] [address] [place] [address] Graciela Maki APRN [address] [address] documented as of this encounter Visit Diagnoses Not on filedocumented in this encounter Additional Health Concerns Assessment Noted Time A fall risk assessment has been complete d for the patient 03/14/2024 11:15 AM EDT A Body Mass Index follow-up plan has been documented for the patient 05/25/2025 1:02 PM EDT documented as of this encounter Care Teams Blow Pit Operator Relationship Specialty Start Date End Date Ross Bar APRN [address] [facility] [place] [address] PCP - General 03/09/24 documented as of this encounter
--- NOTE | 2025-07-05 12:30 | NM_ITS ---
APPROVED REPORT Exam: Nuclear Stress Test Indication: SOB, Fatigue, CAD, Hx of OK, HTN, DM, Edema Patient Location: Outpatient Stress Tech: Maria G Alvarado [place] Tech:Carolyn Metcalf, ARRT RT(R)(N) Ht: 6 ft 1 in Wt: 265 lbs HR: 64 bpm BP: 154/60 mmHg BSA: 2.42 m2 TID: 1.07 BMI: 34.9 History: SOB, Fatigue, CAD, Hx of OK, HTN, DM, Edema Procedure: Patient received 0.4 mg of intravenous Lexiscan, resting heart rate 64 bpm, resting blood pressure 154/60 mmHg, with Lexiscan maximum heart rate achieved was 76 bpm which is % of the maximum predicted heart rate and blood pressure was 127/63 mmHg. With Lexiscan, patient denied any complaint of chest pain. Cardiac Stress and Resting SPECT Images: Cardiac Stress and Resting SPECT images were obtained using technetium 99m Myoview 32.8 mCi stress and 10.97 mCi at rest. Resting and stress imaging in supine and prone positions demonstrate a medium sized, moderate, partially reversible perfusion defect in the basal inferior and inferolateral LV mccoy. Gated imaging demonstrates normal global LV systolic function. LVEF is calculated at 53%. Conclusion: Medium sized, moderate, partially reversible perfusion defect in the basal inferior and inferolateral LV mccoy. Findings are suggestive of partial reversible ischemia. Gated imaging demonstrates normal global LV systolic function. LVEF is calculated at 53%. Electronically signed by : Kathrine Rea MD 07/06/2025 09:52:27
[2025-07-05] MEDS: SODIUM CHLORIDE 0.9% 10ML SYR (RAD ONLY) 10 ML IV ×2 (14:06)
[2025-07-05] MEDS: ISOTOPE MYOVIEW (PER STUDY) 1 DOSE IV (14:06)
== END 2025-07-05 23:59 | disposition home or self-care (01) ==
LOC: RAD 11:54
PROVIDERS: PCP Nurse Practitioner Family; Visit Provider Internal Medicine
DX: I25.10 Atherosclerotic heart disease of native coronary artery without angina pectoris (principal); I25.2 Old myocardial infarction; I10 Essential (primary) hypertension; E11.9 Type 2 diabetes mellitus without complications; R94.31 Abnormal electrocardiogram [ECG] [EKG]; R93.1 Abnormal findings on diagnostic imaging of heart and coronary circulation; R94.39 Abnormal result of other cardiovascular function study
CPT/HCPCS: 78452; 93016; 93017; 93018; A9502; J2785

== ENCOUNTER 2025-07-16 10:32 | Observation (INO) | payer OTHER, SELFPAY ==
[2025-07-16 10:48] VITALS: BP 138/86; PULSE 54; RESP 18; TEMP 36.4; O2SAT 94
--- NOTE | 2025-07-16 10:57 | HMH.PHAINT1 ---
Pharmacy Intervention Comments: MEDICATION RECONCILIATION COMPLETED ON PATIENT USING EXTERNAL FILL HISTORY FROM PHARMACY. -ROSS PICKARD, JUDITHD
[2025-07-16 11:39] LABS: Hematocrit 40.2 % (42.0-52.0); Hemoglobin 13.5 g/dL (14.1-18.0); Immature Granulocytes % 0.7 %; Mean Corpuscular HGB Conc 33.6 g/dL (31.8-35.4); Mean Corpuscular Hemoglobin 32.5 pg (27.0-31.2); Mean Corpuscular Volume 96.9 fl (80-94); Nucleated Red Blood Cells % 0 %; Platelet Count 173 K/mm3 (142-424); Red Blood Count 4.15 M/mm3 (4.60-6.20); Red Cell Distribution Width-SD 42.6 fL; White Blood Count 9.8 K/mm3 (4.8-10.8)
--- NOTE | 2025-07-16 11:47 | ECG_ITS ---
APPROVED REPORT Exam: Resting ECG HR:60 bpm ECG Measurements Heart Rate 60 AXES NH 264 P 203 QRSd 102 QRS 3 QT 387 T -24 QTc 387 Conclusion ELECTRONIC ATRIAL PACEMAKER LOW QRS VOLTAGE IN PRECORDIAL LEADS [QRS DEFLECTION < 1.0 mV IN CHEST LEADS] MINIMAL VOLTAGE CRITERIA FOR LVH, CONSIDER NORMAL VARIANT [MEETS CRITERIA IN ONE OF: R(aVL), S(V1), R(V5), R(V5/V6)+S(V1)] ABNORMAL RHYTHM ECG UNCONFIRMED REPORT Electronically signed by : Pedrito Fernández MD 07/17/2025 08:22:35
[2025-07-16 11:49] LABS: Albumin Level 4.8 g/dl (3.5-5.0); Chloride 93 mmol/L (98-107); Potassium 5.7 mmoL/L (3.5-5.1); Sodium 130 mmol/L (136-145)
--- NOTE | 2025-07-16 11:49 | P.HP_ITS ---
<Statement entered by Baljinder Collazo MD - 07/17/25 11:42> Personally evaluated patient and agree with the plan of care as outlined by the [facility] ADMINISTRATOR. History of Present Illness *Admission Date: 07/16/25 *Reason for visit:: Unstable angina *History of present illness: Mr. Soliman is a 55-year-old male who was seen in the cardiology office today where he was evaluated for recurrent chest pain. He has a primary medical history of pacemaker, NSTEMI, coronary artery disease, CKD, hypertension, BPH, gout, and chronic pain. He was complaining of chest pain and pressure with and without activity on the left side of his chest rating it a 5/10 that lasted intermittently for 10 to 20 minutes. He states that the pain comes and goes, and cannot point out something that would bring it on. He also endorses shortness of breath with/without activity, dizziness and lightheadedness at times, swelling in his legs and ankles, increased fatigue. Due to unstable angina and worsening dyspnea cardiology consulted with hospital medicine for admission, I agreed to admit the patient. [facility] Disclaimer: The information contained in this section may have been updated after the patient was seen, as this information can be updated by other users. Medical History (Updated 07/16/25 @ 17:01 by Concha Cuevas APRN) Unstable angina Abnormal echocardiogram Mastoiditis of right side Dizziness Right ear pain History of fracture of leg Pacemaker Pulmonary arterial hypertension Abnormal electrocardiogram [ECG] [EKG] Non-STEMI (non-ST elevated myocardial infarction) Hyperlipidemia Coronary artery disease Bright's disease Femur fracture, left History of left heart catheterization (LHC) Cardiac pacemaker in situ JUANITA (acute kidney injury) Chronic serous otitis media of right ear Impacted cerumen of right ear Hearing loss in right ear Tympanosclerosis, right ear Syncope Symptomatic bradycardia 1st degree AV block Bradycardia Chest pain Abnormal electrocardiography HTN (hypertension) Surgical History History of facial surgery History of back surgery Family History Father Family history of myocardial infarction Mother Family history of myocardial infarction Other Family history of diabetes mellitus Social History (Updated 07/16/25 @ 11:55 by Deb Summers RN) Smoking Status: Never smoker alcohol intake: never substance use type: denies use current occupational status: other Travel in the last 8 weeks?: None household members: spouse housing: house Have you lived/traveled outside [place] in past 30 days?: No Contact w/someone who lives/traveled outside [place] past 30 days?: No Exposure to someone with infectious disease in past 14 days?: No Do you have a fever (greater than 100.4 F or 38 C)?: No Have you tested positive for COVID-19?: No Exposed to someone with COVID-19 in past 14 days?: No Do you have a sore throat?: No Do you have a cough?: No Do you have any weakness?: No Are you experiencing any nausea/vomitting?: No Do you have any diarrhea?: No Are you experiencing any unusual bleeding?: No Do you have any muscle aches/pain?: No Do you have any abdominal pain?: No Are you experiencing loss of taste or smell?: No Other Medical History Have you received the Flu Vaccine for this season: Yes Have you received the Pneumonia Vaccine: Yes Review of Systems Constitutional Constitutional: Denies headache(s) Eyes Eyes: Denies blurry vision and Denies change in vision ENT Ears, Nose, Mouth, and Throat: Denies disequilibrium, Denies headache(s) and Denies sore throat *Cardiovascular Cardiovascular: Reports chest pain, Reports chest pain at rest, Reports chest pain with activity, Reports dyspnea, Reports dyspnea on exertion, Reports leg edema and Reports lightheadedness *Respiratory Respiratory: Reports dyspnea, Reports dyspnea on exertion, Denies pain on inspiration and Denies wheezing *Gastrointestinal Gastrointestinal: Denies abdominal pain, Denies change in bowel habits, Denies diarrhea, Denies nausea and Denies vomiting *Musculoskeletal Musculoskeletal: Reports back pain, Reports limited range of motion and Reports stiffness *Neurologic Neurologic: Denies disequilibrium and Denies headache(s) Allergic/Immunologic Allergic/Immunologic: Denies wheezing Meds Home Medications and Allergies Home Medications ?Medication ?Instructions ?Recorded ?Confirmed ?Type hydromorphone (PF) 1 mg/mL 1 mg continuous epidural CO NT 05/01/24 07/16/25 History injection solution finasteride 5 mg tablet 5 mg PO DAILY 12/19/2407/16 History allopurinol 100 mg tablet 100 mg PO DAILY #90 tabs 07/16/25 Rx (Zyloprim) carvedilol 12.5 mg tablet 12.5 mg PO BID #60 tabs 03/2907/16/25 Rx furosemide 20 mg tablet (Lasix) 20 mg PO DAILY #90 tab s 05/16/25 07/16/25 Rx isosorbide mononitrate 60 mg 60 mg PO DAILY 05/16/25 0 07/16/25 History tablet,extended release 24 hr nifedipine 60 mg tablet,extended 60 mg PO BID #60 tabs 06/14/25 07/16/25 Rx release irbesartan 300 mg tablet 300 mg PO DAILY 07/16/25 History oxycodone-acetaminophen 10 mg-325 1 tab PO QIDP PRN Mo derate Pain 07/16/25 07/16/25 History mg tablet (Percocet) (Scale Score 5-6) spironolactone 50 mg tablet 50 mg PO BID 07/16/2506/29 History ticagrelor 90 mg tablet (Brilinta) 90 mg PO BID 07/16/25 History New Prescriptions to Start Prescriptions: Allergies Allergy/AdvReac Type Severity Reaction Status Date / Time Thiazides Allergy Intermediate Unknown Verified 07/16/25 09:39 allergy reaction Androgenic Anabolic Steroid Allergy Mild Unknown Verified 07/16/25 09:39 allergy reaction aspirin (ASPIRIN) Allergy Unknown FACIAL Verified 07/16/25 09:39 SWELLING Penicillins (PENICILLINS) Allergy Unknown FACIAL Verified 07/16/25 09:39 SWELLING Sulfa (Sulfonamide Allergy Unknown Unknown Verified 07/16/25 09:39 Antibiotics) (SULFA allergy (SULFONAMIDE ANTIBIOTICS)) reaction morphine AdvReac Mild Vomiting Verified 07/16/25 09:39 NSAIDS (Non-Steroidal AdvReac Other Verified 07/16/25 09:39 Anti-Inflamma Exam Data for Last 24 hours Vital signs and Labs for Last 24 Hours: Temp Pulse Resp BP Pulse Ox O2 Del Method 97.5 F L 54 L 18 138/86 94 L Room Air 07/16/25 10:48 07/16/25 10:48 07/16/25 10:48 07/16/25 10:48 07/16/25 10:48 07/16/25 10:48 *Routine HEENT Exam Head: Present normocephalic Eye: Present EOMI ENT: Present mucous membranes moist *Routine Respiratory Exam Respiratory: Present CTA bilaterally, able to speak in complete sentences and symmetric chest movement; Absent wheezes or crackles *Routine Cardiovascular Exam Cardiovascular: Present RRR; Absent murmur *Routine Abdominal Exam Abdominal: Present soft and normoactive bowel sounds; Absent tenderness or distended *Routine Rectal Exam Rectal:: deferred *Routine Genitalia Exam Genitalia:: deferred Assessment and Plan *Assessment and plan (1) Unstable angina: Status: Acute Category: Medical Code(s): I20.0 - Unstable angina (2) Dyspnea: Status: Acute Qualifiers: Dyspnea type: other forms of dyspnea Qualified Code(s): R06.09 - Other forms of dyspnea Category: Medical Code(s): R06.00 - Dyspnea, unspecified (3) HTN (hypertension): Problem Comment: Established with [facility] cardiology Status: Chronic Qualifiers: Hypertension type: unspecified Qualified Code(s): I10 - Essential (primary) hypertension Category: Medical Code(s): I10 - Essential (primary) hypertension (4) Coronary artery disease: Status: Acute Qualifiers: Coronary Disease-Associated Artery/Lesion type: [place] artery [place] vs. transplanted heart: [place] heart Associated angina: with stable angina Qualified Code(s): I25.118 - Atherosclerotic heart disease of [place] coronary artery with other forms of angina pectoris Category: Medical Code(s): I25.10 - Atherosclerotic heart disease of [place] coronary artery without angina pectoris (5) Chronic kidney disease: Status: Acute Category: Medical Code(s): N18.9 - Chronic kidney disease, unspecified (6) Diabetes mellitus type 2 in nonobese: Status: Acute Category: Medical Code(s): E11.9 - Type 2 diabetes mellitus without complications (7) Chronic pain: Status: Acute Category: Medical Code(s): G89.29 - Other chronic pain Plan Mr. Soliman is a 55-year-old male who was seen in the cardiology office today where he was evaluated for recurrent chest pain. He was complaining of chest pain and pressure with and without activity on the left side of his chest rating it a 5/10 that lasted intermittently for 10 to 20 minutes. He states that the pain comes and goes, and cannot point out something that would bring it on. He also endorses shortness of breath with/without activity, dizziness and lightheadedness at times, swelling in his legs and ankles, increased fatigue. Due to unstable angina and worsening dyspnea cardiology consulted with hospital medicine for admission, I agreed to admit the patient, plan of care as follows: #Unstable angina #Dyspnea ? Patient was recently admitted to , April 2025 where he had a cardiac MRI and heart cath. Per the patient both were unremarkable and no intervention was needed. He is continue to have intermittent chest pain and worsening dyspnea since. Plans to consult cardiology and have a RHC/LHC tomorrow. Patient will be made n.p.o. after midnight. ? Continue home medications Brilinta 90 mg twice daily, nifedipine 60 mg twice daily, spironolactone 50 mg twice daily, isosorbide 60 mg daily, [place] 300 mg daily, Lasix 20 mg daily, carvedilol 12.5 mg twice daily. ? Nitropaste ordered every 6 hours as needed for chest pain. ?CTA of chest ordered, no evidence of PE. Blood pressures currently well- controlled. BNP less than 20. Serial troponins ordered, initial troponin 0.01. #Hypertriglyceridemia ?Patient triglycerides greatly elevated, 499. Will defer management to cardiology. #CKD ? Patient has known chronic kidney disease, baseline creatinine 1.5, creatinine at admission 1.7. #Diabetes mellitus ? Patient states he recently found out he has type 2 diabetes. A1c 8.5%. Blood sugar over 400. He currently does not take any diabetic medication at home. ? ACHS fingersticks and SSI ordered. He will need diabetic regimen at discharge. #Chronic pain ? Patient has a intrathecal pain pump continuous?Dilaudid. Patient also is prescribed Percocet 1 tab 4 times daily as needed for moderate pain. Will continue, monitoring for toxicity. Full code Diabetic diet Ambulate as tolerated VTE?IPC's
--- NOTE | 2025-07-16 11:50 | XR_ITS ---
FINAL REPORT TECHNIQUE: Single view chest CLINICAL HISTORY: unstable angina COMPARISON: 03/05/2025 FINDINGS: A single view of the chest was obtained. The heart is enlarged. A pacemaker is in place. The lungs are clear. There is no pneumothorax. IMPRESSION: No acute cardiopulmonary process. Reviewed, Interpreted and Dictated by Ravin Alford MD Transcribed by Sylwia Starr Authenticated and [facility]
[2025-07-16 11:51] LABS: Blood Urea Nitrogen 49 mg/dl (9-20); Creatinine,Serum 1.70 mg/dl (0.66-1.25); Estimated Glomerular Filt Rate 42 ml/min (>60); GFR (African American) 51 ML/MIN (>60)
[2025-07-16 11:52] LABS: Alanine Aminotransferase 69 U/L (12-78); Albumin/Globulin Ratio 1.2 (1.1-1.8); Alkaline Phosphatase 128 U/L (38-126); Anion Gap 15.7 mEq/L (5-15); Aspartate Amino Transferase 43 U/L (17-59); Bilirubin,Total 0.6 mg/dl (0.2-1.3); Calcium 9.9 mg/dl (8.4-10.2); Carbon Dioxide 27 mmol/L (22.0-30.0); Cholesterol 207 mg/dl (140-200); Globulin 3.9 g/dL (1.3-3.2); HDL Cholesterol 34 mg/dl (40-60); Magnesium 2.6 mg/dl (1.6-2.3); Total Protein,Serum 8.7 g/dl (6.3-8.2)
[2025-07-16 11:54] LABS: Glucose 401 mg/dl (74-100); Triglycerides 499 mg/dl (30-150)
[2025-07-16 12:00] VITALS: PULSE 61
[2025-07-16] MEDS: humaLOG 100 UNITS/ML 10ML VIAL (SSI) SUBCUT ×3 (12:06→20:27)
[2025-07-16 12:10] LABS: Troponin I 0.01 ng/ml (0.00-0.034)
[2025-07-16 12:23] LABS: Thyroid Stimulating Hormone 1.36 uIU/mL (0.465-4.68)
[2025-07-16 13:17] LABS: Hemoglobin A1C 8.5 % (4.0-6.0)
--- NOTE | 2025-07-16 14:30 | CT_ITS ---
FINAL REPORT TECHNIQUE: Postcontrast axial images of the chest were performed in a CTA protocol. This study was performed with techniques to keep radiation doses as low as reasonably achievable, (ALARA). Individualized dose reduction technique using automated exposure control or adjustment of mA and/or kV according to the patient's size were employed. CLINICAL HISTORY: chest pain COMPARISON: 10/23/2023 FINDINGS: There is streak artifact from a left chest wall pacemaker. The heart is normal in size. No adenopathy is identified. No pleural or pericardial effusion is identified. The thoracic aorta is normal in caliber with no focal aneurysm or dissection identified. There is no filling defect to suggest pulmonary embolism. No lung infiltrate or mass is identified. Chronic scarring is noted at the lung bases. The images of the upper abdomen demonstrate moderate fatty infiltration of the liver. IMPRESSION: No evidence for PE on this exam. Moderate fatty infiltration of the liver. Reviewed, Interpreted and Dictated by Ravin Alford MD Transcribed by Sylwia Starr Authenticated and . [facility]
--- NOTE | 2025-07-16 14:44 | P.PN_ITS ---
Subjective Subjective Date: 07/16/25 Time: 14:44 Principal diagnosis: Unstable angina Interval history: The patient was admitted to the hospital with unstable angina from the cardiology office today. He states he has been having episodes intermittently in the left side of his chest lasting 10 to 20 minutes. He states they occur randomly with no warning. Is associated with shortness of breath. He states that he can barely walk a few feet without being profoundly short of breath and he is also very short of breath when he lies back as well. He states that the pain in his chest has been severe. He has known coronary artery disease and admitted for unstable angina to undergo left cardiac catheterization tomorrow. Exam Data for Last 24 hours Vital signs and Labs for Last 24 Hours: Temp Pulse Resp BP Pulse Ox O2 Del Method 97.5 F L 54 L 18 138/86 94 L Room Air 07/16/25 10:48 07/16/25 10:48 07/16/25 10:48 07/16/25 10:48 07/16/25 10:48 07/16/25 13:00 Laboratory Results - last 24 hr 07/16/25 11:25: WBC 9.8, RBC 4.15 L, Hgb 13.5 L, Hct 40.2 L, MCV 96.9 H, MCH 32.5 H, MCHC 33.6, RDW 12.2, Plt Count 173, MPV 11.5 H, Neut % (Auto) 68.5, Lymph % (Auto) 20.0, Mathews % (Auto) 8.2, Eos % (Auto) 2.4, Baso % (Auto) 0.2, Neut # (Auto) 6.7, Lymph # (Auto) 2.0, Mathews # (Auto) 0.8, Eos # (Auto) 0.2, Baso # (Auto) 0.0, Sodium 130 L, Potassium 5.7 H, Chloride 93 L, Carbon Dioxide 27, Anion Gap 15.7 H, BUN 49 H, Creatinine 1.70 H, Estimated GFR 42 L, Est GFR ( Amer) 51 L, Glucose 401 H*, Hemoglobin A1c 8.5 H, Calcium 9.9, Magnesium 2.6 H, Total Bilirubin 0.6, AST 43, ALT 69, Alkaline Phosphatase 128 H , Troponin I 0.01, Total Protein 8.7 H, Albumin 4.8, Globulin 3.9 H, Albumin/Globulin Ratio 1.2, Triglycerides 499 H, Cholesterol 207 H, LDL Cholesterol Direct 77.99 L, VLDL Cholesterol Not Reportable, HDL Cholesterol 34 L, Cholesterol/HDL Ratio 6.1 H, TSH 1.36 I & O for Last 24 hours: Intake & Output 07/13/25 07/14/25 07/15/25 07/16/25 23:59 23:59 23:59 23:59 Intake Total 300 / 300 Balance 300 / 300 Constitutional Constitutional: no acute distress and obese *Routine HEENT Exam Head: Present normocephalic and atraumatic ENT: Present mucous membranes moist *Routine Neck Exam Neck: Present supple, full ROM and normal carotid upstroke; Absent JVD, carotid bruit or lymphadenopathy *Routine Respiratory Exam Respiratory: Present CTA bilaterally, normal respiratory effort, able to speak in complete sentences and symmetric chest movement *Routine Cardiovascular Exam Cardiovascular: Present RRR, Normal S1 and Normal S2; Absent murmur or gallop *Routine Abdominal Exam Abdominal: Present soft and normoactive bowel sounds; Absent tenderness, distended or organomegaly *Routine Extremities Exam Extremities: Present full ROM, pulses intact and normal capillary refill; Absent cyanosis, clubbing or edema *Routine Skin Exam Skin: Present intact and warm; Absent erythema *Routine Neurological Exam Neurological: Present alert, oriented X3 and CN II-XII intact; Absent sensory deficit or motor deficit Routine Psychiatric Exam Psychiatric: Present normal affect Progress Note: A&P Assessment and plan (1) Unstable angina: Status: Acute (2) Typical angina: Status: Acute (3) Abnormal nuclear cardiac imaging test: Status: Acute (4) Abnormal echocardiogram: Status: Acute (5) Coronary artery disease: Status: Acute (6) Cardiac pacemaker in situ: Status: Chronic (7) HTN (hypertension): Problem details: Established with [facility] cardiology Status: Chronic (8) Hyperlipidemia: Status: Acute Assessment and Plan Assessment and Plan for All Diagnoses:: Plan: 1. The patient was admitted to the hospital with unstable angina. Will do serial troponins. 2. Will plan for left cardiac catheterization tomorrow to evaluate for coronary artery disease due to the unstable angina and known CAD. 3. The patient's ventricular send to proceed with left cardiac catheterization. The patient verbalized understanding and is agreeable to proceed with the procedure. 4. The patient will be n.p.o. after midnight tonight. 5. Will obtain a BNP. 6. His blood pressure is well-controlled. 7. His LDL goal is less than 55. His LDL is 77. Will start him on a statin. 8. Will obtain a CTA of the chest today due to his chest pain and shortness of breath. 9. Further recommendations were made pending the patient's response to treatment and the results of his CTA chest today. Thank you for the opportunity to participate in the care of this patient. All recommendations and orders are per Dr. Rea.
[2025-07-16] MEDS: 0.9 % SODIUM CHLORIDE 50 ML VIAL IV (14:49)
[2025-07-16] MEDS: IOPAMIDOL-370 (76%);100ML BOTTLE 85 ML IV (14:50)
[2025-07-16] MEDS: SODIUM CHLORIDE 0.9% 10ML SYR (RAD ONLY) 10 ML IV (14:50)
[2025-07-16 15:25] LABS: NT Pro Brain Natriuretic Pep. < 20.0 pg/mL (0-125)
[2025-07-16 16:00] VITALS: BP 157/92; PULSE 60; RESP 18; O2SAT 98
[2025-07-16 16:29] LABS: POC Glucose,Bedside 360 (70-110)
[2025-07-16] MEDS: NITROGLYCERIN 1 GM OINTMENT 0.5 GM TD ×2 (16:35→22:19)
[2025-07-16 20:00] VITALS: BP 134/84; PULSE 60; RESP 18; TEMP 36.9; O2SAT 96
[2025-07-16 20:22] LABS: POC Glucose,Bedside 341 (70-110)
[2025-07-16] MEDS: CARVEDILOL 12.5MG TABLET 12.5 MG PO (20:27)
[2025-07-16] MEDS: SPIRONOLACTONE 50 MG 50 EACH PO (20:57)
[2025-07-16] MEDS: OXYCODONE 10MG W/APAP 325MG TABLET 1 EACH PO (21:04)
[2025-07-16] MEDS: diazePAM 5MG TABLET 5 MG PO (23:24)
--- NOTE | 2025-07-16 23:28 | EXP.EVENT.NO ---
Patient reported pain to the nurse: Says this is the same chest pain has been having that the pain medicine he has for his shoulder does not help his chest, he also had Valium earlier today about 2 PM this may have worn off by now. exam; patient was coming back from the bathroom he is able to walk but on sitting this obese male appeared to be short of breath. He was not grabbing his chest or acting as if he was having anything of severe difficulty but describing him self is having chest to chest wall pain., Patient noted that he could not take morphine as it makes him vomit : Plan: Patient checked with his to make sure that he could take Dilaudid she said yes he had it before without any problems., Plan at this time as the patient has nitroglycerin paste on is to get give him a 5 mg Valium p.o. to give him 0.5 Dilaudid IV. Also will recheck troponin and get a twelve-lead to make sure there is no ST elevations
[2025-07-16] MEDS: HYDROMORPHONE 2MG/ML SYRINGE 0.5 MG IV (23:29)
--- NOTE | 2025-07-16 23:32 | ECG_ITS ---
APPROVED REPORT Exam: Resting ECG HR:60 bpm ECG Measurements Heart Rate 60 AXES NM 250 P 130 QRSd 92 QRS 27 QT 379 T 64 QTc 379 Conclusion ELECTRONIC ATRIAL PACEMAKER LOW QRS VOLTAGE IN PRECORDIAL LEADS [QRS DEFLECTION < 1.0 mV IN CHEST LEADS] ABNORMAL RHYTHM ECG UNCONFIRMED REPORT Electronically signed by : Pedrito Fernánedz MD 07/17/2025 08:21:58
[2025-07-16 23:49] VITALS: BMI 34.4
[2025-07-17] VITALS (20 sets, daily range): BP systolic 113–142; BP diastolic 62–90; PULSE 60–61; RESP 14–20; TEMP 36.4–37.1; O2SAT 95–99; BMI 34.4
[2025-07-17 00:40] LABS: Troponin I 0.01 ng/ml (0.00-0.034)
[2025-07-17] MEDS: HYDROMORPHONE 2MG/ML SYRINGE 0.5 MG IV ×3 (02:00→09:41)
[2025-07-17 03:40] LABS: Troponin I 0.02 ng/ml (0.00-0.034)
--- NOTE | 2025-07-17 03:55 | PC.NURSE ---
Pt A&O x4. Pt VSS. Pt is on RA/2LNC for comfort. Pt paced on telemetry. Pt reported continuous chest pain, provider made aware ordered EKG which showed a paced rhythm. Pt given Dilaudid and Valium to help alleviate chest pain. Pt NPO for possible heart cath today. Pt was hopeful that they would cath both sides and not just the left. Pt reported some relief. Pt not voicing any concerns at this time. Pt resting w/ call light in reach. POC ongoing.
[2025-07-17] MEDS: NITROGLYCERIN 1 GM OINTMENT 0.5 GM TD ×2 (04:38→09:41)
[2025-07-17] MEDS: humaLOG 100 UNITS/ML 10ML VIAL (SSI) SUBCUT ×3 (05:14→21:05)
[2025-07-17 05:15] LABS: POC Glucose,Bedside 322 (70-110)
[2025-07-17 08:12] LABS: Hematocrit 41.9 % (42.0-52.0); Hemoglobin 13.8 g/dL (14.1-18.0); Immature Granulocytes % 0.9 %; Mean Corpuscular HGB Conc 32.9 g/dL (31.8-35.4); Mean Corpuscular Hemoglobin 31.7 pg (27.0-31.2); Mean Corpuscular Volume 96.3 fl (80-94); Nucleated Red Blood Cells % 0 %; Platelet Count 168 K/mm3 (142-424); Red Blood Count 4.35 M/mm3 (4.60-6.20); Red Cell Distribution Width-SD 42.5 fL; White Blood Count 9.8 K/mm3 (4.8-10.8)
[2025-07-17 08:18] LABS: INR 0.92 (0.9-1.1); Prothrombin Time 10.3 seconds (10.1-12.5)
[2025-07-17] MEDS: SPIRONOLACTONE 25MG TABLET 50 MG PO ×2 (08:41→21:06)
[2025-07-17] MEDS: FUROSEMIDE 20MG TABLET 20 MG PO (08:41)
[2025-07-17] MEDS: ISOSORBIDE MONO 60MG TAB.ER.24H 60 MG PO (08:41)
[2025-07-17] MEDS: IRBESARTAN 300MG TABLET 300 MG PO (08:41)
[2025-07-17 08:42] LABS: Albumin Level 4.9 g/dl (3.5-5.0); Chloride 99 mmol/L (98-107)
[2025-07-17] MEDS: ALLOPURINOL 100MG TABLET 100 MG PO (08:42)
[2025-07-17] MEDS: CARVEDILOL 12.5MG TABLET 12.5 MG PO ×2 (08:42→21:05)
[2025-07-17] MEDS: FINASTERIDE 5MG TABLET 5 MG PO (08:42)
[2025-07-17 08:43] LABS: Potassium 5.2 mmoL/L (3.5-5.1); Sodium 135 mmol/L (136-145)
[2025-07-17 08:45] LABS: Bilirubin,Unconjugated 0.0 mg/dL (0.0-1.1); Blood Urea Nitrogen 46 mg/dl (9-20); Creatinine Clearance Estimated 85 mL/min (50-200); Creatinine,Serum 1.60 mg/dl (0.66-1.25); Estimated Glomerular Filt Rate 45 ml/min (>60); GFR (African American) 54 ML/MIN (>60)
[2025-07-17 08:46] LABS: Alanine Aminotransferase 66 U/L (12-78); Alkaline Phosphatase 148 U/L (38-126); Anion Gap 18.2 mEq/L (5-15); Aspartate Amino Transferase 35 U/L (17-59); Bilirubin,Direct 0.4 mg/dl (0.0-0.4); Bilirubin,Indirect 0.0 mg/dL (0.0-0.9); Bilirubin,Total 0.4 mg/dl (0.2-1.3); Calcium 9.7 mg/dl (8.4-10.2); Carbon Dioxide 23 mmol/L (22.0-30.0); Glucose 338 mg/dl (74-100); Total Protein,Serum 8.6 g/dl (6.3-8.2)
[2025-07-17] MEDS: OXYCODONE 10MG W/APAP 325MG TABLET 1 EACH PO ×3 (08:53→21:06)
[2025-07-17] MEDS: INSULIN GLARGINE 100 UNITS/ML 3ML FLEXPEN 15 UNIT SUBCUT (08:53)
--- NOTE | 2025-07-17 09:15 | P.PN_ITS ---
<Statement entered by Satish Mike MD - 07/17/25 17:13> Rounded on patient after nurse practitioner. Personally examined and interviewed patient. Agree with exam findings and care plan as documented. Subjective *Date: 07/17/25 *Time: 09:15 Interval history: Patient up to chair this morning. Has complaints of intermittent chest tightness and dyspnea, rates it a 3/10. Patient is scheduled for a LHC and RHC today. Medical Exam Vital signs and Labs for Last 24 Hours: Vital Signs Temp Pulse Pulse Resp BP Pulse Ox O2 Del Method 07/17/25 14:45 97.8 F 60 17 128/85 97 Room Air 07/17/25 14:15 97.6 F 60 17 128/69 97 Room Air 07/17/25 14:15 Room Air 07/17/25 14:00 97.6 F 60 17 120/72 97 Room Air 07/17/25 13:44 97.6 F 60 17 134/80 97 Room Air 07/17/25 13:30 97.6 F 60 17 128/65 Room Air 07/17/25 13:15 60 14 113/71 95 Room Air 07/17/25 13:09 60 18 130/76 97 Room Air 07/17/25 13:05 60 60 20 138/79 97 Room Air 07/17/25 10:09 Room Air 07/17/25 09:00 Room Air 07/17/25 08:00 Room Air 07/17/25 08:00 97.6 F 61 18 142/90 H 96 Room Air 07/17/25 07:00 Nasal Cannula 07/17/25 05:00 Nasal Cannula 07/17/25 04:00 97.6 F 60 16 126/73 95 Room Air 07/17/25 04:00 60 07/17/25 03:00 Nasal Cannula 07/17/25 01:00 Nasal Cannula 07/17/25 00:00 60 07/17/25 00:00 98.7 F 60 18 138/77 98 Room Air 07/16/25 23:00 Nasal Cannula 07/16/25 21:00 Nasal Cannula 07/16/25 20:00 60 07/16/25 20:00 98.4 F 60 18 134/84 96 Room Air 07/16/25 20:00 Nasal Cannula 07/16/25 18:59 Room Air 07/16/25 17:00 Room Air 07/16/25 16:00 60 07/16/25 16:00 60 18 157/92 H 98 Room Air O2 Flow Rate 07/17/25 14:45 07/17/25 14:15 07/17/25 14:15 07/17/25 14:00 07/17/25 13:44 07/17/25 13:30 07/17/25 13:15 07/17/25 13:09 07/17/25 13:05 07/17/25 10:09 07/17/25 09:00 07/17/25 08:00 07/17/25 08:00 07/17/25 07:00 2 07/17/25 05:00 2 07/17/25 04:00 07/17/25 04:00 07/17/25 03:00 2 07/17/25 01:00 2 07/17/25 00:00 07/17/25 00:00 07/16/25 23:00 2 07/16/25 21:00 2 07/16/25 20:00 07/16/25 20:00 07/16/25 20:00 2 07/16/25 18:59 07/16/25 17:00 07/16/25 16:00 07/16/25 16:00 Intake and Output 07/16/25 07/17/25 07/17/25 23:59 07:59 15:59 Intake Total 280 / 820 240 / 240 Output Total 0 / 0 0 / 0 0 / 0 Balance 280 / 820 240 / 240 0 / 240 Intake: Intake, Oral Amount 280 / 820 240 / 240 Output: Output, Urine Amount 0 / 0 0 / 0 0 / 0 Other: Number of Unmeasured Voids 1 1 1 Weight 118.388 kg 117.962 kg Patient Weight 07/17/25 23:59 Weight 117.962 kg Laboratory Results - last 24 hr 07/16/25 11:25: NT-Pro-B Natriuret Pep < 20.0 07/16/25 16:20: POC Glucose 360 H* 07/16/25 20:14: POC Glucose 341 H* 07/16/25 23:50: Troponin I 0.01 07/17/25 02:58: Troponin I 0.02 07/17/25 05:08: POC Glucose 322 H* 07/17/25 07:57: WBC 9.8, RBC 4.35 L, Hgb 13.8 L, Hct 41.9 L, MCV 96.3 H, MCH 31.7 H, MCHC 32.9, RDW 12.0, Plt Count 168, MPV 11.5 H, Neut % (Auto) 68.0, Lymph % (Auto) 18.2, [place] % (Auto) 10.0 H, Eos % (Auto) 2.7, Baso % (Auto) 0.2, Neut # (Auto) 6.7, Lymph # (Auto) 1.8, [place] # (Auto) 1.0, Eos # (Auto) 0.3, Baso # (Auto) 0.0, PT 10.3, INR 0.92, Sodium 135 L, Potassium 5.2 H, Chloride 99, Carbon Dioxide 23, Anion Gap 18.2 H, BUN 46 H, Creatinine 1.60 H, Estimated Creat Clear 85, Estimated GFR 45 L, Est GFR ( Amer) 54 L, Glucose 338 H, Calcium 9.7, Total Bilirubin 0.4, Direct Bilirubin 0.4, Conjugated Bilirubin 0.0, Indirect Bilirubin 0.0, Unconjugated Bilirubin 0.0, AST 35, ALT 66, Alkaline Phosphatase 148 H, Total Protein 8.6 H, Albumin 4.9 07/17/25 10:20: POC Glucose 357 H* 07/17/25 12:52: ABG O2 Sat (Measured) 74.8 L, POC VBG O2 Sat ([place]) 76.3 I & O for Labs for Last 24 Hours: Intake & Output 07/14/25 07/15/25 07/16/25 07/17/25 23:59 23:59 23:59 23:59 Intake Total 580 / 820 240 / 240 Output Total 0 / 0 0 / 0 Balance 580 / 820 240 / 240 Weight 118.388 kg 117.962 kg Constitutional: Present no acute distress and cooperative Head: Present atraumatic Eyes: Present as per HPI ENT: Present normal exam Neck: Present normal inspection Respiratory: Present CTA bilaterally, able to speak in complete sentences and symmetric chest movement; Absent wheezes Cardiac: Present Reg Rate and Rhythm; Absent No Murmur GI: Present soft and normal bowel sounds; Absent distention or tenderness Rectal (male): Present deferred (male): Present deferred Extremities: Present normal inspection; Absent tenderness or edema Skin: Present intact and dry; Absent erythema or rash Neuro: Present alert, awake and oriented x 3 Assessment and Plan *Assessment and plan (1) Unstable angina: Status: Acute Category: Medical Code(s): I20.0 - Unstable angina (2) Dyspnea: Status: Acute Qualifiers: Dyspnea type: other forms of dyspnea Qualified Code(s): R06.09 - Other forms of dyspnea Category: Medical Code(s): R06.00 - Dyspnea, unspecified (3) HTN (hypertension): Problem Comment: Established with [facility] cardiology Status: Chronic Qualifiers: Hypertension type: unspecified Qualified Code(s): I10 - Essential (primary) hypertension Category: Medical Code(s): I10 - Essential (primary) hypertension (4) Coronary artery disease: Status: Acute Qualifiers: Coronary Disease-Associated Artery/Lesion type: [place] artery [place] vs. transplanted heart: [place] heart Associated angina: with stable angina Qualified Code(s): I25.118 - Atherosclerotic heart disease of [place] coronary artery with other forms of angina pectoris Category: Medical Code(s): I25.10 - Atherosclerotic heart disease of [place] coronary artery without angina pectoris (5) Chronic kidney disease: Status: Acute Category: Medical Code(s): N18.9 - Chronic kidney disease, unspecified (6) Diabetes mellitus type 2 in nonobese: Status: Acute Category: Medical Code(s): E11.9 - Type 2 diabetes mellitus without complications Plan Mr. Soliman is a 55-year-old male who was seen in the cardiology office where he was evaluated for recurrent chest pain. He was complaining of chest pain and pressure with and without activity on the left side of his chest rating it a 5/10 that lasted intermittently for 10 to 20 minutes. He stated that the pain comes and goes, and cannot point out something that would bring it on. He also endorses shortness of breath with/without activity, dizziness and lightheadedness at times, swelling in his legs and ankles, increased fatigue. Due to unstable angina and worsening dyspnea cardiology consulted with hospital medicine for admission, I agreed to admit the patient, plan of care as follows: #Unstable angina #Dyspnea ? Patient was recently admitted to , April 2025 where he had a cardiac MRI and heart cath. Per the patient both were unremarkable and no intervention was needed. He is continue to have intermittent chest pain and worsening dyspnea since. ? Patient had LHC and RHC this afternoon, per cardiology's note no intervention was needed during the procedure. Medical management of CAD, risk factor modification, cardiac rehab, evaluation by pulm for dyspnea. ? Continue home medications Brilinta 90 mg twice daily, nifedipine 60 mg twice daily, spironolactone 50 mg twice daily, isosorbide 60 mg daily, Ibersartan 300 mg daily, Lasix 20 mg daily, carvedilol 12.5 mg twice daily. ? CTA of chest ordered, no evidence of PE. Blood pressures currently well- controlled. BNP less than 20. Serial troponins ordered, within normal range. #Hypertriglyceridemia ?Patient triglycerides greatly elevated, 499. Will start on atorvastatin 40 mg at bedtime. #CKD ? Patient has known chronic kidney disease, baseline creatinine 1.5, creatinine 1.6. #Diabetes mellitus ? Patient states he recently found out he has type 2 diabetes. A1c 8.5%. Blood sugar over 400. He currently does not take any diabetic medication at home. ? ACHS fingersticks and SSI ordered. In addition to sliding scale insulin started insulin glargine 15 units subcu daily. #Chronic pain ? Patient has a intrathecal pain pump continuous?Dilaudid. Patient also is prescribed Percocet 1 tab 4 times daily as needed for moderate pain. Patient also receiving Dilaudid 0.5 mg IV every 2 hours as needed for pain. Will continue, monitoring for toxicity. Full code Diabetic diet Ambulate as tolerated VTE?IPC's
--- NOTE | 2025-07-17 09:54 | IR_ITS ---
APPROVED REPORT Patient Location: Inpatient PROCEDURES Right heart catheterization Left heart catheterization Left ventriculogram Selective coronary angiogram Intravascular ultrasound of the proximal AD Informed consent was obtained prior to the procedure. COMPLICATIONS NONE Estimated Blood Loss: LESS THAN 10 ML TECHNIQUE One percent lidocaine was used to anesthetize the right anterior aspect of the right wrist. The right radial artery was accessed via the Seldinger technique and a 6 Stateless hydrophilic sheath was placed in the right radial artery. Following this one percent lidocaine was used to anesthetize the right anterior aspect of the right neck. The right internal jugular vein was accessed via the Seldinger technique and a 7 Stateless sheath was placed in the right internal jugular vein. Following this an arterial cocktail was administered using 5000U heparin, 2.5 mg verapamil, 1mg Lidocaine and 800mcg nitroglycerin into the right radial sheath. A JL3 catheter was used to perform left heart catheterization left ventriculogram and selective coronary angiography while a Hatfield-Geraldine catheter was used to perform right heart catheterization. Saturations were obtained in the pulmonary artery and right atrium. At the end of the procedure the arterial sheath was removed good hemostasis was achieved using Traclet band. Patient was transferred to the postop holding area in stable condition for venous sheath removal. At the end the diagnostic angiogram therapeutic Was administered giving a therapeutic ACT and the guide catheter was placed in left main artery followed by Choice PT extra-support wire placed into the LAD. Intravascular ultrasound probe was advanced and interrogation of the proximal LAD indicated an MLA of 5.3 mm??? with moderate plaque burden. Given this did not meet hemodynamic or anatomic significance the apparatus was removed the sheath was removed hemostasis was achieved using TR banding patient was transferred to the postop porting in stable condition ANGIOGRAPHIC RESULTS The left main artery Normal The left anterior descending artery Has a proximal 40% concentric stenosis with mild 10% mid vessel luminal regularities The circumflex artery Large and dominant giving rise to large ramus intermedius which has mild 10% luminal regularities. A large first obtuse marginal artery has a mid vessel stent which is widely patent free of in-stent restenosis with excellent proximal distal transitioning. The terminal obtuse marginal artery has 10% stenoses. The right coronary artery Nondominant normal The VITAL ventriculogram reveals Hyperdynamic 70% The left ventricular end-diastolic pressure Less than 10 mmHg Right atrial pressure 8 mmHg Pulmonary artery pressure 25/15 mmHg Pulmonary artery occlusion pressure 12 mmHg Right atrial saturation 76% Pulmonary artery saturation 74% Saturation 99% Hemoglobin 13.8 Cardiac output 6.6 L/min IMPRESSION Coronary disease as described above most significant is moderate stenosis in the proximal LAD Widely patent stent in the dominant circumflex artery/obtuse marginal artery as described above Hyperdynamic ventricle Mildly elevated left-sided filling pressures PLAN 1. Medical management for coronary artery disease 2. Aggressive risk factor modification 3. Cardiac rehabilitation 4. Recommend pulmonary evaluation for dyspnea 5. Referred to director of reservations Electronically signed by : Mann Berman MD 07/17/2025 13:49:14
[2025-07-17 10:28] LABS: POC Glucose,Bedside 357 (70-110)
[2025-07-17] MEDS: NITROGLYCERIN 800MCG/8ML SYR (CATH LAB) 800 MCG IA (12:12)
[2025-07-17] MEDS: 0.9 % SODIUM CHLORIDE 500 ML 25 ML IV (12:13)
[2025-07-17] MEDS: LIDOCAINE 1% 10ML MDV 10 ML IJ (12:13)
[2025-07-17] MEDS: HEPARIN 1,000 UNITS/500ML NS (CATH LAB) 3000 UNIT IV (12:13)
[2025-07-17] MEDS: HEPARIN 1,000 UNITS/ML 10ML VIAL (CATH LAB) 5000 UNIT IV ×2 (12:13→12:46)
[2025-07-17] MEDS: VERAPAMIL 2.5MG/ML 2ML VIAL 2.5 MG IV (12:13)
--- NOTE | 2025-07-17 12:48 | EXP.CARD.PN ---
Subjective Subjective Date: 07/17/25 Time: 10:00 Principal diagnosis: Unstable angina Interval history: This is a 55-year-old gentleman who presented to the cardiology office yesterday with chest pain. He was admitted to the hospital with unstable angina. He states that he is continue to have intermittent episodes of chest pain with shortness of breath through the night. He states that he can barely walk without being significantly short of breath still. He states that he feels that his chest pain is severe and no better than it was prior to being admitted. He is scheduled to undergo left cardiac catheterization today. He denies any lower extremity edema. He denies any fever, chills, nausea, vomiting or diarrhea at this morning Exam Data for Last 24 hours Vital signs and Labs for Last 24 Hours: Temp Pulse Resp BP Pulse Ox O2 Del Method O2 Flow Rate 97.6 F 61 18 142/90 H 96 Room Air 2 07/17/25 08:00 07/17/25 08:00 07/17/25 08:00 07/17/25 08:00 07/17/25 08:00 07/17/25 10:09 07/17/25 07:00 Laboratory Results - last 24 hr 07/16/25 11:25: Hemoglobin A1c 8.5 H, NT-Pro-B Natriuret Pep < 20.0 07/16/25 16:20: POC Glucose 360 H* 07/16/25 20:14: POC Glucose 341 H* 07/16/25 23:50: Troponin I 0.01 07/17/25 02:58: Troponin I 0.02 07/17/25 05:08: POC Glucose 322 H* 07/17/25 07:57: WBC 9.8, RBC 4.35 L, Hgb 13.8 L, Hct 41.9 L, MCV 96.3 H, MCH 31.7 H, MCHC 32.9, RDW 12.0, Plt Count 168, MPV 11.5 H, Neut % (Auto) 68.0, Lymph % (Auto) 18.2, [place] % (Auto) 10.0 H, Eos % (Auto) 2.7, Baso % (Auto) 0.2, Neut # (Auto) 6.7, Lymph # (Auto) 1.8, [place] # (Auto) 1.0, Eos # (Auto) 0.3, Baso # (Auto) 0.0, PT 10.3, INR 0.92, Sodium 135 L, Potassium 5.2 H, Chloride 99, Carbon Dioxide 23, Anion Gap 18.2 H, BUN 46 H, Creatinine 1.60 H, Estimated Creat Clear 85, Estimated GFR 45 L, Est GFR ( Amer) 54 L, Glucose 338 H, Calcium 9.7, Total Bilirubin 0.4, Direct Bilirubin 0.4, Conjugated Bilirubin 0.0, Indirect Bilirubin 0.0, Unconjugated Bilirubin 0.0, AST 35, ALT 66, Alkaline Phosphatase 148 H, Total Protein 8.6 H, Albumin 4.9 07/17/25 10:20: POC Glucose 357 H* I & O for Last 24 hours: Intake & Output 07/14/25 07/15/25 07/16/25 07/17/25 23:59 23:59 23:59 23:59 Intake Total 580 / 820 240 / 240 Output Total 0 / 0 0 / 0 Balance 580 / 820 240 / 240 Weight 261 lb 260 lb 1 oz Constitutional Constitutional: no acute distress and obese *Routine HEENT Exam Head: Present normocephalic and atraumatic ENT: Present mucous membranes moist *Routine Neck Exam Neck: Present supple, full ROM and normal carotid upstroke; Absent JVD, carotid bruit or lymphadenopathy *Routine Respiratory Exam Respiratory: Present CTA bilaterally, normal respiratory effort, able to speak in complete sentences and symmetric chest movement *Routine Cardiovascular Exam Cardiovascular: Present RRR, Normal S1 and Normal S2; Absent murmur or gallop *Routine Abdominal Exam Abdominal: Present soft and normoactive bowel sounds; Absent tenderness, distended or organomegaly *Routine Extremities Exam Extremities: Present full ROM, pulses intact and normal capillary refill; Absent cyanosis, clubbing or edema *Routine Skin Exam Skin: Present intact and warm; Absent erythema *Routine Neurological Exam Neurological: Present alert, oriented X3 and CN II-XII intact; Absent sensory deficit or motor deficit Routine Psychiatric Exam Psychiatric: Present normal affect Progress Note: A&P Assessment and plan (1) Unstable angina: Status: Acute (2) Dyspnea: Status: Acute (3) HTN (hypertension): Problem details: Established with [facility] cardiology Status: Chronic (4) Coronary artery disease: Status: Acute (5) Chronic kidney disease: Status: Acute (6) Diabetes mellitus type 2 in nonobese: Status: Acute (7) Chronic pain: Status: Acute (8) Abnormal nuclear cardiac imaging test: Status: Acute (9) Abnormal echocardiogram: Status: Acute (10) Cardiac pacemaker in situ: Status: Chronic Assessment and Plan Assessment and Plan for All Diagnoses:: Plan: 1. The patient was admitted to the hospital with unstable angina. He did rule out for an MS. The patient does have an abnormal stress test show reversible ischemia to the basal inferior and inferolateral LV mccoy. Due to the patient's unstable angina and abnormal stress test, will plan to proceed with left cardiac catheterization today to evaluate for coronary artery disease. 2. The patient has been educated the risk and benefits of proceeding with left cardiac catheterization. The patient verbalizes understanding and is agreeable in proceeding with the procedure. 3. The patient will be n.p.o. in preparation for left cardiac catheterization. 4. BNP is negative. 5. CTA of the chest was negative. 6. His blood pressure is well-controlled. 7. His LDL goal is less than 55. His LDL is 77. Will start him on a statin. 8. Further recommendations will be made pending the patient's response to treatment and the results of his left cardiac catheterization today. Thank you for the opportunity to participate in the care of this patient. All recommendations and orders are per Dr. Rea. Addendum: [facility] shows: The left main artery Normal The left anterior descending artery Has a proximal 40% concentric stenosis with mild 10% mid vessel luminal regularities The circumflex artery Large and dominant giving rise to large ramus intermedius which has mild 10% luminal regularities. A large first obtuse marginal artery has a mid vessel stent which is widely patent free of in-stent restenosis with excellent proximal distal transitioning. The terminal obtuse marginal artery has 10% stenoses. The right coronary artery Nondominant normal The VITAL ventriculogram reveals Hyperdynamic 70% The left ventricular end-diastolic pressure Less than 10 mmHg Right atrial pressure 8 mmHg Pulmonary artery pressure 25/15 mmHg Pulmonary artery occlusion pressure 12 mmHg Right atrial saturation 76% Pulmonary artery saturation 74% Saturation 99% Hemoglobin 13.8 Cardiac output 6.6 L/min IMPRESSION Coronary disease as described above most significant is moderate stenosis in the proximal LAD Widely patent stent in the dominant circumflex artery/obtuse marginal artery as described above Hyperdynamic ventricle Mildly elevated left-sided filling pressures PLAN 1. Medical management for coronary artery disease 2. Aggressive risk factor modification 3. Cardiac rehabilitation 4. Recommend pulmonary evaluation for dyspnea 5. Referred to associate application developer
[2025-07-17] MEDS: FENTANYL 100MCG/2ML VIAL 50 MCG IV (12:57)
[2025-07-17] MEDS: MIDAZOLAM HCL 1MG/ML 5ML VIAL 1 MG IV (12:57)
--- NOTE | 2025-07-17 13:28 | PC.NURSE ---
Pt. back from quality assurance/r&d lab technician.
--- NOTE | 2025-07-17 13:47 | PC.NURSE ---
Right neck dressing c/d/i.
--- NOTE | 2025-07-17 14:41 | EXP.PULM.CON ---
History of Present Illness History of present illness: Mr. 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 [facility] Disclaimer: The information contained in this section may have been updated after the patient was seen, as this information can be updated by other users. Medical History (Updated 07/18/25 @ 11:02 by Janee Sharma MD) Dyspnea on exertion Unstable angina Abnormal echocardiogram Mastoiditis of right side Dizziness Right ear pain History of fracture of leg Pacemaker Pulmonary arterial hypertension Abnormal electrocardiogram [ECG] [EKG] Non-STEMI (non-ST elevated myocardial infarction) Hyperlipidemia Coronary artery disease Bright's disease Femur fracture, left History of left heart catheterization (LHC) Cardiac pacemaker in situ JUANITA (acute kidney injury) Chronic serous otitis media of right ear Impacted cerumen of right ear Hearing loss in right ear Tympanosclerosis, right ear Syncope Symptomatic bradycardia 1st degree AV block Bradycardia Chest pain Abnormal electrocardiography HTN (hypertension) Surgical History History of facial surgery History of back surgery Family History Father Family history of myocardial infarction Mother Family history of myocardial infarction Other Family history of diabetes mellitus Social History (Updated 07/16/25 @ 11:55 by Deb Summers, RN) Smoking Status: Never smoker alcohol intake: never substance use type: denies use current occupational status: other Travel in the last 8 weeks?: None household members: spouse housing: house Review of Systems Constitutional Constitutional: Reports fatigue, Denies headache(s) and Reports snoring Eyes Eyes: Denies eye discharge, Denies dry eyes, Denies irritation and Denies itchy eyes ENT Ears, Nose, Mouth, and Throat: Denies disequilibrium, Denies headache(s), Denies lip swelling and Denies throat swelling *Cardiovascular Cardiovascular: Reports dyspnea and Reports dyspnea on exertion *Respiratory Respiratory: Denies change in phlegm color, Reports chest congestion, Reports cough, Reports dyspnea, Reports dyspnea on exertion, Denies excessive phlegm production, Denies hemoptysis, Denies pain on inspiration, Denies pain with cough, Reports snoring and Reports wheezing *Gastrointestinal Gastrointestinal: Denies abdominal pain, Denies belching and Denies cramping *Musculoskeletal Musculoskeletal: Reports back pain, Reports myalgias and Reports other (No small joint swelling or Pain) *Neurologic Neurologic: Denies disequilibrium and Denies headache(s) Psychiatric Psychiatric: Denies homicidal ideation and Denies suicidal ideation Endocrine Endocrine: Reports fatigue and Denies heat intolerance Hematologic/Lymphatic Hematologic/Lymphatic: Denies easy bleeding and Denies lymphadenopathy Allergic/Immunologic Allergic/Immunologic: Denies itchy eyes, Denies lip swelling, Denies throat swelling and Reports wheezing Pulmonology Exam Inpatient Vital signs and Labs for Last 24 Hours: Temp Pulse Resp BP Pulse Ox O2 Del Method O2 Flow Rate 97.6 F 60 17 128/69 97 Room Air 2 07/17/25 14:15 07/17/25 14:15 07/17/25 14:15 07/17/25 14:15 07/17/25 14:15 07/17/25 14:15 07/17/25 07:00 Laboratory Results - last 24 hr 07/16/25 11:25: NT-Pro-B Natriuret Pep < 20.0 07/16/25 16:20: POC Glucose 360 H* 07/16/25 20:14: POC Glucose 341 H* 07/16/25 23:50: Troponin I 0.01 07/17/25 02:58: Troponin I 0.02 07/17/25 05:08: POC Glucose 322 H* 07/17/25 07:57: WBC 9.8, RBC 4.35 L, Hgb 13.8 L, Hct 41.9 L, MCV 96.3 H, MCH 31.7 H, MCHC 32.9, RDW 12.0, Plt Count 168, MPV 11.5 H, Neut % (Auto) 68.0, Lymph % (Auto) 18.2, Freestone % (Auto) 10.0 H, Eos % (Auto) 2.7, Baso % (Auto) 0.2, Neut # (Auto) 6.7, Lymph # (Auto) 1.8, Freestone # (Auto) 1.0, Eos # (Auto) 0.3, Baso # (Auto) 0.0, PT 10.3, INR 0.92, Sodium 135 L, Potassium 5.2 H, Chloride 99, Carbon Dioxide 23, Anion Gap 18.2 H, BUN 46 H, Creatinine 1.60 H, Estimated Creat Clear 85, Estimated GFR 45 L, Est GFR ( Amer) 54 L, Glucose 338 H, Calcium 9.7, Total Bilirubin 0.4, Direct Bilirubin 0.4, Conjugated Bilirubin 0.0, Indirect Bilirubin 0.0, Unconjugated Bilirubin 0.0, AST 35, ALT 66, Alkaline Phosphatase 148 H, Total Protein 8.6 H, Albumin 4.9 07/17/25 10:20: POC Glucose 357 H* I & O for Labs for Last 24 Hours: Intake & Output 07/14/25 07/15/25 07/16/25 07/17/25 23:59 23:59 23:59 23:59 Intake Total 580 / 820 240 / 240 Output Total 0 / 0 0 / 0 Balance 580 / 820 240 / 240 Weight 261 lb 260 lb 1 oz Constitutional: Present mild distress Head: Present normocephalic and atraumatic ENT: Present normal exam, normal oropharynx and mucous membranes moist Neck: Present normal inspection and full ROM Respiratory: Present able to speak in complete sentences; Absent prolonged expiratory phase, respiratory distress, rhonchi, wheezes or crackles Cardiac: Present S1/S2, Tachycardia and radial pulses present GI: Present soft and distention; Absent tenderness or guarding Skin: Present intact; Absent cyanosis or jaundice Neuro: Present alert, awake and oriented x 3 Extremities: Present normal inspection and edema; Absent clubbing or cyanosis Psychiatric: Present normal affect and cooperative Meds Home Medications and Allergies Home Medications ?Medication ?Instructions ?Recorded ?Confirmed ?Type hydromorphone (PF) 1 mg/mL 1 mg continuous epidural CONT 05/01/24 07/16/25 History injection solution finasteride 5 mg tablet 5 mg PO DAILY 12/19/24 07/16/25 History allopurinol 100 mg tablet 100 mg PO DAILY #90 tabs 03/27/25 07/16/25 Rx (Zyloprim) carvedilol 12.5 mg tablet 12.5 mg PO BID #60 tabs 04/10/25 07/16/25 Rx furosemide 20 mg tablet (Lasix) 20 mg PO DAILY #90 tabs 05/16/25 07/16/25 Rx isosorbide mononitrate 60 mg 60 mg PO DAILY 05/16/25 07/16/25 History tablet,extended release 24 hr nifedipine 60 mg tablet,extended 60 mg PO BID #60 tabs 06/14/25 07/16/25 Rx release irbesartan 300 mg tablet 300 mg PO DAILY 07/16/25 07/16/25 History oxycodone-acetaminophen 10 mg-325 1 tab PO QIDP PRN Moderate Pain 07/16/25 07/16/25 History mg tablet (Percocet) (Scale Score 5-6) spironolactone 50 mg tablet 50 mg PO BID 07/16/25 07/16/25 History ticagrelor 90 mg tablet (Brilinta) 90 mg PO BID 07/16/25 07/16/25 History New Prescriptions to Start Prescriptions: Allergies Allergy/AdvReac Type Severity Reaction Status Date / Time Thiazides Allergy Intermediate Unknown Verified 07/16/25 09:39 allergy reaction Androgenic Anabolic Steroid Allergy Mild Unknown Verified 07/16/25 09:39 allergy reaction aspirin (ASPIRIN) Allergy Unknown FACIAL Verified 07/16/25 09:39 SWELLING Penicillins (PENICILLINS) Allergy Unknown FACIAL Verified 07/16/25 09:39 SWELLING Sulfa (Sulfonamide Allergy Unknown Unknown Verified 07/16/25 09:39 Antibiotics) (SULFA allergy (SULFONAMIDE ANTIBIOTICS)) reaction morphine AdvReac Mild Vomiting Verified 07/16/25 09:39 NSAIDS (Non-Steroidal AdvReac Other Verified 07/16/25 09:39 Anti-Inflamma Results Laboratory Findings 07/18/25 08:18 07/18/25 08:18 PT/INR, D-dimer PT 10.3 seconds (10.1-12.5) 07/17/25 07:57 INR 0.92 (0.9-1.1) 07/17/25 07:57 Abnormal lab findings: Abnormal Labs 07/16/25 07/16/25 07/16/25 11:25 16:20 20:14 RBC 4.15 L Hgb 13.5 L Hct 40.2 L MCV 96.9 H MCH 32.5 H MPV 11.5 H Freestone % (Auto) Sodium 130 L Potassium 5.7 H Chloride 93 L Anion Gap 15.7 H BUN 49 H Creatinine 1.70 H Estimated GFR 42 L Est GFR ( Amer) 51 L Glucose 401 H* POC Glucose 360 H* 341 H* Hemoglobin A1c 8.5 H Magnesium 2.6 H Alkaline Phosphatase 128 H Total Protein 8.7 H Globulin 3.9 H Triglycerides 499 H Cholesterol 207 H LDL Cholesterol Direct 77.99 L HDL Cholesterol 34 L Cholesterol/HDL Ratio 6.1 H 07/17/25 07/17/25 07/17/25 05:08 07:57 10:20 RBC 4.35 L Hgb 13.8 L Hct 41.9 L MCV 96.3 H MCH 31.7 H MPV 11.5 H Freestone % (Auto) 10.0 H Sodium 135 L Potassium 5.2 H Chloride Anion Gap 18.2 H BUN 46 H Creatinine 1.60 H Estimated GFR 45 L Est GFR ( Amer) 54 L Glucose 338 H POC Glucose 322 H* 357 H* Hemoglobin A1c Magnesium Alkaline Phosphatase 148 H Total Protein 8.6 H Globulin Triglycerides Cholesterol LDL Cholesterol Direct HDL Cholesterol Cholesterol/HDL Ratio Assessment and Plan *Assessment and plan (1) Dyspnea on exertion: Status: Acute Category: Medical Code(s): R06.09 - Other forms of dyspnea Plan Mr. 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 Patient admits symptoms started around 5 months ago and has been gradually getting worse. Denies any symptoms prior to that. No personal history of allergies or asthma. No childhood respiratory symptoms. Admits family history of asthma in his brother. Mostly with exertion. Symptoms at rest. No significant wheezing associated. CTA PE protocol on this admission, no polyps. No significant emphysematous changes with no significant pulmonary parenchymal changes appreciated. Lower lobe likely dependent atelectasis. Echo: Normal LVEF. Diastolic dysfunction. RHC PA with wedge of 12. 1+ lower extremity edema No recent prior PFTs available for review. Plan: Albuterol 4 times daily as needed Follow-up with 6-minute walk testing # Thank you for involving pulmonary in this patient care.
[2025-07-17] MEDS: IOPAMIDOL-370 (76%);100ML BOTTLE 100 ML IV (15:25)
[2025-07-17 15:27] LABS: CATHL Arterial O2 SAT 74.8 % (90-100); CATHL Venous O2 SAT 76.3 % (75-80)
--- NOTE | 2025-07-17 15:29 | PC.NURSE ---
Right wristband removed and 2x2 tegaderm placed.
[2025-07-17 16:20] LABS: POC Glucose,Bedside 304 (70-110)
[2025-07-17] MEDS: INSULIN GLARGINE 100 UNITS/ML 3ML FLEXPEN 25 UNIT SUBCUT (21:04)
[2025-07-17] MEDS: PANTOPRAZOLE 40MG TABLET 40 MG PO (21:05)
[2025-07-17] MEDS: ATORVASTATIN 40MG TABLET 40 MG PO (21:06)
[2025-07-17 21:21] LABS: POC Glucose,Bedside 330 (70-110)
[2025-07-18] VITALS (8 sets, daily range): BP systolic 115–159; BP diastolic 63–84; PULSE 60–82; RESP 14–18; TEMP 36.3–36.7; O2SAT 95–98; BMI 35.6
--- NOTE | 2025-07-18 03:21 | PC.NURSE ---
Pt has rested some this shift. Has c/o bowels not moving since being admitted to hospital. Also c/o feeling like he is not breathing well. Pt reports this is the same way he has felt for months. Pts O2 sat 99%. LS clear. Pulmonology consult is ordered. Paced on tele. no acute changes. VSS. Call light in reach.
[2025-07-18] MEDS: OXYCODONE 10MG W/APAP 325MG TABLET 1 EACH PO ×4 (04:11→20:55)
[2025-07-18] MEDS: POLYETHYLENE GLYCOL 3350 17 GM PACKET PO ×2 (04:12→11:30)
[2025-07-18] MEDS: HYDROMORPHONE 2MG/ML SYRINGE 0.5 MG IV (06:01)
[2025-07-18] MEDS: humaLOG 100 UNITS/ML 10ML VIAL (SSI) SUBCUT ×4 (06:08→20:47)
[2025-07-18 06:11] LABS: POC Glucose,Bedside 266 (70-110)
[2025-07-18] MEDS: SPIRONOLACTONE 25MG TABLET 50 MG PO (07:54)
[2025-07-18] MEDS: FINASTERIDE 5MG TABLET 5 MG PO (07:55)
[2025-07-18] MEDS: IRBESARTAN 300MG TABLET 300 MG PO (07:56)
[2025-07-18] MEDS: ALLOPURINOL 100MG TABLET 100 MG PO (07:56)
[2025-07-18] MEDS: FUROSEMIDE 20MG TABLET 20 MG PO (07:56)
[2025-07-18] MEDS: ISOSORBIDE MONO 60MG TAB.ER.24H 60 MG PO (07:56)
[2025-07-18] MEDS: CARVEDILOL 12.5MG TABLET 12.5 MG PO ×2 (07:56→20:55)
[2025-07-18 08:31] LABS: Hematocrit 39.7 % (42.0-52.0); Hemoglobin 13.2 g/dL (14.1-18.0); Immature Granulocytes % 1.2 %; Mean Corpuscular HGB Conc 33.2 g/dL (31.8-35.4); Mean Corpuscular Hemoglobin 32.2 pg (27.0-31.2); Mean Corpuscular Volume 96.8 fl (80-94); Nucleated Red Blood Cells % 0 %; Platelet Count 161 K/mm3 (142-424); Red Blood Count 4.10 M/mm3 (4.60-6.20); Red Cell Distribution Width-SD 43.4 fL; White Blood Count 9.5 K/mm3 (4.8-10.8)
[2025-07-18 08:43] LABS: Chloride 98 mmol/L (98-107)
[2025-07-18 08:44] LABS: Albumin Level 4.6 g/dl (3.5-5.0); Sodium 131 mmol/L (136-145)
[2025-07-18 08:46] LABS: Alanine Aminotransferase 62 U/L (12-78); Anion Gap 14.2 mEq/L (5-15); Aspartate Amino Transferase 40 U/L (17-59); Blood Urea Nitrogen 46 mg/dl (9-20); Carbon Dioxide 25 mmol/L (22.0-30.0); Creatinine Clearance Estimated 88 mL/min (50-200); Creatinine,Serum 1.60 mg/dl (0.66-1.25); Estimated Glomerular Filt Rate 45 ml/min (>60); GFR (African American) 54 ML/MIN (>60)
[2025-07-18 08:47] LABS: Albumin/Globulin Ratio 1.4 (1.1-1.8); Alkaline Phosphatase 114 U/L (38-126); Bilirubin,Total 0.5 mg/dl (0.2-1.3); Calcium 9.6 mg/dl (8.4-10.2); Globulin 3.2 g/dL (1.3-3.2); Glucose 333 mg/dl (74-100); Total Protein,Serum 7.8 g/dl (6.3-8.2)
[2025-07-18 08:56] LABS: Potassium 6.2 mmoL/L (3.5-5.1)
[2025-07-18] MEDS: DEXTROSE 50% 50ML SYRINGE (CRASH CART) 50 ML IVP (09:47)
[2025-07-18] MEDS: INSULIN HUMAN REGULAR 100 UNITS/ML 10ML VIAL 12 UNIT IV (09:48)
[2025-07-18] MEDS: LOKELMA 5GM PACKET 10 GM PO ×3 (09:48→20:57)
[2025-07-18] MEDS: SENNOSIDES 8.6MG/DOCUSATE 50MG TABLET 1 TAB PO (11:30)
[2025-07-18 11:39] LABS: POC Glucose,Bedside 340 (70-110)
--- NOTE | 2025-07-18 12:07 | EXP.CARD.PN ---
Subjective Subjective Date: 07/18/25 Time: 10:00 Principal diagnosis: Unstable angina Interval history: This is a 55-year-old gentleman who was admitted to the hospital with concerns of unstable angina and shortness of breath. He underwent left cardiac catheterization yesterday which showed patent coronary artery disease and right cardiac catheterization only showed mildly elevated left filling pressures. It was recommended that he be evaluated by pulmonology for his persistent symptoms. This morning he denies any chest pain or pressure. He states he is still short of breath with exertion and improves with rest. Denies any fever, chills, nausea, vomiting or diarrhea. Denies any lower extremity edema. Exam Data for Last 24 hours Vital signs and Labs for Last 24 Hours: Temp Pulse Resp BP Pulse Ox O2 Del Method O2 Flow Rate 98.1 F 72 18 121/72 97 Room Air 2 07/18/25 12:00 07/18/25 12:00 07/18/25 12:00 07/18/25 12:00 07/18/25 12:00 07/18/25 12:00 07/17/25 17:15 Laboratory Results - last 24 hr 07/17/25 12:52: ABG O2 Sat (Measured) 74.8 L, POC VBG O2 Sat (Musa) 76.3 07/17/25 16:13: POC Glucose 304 H* 07/17/25 21:00: POC Glucose 330 H* 07/18/25 06:01: POC Glucose 266 H 07/18/25 08:18: WBC 9.5, RBC 4.10 L, Hgb 13.2 L, Hct 39.7 L, MCV 96.8 H, MCH 32.2 H, MCHC 33.2, RDW 12.3, Plt Count 161, MPV 11.3 H, Neut % (Auto) 70.5, Lymph % (Auto) 17.0, Sunflower % (Auto) 8.3, Eos % (Auto) 2.7, Baso % (Auto) 0.3, Neut # (Auto) 6.7, Lymph # (Auto) 1.6, Sunflower # (Auto) 0.8, Eos # (Auto) 0.3, Baso # (Auto) 0.0, Sodium 131 L, Potassium 6.2 H*, Chloride 98, Carbon Dioxide 25, Anion Gap 14.2, BUN 46 H, Creatinine 1.60 H, Estimated Creat Clear 88, Estimated GFR 45 L, Est GFR ( Amer) 54 L, Glucose 333 H, Calcium 9.6, Total Bilirubin 0.5, AST 40, ALT 62, Alkaline Phosphatase 114, Total Protein 7.8, Albumin 4.6, Globulin 3.2, Albumin/Globulin Ratio 1.4 07/18/25 11:31: POC Glucose 340 H* I & O for Last 24 hours: Intake & Output 07/15/25 07/16/25 07/17/25 07/18/25 23:59 23:59 23:59 23:59 Intake Total 580 / 820 480 / 480 Output Total 0 / 0 0 / 0 0 / 0 Balance 580 / 820 480 / 480 0 / 0 Weight 261 lb 260 lb 1 oz 268 lb 9 oz Constitutional Constitutional: no acute distress and obese *Routine HEENT Exam Head: Present normocephalic and atraumatic ENT: Present mucous membranes moist *Routine Neck Exam Neck: Present supple, full ROM and normal carotid upstroke; Absent JVD, carotid bruit or lymphadenopathy *Routine Respiratory Exam Respiratory: Present CTA bilaterally, normal respiratory effort, able to speak in complete sentences and symmetric chest movement *Routine Cardiovascular Exam Cardiovascular: Present RRR, Normal S1 and Normal S2; Absent murmur or gallop *Routine Abdominal Exam Abdominal: Present soft and normoactive bowel sounds; Absent tenderness, distended or organomegaly *Routine Extremities Exam Extremities: Present full ROM, pulses intact and normal capillary refill; Absent cyanosis, clubbing or edema *Routine Skin Exam Skin: Present intact and warm; Absent erythema *Routine Neurological Exam Neurological: Present alert, oriented X3 and CN II-XII intact; Absent sensory deficit or motor deficit Routine Psychiatric Exam Psychiatric: Present normal affect Progress Note: A&P Assessment and plan (1) Dyspnea on exertion: Status: Acute (2) Coronary artery disease: Status: Acute (3) Cardiac pacemaker in situ: Status: Chronic (4) HTN (hypertension): Problem details: Established with [facility] cardiology Status: Chronic (5) Hyperlipidemia: Status: Acute (6) Chronic kidney disease: Status: Acute (7) Hyperkalemia: Status: Acute Assessment and Plan Assessment and Plan for All Diagnoses:: Plan: 1. The patient underwent left cardiac catheterization yesterday and had patent coronary artery disease and mildly elevated left filling pressures. Chest pain/shortness of breath is likely noncardiac. 2. Refer to pulmonology for shortness of breath/chest pain. 3. Stop Brilinta due to shortness of breath and chest pain. 4. CAD is stable. Start Plavix 75 mg daily for antiplatelet therapy. He has an allergy to aspirin. 5. Continue isosorbide 7. His blood pressure is well-controlled. Continue carvedilol and irbesartan and nifedipine. 8. His LDL goal is less than 55. His LDL is 77. Continue Lipitor. 9. The patient is hyperkalemic. Will stop spironolactone. Continue Lasix. 10. No further recommendations at this time from a cardiac standpoint. He will need to follow-up in cardiology clinic in 1 to 2 weeks on an outpatient basis. The patient can be discharged on the following cardiac medications: Lipitor 40 mg p.o. nightly Carvedilol 12.5 mg p.o. twice daily Lasix 20 mg daily Irbesartan 300 mg daily Isosorbide 60 mg daily Procardia 60 mg p.o. twice daily Plavix 75 mg daily Stop Brilinta. Stop Aldactone Thank you for the opportunity to participate in the care of this patient. All recommendations and orders are per Dr. Rea.
[2025-07-18 14:10] LABS: Chloride 95 mmol/L (98-107); Sodium 128 mmol/L (136-145)
[2025-07-18 14:14] LABS: Anion Gap 15.3 mEq/L (5-15); Blood Urea Nitrogen 47 mg/dl (9-20); Calcium 9.5 mg/dl (8.4-10.2); Carbon Dioxide 24 mmol/L (22.0-30.0); Creatinine Clearance Estimated 78 mL/min (50-200); Creatinine,Serum 1.80 mg/dl (0.66-1.25); Estimated Glomerular Filt Rate 39 ml/min (>60); GFR (African American) 47 ML/MIN (>60); Glucose 334 mg/dl (74-100)
[2025-07-18 14:32] LABS: Potassium 6.3 mmoL/L (3.5-5.1)
--- NOTE | 2025-07-18 14:59 | P.PN_ITS ---
<Statement entered by Satish Mike MD - 07/18/25 15:56> Rounded on patient after nurse practitioner. Personally examined and interviewed patient. Agree with exam findings and care plan as documented. Subjective *Date: 07/18/25 *Time: 15:21 Interval history: Patient doing well this morning, ambulating around his room. Left heart cath yesterday did not reveal cardiac source for his chest pain and dyspnea. Pulmonology to see patient today for further recommendations on his shortness of breath. Patient states that he does feel well this morning, but would like some answers as to what is going on. Denies pain, shortness of breath at this time. Patient is on room air. Medical Exam Vital signs and Labs for Last 24 Hours: Vital Signs Temp Pulse Pulse Resp BP BP Pulse Ox 07/18/25 13:00 07/18/25 12:00 98.1 F 72 18 121/72 97 07/18/25 10:17 64 18 119/63 98 07/18/25 10:17 68 18 132/74 96 07/18/25 10:06 07/18/25 08:05 07/18/25 08:00 97.6 F 63 14 119/63 98 07/18/25 07:58 07/18/25 07:00 07/18/25 05:00 07/18/25 04:00 97.7 F 60 16 126/67 97 07/18/25 04:00 78 07/18/25 03:00 07/18/25 01:00 07/18/25 00:00 97.4 F L 60 16 115/64 97 07/18/25 00:00 60 07/17/25 23:00 07/17/25 21:00 07/17/25 20:15 97.5 F L 60 18 116/75 99 07/17/25 20:00 60 07/17/25 20:00 97.7 F 60 16 134/69 97 07/17/25 20:00 07/17/25 19:15 98.0 F 60 18 117/63 98 07/17/25 18:15 97.8 F 61 18 120/62 99 07/17/25 18:03 07/17/25 17:15 97.8 F 60 18 124/68 99 07/17/25 16:15 97.8 F 60 18 118/67 98 07/17/25 16:00 60 07/17/25 15:45 97.8 F 60 17 123/69 98 07/17/25 15:15 97.8 F 60 17 116/63 97 O2 Del Method O2 Flow Rate 07/18/25 13:00 Room Air 07/18/25 12:00 Room Air 07/18/25 10:17 Room Air 07/18/25 10:17 Room Air 07/18/25 10:06 Room Air 07/18/25 08:05 Room Air 07/18/25 08:00 Room Air 07/18/25 07:58 Room Air 07/18/25 07:00 Room Air 07/18/25 05:00 Room Air 07/18/25 04:00 Room Air 07/18/25 04:00 07/18/25 03:00 Room Air 07/18/25 01:00 Room Air 07/18/25 00:00 Room Air 07/18/25 00:00 07/17/25 23:00 Room Air 07/17/25 21:00 Room Air 07/17/25 20:15 Room Air 07/17/25 20:00 07/17/25 20:00 Room Air 07/17/25 20:00 Room Air 07/17/25 19:15 Room Air 07/17/25 18:15 Room Air 07/17/25 18:03 Room Air 07/17/25 17:15 Room Air 2 07/17/25 16:15 Nasal Cannula 07/17/25 16:00 07/17/25 15:45 Nasal Cannula 2 07/17/25 15:15 Nasal Cannula 2 Intake and Output 07/17/25 07/18/25 07/18/25 23:59 07:59 15:59 Intake Total 240 / 480 480 / 480 Output Total 0 / 0 0 / 0 Balance 240 / 480 0 / 480 480 / 480 Intake: Intake, Oral Amount 240 / 480 480 / 480 Output: Output, Urine Amount 0 / 0 0 / 0 Other: Number of Unmeasured Voids 1 1 Weight 121.818 kg Patient Weight 07/18/25 23:59 Weight 121.818 kg Laboratory Results - last 24 hr 07/17/25 12:52: ABG O2 Sat (Measured) 74.8 L, POC VBG O2 Sat ([place]) 76.3 07/17/25 16:13: POC Glucose 304 H* 08/19/25 21:00: POC Glucose 330 H* 07/18/25 06:01: POC Glucose 266 H 07/18/25 08:18: WBC 9.5, RBC 4.10 L, Hgb 13.2 L, Hct 39.7 L, MCV 96.8 H, MCH 32.2 H, MCHC 33.2, RDW 12.3, Plt Count 161, MPV 11.3 H, Neut % (Auto) 70.5, Lymph % (Auto) 17.0, [place] % (Auto) 8.3, Eos % (Auto) 2.7, Baso % (Auto) 0.3, Neut # (Auto) 6.7, Lymph # (Auto) 1.6, [place] # (Auto) 0.8, Eos # (Auto) 0.3, Baso # (Auto) 0.0, Sodium 131 L, Potassium 6.2 H*, Chloride 98, Carbon Dioxide 25, Anion Gap 14.2, BUN 46 H, Creatinine 1.60 H, Estimated Creat Clear 88, Estimated GFR 45 L, Est GFR ( Amer) 54 L, Glucose 333 H, Calcium 9.6, Total Bilirubin 0.5, AST 40, ALT 62, Alkaline Phosphatase 114, Total Protein 7.8, Albumin 4.6, Globulin 3.2, Albumin/Globulin Ratio 1.4 07/18/25 11:31: POC Glucose 340 H* 07/18/25 13:54: Sodium 128 L, Potassium 6.3 H*, Chloride 95 L, Carbon Dioxide 24, Anion Gap 15.3 H, BUN 47 H, Creatinine 1.80 H, Estimated Creat Clear 78, Estimated GFR 39 L, Est GFR ( Amer) 47 L, Glucose 334 H, Calcium 9.5 I & O for Labs for Last 24 Hours: Intake & Output 07/15/25 07/16/25 07/17/25 07/18/25 23:59 23:59 23:59 23:59 Intake Total 580 / 820 480 / 480 480 / 480 Output Total 0 / 0 0 / 0 0 / 0 Balance 580 / 820 480 / 480 480 / 480 Weight 118.388 kg 117.962 kg 121.818 kg Constitutional: Present no acute distress and cooperative Head: Present atraumatic Eyes: Present as per HPI ENT: Present normal exam Neck: Present normal inspection Respiratory: Present CTA bilaterally, able to speak in complete sentences and symmetric chest movement; Absent wheezes Cardiac: Present Reg Rate and Rhythm; Absent No Murmur GI: Present soft and normal bowel sounds; Absent distention or tenderness Rectal (male): Present deferred (male): Present deferred Extremities: Present normal inspection; Absent tenderness or edema Skin: Present intact and dry; Absent erythema or rash Neuro: Present alert, awake and oriented x 3 Assessment and Plan *Assessment and plan (1) Unstable angina: Status: Acute Category: Medical Code(s): I20.0 - Unstable angina (2) Dyspnea: Status: Acute Qualifiers: Dyspnea type: other forms of dyspnea Qualified Code(s): R06.09 - Other forms of dyspnea Category: Medical Code(s): R06.00 - Dyspnea, unspecified (3) HTN (hypertension): Problem Comment: Established with [facility] cardiology Status: Chronic Qualifiers: Hypertension type: unspecified Qualified Code(s): I10 - Essential (primary) hypertension Category: Medical Code(s): I10 - Essential (primary) hypertension (4) Coronary artery disease: Status: Acute Qualifiers: Associated angina: with stable angina Coronary Disease-Associated Artery/Lesion type: [place] artery [place] vs. transplanted heart: [place] heart Qualified Code(s): I25.118 - Atherosclerotic heart disease of [place] coronary artery with other forms of angina pectoris Category: Medical Code(s): I25.10 - Atherosclerotic heart disease of [place] coronary artery without angina pectoris (5) Chronic kidney disease: Status: Acute Category: Medical Code(s): N18.9 - Chronic kidney disease, unspecified (6) Diabetes mellitus type 2 in nonobese: Status: Acute Category: Medical Code(s): E11.9 - Type 2 diabetes mellitus without complications (7) Hyperkalemia: Status: Acute Category: Medical Code(s): E87.5 - Hyperkalemia Plan Mr. Soliman is a 55-year-old male who was seen in the cardiology office where he was evaluated for recurrent chest pain. He was complaining of chest pain and pressure with and without activity on the left side of his chest rating it a 5/10 that lasted intermittently for 10 to 20 minutes. He stated that the pain comes and goes, and cannot point out something that would bring it on. He also endorses shortness of breath with/without activity, dizziness and lightheadedness at times, swelling in his legs and ankles, increased fatigue. Due to unstable angina and worsening dyspnea cardiology consulted with hospital medicine for admission, I agreed to admit the patient, plan of care as follows: #Unstable angina #Dyspnea ? Patient was recently admitted to , April 2025 where he had a cardiac MRI and heart cath. Per the patient both were unremarkable and no intervention was needed. He is continue to have intermittent chest pain and worsening dyspnea since. ? Patient had LHC and RHC yesterday, per cardiology's note no intervention was needed during the procedure. Medical management of CAD, risk factor modification, cardiac rehab, evaluation by pulm for dyspnea. ? Continue home medications Nifedipine 60 mg twice daily, isosorbide 60 mg daily, Ibersartan 300 mg daily, Lasix 20 mg daily, carvedilol 12.5 mg twice d aily. ? CTA of chest ordered, no evidence of PE. Blood pressures currently well- controlled. BNP less than 20. Serial troponins ordered, within normal range. ? After discussing more in depth with the patient his symptoms, Brilinta may be causing his shortness of breath. Stop Brilinta now, transition to Plavix 75 mg daily. #Hypertriglyceridemia ?Patient triglycerides greatly elevated, 499. Will start on atorvastatin 40 mg at bedtime. #Hyperkalemia ? Patient initial potassium on admission to the hospital was 5.2, trending upward yesterday to 5.7. Repeat this morning shows potassium of 6.2. Patient received 10 units regular insulin IV and D50 push along with Lokelma. Repeat BMP at 1430 shows increase in potassium to 6.3. Will stop the spironolactone 50 mg twice daily, give another 10 units regular insulin IV (will not give D50 due to elevated blood sugars > 300) and schedule Lokelma 3 times daily. #CKD ? Patient has known chronic kidney disease, baseline creatinine 1.5, creatinine 1.6. #Diabetes mellitus ? Patient states he recently found out he has type 2 diabetes. A1c 8.5%. Blood sugar over 400. He currently does not take any diabetic medication at home. ? ACHS fingersticks and SSI ordered. In addition to SSI, initiated insulin glargine 25 units at bedtime as well as metformin 500 mg twice daily and Farxiga daily. #Chronic pain ? Patient has a intrathecal pain pump continuous?Dilaudid. Patient also is prescribed Percocet 1 tab 4 times daily as needed for moderate pain. Patient also receiving Dilaudid 0.5 mg IV every 2 hours as needed for pain. Will continue, monitoring for toxicity. Full code Diabetic diet Ambulate as tolerated VTE?IPC's
[2025-07-18] MEDS: INSULIN HUMAN REGULAR 100 UNITS/ML 10ML VIAL 10 UNIT IVP (15:04)
--- NOTE | 2025-07-18 15:22 | PC.NURSE ---
Aox 4, up ad horacio, on RA with 02-2L nc at times, right wrist and right neck dressing c/d/i, 20g l fa sl, using urinal, fsbg achs.
[2025-07-18] MEDS: METFORMIN 500MG TABLET 500 MG PO (16:47)
[2025-07-18 16:57] LABS: POC Glucose,Bedside 258 (70-110)
[2025-07-18] MEDS: INSULIN GLARGINE 100 UNITS/ML 3ML FLEXPEN 25 UNIT SUBCUT (20:47)
[2025-07-18] MEDS: ATORVASTATIN 40MG TABLET 40 MG PO (20:55)
[2025-07-18] MEDS: PANTOPRAZOLE 40MG TABLET 40 MG PO (20:55)
[2025-07-18 21:08] LABS: POC Glucose,Bedside 272 (70-110)
[2025-07-18 22:18] LABS: Chloride 94 mmol/L (98-107); Potassium 5.7 mmoL/L (3.5-5.1); Sodium 129 mmol/L (136-145)
[2025-07-18 22:21] LABS: Anion Gap 15.7 mEq/L (5-15); Blood Urea Nitrogen 50 mg/dl (9-20); Carbon Dioxide 25 mmol/L (22.0-30.0); Creatinine Clearance Estimated 74 mL/min (50-200); Creatinine,Serum 1.90 mg/dl (0.66-1.25); Estimated Glomerular Filt Rate 37 ml/min (>60); GFR (African American) 44 ML/MIN (>60)
[2025-07-18 22:22] LABS: Calcium 9.2 mg/dl (8.4-10.2); Glucose 222 mg/dl (74-100)
[2025-07-19] VITALS: PULSE 64
--- NOTE | 2025-07-19 03:36 | PC.NURSE ---
Pt A&OX4 and has tolerated room air. Lung sounds clear and bowel sounds active. He has ambulated room independently. He did complain of back pain once and was medicate per MAR. Continue to monitor potassium levels with last check revealing 5.7. No other complaints at this time, call light within reach.
[2025-07-19 04:00] VITALS: BP 120/71; PULSE 62; PULSE 72; RESP 16; TEMP 36.4; O2SAT 96; BMI 36.2
[2025-07-19] MEDS: humaLOG 100 UNITS/ML 10ML VIAL (SSI) SUBCUT (05:13)
[2025-07-19] MEDS: POLYETHYLENE GLYCOL 3350 17 GM PACKET PO (05:13)
[2025-07-19] MEDS: OXYCODONE 10MG W/APAP 325MG TABLET 1 EACH PO ×2 (05:13→09:36)
[2025-07-19 05:24] LABS: POC Glucose,Bedside 260 (70-110)
[2025-07-19] MEDS: METFORMIN 500MG TABLET 500 MG PO (06:34)
[2025-07-19 06:36] LABS: Hematocrit 39.5 % (42.0-52.0); Hemoglobin 13.1 g/dL (14.1-18.0); Immature Granulocytes % 1.3 %; Mean Corpuscular HGB Conc 33.2 g/dL (31.8-35.4); Mean Corpuscular Hemoglobin 31.6 pg (27.0-31.2); Mean Corpuscular Volume 95.4 fl (80-94); Nucleated Red Blood Cells % 0 %; Platelet Count 185 K/mm3 (142-424); Red Blood Count 4.14 M/mm3 (4.60-6.20); Red Cell Distribution Width-SD 41.3 fL; White Blood Count 10.6 K/mm3 (4.8-10.8)
[2025-07-19 06:41] LABS: Albumin Level 4.8 g/dl (3.5-5.0); Chloride 97 mmol/L (98-107); Sodium 132 mmol/L (136-145)
[2025-07-19 06:42] LABS: Potassium 5.3 mmoL/L (3.5-5.1)
[2025-07-19 06:44] LABS: Alanine Aminotransferase 56 U/L (12-78); Alkaline Phosphatase 123 U/L (38-126); Anion Gap 16.3 mEq/L (5-15); Aspartate Amino Transferase 38 U/L (17-59); Bilirubin,Total 0.5 mg/dl (0.2-1.3); Blood Urea Nitrogen 48 mg/dl (9-20); Carbon Dioxide 24 mmol/L (22.0-30.0); Creatinine Clearance Estimated 79 mL/min (50-200); Creatinine,Serum 1.80 mg/dl (0.66-1.25); Estimated Glomerular Filt Rate 39 ml/min (>60); GFR (African American) 47 ML/MIN (>60)
[2025-07-19 06:45] LABS: Albumin/Globulin Ratio 1.4 (1.1-1.8); Calcium 9.7 mg/dl (8.4-10.2); Globulin 3.5 g/dL (1.3-3.2); Glucose 256 mg/dl (74-100); Total Protein,Serum 8.3 g/dl (6.3-8.2)
[2025-07-19 07:37] VITALS: BP 144/74; PULSE 66; RESP 18; TEMP 36.3; O2SAT 96
[2025-07-19 08:00] VITALS: PULSE 60
[2025-07-19] MEDS: CARVEDILOL 12.5MG TABLET 12.5 MG PO (09:11)
[2025-07-19] MEDS: ISOSORBIDE MONO 60MG TAB.ER.24H 60 MG PO (09:11)
[2025-07-19] MEDS: FINASTERIDE 5MG TABLET 5 MG PO (09:11)
[2025-07-19] MEDS: CLOPIDOGREL 75MG TAB 75 MG PO (09:11)
[2025-07-19] MEDS: DAPAGLIFLOZIN PROPANEDIOL 10 MG TABLET PO (09:11)
[2025-07-19] MEDS: ALLOPURINOL 100MG TABLET 100 MG PO (09:11)
[2025-07-19] MEDS: FUROSEMIDE 20MG TABLET 20 MG PO (09:11)
[2025-07-19] MEDS: LOKELMA 5GM PACKET 10 GM PO (09:32)
[2025-07-19] MEDS: IRBESARTAN 300MG TABLET 300 MG PO (09:36)
--- NOTE | 2025-07-19 11:09 | P.DS_ITS ---
<Statement entered by Satish Mike MD - 07/19/25 14:34> Rounded on patient after nurse practitioner. Personally examined and interviewed patient. Agree with exam findings and care plan as documented. General Admission date:: 07/16/25 Discharge date: 07/19/25 HPI HPI HPI: Mr. Soliman is a 55-year-old male who was seen in the cardiology office today where he was evaluated for recurrent chest pain. He has a primary medical history of pacemaker, NSTEMI, coronary artery disease, CKD, hypertension, BPH, gout, and chronic pain. He was complaining of chest pain and pressure with and without activity on the left side of his chest rating it a 5/10 that lasted intermittently for 10 to 20 minutes. He states that the pain comes and goes, and cannot point out something that would bring it on. He also endorses shortness of breath with/without activity, dizziness and lightheadedness at times, swelling in his legs and ankles, increased fatigue. Due to unstable angina and worsening dyspnea cardiology consulted with hospital medicine for admission, I agreed to admit the patient. Hospital Course Hospital Course Hospital Course: Mr. Soliman is a 55-year-old male who was seen in the cardiology office where he was evaluated for recurrent chest pain. He was complaining of chest pain and pressure with and without activity on the left side of his chest rating it a 5/10 that lasted intermittently for 10 to 20 minutes. He stated that the pain comes and goes, and cannot point out something that would bring it on. He also endorses shortness of breath with/without activity, dizziness and lightheadedness at times, swelling in his legs and ankles, increased fatigue. Due to unstable angina and worsening dyspnea cardiology consulted with hospital medicine for admission, I agreed to admit the patient, plan of care as follows: #Unstable angina #Dyspnea ? Patient was recently admitted to , April 2025 where he had a cardiac MRI and heart cath. Per the patient both were unremarkable and no intervention was needed. He continued to have intermittent chest pain and worsening dyspnea since. Patient had LHC and RHC 07/17/2025, per cardiology's note no intervention was needed during the procedure. Medical management of CAD, risk factor modification, cardiac rehab, evaluation by pulm for dyspnea. ? Continue home medications Nifedipine 60 mg twice daily, isosorbide 60 mg daily, Ibersartan 300 mg daily, Lasix 20 mg daily, carvedilol 12.5 mg twice daily at discharge. ? CTA of chest ordered, no evidence of PE. Blood pressures currently well- controlled. BNP less than 20. Serial troponins ordered, within normal range. ? After discussing more in depth with the patient his symptoms, Brilinta may be causing his shortness of breath. Stop Brilinta now, transition to Plavix 75 mg daily. Patient states since stopping the Brilinta he can already tell a difference in his shortness of breath. Patient states he feels much better today. Follow-up with PCP and cards in 1 week. #Hypertriglyceridemia ?Patient triglycerides greatly elevated, 499. Will start on atorvastatin 40 mg at bedtime. #Hyperkalemia ?Patient was found to be hyperkalemic yesterday, potassium 6.3. Patient received IV insulin and Lokelma, in addition his renal lactone 50 mg twice daily was stopped. Patient's potassium stable today at 5.3. Patient should have a recheck of a BMP at his follow-up with PCP. #CKD ? Patient has known chronic kidney disease, baseline creatinine 1.5, creatinine 1.8. #Diabetes mellitus ? Patient states he recently found out he has type 2 diabetes. A1c 8.5%. Blood sugar over 400. He currently does not take any diabetic medication at home. ? Initiated insulin glargine 30 units at bedtime as well as metformin 500 mg twice daily and Farxiga daily. Discussed with patient the importance of checking blood sugar regularly, he states he has a glucometer and supplies at home. Patient should follow-up with PCP for further diabetes management at discharge. #Chronic pain ? Patient has a intrathecal pain pump continuous?Dilaudid, continue Percocet 1 tab 4 times daily as needed for pain. Total time spent on discharge 35 minutes in counseling, documentation, chart review, and direct care with patient. Exam Data for Last 24 hours Vital signs and Labs for Last 24 Hours: Temp Pulse Resp BP Pulse Ox O2 Del Method O2 Flow Rate 97.6 F 63 14 119/63 98 Room Air 2 07/18/25 08:00 07/18/25 08:00 07/18/25 08:00 07/18/25 08:00 07/18/25 08:00 07/18/25 08:05 07/17/25 17:15 Laboratory Results - last 24 hr 07/17/25 07:57: PT 10.3, INR 0.92, Sodium 135 L, Potassium 5.2 H, Chloride 99, Carbon Dioxide 23, Anion Gap 18.2 H, BUN 46 H, Creatinine 1.60 H, Estimated Creat Clear 85, Estimated GFR 45 L, Est GFR ( Amer) 54 L, Glucose 338 H, Calcium 9.7, Total Bilirubin 0.4, Direct Bilirubin 0.4, Conjugated Bilirubin 0.0, Indirect Bilirubin 0.0, Unconjugated Bilirubin 0.0, AST 35, ALT 66, Alkaline Phosphatase 148 H, Total Protein 8.6 H, Albumin 4.9 07/17/25 10:20: POC Glucose 357 H* 07/17/25 12:52: ABG O2 Sat (Measured) 74.8 L, POC VBG O2 Sat ([place]) 76.3 07/17/25 16:13: POC Glucose 304 H* 07/17/25 21:00: POC Glucose 330 H* 07/18/25 06:01: POC Glucose 266 H I & O for Last 24 hours: Intake & Output 07/15/25 07/16/25 07/17/25 07/18/25 23:59 23:59 23:59 23:59 Intake Total 580 / 820 480 / 480 Output Total 0 / 0 0 / 0 0 / 0 Balance 580 / 820 480 / 480 0 / 0 Weight 118.388 kg 117.962 kg 121.818 kg Constitutional Constitutional: no acute distress and obese *Routine HEENT Exam Head: Present normocephalic and atraumatic ENT: Present mucous membranes moist *Routine Neck Exam Neck: Present supple, full ROM and normal carotid upstroke; Absent JVD, carotid bruit or lymphadenopathy *Routine Respiratory Exam Respiratory: Present CTA bilaterally, normal respiratory effort, able to speak in complete sentences and symmetric chest movement *Routine Cardiovascular Exam Cardiovascular: Present RRR, Normal S1 and Normal S2; Absent murmur or gallop *Routine Abdominal Exam Abdominal: Present soft and normoactive bowel sounds; Absent tenderness, dis tended or organomegaly *Routine Extremities Exam Extremities: Present full ROM, pulses intact and normal capillary refill; Absent cyanosis, clubbing or edema *Routine Skin Exam Skin: Present intact and warm; Absent erythema *Routine Neurological Exam Neurological: Present alert, oriented X3 and CN II-XII intact; Absent sensory deficit or motor deficit Routine Psychiatric Exam Psychiatric: Present normal affect Results Data Completed and Pending Labs on day of discharge: Labs from last 24 hours 07/18/25 07/17/25 07/17/25 06:01 21:00 16:13 PT INR ABG O2 Sat (Measured) POC VBG O2 Sat ([place]) Sodium Potassium Chloride Carbon Dioxide Anion Gap BUN Creatinine Estimated Creat Clear Estimated GFR Est GFR ( Amer) Glucose POC Glucose 266 H 330 H* 304 H* Calcium Total Bilirubin Direct Bilirubin Conjugated Bilirubin Indirect Bilirubin Unconjugated Bilirubin AST ALT Alkaline Phosphatase Total Protein Albumin 07/17/25 07/17/25 07/17/25 12:52 10:20 07:57 PT 10.3 INR 0.92 ABG O2 Sat (Measured) 74.8 L POC VBG O2 Sat ([place]) 76.3 Sodium 135 L Potassium 5.2 H Chloride 99 Carbon Dioxide 23 Anion Gap 18.2 H BUN 46 H Creatinine 1.60 H Estimated Creat Clear 85 Estimated GFR 45 L Est GFR ( Amer) 54 L Glucose 338 H POC Glucose 357 H* Calcium 9.7 Total Bilirubin 0.4 Direct Bilirubin 0.4 Conjugated Bilirubin 0.0 Indirect Bilirubin 0.0 Unconjugated Bilirubin 0.0 AST 35 ALT 66 Alkaline Phosphatase 148 H Total Protein 8.6 H Albumin 4.9 DS: Diagnosis Discharge Diagnosis (1) Unstable angina: Status: Acute Code(s): I20.0 - Unstable angina (2) Dyspnea: Status: Acute Code(s): R06.00 - Dyspnea, unspecified Qualifiers: Dyspnea type: other forms of dyspnea Qualified Code(s): R06.09 - Other forms of dyspnea (3) HTN (hypertension): Status: Chronic Code(s): I10 - Essential (primary) hypertension Qualifiers: Hypertension type: unspecified Qualified Code(s): I10 - Essential (primary) hypertension Problem details: Established with [facility] cardiology (4) Coronary artery disease: Status: Acute Code(s): I25.10 - Atherosclerotic heart disease of [place] coronary artery without angina pectoris Qualifiers: Associated angina: with stable angina Coronary Disease-Associated Artery/Lesion type: [place] artery [place] vs. transplanted heart: [place] heart Qualified Code(s): I25.118 - Atherosclerotic heart disease of [place] coronary artery with other forms of angina pectoris (5) Chronic kidney disease: Status: Acute Code(s): N18.9 - Chronic kidney disease, unspecified (6) Diabetes mellitus type 2 in nonobese: Status: Acute Code(s): E11.9 - Type 2 diabetes mellitus without complications (7) Hyperkalemia: Status: Acute Code(s): E87.5 - Hyperkalemia Meds Home Medications and Allergies Home Medications ?Medication ?Instructions ?Recorded ?Confirmed ?Type hydromorphone (PF) 1 mg/mL 1 mg continuous epidural CO NT 05/01/24 07/16/25 History injection solution finasteride 5 mg tablet 5 mg PO DAILY 12/19/2407/16 History allopurinol 100 mg tablet 100 mg PO DAILY #90 tabs 07/16/25 Rx (Zyloprim) carvedilol 12.5 mg tablet 12.5 mg PO BID #60 tabs 03/2907/16/25 Rx furosemide 20 mg tablet (Lasix) 20 mg PO DAILY #90 tab s 05/16/25 07/16/25 Rx isosorbide mononitrate 60 mg 60 mg PO DAILY 05/16/25 0 07/16/25 History tablet,extended release 24 hr nifedipine 60 mg tablet,extended 60 mg PO BID #60 tabs 06/14/25 07/16/25 Rx release irbesartan 300 mg tablet 300 mg PO DAILY 07/16/25 History oxycodone-acetaminophen 10 mg-325 1 tab PO QIDP PRN Mo derate Pain 07/16/25 07/16/25 History mg tablet (Percocet) (Scale Score 5-6) atorvastatin 40 mg tablet 40 mg PO HS 30 days #30 tabs 07/19/25 Rx clopidogrel 75 mg tablet 75 mg PO DAILY 30 days #30 t abs 07/19/25 Rx dapagliflozin propanediol 10 mg 10 mg PO DAILY 30 days #30 tabs 07/19/25 Rx tablet (Farxiga) insulin glargine 100 unit/mL (3 30 unit (0.3 mL) SQ HS #15 mL 07/19/25 Rx mL) subcutaneous pen (Lantus Solostar U-100 Insulin) metformin 500 mg tablet 500 mg PO BIDWMEAL 30 days # 60 tabs 07/19/25 Rx pantoprazole 40 mg tablet,delayed 40 mg PO HS 30 days #30 tabs 07/19/25 Rx release pen needle, diabetic 31 gauge x #100 ea 07/19/25 Rx 1/4 (Pen Needle) New Prescriptions to Start Prescriptions: atorvastatin Mason,Concha clopidogrel Mason,Concha dapagliflozin propanediol [Farxiga] MasonConcha insulin glargine [Lantus Solostar U-100 Insulin] Mason,Concha metformin Mason,Concha pantoprazole MasonConcha pen needle, diabetic [Pen Needle] MasonConcha Allergies Allergy/AdvReac Type Severity Reaction Status Date / Time Thiazides Allergy Intermediate Unknown Verified 07/16/25 09:39 allergy reaction Androgenic Anabolic Steroid Allergy Mild Unknown Verified 07/16/25 09:39 allergy reaction aspirin (ASPIRIN) Allergy Unknown FACIAL Verified 07/16/25 09:39 SWELLING Penicillins (PENICILLINS) Allergy Unknown FACIAL Verified 07/16/25 09:39 SWELLING Sulfa (Sulfonamide Allergy Unknown Unknown Verified 07/16/25 09:39 Antibiotics) (SULFA allergy (SULFONAMIDE ANTIBIOTICS)) reaction morphine AdvReac Mild Vomiting Verified 07/16/25 09:39 NSAIDS (Non-Steroidal AdvReac Other Verified 07/16/25 09:39 Anti-Inflamma Discharge Plan Disposition Patient Disposition: Home, Self-Care Condition: Fair Follow up Plan Follow up with: Karina Saleh APRN [Nurse Practitioner, Cardiology] - 07/26/25 2:00 pm Ross Bar APRN [Primary Care Provider, Family Practice] - 07/25/25 1:40 pm Janee Sharma MD [Physician, Pulmonology] - 08/27/25 1:00 pm Referral Note: 4-6 weeks Prescriptions/Medication Reconciliation: New atorvastatin 40 mg Tablet 40 mg PO HS 30 Days Qty: 30 0RF clopidogrel 75 mg Tablet 75 mg PO DAILY 30 Days Qty: 30 0RF dapagliflozin propanediol [Farxiga] 10 mg Tablet 10 mg PO DAILY 30 Days Qty: 30 0RF metformin 500 mg Tablet 500 mg PO BIDWMEAL 30 Days Qty: 60 0RF pantoprazole 40 mg Tablet,Delayed Release (Dr/Ec) 40 mg PO HS 30 Days Qty: 30 0RF insulin glargine [Lantus Solostar U-100 Insulin] 100 unit/mL (3 mL) Insulin Pen 30 unit SQ HS Qty: 15 0RF (DME) pen needle, diabetic [Pen Needle] 31 gauge x 1/4 needle See Rx Instructions .Route Qty: 100 0RF Rx Instructions: Daily Continued furosemide [Lasix] 20 mg tablet 20 mg PO DAILY Qty: 90 3RF isosorbide mononitrate 60 mg tablet extended release 24 hr 60 mg PO DAILY nifedipine 60 mg tablet extended release 60 mg PO BID Qty: 60 5RF finasteride 5 mg tablet 5 mg PO DAILY carvedilol 12.5 mg tablet 12.5 mg PO BID Qty: 60 5RF allopurinol [Zyloprim] 100 mg tablet 100 mg PO DAILY Qty: 90 3RF hydromorphone (PF) 1 mg/mL Solution 1 mg continuous epidural CONT Rx Instructions: SEE EMR FOR CURRENT DAILY DOSE oxycodone-acetaminophen [Percocet] 10-325 mg tablet 1 tab PO QIDP PRN (Reason: Moderate Pain (Scale Score 5-6)) irbesartan 300 mg tablet 300 mg PO DAILY Discontinued spironolactone 50 mg tablet 50 mg PO BID ticagrelor [Brilinta] 90 mg tablet 90 mg PO BID Problem Reconciliation Problems Reviewed?: Yes Patient Discharge Instructions ACTIVITY: Continue current activity DIET: diabetic diet Patient Instructions: DI for Cardiac Catheterization, DI for Chronic Pain -- Adult, DI for Surgical Site Infection, DI for Coronary Artery Disease Print Language: Kazakh Providers Primary Care Provider: Ross Bar Admit Provider: Mann Berman Attending Provider: Baljinder Collazo
--- NOTE | 2025-07-20 10:26 | SW/DCPLANNER ---
Spoke with patient's on the phone. Patient's stated that his sugar is a little high this morning. Patient's stated that they are aware of patient's upcoming appointments. Patient's stated that they were able to get his new medicine picked up from [facility]. Patient's stated that they have no concerns or questions at this time. Peg Renae
== END 2025-07-19 11:21 | disposition home or self-care (01) ==
PROVIDERS: Internal Medicine Adolescent Medicine; Nurse Practitioner Family; Admitting Provider Internal Medicine; PCP Nurse Practitioner Family; Visit Provider Student in an Organized Health Care Education/Training Program
PROC: 4A023N7 Measurement of Cardiac Sampling and Pressure, Left Heart, Percutaneous Approach (ICD-10-PCS; CPT 93452; principal; 2025-07-17 11:15)
PROC: 4A023N6 Measurement of Cardiac Sampling and Pressure, Right Heart, Percutaneous Approach (ICD-10-PCS; CPT 93451; 2025-07-17 11:15)
DX: I25.118 Atherosclerotic heart disease of native coronary artery with other forms of angina pectoris (principal); R06.09 Other forms of dyspnea; I12.9 Hypertensive chronic kidney disease with stage 1 through stage 4 chronic kidney disease, or unspecified chronic kidney disease; E11.22 Type 2 diabetes mellitus with diabetic chronic kidney disease; N18.9 Chronic kidney disease, unspecified; I25.2 Old myocardial infarction; E87.5 Hyperkalemia; G89.29 Other chronic pain; N40.0 Benign prostatic hyperplasia without lower urinary tract symptoms; M10.9 Gout, unspecified; E78.1 Pure hyperglyceridemia; E78.5 Hyperlipidemia, unspecified; J45.909 Unspecified asthma, uncomplicated; E66.9 Obesity, unspecified; Z68.36 Body mass index [BMI] 36.0-36.9, adult; Z79.899 Other long term (current) drug therapy; Z79.02 Long term (current) use of antithrombotics/antiplatelets; Z79.4 Long term (current) use of insulin; Z79.84 Long term (current) use of oral hypoglycemic drugs; Z88.8 Allergy status to other drugs, medicaments and biological substances; Z88.0 Allergy status to penicillin; Z88.1 Allergy status to other antibiotic agents; Z88.2 Allergy status to sulfonamides; Z88.6 Allergy status to analgesic agent; Z95.0 Presence of cardiac pacemaker; Z82.49 Family history of ischemic heart disease and other diseases of the circulatory system; Z57.2 Occupational exposure to dust
CPT/HCPCS: 36415; 71045; 71275; 80048; 80053; 80061; 80076; 82810; 82962; 83036; 83735; 83880; 84443; 84484; 85025; 85610; 93005; 93460; 94618; 99152; 99153; C1725; C1760; C1769; C1776; C1894; G0378; J1171; J1200; J1644; J2003; J2250; J3010; J7040; Q9967

== ENCOUNTER 2025-07-24 09:43 | Outpatient (CLI) | payer OTHER, SELFPAY ==
--- OUTSIDE RECORDS SUMMARY | 2025-07-10 10:04 | XMS_ITS | Encounter Summary ---
Author Organization [facility] Address [address] 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 carvedilol (Coreg) 25 MG tablet 02/18/2024 cholecalciferol 25 MCG (1000 UT) tablet Take 1 tablet (1,000 Units) by mouth 1 (one) time each day. dapagliflozin (Farxiga) 10 MG tablet Take 1 tablet by mouth daily. 90 tablet 3 04/02/2025 finasteride (Proscar) 5 MG tabletIndications: Stage 3a chronic kidney disease (CMS/HCC) Take 1 tablet (5 mg) by mouth 1 (one) time each day. Do not crush, chew, or split. 30 tablet 11 11/10/2024 furosemide (Lasix) 20 MG tablet Take 1 tablet by mouth daily. 05/16/2025 irbesartan (Avapro) 300 MG tablet Take 1 tablet (300 mg) by mouth 1 (one) time each day. isosorbide mononitrate ER (Imdur) 30 MG 24 hr tablet Take 3 tablets by mouth daily. Do not crush or chew. 90 tablet 2 04/02/2025 meclizine (Antivert) 25 MG tablet Take 1 tablet by mouth 3 times a day as needed for dizziness. 30 tablet 04/02/2025 NIFEdipine XL (Procardia XL) 30 MG 24 hr tabletIndications: Essential hypertension TAKE ONE TABLET BY MOUTH 2 TIMES A DAY. DO NOT CRUSH, CHEW, OR SPLIT 60 tablet 11 03/19/2025 oxyCODONE-acetamin ophen (Percocet) 10-325 MG tablet spironolactone (Aldactone) 50 MG tablet Take 1 tablet by mouth 2 times a day. ticagrelor (Brilinta) 90 MG tablet Take 1 tablet by mouth 2 times a day. documented as of this encounter Plan of Treatment Upcoming Encounters Date Type Department Care Team (Late st Contact Info) Description 12/07/2025 12:20 PM EST Office Visit [facility] [address] [place] [address] Graciela Maki, GRASS CUTTER [address] [address] documented as of this encounter Procedures Procedure Name Priority Date/Time Associated Diagnosis Comments CARDIAC DEVICE CHECK - IN CLINIC - PACEMAKER DUAL CHAMBER W/ PROG Routine 07/10/2025 10:39 AM EDT Abnormal findings on diagnostic imaging of heart and coronary circulation Abnormal EKG Atherosclerotic heart disease of [place] coronary artery with other forms of angina pectoris (CMS/HCC) documented in this encounter Results * CARDIAC DEVICE CHECK - IN CLINIC - PACEMAKER DUAL CHAMBER W/ PROG (07/10/2025 10:39 AM EDT) Anatomical Region Laterality Modality Other Narrative 07/10/2025 2:29 PM EDT [facility] EP-Device Clinic: In-Person CIED Evaluation & Report Name: Freddie Soliman Date: 07/10/2025 : 1970 Age: 55 y.o. Device: Debug Technician: [employer] dual chamber PM Permanent Programming Mode : DDDR LRL: 60 bpm MTR: 130 bpm Lead [employer]ur[employer] RA Atrial sensin.9 mV Atrial impedance: 728 ohm Atrial threshold: 0.9 V @ 0.4 ms RV RV sensin.9 mV RV impedance: 635 ohm RV threshold: 1.0 V @ 0.4 ms Pacing Percentage: RA 31 % RV <1 % Battery: Service time remainin.5 years Evaluation: Presenting rhythm: Presenting rhythm is atrial paced with [place] ventricular sensed response. Underlying rhythm: Sinus josé luis, upper 50's bpm Trends Sensing trends: Stable Impedance trends: Stable Threshold trends: Stable Rate Histograms : demonstrate good rate distribution. Heart rate trend : Stable Demonstrates appropriate sensing: Yes Demonstrates pacing capture: Yes Programming Changes: Iterative changes only. No permanent changes made. Arrhythmias: No new arrhythmia since last evaluation. Summary Implantable pacemaker (PM) in-clinic device interrogation. Device successfully sensing intrinsic cardiac events and marking appropriately. Available impedance values demonstrate stable trend within normal limits. Available lead capture thresholds measured without significant change. Adequate safety margin programmed in device permanent outputs. Battery discharge trend stable, appropriate given total time in service. EGMs reviewed against implant indication and diagnosis. Attestation I personally performed this device check and provided results to ordering provider. Pre-MRI considerations [employer] dual chamber pacemaker Model: Accolade MRI L311 Serial no: [id number] Implant date: 03/02/2022, >6wks from date of MRI Patient is not dependent on CIED for cardiac rate support today, during CIED evaluation. CXR dated 04/01/2025 demonstrates two (2) leads, no abandoned leads or cardiac wires identified. Patient denies any trauma or procedures to device since this date. CIED system and all of its components are wholly made and manufactured by [employer] ( ) and are labeled with MRI conditionality for 1.5T or 3T. DEVICE CLINIC RECOMMENDATIONS: PRE-MRI 1) Interrogate the CIED 2) Validate lead measurements are within acceptable limits. If they are not, do NOT proceed with the MRI 3) Program the MRI conditional device to MRI Safe Mode. 4) Patients who require pacing support, MRI pacing mode must be set to DOO, AOO or VOO 10-15 beats per minute higher than the patient's intrinsic rhythm to prevent competitive pacing. 5) If ICD, ensure tachy therapies are disabled. While disabled, patient must be monitored on telemetry. POST MRI 1) Interrogate the CIED 2) Return device to pre-MRI settings (including tachy therapy, if applicable). 3) Validate lead measurements are within acceptable limits. 4) Notify Diagnostic group home paraprofessional if any of the following are discovered in the post-MRI interrogation: Capture threshold change of >1.0 V Sensing drop >50% Pacing impedance change >5O ohms Shock impedance change >5 ohms 5) Leave printed copy of pre-MRI and post-MRI testing results and programming with Diagnostic group home paraprofessional. us Lloyd Rea MD CV IMPLANTABLE CARDIAC DEVICE P ROCEDURES Final Result documented in this encounter Visit Diagnoses Diagnosis Abnormal findings on diagnostic imaging of heart and coronary circulation Abnormal EKG Nonspecific abnormal electrocardiogram (ECG) (EKG) Atherosclerotic heart disease of [place] coronary artery with other forms of angina pectoris (CMS/HCC) documented in this encounter Additional Health Concerns Assessment Noted Time A fall risk assessment has been complete d for the patient 03/14/2024 11:15 AM EDT A Body Mass Index follow-up plan has been documented for the patient 05/25/2025 1:02 PM EDT documented as of this encounter Care Teams Guncotton Packer Relationship Specialty Start Date End Date Ross Bar APRN [address] [place] [address] PCP - General 03/09/24 documented as of this encounter
--- OUTSIDE RECORDS SUMMARY | 2025-07-10 10:34 | XMS_ITS | Encounter Summary ---
Author Organization [facility] Address [address] 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) Procedures MR Cardiac Morphology and Function W Velocity Flow Mapping W and WO Contrast Lloyd Rea MD [address] [place] [address] [facility] [place] [address] Phone: tel: fax: Referral ID Status Reason Start Date Expiration Date Visits Re quested Visits Authorized [id number] Closed 05/25/2025 11/24/2026 1 1 Reason for Visit * Imaging (Routine) - Closed Specialty Diagnoses / Procedures Referred By Brinda duckworth Referred To Contact Radiology Diagnoses Abnormal findings on diagnostic imaging of heart and coronary circulation Abnormal EKG 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) Procedures MR Cardiac Morphology and Function W Velocity Flow Mapping W and WO Contrast Lloyd Rea MD [address] [place] [address] [facility] [address] [id number] Phone: tel: fax: Referral ID Status Reason Start Date Expiration Date Visits Re quested Visits Authorized [id number] Closed 05/25/2025 11/24/2026 1 1 Encounter Details Date Type Department Care Team (Late st Contact Info) Description 07/10/2025 10:34 AM EDT - 07/10/2025 11:59 PM EDT Hospital Encounter [facility] [address] [place] [address] Urvashi Griffith, RN [facility] Abnormal findings on diagnostic imaging of heart and coronary circulation; Abnormal EKG; Atherosclerotic heart disease of [place] coronary artery with other forms of angina [...] Sign Reading Time Taken Comments Blood Pressure 99/59 07/10/2025 2:25 PM EDT Pulse 80 07/10/2025 2:25 PM EDT Temperature 37.2 C (98.9 F) 07/10/2025 12:54 PM EDT Respiratory Rate - - Oxygen Saturation 95% 07/10/2025 12:34 PM EDT Inhaled Oxygen Concentration - - Weight 119 kg (262 lb 2 oz) 07/10/2025 12:17 PM EDT Height - - Body Mass Index 34.58 05/25/2025 11:55 AM EDT documented in this encounter Medications at Time of Discharge [...] chew, or split. 30 tablet 11 11/10/2024 11/10/2025 furosemide (Lasix) 20 MG tablet Take 1 tablet by mouth daily. 05/16/2025 irbesartan (Avapro) 300 MG tablet Take 1 tablet (300 mg) by mouth 1 (one) time each day. meclizine (Antivert) 25 MG tablet Take 1 [...] a day. documented as of this encounter Miscellaneous Notes * Nursing Note - Osorio De Jesus RN - 07/10/2025 1:00 PM EDT Patient was given triazolam .25 mg for scan by home provider; patient is moderately sedated on thismedication needing 2L NC to maintain >92%; unable to comply/complete breath holds for scan d/t sedation level; patient is arousal with loud vocal stimulation; VSS and scan continues documented in this encounter Plan of Treatment Upcoming Encounters Date Type Department Care Team (Late st Contact Info) Description 12/07/2025 12:20 PM EST Office Visit [facility] [address] [place] [address] Graciela Maki, UROLOGY PHYSICIAN [address] [address] documented as of this encounter Procedures Procedure Name Priority Date/Time Associated Diagnosis Comments MR CARDIAC MORPHOLOGY AND FUNCTION W LATASHA FLOW MAPPING W AND WO CONTRAST Routine 07/10/2025 2:38 PM EDT Abnormal findings on diagnostic imaging of heart and coronary circulation Abnormal EKG 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 There is no evidence of left ventricular myocardial late gadolinium enhancement. 2. Normal sized left ventricle with normal global systolic function (LVEF 60%). 3. Normal sized right ventricle with normal global systolic function (RVEF 51%). 4. No significant valvular abnormalities. Critical Result: No. COMMUNICATION: Per this written report. Drafted by Karina Rodríguez on 07/10/2025 4:13 PM Final report signed by Karina Rodríguez on 07/10/2025 4:41 PM Narrative 07/10/2025 4:41 PM EDT CLINICAL INFORMATION: 55 years old male with a past medical history of CAD s/p PCI who presents for cardiac MRI at the request of Lloyd Rea for cardiomyopathy. Body surface area (BSA): 2.47 m2 Baseline heart rate: 80 beats/min Baseline heart rhythm: Sinus rhythm Comparison Imaging: None. SCAN TECHNIQUE: Cardiac MRI with and without contrast was performed on 1.5T Siemens Aera MRI scanner. Imaging sequences included black blood axial stack with HASTE, cine with SSFP, and late gadolinium enhancement. Phase-contrast complex flow analysis was also performed 2 times during this examination with flow quantification performed at the levels of the aortic root and pulmonic valve Contrast: A total volume of 17.9mL (0.15mmol/kg) of Gadavist (gadobutrol) was administered intravenously via a peripheral IV without any adverse effects. Study Quality: Fair. Artifacts present include: breathing motion artifacts and device leads. FINDINGS: --- Qualitative Assessment --- LV Cavity Size / Morphology: Normal LV Hypertrophy: None LV Global Function: Normal RV Cavity Size / Morphology: Normal RV Hypertrophy: None RV Function: Normal Left Atrial Size: Normal Right Atrial Size: Normal Segmental Function (16 segment model): Basal LV: Normal. Mid LV: Normal. Distal LV: Normal. Regional Wall Motion Score Index (Score/segments) = 1.0 (1.0 = normal; 1.0-1.5 = mild; 1.6-2.0 = moderate; >2.0 = severe) Valves: Aortic Valve: Normal appearing with no significant stenosis or regurgitation Mitral Valve: Normal appearing with no prolapse or cleft, and no significant stenosis or regurgitation Tricuspid Valve: Normal appearing with no significant stenosis or regurgitation Pulmonary Valve: Not well visualized Aorta: Left-sided arch, normal in size without aneurysmal changes or coarctation. Pericardium: Normal, no pericardial effusion. Other: No significant extracardiac abnormalities. --- Quantitative Measurements --- (normal values, reference: Helen Garcias, et al. J Cardiovasc Magn Reson. 2020;22:87) LVEF: 60% (51 - 76) LVEDV: 169ml (83 - 207) LVESV: 68ml (19 - 88) LV Stroke Volume: 101ml (55 - 127) LV Mass (measured at end-diastole excluding papillary muscles): 171gm (57 - 152) LVEDVI: 68ml/m2 (47 - 107) LVESVI: 27ml/m2 (11 - 47) LV Mass Index: 69gm/m2 (36 - 75) RVEF: 51% (42 - 72) RVEDV: 195ml (87 - 244) RVESV: 95ml (29 - 117) RV Stroke Volume: 100ml (43 - 146) RVEDVI: 79ml/m2 (53 - 123) RVESVI: 38ml/m2 (17 - 59) Left Atrial Volume Index: 33mL/m2 (17 - 59) Right Atrial Volume Index: 38mL/m2 (15 - 61) Aortic Root at the Sinuses of Valsalva: 33cm Mid-Ascending Thoracic Aorta: 34cm Descending Thoracic Aorta: 29cm --- Complex Flow Analysis --- Systemic Flow (Qs): 85mL total (net) volume. 89mL forward volume. 3mL regurgitant volume. No significant aortic regurgitation (regurgitation fraction <10%). No significant aortic stenosis. --- Viability (late gadolinium enhancement) --- (Note: Transmural extent of infarct is a marker of viable myocardium: <25% is viable, 25-50% is mixed; likely viable, 50-75% is mixed; likely non-viable, >75% is non-viable) Basal LV: No late gadolinium enhancement noted, although the study is limited in the septal area due to device lead. Mid LV: No late gadolinium enhancement noted, although the study is limited in the septal area due to device lead. Distal LV: No late gadolinium enhancement. Apical Cap: No late gadolinium enhancement. Procedure Note Karina Rodríguez MD - 07/10/2025 CLINICAL INFORMATION: 55 years old male with a past medical history of CAD s/p PCI who presentsfor cardiac MRI at the request of Lloyd Rea for cardiomyopathy. Body surface area (BSA): 2.47 m2 Baseline heart rate: 80 beats/min Baseline heart rhythm: Sinus rhythm Comparison Imaging: None. SCAN TECHNIQUE: Cardiac MRI with and without contrast was performed on 1.5T Siemens AeraMRI scanner. Imaging sequences included black blood axial stack withHASTE, cine with SSFP, and late gadolinium enhancement. Phase-contrastcomplex flow analysis was also performed 2 times during this examinationwith flow quantification performed at the levels of the aortic root andpulmonic valve Contrast: A total volume of 17.9mL (0.15mmol/kg) of Gadavist (gadobutrol)was administered intravenously via a peripheral IV without any adverseeffects. Study Quality: Fair. Artifacts present include: breathing motion artifactsand device leads. FINDINGS: --- Qualitative Assessment --- LV Cavity Size / Morphology: Normal LV Hypertrophy: None LV Global Function: Normal RV Cavity Size / Morphology: Normal RV Hypertrophy: None RV Function: Normal Left Atrial Size: Normal Right Atrial Size: Normal Segmental Function (16 segment model): Basal LV: Normal. Mid LV: Normal. Distal LV: Normal. Regional Wall Motion Score Index (Score/segments) = 1.0 (1.0 = normal; 1.0-1.5 = mild; 1.6-2.0 = moderate; >2.0 = severe) Valves: Aortic Valve: Normal appearing with no significant stenosis orregurgitation Mitral Valve: Normal appearing with no prolapse or cleft, and nosignificant stenosis or regurgitation Tricuspid Valve: Normal appearing with no significant stenosis orregurgitation Pulmonary Valve: Not well visualized Aorta: Left-sided arch, normal in size without aneurysmal changes orcoarctation. Pericardium: Normal, no pericardial effusion. Other: No significant extracardiac abnormalities. --- Quantitative Measurements --- (normal values, reference: Helen Garcias, et al. J Cardiovasc Magn Reson.2020;22:87) LVEF: 60% (51 - 76) LVEDV: 169ml (83 - 207) LVESV: 68ml (19 - 88) LV Stroke Volume: 101ml (55 - 127) LV Mass (measured at end-diastole excluding papillary muscles): 171gm (57- 152) LVEDVI: 68ml/m2 (47 - 107) LVESVI: 27ml/m2 (11 - 47) LV Mass Index: 69gm/m2 (36 - 75) RVEF: 51% (42 - 72) RVEDV: 195ml (87 - 244) RVESV: 95ml (29 - 117) RV Stroke Volume: 100ml (43 - 146) RVEDVI: 79ml/m2 (53 - 123) RVESVI: 38ml/m2 (17 - 59) Left Atrial Volume Index: 33mL/m2 (17 - 59) Right Atrial Volume Index: 38mL/m2 (15 - 61) Aortic Root at the Sinuses of Valsalva: 33cm Mid-Ascending Thoracic Aorta: 34cm Descending Thoracic Aorta: 29cm --- Complex Flow Analysis --- Systemic Flow (Qs): 85mL total (net) volume. 89mL forward volume. 3mLregurgitant volume. No significant aortic regurgitation (regurgitationfraction <10%). No significant aortic stenosis. --- Viability (late gadolinium enhancement) --- (Note: Transmural extent of infarct is a marker of viable myocardium: <25%is viable, 25-50% is mixed; likely viable, 50-75% is mixed; likelynon-viable, >75% is non-viable) Basal LV: No late gadolinium enhancement noted, although the study islimited in the septal area due to device lead. Mid LV: No late gadolinium enhancement noted, although the study islimited in the septal area due to device lead. Distal LV: No late gadolinium enhancement. Apical Cap: No late gadolinium enhancement. IMPRESSION: 1. There is no evidence of left ventricular myocardial late gadoliniumenhancement. 2. Normal sized left ventricle with normal global systolic function (LVEF60%). 3. Normal sized right ventricle with normal global systolic function (RVEF51%). 4. No significant valvular abnormalities. Critical Result: No. COMMUNICATION: Per this written report. Drafted by Karina Rodríguez on 07/10/2025 4:13 PM Final report signed by Karina Rodríguez on 07/10/2025 4:41 PM Lloyd Rea MD IMG MRI PROCEDURES Final Result * (ABNORMAL) Hematocrit, Blood (07/10/2025 12:25 PM EDT) HCT 36.2(L) 40.0 - 51.0 % LAB HEMATOLOGY METHOD 07/10/2025 1:16 PM EDT [facility] Blood Venous blood specimen / Unknown Venipuncture / Unknown 07/10/2025 12:25 PM EDT 07/10/2025 1:09 PM EDT Miguel Rodriguez MD LAB BLOOD ORDERABLES Final Result [facility] [address] [place] [address] documented in this encounter Visit Diagnoses Diagnosis Abnormal findings on diagnostic imaging of heart and coronary circulation Abnormal EKG Nonspecific abnormal electrocardiogram (ECG) (EKG) 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) documented in this encounter Administered Medications Inactive Administered Medications - up to 3 most recent administrations Medication Order MAR Action Action Date Dose Rate Site gadobutrol (Gadavist) injection 17.9 mL 17.9 mL (rounded from 17.85 mL = 0.15 mL/kg 119 kg), Intravenous, Once in imaging, 1 dose, Starting on Tu07/10/25 at 1244, Until Wed07/10/25 at 1410, Routine, Imaging Protocol Orders Given 07/10/2025 2:10 PM EDT 17.9 mL documented in this encounter Additional Health Concerns Assessment Noted Time A fall risk assessment has been complete d for the patient 03/14/2024 11:15 AM EDT A Body Mass Index follow-up plan has been documented for the patient 05/25/2025 1:02 PM EDT documented as of this encounter Care Teams Primer Boxer Relationship Specialty Start Date End Date Ross Bar APRN [address] [place] [address] [place] [id number] PCP - General 03/09/24 documented as of this encounter
[2025-07-24 15:42] LABS: Chloride 101 mmol/L (98-107)
[2025-07-24 15:43] LABS: Potassium 4.8 mmoL/L (3.5-5.1); Sodium 136 mmol/L (136-145)
[2025-07-24 15:46] LABS: Anion Gap 12.8 mEq/L (5-15); Blood Urea Nitrogen 44 mg/dl (9-20); Calcium 9.7 mg/dl (8.4-10.2); Carbon Dioxide 27 mmol/L (22.0-30.0); Creatinine,Serum 1.50 mg/dl (0.66-1.25); Estimated Glomerular Filt Rate 48 ml/min (>60); GFR (African American) 58 ML/MIN (>60); Glucose 147 mg/dl (74-100)
--- OUTSIDE RECORDS SUMMARY | 2025-07-25 13:16 | XMS_ITS | Clinical Summary ---
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 Medications No information available. Medications Administered No information available. Allergies, Adverse Reactions, Alerts No information available. Results No information available. Plan of Care No information available. Procedures No information available. Vital Signs No information available. Immunizations No information available. Advance Directives No information available.
--- OUTSIDE RECORDS SUMMARY | 2025-07-25 13:17 | XMS_ITS | Clinical Summary ---
Author Organization [facility] Address [address] [place] [address] Care Team Providers Care Podiatric Foot And Ankle Specialist Name Role Phone JannyRoss ayers Good VILLAFANA Primary Care Provider Allergies Active Allergy Reactions [...] tablet Take 1 tablet by mouth daily. Active cholecalciferol 25 MCG (1000 UT) tablet Take 1 tablet (1,000 Units) by mouth 1 (one) time each day. Active irbesartan (Avapro) 300 MG tablet Take 1 tablet (300 mg) by mouth 1 (one) time each day. Active oxyCODONE-acetam inophen (Percocet) 10-325 MG tablet Act za spironolactone (Aldactone) 50 MG tablet Take 1 tablet by mouth 2 times a day. Active ticagrelor (Brilinta) 90 MG tablet Take 1 tablet by mouth 2 times a day. Active carvedilol (Coreg) 25 MG tablet Active finasteride (Proscar) 5 MG tabletIndication s:Stage 3a chronic kidney disease (CMS/HCC) Take 1 tablet (5 mg) by mouth 1 (one) time each day. Do not crush, chew, or split. 30 tablet 11 4 11/10/20 25 Active NIFEdipine XL (Procardia XL) 30 MG 24 hr tabletIndication s:Essential hypertension TAKE ONE TABLET BY MOUTH 2 TIMES A DAY. DO NOT CRUSH, CHEW, OR SPLIT 60 tablet 11 5 Active meclizine (Antivert) 25 MG tablet Take 1 tablet by mouth 3 times a day as needed for dizziness. 30 tablet 5 Active Additional Information Patient not taking.Reported on 07/10/2025 dapagliflozin (Farxiga) 10 MG tablet Take 1 tablet by mouth daily. 90 tablet 3 5 Active Additional Information Patient not taking.Reported on 07/10/2025 isosorbide mononitrate ER (Imdur) 30 MG 24 hr tablet Take 3 tablets by mouth daily. Do not crush or chew. 90 tablet 2 5 Active furosemide (Lasix) 20 MG tablet Take 1 tablet by mouth daily. 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, unspecified site; Disorders of fluid, electrolyte, and acid-base balance; Anemia, unspecified type; Vitamin D deficiency; Pulmonary HTN ([facility]) 05/25/2025 Travel from Last 3 Months Immunizations Immunization Administration Dates Next Due Influenza, injectable, quadrivalent, preservativ e free 10/01/2023,12/10/2020 Influenza, seasonal, injectable, preservative fr ee 10/24/2024 Moderna COVID-19 Vaccine (Annual Campaign Manager) 12+ years 02/2021,01/06/2021 Pneumococcal 20-ramon Conj Vaccine [...] F) 07/10/2025 12:54 PM EDT Respiratory Rate 18 05/25/2025 11:55 AM EDT Oxygen Saturation 95% 07/10/2025 12:34 PM EDT Inhaled Oxygen Concentration - - Weight 119 kg (262 lb 2 oz) 07/10/2025 12:17 PM EDT Height 185.4 cm (6' 1 ) 05/25/2025 11:55 AM EDT Body Mass Index 34.58 05/25/2025 11:55 AM EDT Plan of Treatment Upcoming Encounters Date Type Department Care Team (Late st Contact Info) Description 12/07/2025 12:20 PM EST Office Visit [facility] [address] [place] [address] Graciela Maki, JERSEY KNITTER [address] [address] Health Maintenance Due Date Last [...] 2013 [facility]-Zoster Vaccines (1 of 2) 2018 [id number] Vaccine (3 - 2023- season) 2024 10/02/2021, 01/06/2021 [facility]-Diabetes: Hemoglobin A1C 07/01/2025 04/01/2025, 07/24/2024 [facility]-Influenza Vaccine (#1) 07/30/202510/24, 10/01/2023, 12/10/2020 [facility]-Pneumococcal Vaccine: 50+ Years Completed 10/01/2023, 12/10/2020 [facility]-Obesity Intervention Completed 05/25/2 025, 04/01/2025, 11/10/2024, Additional history exists HPV [...] this topic Medical Devices Implanted Type Area Wanigan Clerk Device Identifier Shelf Expiration Date Model / Serial / Lot Ingevity +Pacing Lead Rv [email or web address]-03/02 Implanted:02/2022 (Quantity not on file) Lead Chest Wall PercSys [id number] / / Ingevity +Pacing Lead Ra [email or web address] Scientific-03/02 Implanted:02/2022 (Quantity not on file) Lead Chest Wall PercSys [id number] / / Accolade Mri [place] [employer] Pacemaker-2021 Implanted:02/2022 (Quantity not on file) Pacemaker Chest Wall PercSys L311 / / Description:Complete system implanted on 03/02/2022 Generator model: L311 RV LEAD MODEL: [id number] RA LEAD MODEL: [id number] Procedures Procedure Name Priority Date/Time Associated Diagnosis Comments MR CARDIAC MORPHOLOGY AND FUNCTION W LATASHA FLOW MAPPING W AND WO CONTRAST Routine 07/10/2025 2:38 PM EDT Abnormal findings on diagnostic imaging of heart and coronary circulation Abnormal EKG 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 J Cardiovasc Magn Reson. 2020;22:87) [...] LAB HEMATOLOGY METHOD 07/10/2025 1:16 PM EDT [facility] Blood Venous blood specimen / Unknown Venipuncture / Unknown 07/10/2025 12:25 PM EDT 07/10/2025 1:09 PM EDT Miguel Rodriguez MD LAB BLOOD ORDERABLES Final Result [facility] [address] [place] [address] * CARDIAC DEVICE CHECK - IN CLINIC - PACEMAKER DUAL CHAMBER W/ PROG (07/10/2025 10:39 AM EDT) Anatomical Region Laterality Modality Other Narrative 07/10/2025 2:29 PM EDT [facility] EP-Device [facility]: In-Person CIED Evaluation & Report Name: Susana Soliman Date: 07/10/2025 : 1970 Age: 55 y.o. Device: Wanigan Clerk: [employer] dual chamber PM Permanent Programming Mode [...] rhythm: Presenting rhythm is atrial paced with siletz tribe ventricular sensed response. Underlying rhythm: Sinus josé [...] provided results to ordering provider. Pre-MRI considerations [employer] dual chamber pacemaker Model: Accolade MRI L311 Serial no: [id number] Implant date: 03/02/2022, >6wks from date of MRI Patient is not dependent on CIED for cardiac rate support today, during CIED evaluation. CXR dated 04/01/2025 demonstrates two (2) leads, no abandoned leads or cardiac wires identified. Patient denies any trauma or procedures to device since this date. CIED system and all of its components are wholly made and manufactured by [employer] ( ) and are labeled with MRI [...] are within acceptable limits. 4) Notify Diagnostic security systems integrator if any of the following are discovered in the post-MRI interrogation: Capture threshold change of >1.0 V Sensing drop >50% Pacing impedance change >5O ohms Shock impedance change >5 ohms 5) Leave printed copy of pre-MRI and post-MRI testing results and programming with Diagnostic security systems integrator. us Lloyd Rea MD CV IMPLANTABLE CARDIAC DEVICE P ROCEDURES Final Result * (ABNORMAL) Hemoglobin A1c (04/01/2025 4:42 PM EDT) Hemoglobin A1c 7.6(H) <5.7 % 04/01/2025 8:40 PM EDT [facility] Blood Venous blood specimen / Unknown Venipuncture / Unknown 04/01/2025 4:42 PM EDT 04/01/2025 4:44 PM EDT Narrative [facility] - 04/01/2025 8:40 PM EDT HA1C Interpretive Data: Diagnosis of Diabetes: Diabetic > or = 6.5% Pre-diabetic 5.7 to 6.4% Non-diabetic < or = 5.6% Glycemic Targets for Type I and Type II Diabetics: Non- Adults <7.0% Adults <6.0% Children and Adolescents <7.5% Source: [place] [employer] Association. Standards of medical care in diabetes,2017. Diabetes Care.2017:40 (suppl 1):S1-S135. Fidencio Meza MD LAB BLOOD ORDERABLES Final Re sult [facility] [address] [place] [address] from Last 3 Months or Most Recently Relevant to Health Maintenance Insurance [facility] Advance Directives * Full Code (Latest Code Status on File) Date Activated Date Inactivated Comments 04/01/2025 2:27 PM 04/02/2025 7:34 PM Question Answer Comments I have reviewed the capacity from the link above and, if needed, have updated to appropriate status: Yes Care Teams Podiatric Foot And Ankle Specialist Relationship Specialty Start Date End Date Ross Bar APRN [address] [place] [address] PCP - General 03/09/24
--- OUTSIDE RECORDS SUMMARY | 2025-07-25 13:17 | XMS_ITS | Encounter Summary ---
Author Organization [facility] Address [address] [id number] Care Team Providers Care Gericare Aide Name Role Phone JannyRoss ayers Good VILLAFANA Primary Care Provider [phone] Encounter Details Date Type Department Care Team (Late st Contact Info) Description 07/03/2025 Telephone [facility] [place] [address] [place] [address] [place] [address] Social History Tobacco Use Types Packs/Day Years [...] Name: Freddie Soliman :1970 Date:07/03/2025 Affiliate site: [facility] Referring Physician: Dr. Rea Education/ Information provided: This Nurse Liaison spoke with of Freddie Soliman prior to an appointment on 07/10/2025. Explained nurse liaison services offered through [facility]. Discussed appointment necessity, and subspecialty clinic the [...] up with patient after appointment. Graciela Gonzalez [facility] Nurse Liaison [phone] documented in this encounter Plan of Treatment Upcoming Encounters Date Type Department Care Team ([facility] st Contact Info) Description 12/07/2025 12:20 PM EST Office Visit [facility] [address] [place] [address] Graciela Maki, ASSEMBLER WATCH TRAIN [address] [phone] documented as of this encounter Visit Diagnoses Not on filedocumented in this encounter Additional Health Concerns Assessment Noted Time A fall risk assessment has been complete d for the patient 03/14/2024 11:15 AM EDT A Body Mass Index follow-up plan has been documented for the patient 05/25/2025 1:02 PM EDT documented as of this encounter Care Teams Gericare Aide Relationship Specialty Start Date End Date Ross Bar APRN [address] [facility] [place] [address] PCP - General 03/09/24 documented as of this encounter
--- OUTSIDE RECORDS SUMMARY | 2025-07-25 13:17 | XMS_ITS | Referral Summary ---
Author Organization [email or web address] ([place], [place], [place], [place]) Address [address] [place] [address] Care Team Providers Care Business Support Specialist Name Role Phone Ross Bar APRN Primary Care Provider [phone] Allergies Active Allergy Reactions Criticality Noted Date [...] Date Antony rded Speak language other than Uruguayan at home Not on file 12/17/2023 Want [...] on file Medical Devices Implanted Type Area Industrial Renderer Device Identifier Shelf Expiration Date Model / Serial / Lot Pacemaker [employer] L311 / [id number] / Description:Generator: L311 Lead: [id number] Lead: [id number] Insurance UMR Care Teams Business Support Specialist Relationship Specialty Start Date End Date Ross Bar, BRODERICK [address] [id number] PCP - General Nurse Practitioner 01/17/24
--- OUTSIDE RECORDS SUMMARY | 2025-07-25 13:17 | XMS_ITS | Encounter Summary ---
Author Organization [employer] ([place], [place], [place], [place]) Address [address] [place] [address] Care Team Providers Care Assistant Teacher Name Role Phone Osorio Barroso MD Primary Care Provider [phone] Ross Bar APRN Primary Care Provider [phone] Encounter Details Date Type Department Care Team (Late st Contact Info) Description 01/12/2024 Outside Orders [facility] Central Scheduling [address] [place] [address] Marissa Mulligan APRN [address] [place] [address] Radiculopathy, cervical region (Primary Dx) Social History [...] Date Antony rded Speak language other than Romansh at home Not on file 12/17/2023 Want [...] nos documented in this encounter Care Teams Assistant Teacher Relationship Specialty Start Date End Date Osorio Barroso MD [address] [place] [address] PCP - General Family Medicine 09/01/23 01/16/24 Ross Bar APRN [address] [place] [address] PCP - General Nurse Practitioner 01/17/24 documented as of this encounter
--- OUTSIDE RECORDS SUMMARY | 2025-07-25 13:17 | XMS_ITS | Encounter Summary ---
Author Organization [facility] Address [address] [id number] Care Team Providers Care Piercing Machine Operator Name Role Phone Ross Bar APRN Primary Care Provider [phone] Encounter Details Date Type Department Care Team [...] Description 12/07/2025 12:20 PM EST Office Visit [facility] [address] [place] [address] Graciela Maki APRN [address] [address] documented as of this encounter Visit Diagnoses Not on filedocumented in this encounter Additional Health Concerns Assessment Noted Time A fall risk assessment has been complete d for the patient 03/14/2024 11:15 AM EDT A Body Mass Index follow-up plan has been documented for the patient 05/25/2025 1:02 PM EDT documented as of this encounter Care Teams Piercing Machine Operator Relationship Specialty Start Date End Date Ross Bar APRN [address] [place] [address] PCP - General 03/09/24 documented as of this encounter
--- OUTSIDE RECORDS SUMMARY | 2025-07-25 13:17 | XMS_ITS | Encounter Summary ---
Author Organization [facility] Address [address] [id number] Care Team Providers Care Sales Agent Insurance Name Role Phone Ross Bar APRN Primary Care Provider [phone] Encounter Details Date Type Department Care Team (Latest Contact Info) Description 07/10/2025 Travel Social History Tobacco Use Types Packs/Day [...] Description 12/07/2025 12:20 PM EST Office Visit [facility] [address] [place] [address] Graciela Maki APRN [address] [address] documented as of this encounter Visit Diagnoses Not on filedocumented in this encounter Additional Health Concerns Assessment Noted Time A fall risk assessment has been complete d for the patient 03/14/2024 11:15 AM EDT A Body Mass Index follow-up plan has been documented for the patient 05/25/2025 1:02 PM EDT documented as of this encounter Care Teams Sales Agent Insurance Relationship Specialty Start Date End Date Ross Bar APRN [address] [place] [address] PCP - General 03/09/24 documented as of this encounter
--- OUTSIDE RECORDS SUMMARY | 2025-07-25 13:17 | XMS_ITS | Clinical Summary ---
Author Organization [employer] ([place], [place], [place], [place]) Address [address] [place] [address] Care Team Providers Care Control Systems Drafting Officer Name Role Phone Ross Bar APRN Primary Care Provider [phone] Allergies Active Allergy Reactions Criticality Noted Date [...] Date Antony rded Speak language other than Finnish at home Not on file 12/17/2023 Want [...] (Zoster) (1 of 2) 2018 COVID-19 VACCINE ( season) 07/30/202402/2021, 01/06/2021 Influenza Vaccine (#1) 2025 Tobacco Cessation Counseling and Screening (12+) 04/01/2026 04/01/2025 Pneumococcal 50+ years Completed 10/01/2023, 2020 Medical Devices Implanted Type Area Chocolate Packer Device Identifier Shelf Expiration Date Model / Serial / Lot Pacemaker [employer] SCIENTIFIC L311 / [id number] / Description:Generator: L311 Lead: [id number] Lead: 7842 Insurance R Care Teams Control Systems Drafting Officer Relationship Specialty Start Date End Date Ross Bar APRN [address] [place] [address] PCP - General Nurse Practitioner 01/17/24
--- OUTSIDE RECORDS SUMMARY | 2025-07-25 13:17 | XMS_ITS | Encounter Summary ---
Author Organization [facility] Address [address] [place] [address] Care Team Providers Care Carbide Die Maker Name Role Phone Ross Bar APRN Primary Care Provider [phone] Encounter Details Date Type Department Care Team (Late st Contact Info) Description 07/03/2025 Telephone [facility] [address] [place] [address] Larisa Montalvo, RN [facility] Social History [...] Description 12/07/2025 12:20 PM EST Office Visit [facility] [address] [place] [address] Graciela Maki APRN [address] [address] documented as of this encounter Visit Diagnoses Not on filedocumented in this encounter Additional Health Concerns Assessment Noted Time A fall risk assessment has been complete d for the patient 03/14/2024 11:15 AM EDT A Body Mass Index follow-up plan has been documented for the patient 05/25/2025 1:02 PM EDT documented as of this encounter Care Teams Carbide Die Maker Relationship Specialty Start Date End Date Ross Bar APRN [address] [place] [address] PCP - General 03/09/24 documented as of this encounter
--- OUTSIDE RECORDS SUMMARY | 2025-07-25 13:17 | XMS_ITS | Clinical Summary ---
Author Organization [facility] Address [address] [place] [address] Care Team Providers Care Forensic Technician Name Role Phone Jr Ross Bar APRN [...] or training? Not on file Preferred Language Beninese 07/24/2024 Sex and Gender Information Value Date [...] Hal Rep Medical Devices Implanted Type Area Hat Presser Device Identifier Shelf Expiration Date Model / Serial / Lot Sut Lp Bone Niceloop Nonabs W/Ndl Sz5 24in Grn - [id number] Implanted:Qty: 2 on 08/07/2024 by Ron Cano MD at [facility] Implant Right: Scapula TORNIER [id number] 01/28/2028 [id number] / / [id number] Kwire Equinoxe Glenoid Nitnl [id number] Ns - [id number] - [id number] Implanted:Qty: 1 on 08/07/2024 by Ron Cano MD at [facility] Implant Right: Scapula EXACTECH [id number] 08/12/2029 [id number] / [id number] / N/A Scrw Equinoxe Torq Define Kt Sq - [id number] - [id number] Implanted:Qty: 1 on 08/07/2024 by Ron Cano MD at [facility] Implant Right: Scapula EXACTECH [id number] 11/28/2028 [id number] / [id number] / N/A Plt Hum Equinoxe Replicat Offst 4.5 - [id number] - [id number] Implanted:Qty: 1 on 08/07/2024 by Ron Cano MD at [facility] Implant Right: Scapula EXACTECH [id number] 02/25/2028 [id number] / [id number] / N/A Hd Hum Equinoxe Sht 50mm - [id number] - [id number] Implanted:Qty: 1 on 08/07/2024 by Ron Cano MD at [facility] Implant Right: Scapula EXACTECH [id number] 08/18/2033 [id number] / [id number] / N/A Totl Shldr Arthroplasty Sys - [id number] Implanted:Qty: 1 on 08/07/2024 by Ron Cano MD at [facility] Implant Right: Scapula EXACTECH CAPSHOULT [id number] / / Stem Hum Tricia Equinoxe Pressfit 6mm Sht - [id number] - [id number] Implanted:Qty: 1 on 08/07/2024 by Ron Cano MD at [facility] Implant Right: Scapula EXACTECH [id number] 04/12/2034 [id number] / [id number] / Sut Fw #2 W/Tpr Ndl / Cir 38in 97cm 26.5mm Nicolas - [id number] Implanted:Qty: 2 on 08/07/2024 by Ron Cano MD at [facility] Implant Right: Shoulder ARTHREX [id number] 03/28/2028 [id number] / / [id number] Hemost Abs Surgifoam Sz100 8x12 10mm - [id number] Implanted:Qty: 1 on 08/07/2024 by Ron Cano MD at [facility] Implant Right: Scapula ETHICON DIV OF J AND J [id number] 03/30/2028 [id number] / / [id number] Cmt Bone Endurance Smartset 40gm - [id number] Implanted:Qty: 1 on 08/07/2024 by Ron Cano MD at [facility] Implant Right: Scapula DEPUY [id number] 09/28/2024 [id number] / / [id number] Aug Cage Equinox Poly Lt - [id number] - [id number] Implanted:Qty: 1 on 08/07/2024 by Ron Cano MD at [facility] Implant Right: Scapula EXACTECH [id number] 10/02/2028 [id number] / [id number] / Sut Lp Bone Niceloop Nonabs Br W/Ndl Sz5 24in Wht/Grn - [id number] Implanted:Qty: 1 on 08/07/2024 by Ron Cano MD at [facility] Implant Right: Scapula TORNIER [id number] 07/29/2027 [id number] / / [id number] Sut Lp Bone Niceloop Nonabs W/Ndl Sz5 24in Wht - [id number] Implanted:Qty: 1 on 08/07/2024 by Ron Cano MD at [facility] Implant Right: Scapula TORNIER [id number] 05/21/2026 [id number] / / [id number] Pacemaker-2021 Implanted:040 02/2022 (Quantity not on file) Pacemaker [employer] L311 / [id number] / Pain Pump-04/07/2024 Implanted:03/29 (Quantity not on file) Pain Pump [employer] 8667-20 / [id number] / Additional Health Concerns Active Problems Noted Date Diagnosed Date Autogenerated Problem 06/04/2025 Insurance UMR Care Teams Forensic Technician Relationship Specialty Start Date End Date Jr Ross Bar APRN [address] [place] [address] PCP - General Nurse Practitioner 07/24/24
--- OUTSIDE RECORDS SUMMARY | 2025-07-25 13:17 | XMS_ITS | Encounter Summary ---
Author Organization [employer] ([place], [place], [place], [place]) Address [address] [place] [address] Care Team Providers Care Mechanical Design Drafter Name Role Phone Osorio Barroso MD Primary Care Provider [phone] Ross Bar APRN Primary Care Provider [phone] Encounter Details Date Type Department Care Team (Late st Contact Info) Description 01/12/2024 Outside Orders [facility] [address] [place] [address] Marissa Mulligan APRN [address] [place] [address] Radiculopathy, cervical region (Primary Dx) Social History [...] Date Antony rded Speak language other than South Korean at home Not on file 12/17/2023 Want [...] nos documented in this encounter Care Teams Mechanical Design Drafter Relationship Specialty Start Date End Date Osorio Barroso MD [address] [place] [address] PCP - General Family Medicine 09/01/23 01/16/24 Ross Bar APRN [address] [place] [address] PCP - General Nurse Practitioner 01/17/24 documented as of this encounter
== END 2025-07-24 23:59 | disposition home or self-care (01) ==
LOC: LAB.DROPOF 07-25 13:12
PROVIDERS: PCP Nurse Practitioner Family; Visit Provider Nurse Practitioner Family
DX: I10 Essential (primary) hypertension (principal); E16.2 Hypoglycemia, unspecified
CPT/HCPCS: 80048

== ENCOUNTER 2025-09-14 10:01 | Outpatient (CLI) | payer OTHER, SELFPAY ==
--- NOTE | 2025-09-14 10:06 | XR_ITS ---
FINAL REPORT TECHNIQUE: Right knee 4 views CLINICAL HISTORY: Right knee pain, giving out on him, nki COMPARISON: None FINDINGS: RIGHT KNEE: There is no acute fracture or dislocation. There is mild diffuse degenerative change of the knee. A large joint effusion is noted. There is no soft tissue abnormality. IMPRESSION: No acute fracture. Mild diffuse degenerative change with a large joint effusion. Reviewed, Interpreted and Dictated by Verónica Lima MD Transcribed by Pauline Miranda Authenticated and [facility]
--- OUTSIDE RECORDS SUMMARY | 2025-09-14 10:12 | XMS_ITS | Clinical Summary ---
Author Organization [facility] Address [address] [place] [address] Phone Care Team Providers Care Automatic Clipper Name Role Phone Unavailable Unavailable Conditions or Problems No information available. Medications No information available. Medications Administered No information available. Allergies, Adverse Reactions, Alerts No information available. Results No information available. Plan of Care No information available. Procedures No information available. Vital Signs No information available. Immunizations No information available. Advance Directives No information available.
--- OUTSIDE RECORDS SUMMARY | 2025-09-14 10:12 | XMS_ITS | Referral Summary ---
Author Organization [employer] ([place], [place], [place], [place]) Address [address] [place] [address] Care Team Providers Care Sprayer Operator Name Role Phone Ross Bar APRN Primary Care Provider [phone] Allergies Active Allergy Reactions Criticality Noted Date [...] a day.. 90 tablet 3 Active Immunizations Immunization Administration Dates Next Due Covid-19 Vaccine MRNA [...] Date Antony rded Speak language other than Luxembourgish at home Not on file 12/17/2023 Want [...] on file Medical Devices Implanted Type Area Psychiatric Nurse Device Identifier Shelf Expiration Date Model / Serial / Lot Pacemaker [employer] L311 / [id number] / Description:Generator: [id number] Lead: [id number] Lead: [id number] Insurance [employer] Care Teams Sprayer Operator Relationship Specialty Start Date End Date Ross Bar, BRODERICK [address] [id number] PCP - General Nurse Practitioner 01/17/24
--- OUTSIDE RECORDS SUMMARY | 2025-09-14 10:13 | XMS_ITS | Clinical Summary ---
Author Organization [facility] Address [address] 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 [place] [address] Graciela Gonzalez 07/03/2025 Travel 07/03/2025 Telephone [facility] [address] [place] [id number] Larisa Montalvo, RN from Last 3 Months Immunizations Immunization Administration Dates Next Due Influenza, injectable, quadrivalent, preservativ e free 10/01/2023,12/10/2020 Influenza, seasonal, injectable, preservative fr ee 10/24/2024 Moderna COVID-19 Vaccine (Advertising Layout Worker) 12+ years 02/2021,01/06/2021 Pneumococcal 20-ramon Conj Vaccine [...] Description 12/07/2025 12:20 PM EST Office Visit [facility] [address] [place] [address] Graciela Maki, DREDGEMASTER [address] [address] Health Maintenance Due Date Last [...] 2013 UKY-Zoster Vaccines (1 of 2) 2018 UKY-Diabetes: Hemoglobin A1C 07/01/2025 04/01/2025, 07/24/2024 [id number] Vaccine (3 - season) 2025 10/02/2021, 01/06/2021 UKY-Influenza Vaccine (#1) 07/30/202510/24, 10/01/2023, 12/10/2020 UKY-Pneumococcal [...] this topic Medical Devices Implanted Type Area Quality Control Lab Tech Device Identifier Shelf Expiration Date Model / Serial / Lot Ingevity +Pacing Lead Rv [employer]-03/02 Implanted:0 02/2022 (Quantity not on file) Lead Chest Wall Moven 7842 / / Ingevity +Pacing Lead Ra [employer]-03/02 Implanted:0 02/2022 (Quantity not on file) Lead Chest Wall Moven 7841 / / Accolade Mri [employer] Pacemaker-2021 Implanted:0 02/2022 (Quantity not on file) Pacemaker Chest Wall Moven L311 / / Description:Complete system implanted on 03/02/2022 Generator model: L311 RV LEAD MODEL: [id number] RA LEAD MODEL: [id number] Procedures Procedure Name Priority Date/Time Associated Diagnosis Comments MR CARDIAC MORPHOLOGY AND FUNCTION W LATASHA FLOW MAPPING W AND WO CONTRAST Routine 07/10/2025 2:38 PM EDT Abnormal findings on diagnostic imaging of heart and coronary circulation Abnormal EKG 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 J Cardiovasc Magn Reson.2020;22:87) LVEF: [...] on 07/10/2025 4:41 PM Lloyd Rea MD [facility] MRI PROCEDURES Final Result * (ABNORMAL) Hematocrit, Blood (07/10/2025 12:25 PM EDT) HCT 36.2(L) 40.0 - 51.0 % LAB HEMATOLOGY METHOD 07/10/2025 1:16 PM EDT [facility] Blood Venous blood specimen / Unknown Venipuncture / Unknown 07/10/2025 12:25 PM EDT 07/10/2025 1:09 PM EDT Miguel Rodriguez MD LAB BLOOD ORDERABLES Final Result [facility] [address] [place] [address] * CARDIAC DEVICE CHECK - IN CLINIC - PACEMAKER DUAL CHAMBER W/ PROG (07/10/2025 10:39 AM EDT) Anatomical Region Laterality Modality Other Narrative 07/10/2025 2:29 PM EDT [facility]: In-Person CIED Evaluation & Report Name: Susana Soliman Date: 07/10/2025 : 1970 Age: 55 y.o. Device: Quality Control Lab Tech: [employer] dual chamber PM Permanent Programming Mode [...] rhythm: Presenting rhythm is atrial paced with [place] ventricular sensed response. Underlying rhythm: Sinus josé [...] provided results to ordering provider. Pre-MRI considerations [employer] dual chamber pacemaker Model: Accolade MRI L311 Serial no: [id number] Implant date: 03/02/2022, >6wks from date of MRI Patient is not dependent on CIED for cardiac rate support today, during CIED evaluation. CXR dated 04/01/2025 demonstrates two (2) leads, no abandoned leads or cardiac wires identified. Patient denies any trauma or procedures to device since this date. CIED system and all of its components are wholly made and manufactured by [employer] ( ) and are labeled with MRI [...] are within acceptable limits. 4) Notify Diagnostic real estate inspector if any of the following are discovered in the post-MRI interrogation: Capture threshold change of >1.0 V Sensing drop >50% Pacing impedance change >5O ohms Shock impedance change >5 ohms 5) Leave printed copy of pre-MRI and post-MRI testing results and programming with Diagnostic real estate inspector. Lloyd Rea MD CV IMPLANTABLE CARDIAC DEVICE P ROCEDURES Final Result * (ABNORMAL) Hemoglobin A1c (04/01/2025 4:42 PM EDT) Hemoglobin A1c 7.6(H) <5.7 % 04/01/2025 8:40 PM EDT [facility] Blood Venous blood specimen / Unknown Venipuncture / Unknown 04/01/2025 4:42 PM EDT 04/01/2025 4:44 PM EDT Narrative [facility] - 04/01/2025 8:40 PM EDT HA1C Interpretive Data: Diagnosis of Diabetes: Diabetic > or = 6.5% Pre-diabetic 5.7 to 6.4% Non-diabetic < or = 5.6% Glycemic Targets for Type I and Type II Diabetics: Non- Adults <7.0% Adults <6.0% Children and Adolescents <7.5% Source: [place] Diabetes Association. Standards of medical care in diabetes,2017. Diabetes Care.2017:40 (suppl 1):S1-S135. Fidencio Meza MD LAB BLOOD ORDERABLES Final Re sult [facility] [address] [place] [address] from Last 3 Months or Most Recently Relevant to Health Maintenance Insurance [facility] Advance Directives * Full Code (Latest Code Status on File) Date Activated Date Inactivated Comments 04/01/2025 2:27 PM 04/02/2025 7:34 PM Question Answer Comments I have reviewed the capacity from the link above and, if needed, have updated to appropriate status: Yes Care Teams Animal Cruelty Investigation Supervisor Relationship Specialty Start Date End Date Ross Bar APRN [address] [place] [id number] PCP - General 03/09/24
--- OUTSIDE RECORDS SUMMARY | 2025-09-14 10:13 | XMS_ITS | Clinical Summary ---
Author Organization [facility] Address [address] [place] [address] Care Team Providers Care Pbx Mechanic Name Role Phone Jr Ross Bar APRN [...] or training? Not on file Preferred Language Malay 07/24/2024 Sex and Gender Information Value Date [...] ANNUAL PHYSICAL 07/20/2024 HEPATITIS C SCREENING 07/20/2024 INFLUENZA VACCINE 06/29/2025 10/01/2023, 12/10/2020 LIPID PANEL 04/01/2026 04/01/2025 Pneumococcal Vaccine 50+ Completed 10/01/2023, 11/29 Goals Goal Patient Goal Type Associated Problems Recent Progress Patient-Stated? Author Autogenera marino Goal Care Plan Autogenerated Problem No Kevin, Merari, RegSched Rep Medical Devices Implanted Type Area Architectural Technologist Device Identifier Shelf Expiration Date Model / Serial / Lot Sut Lp Bone Niceloop Nonabs W/Ndl Sz5 24in Grn - [id number] Implanted:Qty: 2 on 08/07/2024 by [facility] at [facility] Implant Right: Scapula TORNIER [id number] 01/28/2028 [id number] / / [id number] Kwire Equinoxe Glenoid Nitnl 5w376ac Ns - [id number] - [id number] Implanted:Qty: 1 on 08/07/2024 by Ron Cano MD at [facility] Implant Right: Scapula EXACTECH [id number] 08/12/2029 [id number] / [id number] / N/A Scrw Equinoxe Torq Define Kt Sq - [id number] - [id number] Implanted:Qty: 1 on 08/07/2024 by Ron Cano MD at [facility] Implant Right: Scapula EXACTECH [id number] 11/28/2028 [id number] / [id number] / N/A Plt Hum Equinoxe Replicat Offst 4.5 - [id number] - [id number] Implanted:Qty: 1 on 08/07/2024 by Ron Cano MD at [facility] Implant Right: Scapula EXACTECH [id number] 02/25/2028 [id number] / [id number] / N/A Hd Hum Equinoxe Sht 50mm - [id number] - [id number] Implanted:Qty: 1 on 08/07/2024 by Ron Cano MD at [facility] Implant Right: Scapula EXACTECH [id number] 08/18/2033 [id number] / [id number] / N/A Totl Shldr Arthroplasty Sys - [id number] Implanted:Qty: 1 on 08/07/2024 by Ron Cano MD at [facility] Implant Right: Scapula EXACTECH CAPSHOULT [id number] / / Stem Hum Tricia Equinoxe Pressfit 6mm Sht - [id number] - [id number] Implanted:Qty: 1 on 08/07/2024 by Ron Cano MD at [facility] Implant Right: Scapula EXACTECH [id number] 04/12/2034 [id number] / [id number] / Sut Fw #2 W/Tpr Ndl /2 Cir 38in 97cm 26.5mm Nicolas - [id number] Implanted:Qty: 2 on 08/07/2024 by Ron Cano MD at [facility] Implant Right: Shoulder ARTHREX [id number] 03/28/2028 [id number] / / [id number] Hemost Abs Surgifoam Sz100 8x12 10mm - [id number] Implanted:Qty: 1 on 08/07/2024 by Ron Cano MD at [facility] Implant Right: Scapula ETHICON DIV OF J AND J [id number] 03/30/2028 1974 / / [id number] Cmt Bone Endurance Smartset 40gm - [id number] Implanted:Qty: 1 on 08/07/2024 by Ron Cano MD at [facility] Implant Right: Scapula DEPUY [id number] 09/28/2024 [id number] / / [id number] Aug Cage Equinox Poly Lt - [id number] - [id number] Implanted:Qty: 1 on 08/07/2024 by Ron Cano MD at [facility] Implant Right: Scapula EXACTECH [id number] 10/02/2028 [id number] / [id number] / Sut Lp Bone Niceloop Nonabs Br W/Ndl Sz5 24in Wht/Grn - [id number] Implanted:Qty: 1 on 08/07/2024 by Ron Cano MD at [facility] Implant Right: Scapula TORNIER [id number] 07/29/2027 [id number] / / [id number] Sut Lp Bone Niceloop Nonabs W/Ndl Sz5 24in Wht - [id number] Implanted:Qty: 1 on 08/07/2024 by Ron Cano MD at [facility] Implant Right: Scapula TORNIER [id number] 05/21/2026 [id number] / / [id number] Pacemaker-2021 Implanted:040 02/2022 (Quantity not on file) Pacemaker [employer] L311 / [id number] / Pain Pump-04/07/2024 Implanted:03/29 (Quantity not on file) Pain Pump [employer] 8667-20 / [id number] / Additional Health Concerns Active Problems Noted Date Diagnosed Date Autogenerated Problem 06/04/2025 Insurance [facility] Care Teams Pbx Mechanic Relationship Specialty Start Date End Date Jr Ross Bar APRN [address] [place] [address] PCP - General Nurse Practitioner 07/24/24
--- OUTSIDE RECORDS SUMMARY | 2025-09-14 10:13 | XMS_ITS | Clinical Summary ---
Author Organization [employer] ([place], [place], [place], [place]) Address [address] [place] [address] Care Team Providers Care Clinical Manager Home Care Name Role Phone Ross Bar APRN Primary Care Provider [phone] Allergies Active Allergy Reactions Criticality Noted Date [...] Date Antony rded Speak language other than Romanian at home Not on file 12/17/2023 Want [...] 2) 2018 COVID-19 VACCINE (3 - season) 07/30/202502/2021, 01/06/2021 Influenza Vaccine (#1) 2025 Tobacco Cessation Counseling and Screening (12+) 04/01/2026 04/01/2025 Pneumococcal 50+ years Completed 10/01/2023, 2020 Medical Devices Implanted Type Area Supervisor Inspection Device Identifier Shelf Expiration Date Model / Serial / Lot Pacemaker [employer] L311 / [id number] / Description:Generator: L311 Lead: [id number] Lead: 7842 Insurance R Care Teams Clinical Manager Home Care Relationship Specialty Start Date End Date Ross Bar APRN [address] [place] [address] PCP - General Nurse Practitioner 01/17/24
== END 2025-09-14 23:59 | disposition home or self-care (01) ==
LOC: RAD 10:03
PROVIDERS: PCP Nurse Practitioner Family; Visit Provider Nurse Practitioner Family
DX: M17.11 Unilateral primary osteoarthritis, right knee (principal)
CPT/HCPCS: 73562

== ENCOUNTER 2025-09-26 13:11 | Outpatient (CLI) | payer OTHER, SELFPAY ==
--- OUTSIDE RECORDS SUMMARY | 2025-09-26 13:23 | XMS_ITS | Clinical Summary ---
Author Organization [facility] Address [address] [place] [address] Phone Care Team Providers Care Manager User Interface Name Role Phone Unavailable Unavailable Conditions or Problems No information available. Medications No information available. Medications Administered No information available. Allergies, Adverse Reactions, Alerts No information available. Results No information available. Plan of Care No information available. Procedures No information available. Vital Signs No information available. Immunizations No information available. Advance Directives No information available.
--- OUTSIDE RECORDS SUMMARY | 2025-09-26 13:24 | XMS_ITS | Clinical Summary ---
Author Organization [facility] Address [address] 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 [place] [address] Graciela Gonzalez 07/03/2025 Travel 07/03/2025 Telephone [facility] [address] [place] [address] Larisa Montalvo, RN from Last 3 Months Immunizations Immunization Administration Dates Next Due Influenza, injectable, quadrivalent, preservativ e free 10/01/2023,12/10/2020 Influenza, seasonal, injectable, preservative fr ee 10/24/2024 Moderna COVID-19 Vaccine (Fireworks Maker) 12+ years 02/2021,01/06/2021 Pneumococcal 20-ramon Conj Vaccine [...] [place] [address] [place] [address] Graciela Maki, BOOKMOBILE CLERK [address] [address] Health Maintenance Due Date Last [...] 2018 UKY-Diabetes: Hemoglobin A1C 07/01/2025 04/01/2025, 07/24/2024 [id number] Vaccine (3 - season) 2025 10/02/2021, 01/06/2021 [...] this topic Medical Devices Implanted Type Area Supervisor Finishing Device Identifier Shelf Expiration Date Model / Serial / Lot Ingevity +Pacing Lead Rv [employer]-03/02 Implanted:0 02/2022 (Quantity not on file) Lead Chest Wall [employer] 7842 / / Ingevity +Pacing Lead Ra [employer]-03/02 Implanted:0 02/2022 (Quantity not on file) Lead Chest Wall [employer] 7841 / / Accolade Mri [employer] Pacemaker-2021 Implanted:0 02/2022 (Quantity not on file) Pacemaker Chest Wall [employer] L311 / / Description:Complete system implanted on 03/02/2022 Generator model: L311 RV LEAD MODEL: [id number] RA LEAD MODEL: [id number] Procedures Procedure Name Priority Date/Time Associated Diagnosis Comments MR CARDIAC MORPHOLOGY AND FUNCTION W LATASHA FLOW MAPPING W AND WO CONTRAST Routine 07/10/2025 2:38 PM EDT Abnormal findings on diagnostic imaging of heart and coronary circulation Abnormal EKG 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) HEMATOCRIT, BLOOD STAT 07/10/2025 12: 25 PM EDT CARDIAC DEVICE CHECK - IN CLINIC - PACEMAKER DUAL CHAMBER W/ PROG Routine 07/10/2025 10:39 AM EDT Abnormal findings on diagnostic imaging of heart and coronary circulation Abnormal EKG Atherosclerotic heart disease of [place] coronary artery with other forms of angina [...] on 07/10/2025 4:41 PM Lloyd Rea MD [facility] [place] PROCEDURES Final Result * (ABNORMAL) Hematocrit, Blood (07/10/2025 12:25 PM EDT) HCT 36.2(L) 40.0 - 51.0 % LAB HEMATOLOGY METHOD 07/10/2025 1:16 PM EDT [facility] Blood Venous blood specimen / Unknown Venipuncture / Unknown 07/10/2025 12:25 PM EDT 07/10/2025 1:09 PM EDT Miguel Rodriguez MD LAB BLOOD ORDERABLES Final Result [facility] [address] [place] [address] * CARDIAC DEVICE CHECK - IN CLINIC - PACEMAKER DUAL CHAMBER W/ PROG (07/10/2025 10:39 AM EDT) Anatomical Region Laterality Modality Other Narrative 07/10/2025 2:29 PM EDT [facility]: In-Person CIED Evaluation & Report Name: Susana Soliman Date: 07/10/2025 : 1970 Age: 55 y.o. Device: Supervisor Finishing: [employer] dual chamber PM Permanent Programming Mode [...] rhythm: Presenting rhythm is atrial paced with [place] ventricular sensed response. Underlying rhythm: Sinus josé [...] provided results to ordering provider. Pre-MRI considerations [employer] dual chamber pacemaker Model: Accolade MRI L311 Serial no: [id number] Implant date: 03/02/2022, >6wks from date of MRI Patient is not dependent on CIED for cardiac rate support today, during CIED evaluation. CXR dated 04/01/2025 demonstrates two (2) leads, no abandoned leads or cardiac wires identified. Patient denies any trauma or procedures to device since this date. CIED system and all of its components are wholly made and manufactured by [employer] ( ) and are labeled with MRI [...] are within acceptable limits. 4) Notify Diagnostic painter airbrush if any of the following are discovered in the post-MRI interrogation: Capture threshold change of >1.0 V Sensing drop >50% Pacing impedance change >5O ohms Shock impedance change >5 ohms 5) Leave printed copy of pre-MRI and post-MRI testing results and programming with Diagnostic painter airbrush. Lloyd Rea MD CV IMPLANTABLE CARDIAC DEVICE P ROCEDURES Final Result * (ABNORMAL) Hemoglobin A1c (04/01/2025 4:42 PM EDT) Hemoglobin A1c 7.6(H) <5.7 % 04/01/2025 8:40 PM EDT [facility] Blood Venous blood specimen / Unknown Venipuncture / Unknown 04/01/2025 4:42 PM EDT 04/01/2025 4:44 PM EDT Narrative [facility] - 04/01/2025 8:40 PM EDT HA1C Interpretive Data: Diagnosis of Diabetes: Diabetic > or = 6.5% Pre-diabetic 5.7 to 6.4% Non-diabetic < or = 5.6% Glycemic Targets for Type I and Type II Diabetics: Non- Adults <7.0% Adults <6.0% Children and Adolescents <7.5% Source: [place] Diabetes Association. Standards of medical care in diabetes,2017. Diabetes Care.2017:40 (suppl 1):S1-S135. Fidencio Meza MD LAB BLOOD ORDERABLES Final Re sult [facility] [address] [place] [address] from Last 3 Months or Most Recently Relevant to Health Maintenance Insurance [facility] Advance Directives * Full Code (Latest Code Status on File) Date Activated Date Inactivated Comments 04/01/2025 2:27 PM 04/02/2025 7:34 PM Question Answer Comments I have reviewed the capacity from the link above and, if needed, have updated to appropriate status: Yes Care Teams Housing Assistant Relationship Specialty Start Date End Date Ross Bar APRN [address] [place] [id number] PCP - General 03/09/24
--- OUTSIDE RECORDS SUMMARY | 2025-09-26 13:24 | XMS_ITS | Clinical Summary ---
Author Organization [employer] ([place], [place], [place], [place]) Address [address] [place] [address] Care Team Providers Care Commercial Tire Service Technician Name Role Phone Ross Bar APRN Primary Care Provider [phone] Allergies Active Allergy Reactions Criticality Noted Date [...] Date Antony rded Speak language other than Pashto at home Not on file 12/17/2023 Want [...] 10/01/2023, 2020 Medical Devices Implanted Type Area Cinder Pit Worker Device Identifier Shelf Expiration Date Model / Serial / Lot Pacemaker [employer] L311 / [id number] / Description:Generator: L311 Lead: [id number] Lead: 7842 Insurance R Care Teams Commercial Tire Service Technician Relationship Specialty Start Date End Date Ross Bar APRN [address] [place] [address] PCP - General Nurse Practitioner 01/17/24
--- OUTSIDE RECORDS SUMMARY | 2025-09-26 13:24 | XMS_ITS | Referral Summary ---
Author Organization [employer] ([place], [place], [place], [place]) Address [address] [place] [address] Care Team Providers Care Electric Organ Checker Name Role Phone Ross Bar APRN Primary Care Provider [phone] Allergies Active Allergy Reactions Criticality Noted Date [...] Date Antony rded Speak language other than Frisian at home Not on file 12/17/2023 Want [...] on file Medical Devices Implanted Type Area Seo Team Lead Device Identifier Shelf Expiration Date Model / Serial / Lot Pacemaker [employer] L311 / [id number] / Description:Generator: L311 Lead: [id number] Lead: 7842 Insurance [employer] Care Teams Electric Organ Checker Relationship Specialty Start Date End Date Ross Bar, BRODERICK [address] [id number] PCP - General Nurse Practitioner 01/17/24
--- OUTSIDE RECORDS SUMMARY | 2025-09-26 13:24 | XMS_ITS | Clinical Summary ---
Author Organization [facility] Address [address] [place] [address] Care Team Providers Care Area Cleaner Name Role Phone Jr Ross Bar APRN [...] or training? Not on file Preferred Language Chinese 07/24/2024 Sex and Gender Information Value Date [...] RegSched Rep Medical Devices Implanted Type Area Floor Care Specialist Device Identifier Shelf Expiration Date Model / Serial / Lot Sut Lp Bone Niceloop Nonabs W/Ndl Sz5 24in Grn - [id number] Implanted:Qty: 2 on 08/07/2024 by Ron Cano MD at [facility] Implant Right: Scapula TORNIER [id number] 01/28/2028 [id number] / / [id number] Kwire Equinoxe Glenoid Nitnl 1s376bz Ns - [id number] - [id number] Implanted:Qty: 1 on 08/07/2024 by Ron Cano MD at [facility] Implant Right: Scapula EXACTECH [id number] 08/12/2029 [id number] / [id number] / N/A Scrw Equinoxe Torq Define Kt Sq - [id number] - [id number] Implanted:Qty: 1 on 08/07/2024 by Ron Cano MD at [facility] Implant Right: Scapula EXACTECH [id number] 11/28/2028 [id number] / [id number] / N/A Plt Hum Equinoxe Replicat Offst 4.5 - [id number] - [id number] Implanted:Qty: 1 on 08/07/2024 by Ron Cano MD at [facility] Implant Right: Scapula EXACTECH [id number] 02/25/2028 [id number] / [id number] / N/A Hd Hum Equinoxe Sht 50mm - [id number] - [id number] Implanted:Qty: 1 on 08/07/2024 by Ron aCno MD at [facility] Implant Right: Scapula EXACTECH [id number] 08/18/2033 [id number] / [id number] / N/A Totl Shldr Arthroplasty Sys - [id number] Implanted:Qty: 1 on 08/07/2024 by Ron Cano MD at [facility] Implant Right: Scapula EXACTECH CAPSHOULT [id number] / / Stem Hum Tricia Equinoxe Pressfit 6mm Sht - [id number] - [id number] Implanted:Qty: 1 on 08/07/2024 by Ron Cano MD at [facility] Implant Right: Scapula EXACTECH [id number] 04/12/2034 [id number] / [id number] / Sut Fw #2 W/Tpr Ndl /2 Cir 38in 97cm 26.5mm Nicolas - [id number] Implanted:Qty: 2 on 08/07/2024 by Ron Cano MD at [facility] Implant Right: Shoulder ARTHREX [id number] 03/28/2028 [id number] / / [id number] Hemost Abs Surgifoam Sz100 8x12 10mm - [id number] Implanted:Qty: 1 on 08/07/2024 by Ron Cano MD at [facility] Implant Right: Scapula ETHICON DIV OF J AND J [id number] 03/30/2028 1974 / / [id number] Cmt Bone Endurance Smartset 40gm - [id number] Implanted:Qty: 1 on 08/07/2024 by Ron Cano MD at [facility] Implant Right: Scapula DEPUY [id number] 09/28/2024 [id number] / / [id number] Aug Cage Equinox Poly Lt - [id number] - [id number] Implanted:Qty: 1 on 08/07/2024 by Ron Cano MD at [facility] Implant Right: Scapula EXACTECH [id number] 10/02/2028 [id number] / [id number] / Sut Lp Bone Niceloop Nonabs Br W/Ndl Sz5 24in Wht/Grn - [id number] Implanted:Qty: 1 on 08/07/2024 by Ron Cano MD at [facility] Implant Right: Scapula TORNIER [id number] 07/29/2027 [id number] / / [id number] Sut Lp Bone Niceloop Nonabs W/Ndl Sz5 24in Wht - [id number] Implanted:Qty: 1 on 08/07/2024 by Ron Cano MD at [facility] Implant Right: Scapula TORNIER [id number] 05/21/2026 [id number] / / [id number] Pacemaker-2021 Implanted:040 02/2022 (Quantity not on file) Pacemaker [place] [employer] L311 / [id number] / Pain Pump-04/07/2024 Implanted:03/29 (Quantity not on file) Pain Pump MEDTRONIC 8667-20 / [id number] / Additional Health Concerns Active Problems Noted Date Diagnosed Date Autogenerated Problem 06/04/2025 Insurance [facility] Care Teams Area Cleaner Relationship Specialty Start Date End Date Jr Ross Bar APRN [address] [place] [address] PCP - General Nurse Practitioner 07/24/24
[2025-09-26 14:14] LABS: Anion Gap 12.8 mEq/L (5-15); Blood Urea Nitrogen 21 mg/dl (9-20); Calcium 9.1 mg/dl (8.4-10.2); Carbon Dioxide 30 mmol/L (22.0-30.0); Chloride 98 mmol/L (98-107); Creatinine,Serum 1.30 mg/dl (0.66-1.25); Estimated Glomerular Filt Rate 57 ml/min (>60); GFR (African American) 69 ML/MIN (>60); Glucose 321 mg/dl (74-100); Potassium 3.8 mmoL/L (3.5-5.1); Sodium 137 mmol/L (136-145)
== END 2025-09-26 23:59 | disposition home or self-care (01) ==
LOC: LAB 13:12
PROVIDERS: PCP Nurse Practitioner Family; Visit Provider Internal Medicine
DX: E78.5 Hyperlipidemia, unspecified (principal); I25.10 Atherosclerotic heart disease of native coronary artery without angina pectoris; I10 Essential (primary) hypertension
CPT/HCPCS: 36415; 80048

== ENCOUNTER 2025-10-30 12:30 | Outpatient (CLI) | payer OTHER, SELFPAY ==
[2025-10-30 13:34] LABS: Anion Gap 11.5 mEq/L (5-15); Blood Urea Nitrogen 21 mg/dl (9-20); Calcium 9.7 mg/dl (8.4-10.2); Carbon Dioxide 30 mmol/L (22.0-30.0); Chloride 98 mmol/L (98-107); Creatinine,Serum 1.30 mg/dl (0.66-1.25); Estimated Glomerular Filt Rate 57 ml/min (>60); GFR (African American) 69 ML/MIN (>60); Glucose 309 mg/dl (74-100); Potassium 3.5 mmoL/L (3.5-5.1); Sodium 136 mmol/L (136-145)
== END 2025-10-30 23:59 | disposition home or self-care (01) ==
LOC: LAB 12:31
PROVIDERS: PCP Nurse Practitioner Family; Visit Provider Internal Medicine
DX: I10 Essential (primary) hypertension (principal)
CPT/HCPCS: 36415; 80048

== ENCOUNTER 2025-11-13 15:25 | Outpatient (CLI) | payer OTHER, SELFPAY ==
--- OUTSIDE RECORDS SUMMARY | 2025-11-13 15:30 | XMS_ITS | Clinical Summary ---
Author Organization [facility] Address [address] [place] [address] Phone Care Team Providers Care City Planner Name Role Phone Unavailable Unavailable Conditions or Problems No information available. Medications No information available. Medications Administered No information available. Allergies, Adverse Reactions, Alerts No information available. Results No information available. Plan of Care No information available. Procedures No information available. Vital Signs No information available. Immunizations No information available. Advance Directives No information available.
[2025-11-13 15:31] LABS: Microscopic, Urine URINE MICROSCOPIC (MICROSCOPIC)
--- OUTSIDE RECORDS SUMMARY | 2025-11-13 15:31 | XMS_ITS | Encounter Summary ---
Author Organization [facility] Address [address] [place] [address] Care Team Providers Care Hand Almond Blancher Name Role Phone JannyRoss ayers Good VILLAFANA Primary Care Provider [phone] Reason for Visit * Reason Comments Med Refill Encounter Details Date Type Department Care Team (Late st Contact Info) Description 11/11/2025 Refill [facility] [address] [place] [address] Graciela Maki APRN [address] [address] Stage 3a chronic kidney disease (CMS/HCC) Social History Tobacco Use Types Packs/Day [...] Description 12/07/2025 12:20 PM EST Office Visit [facility] [address] [place] [address] Graciela Maki APRN [address] [address] documented as of this encounter Visit Diagnoses Diagnosis Stage 3a chronic kidney disease (CMS/HCC) documented in this encounter Additional Health Concerns Assessment Noted Time A fall risk assessment has been complete d for the patient 03/14/2024 11:15 AM EDT A Body Mass Index follow-up plan has been documented for the patient 05/25/2025 1:02 PM EDT documented as of this encounter Care Teams Hand Almond Blancher Relationship Specialty Start Date End Date Ross Bar APRN [address] [place] [id number] PCP - General 03/09/24 documented as of this encounter
--- OUTSIDE RECORDS SUMMARY | 2025-11-13 15:31 | XMS_ITS | Clinical Summary ---
Author Organization [facility] Address [address] [place] [address] Care Team Providers Care Clean Up Helper Banquet Name Role Phone UrbangualbertoRoss ayers BRODERICK Primary Care Provider Allergies Active [...] mouth 1 (one) time each day. Active oxyCODONE-aceta minophen (Percocet) 10-325 MG tablet Active spironolactone (Aldactone) 50 MG tablet Take 1 tablet by mouth 2 times a day. Active ticagrelor (Brilinta) 90 MG tablet Take 1 tablet by mouth 2 times a day. Active carvedilol (Coreg) 25 MG tablet 02/18/20 Active NIFEdipine XL (Procardia XL) 30 MG 24 hr tabletIndicatio ns:Essential hypertension TAKE ONE TABLET BY MOUTH 2 TIMES A DAY. DO NOT CRUSH, CHEW, OR SPLIT 60 tablet 11 03/19/20 25 Active meclizine (Antivert) 25 MG tablet Take 1 tablet by mouth 3 times a day as needed for dizziness. 30 tablet 04/02/20 25 Active Additional Information Patient not taking.Reported on 07/10/2025 dapagliflozin (Farxiga) 10 MG tablet Take 1 tablet by mouth daily. 90 tablet 3 04/02/20 25 Active Additional Information Patient not taking.Reported on 07/10/2025 isosorbide mononitrate ER (Imdur) 30 MG 24 hr tablet Take 3 tablets by mouth daily. Do not crush or chew. 90 tablet 2 04/02/20 25 Active furosemide (Lasix) 20 MG tablet Take 1 tablet by mouth daily. 05/16/20 25 Active finasteride (Proscar) 5 MG tabletIndicatio ns:Stage 3a chronic kidney disease (CMS/HCC) Take 1 tablet by mouth daily. 90 tablet 3 11/12/20 25 Active finasteride (Proscar) 5 MG tabletIndicatio ns:Stage 3a chronic kidney disease (CMS/HCC) Take 1 tablet (5 mg) by mouth 1 (one) time each day. Do not crush, chew, or split. 30 tablet 11 11/10/20 24 025 Discontinued Active Problems Problem Noted Date Diagnosed Date Chest pain 04/01/2025 Encounters Date Type Department Care Team Description 11/11/2025 [facility] [address] [place] [address] Graciela Maki APRN Stage 3a chronic kidney disease (CMS/HCC) from Last 3 Months Immunizations Immunization Administration Dates Next Due Influenza, injectable, quadrivalent, preservativ e free 10/01/2023,12/10/2020 Influenza, seasonal, injectable, preservative fr ee 10/24/2024 Moderna COVID-19 Vaccine (Caul Dresser) 12+ years 02/2021,01/06/2021 Pneumococcal 20-ramon Conj Vaccine [...] - [facility] [address] [place] [address] Graciela Maki, BLACKSMITH ASSISTANT [address] [address] Health Maintenance Due Date Last [...] 2018 [facility]-Diabetes: Hemoglobin A1C 07/01/2025 04/01/2025, 07/24/2024 [id number] Vaccine (3 - season) 2025 10/02/2021, 01/06/2021 [facility]-Influenza Vaccine (#1) 07/30/202510/24, 10/01/2023, 12/10/2020 [facility]-Pneumococcal Vaccine: 50+ Years Completed 10/01/2023, 12/10/2020 [facility]-Obesity Intervention Completed 025, 04/01/2025, 11/10/2024, Additional history exists HPV Vaccines (No Doses Required) Completed [facility]-HIB Vaccines Aged Out No longer e [...] this topic Medical Devices Implanted Type Area Wardrobe Coordinator Device Identifier Shelf Expiration Date Model / Serial / Lot Ingevity +Pacing Lead Rv [employer] [place] [employer]-03/02 Implanted:02/2022 (Quantity not on file) Lead Chest Wall InSupply 7842 / / Ingevity +Pacing Lead Ra [place] [employer]-03/02 Implanted:02/2022 (Quantity not on file) Lead Chest Wall InSupply 7841 / / Accolade Mri [place] [employer] Pacemaker-2021 Implanted:02/2022 (Quantity not on file) Pacemaker Chest Wall InSupply L311 / / Description:Complete system implanted on 03/02/2022 Generator model: L311 RV LEAD MODEL: 7842 RA LEAD MODEL: 7841 Procedures Procedure Name Priority Date/Time Associated Diagnosis Comments HEMOGLOBIN A1C Add-On 04/01/2025 4:42 PM EDT from Last 3 Months or Most Recently Relevant to Health Maintenance Results * (ABNORMAL) Hemoglobin A1c (04/01/2025 4:42 PM EDT) Hemoglobin A1c 7.6(H) <5.7 % 04/01/2025 8:[address] [facility] Blood Venous blood specimen / Unknown Venipuncture / Unknown 04/01/2025 4:42 PM EDT 04/01/2025 4:[address] [facility] - 04/01/2025 8:40 PM EDT HA1C Interpretive Data: Diagnosis of Diabetes: Diabetic > or = 6.5% Pre-diabetic 5.7 to 6.4% Non-diabetic < or = 5.6% Glycemic Targets for Type I and Type II Diabetics: Non- Adults <7.0% Adults <6.0% Children and Adolescents <7.5% Source: [place] [employer]. Standards of medical care in diabetes,2017. Diabetes Care.2017:40 (suppl 1):S1-S135. us Fidencio Meza MD LAB BLOOD ORDERABLES Final Re sult Performing Organization Address City/State/[facility] Co de Phone Number [facility] [address] [phone] from Last 3 Months or Most Recently Relevant to Health Maintenance Insurance [facility] Advance Directives * Full Code (Latest Code Status on File) Date Activated Date Inactivated Comments 04/01/2025 2:27 PM 04/02/2025 7:34 PM Question Answer Comments I have reviewed the capacity from the link above and, if needed, have updated to appropriate status: Yes Care Teams Clean Up Helper Banquet Relationship Specialty Start Date End Date Ross Bar APRN [address] [place] [address] PCP - General 03/09/24
--- OUTSIDE RECORDS SUMMARY | 2025-11-13 15:31 | XMS_ITS | Clinical Summary ---
Author Organization [facility] Address [address] [place] [address] Care Team Providers Care Enamel Sprayer Name Role Phone Jr Ross Bar APRN [...] or training? Not on file Preferred Language Luxembourger 07/24/2024 Sex and Gender Information Value Date [...] 04/01/2025 Pneumococcal Vaccine 50+ Completed 10/01/2023, 11/29 Medical Devices Implanted Type Area Finding Fastener Device Identifier Shelf Expiration Date Model / Serial / Lot Sut Lp Bone Niceloop Nonabs W/Ndl Sz5 24in Grn - [id number] Implanted:Qty: 2 on 08/07/2024 by Ron Cano MD at [facility] Implant Right: Scapula TORNIER [id number] 01/28/2028 [id number] / / [id number] Kwire Equinoxe Glenoid Nitnl 0a241mc Ns - [id number] - [id number] Implanted:Qty: 1 on 08/07/2024 by Ron Cano MD at [facility] Implant Right: Scapula EXACTECH [id number] 08/12/2029 [id number] / [id number] / N/A Scrw Equinoxe Torq Define Kt Sq - [id number] - [id number] Implanted:Qty: 1 on 08/07/2024 by Ron Cano MD at [facility] Implant Right: Scapula EXACTECH [id number] 11/28/2028 [id number] / [id number] / N/A Plt Hum Equinoxe Replicat Offst 4.5 - [id number] - [id number] Implanted:Qty: 1 on 08/07/2024 by Ron Cano MD at [facility] Implant Right: Scapula EXACTECH [id number] 02/25/2028 [id number] / [id number] / N/A Hd Hum Equinoxe Sht 50mm - [id number] - [id number] Implanted:Qty: 1 on 08/07/2024 by Ron Cano MD at [facility] Implant Right: Scapula EXACTECH [id number] 08/18/2033 [id number] / [id number] / N/A Totl Shldr Arthroplasty Sys - [id number] Implanted:Qty: 1 on 08/07/2024 by Ron Cano MD at [facility] Implant Right: Scapula EXACTECH CAPSHOULT OTEXACS3 / / Stem Hum Tricia Equinoxe Pressfit 6mm Sht - [id number] - [id number] Implanted:Qty: 1 on 08/07/2024 by Ron Cano MD at [facility] Implant Right: Scapula EXACTECH [id number] 04/12/2034 [id number] / [id number] / Sut Fw #2 W/Tpr Ndl / Cir 38in 97cm 26.5mm Nicolas - [id number] Implanted:Qty: 2 on 08/07/2024 by Ron Cano MD at [facility] Implant Right: Shoulder ARTHREX [id number] 03/28/2028 [id number] / / [id number] Hemost Abs Surgifoam Sz100 8x12 10mm - [id number] Implanted:Qty: 1 on 08/07/2024 by Ron Cano MD at [facility] Implant Right: Scapula ETHICON DIV OF J AND J [id number] 03/30/2028 1974 / / [id number] Cmt Bone Endurance Smartset 40gm - [id number] Implanted:Qty: 1 on 08/07/2024 by Ron Cano MD at [facility] Implant Right: Scapula DEPUY [id number] 09/28/2024 [id number] / / [id number] Aug Cage Oswaldo Zapata Md - [id number] - [id number] Implanted:Qty: 1 on 08/07/2024 by Ron Cano MD at [facility] Implant Right: Scapula EXACTECH [id number] 10/02/2028 [id number] / [id number] / Sut Lp Bone Niceloop Nonabs Br W/Ndl Sz5 24in Wht/Grn - [id number] Implanted:Qty: 1 on 08/07/2024 by Ron Cano MD at [facility] Implant Right: Scapula TORNIER [id number] 07/29/2027 [id number] / / [id number] Sut Lp Bone Niceloop Nonabs W/Ndl Sz5 24in Wht - [id number] Implanted:Qty: 1 on 08/07/2024 by Ron Cano MD at [facility] Implant Right: Scapula TORNIER [id number] 05/21/2026 [id number] / / [id number] Pacemaker-2021 Implanted:040 02/2022 (Quantity not on file) Pacemaker [place] [employer] L311 / [id number] / Pain Pump-04/07/2024 Implanted:03/29 (Quantity not on file) Pain Pump MEDTRONIC 8667-20 / [id number] / Insurance [facility] [address] [place] [id number] Care Teams Enamel Sprayer Relationship Specialty Start Date End Date Jr Ross Bar APRN [address] [place] [address] PCP - General Nurse Practitioner 07/24/24
--- OUTSIDE RECORDS SUMMARY | 2025-11-13 15:31 | XMS_ITS | Referral Summary ---
Author Organization [facility] ([place], [place], [place], [place], [place]) Address [address] [place] [address] Care Team Providers Care Pipe Fitter Gas Pipe Name Role Phone Ross Bar APRN Primary Care Provider [phone] Allergies Active Allergy Reactions Criticality Noted Date [...] Date Antony rded Speak language other than Tunisian at home Not on file 12/17/2023 Want [...] on file Medical Devices Implanted Type Area Crane Engineer Device Identifier Shelf Expiration Date Model / Serial / Lot Pacemaker [employer] L311 / [id number] / Description:Generator: L311 Lead: [id number] Lead: 7842 Insurance [facility] Care Teams Pipe Fitter Gas Pipe Relationship Specialty Start Date End Date Ross Bar APRN [address] [id number] PCP - General Nurse Practitioner 01/17/24
--- OUTSIDE RECORDS SUMMARY | 2025-11-13 15:31 | XMS_ITS | Clinical Summary ---
Author Organization [facility] ([place], [place], [place], [place], [place]) Address [address] [place] [address] Care Team Providers Care Malt Loader Name Role Phone Ross Bar APRN Primary Care Provider [phone] Allergies Active Allergy Reactions Criticality Noted Date [...] Date Antony rded Speak language other than Samoan at home Not on file 12/17/2023 Want [...] 10/01/2023, 2020 Medical Devices Implanted Type Area Licensed Audiologist Device Identifier Shelf Expiration Date Model / Serial / Lot Pacemaker [employer] SCIENTIFIC L311 / [id number] / Description:Generator: L311 Lead: [id number] Lead: 7842 Insurance [facility] Care Teams Malt Loader Relationship Specialty Start Date End Date Ross Bar APRN [address] [id number] PCP - General Nurse Practitioner 01/17/24
[2025-11-13 16:03] LABS: Hematocrit 45.7 % (42.0-52.0); Hemoglobin 15.2 g/dL (14.1-18.0); Immature Granulocytes % 0.3 %; Mean Corpuscular HGB Conc 33.3 g/dL (31.8-35.4); Mean Corpuscular Hemoglobin 30.6 pg (27.0-31.2); Mean Corpuscular Volume 92.1 fl (80-94); Nucleated Red Blood Cells % 0 %; Platelet Count 173 K/mm3 (142-424); Red Blood Count 4.96 M/mm3 (4.60-6.20); Red Cell Distribution Width-SD 45.4 fL; White Blood Count 9.1 K/mm3 (4.8-10.8)
[2025-11-13 16:40] LABS: Alanine Aminotransferase 175 U/L (12-78); Albumin Level 5.0 g/dl (3.5-5.0); Alkaline Phosphatase 203 U/L (38-126); Anion Gap 16.6 mEq/L (5-15); Aspartate Amino Transferase 74 U/L (17-59); Bilirubin,Direct 0.4 mg/dl (0.0-0.4); Bilirubin,Indirect 0.3 mg/dL (0.0-0.9); Bilirubin,Total 0.7 mg/dl (0.2-1.3); Bilirubin,Unconjugated 0.3 mg/dL (0.0-1.1); Blood Urea Nitrogen 28 mg/dl (9-20); Calcium 9.7 mg/dl (8.4-10.2); Carbon Dioxide 28 mmol/L (22.0-30.0); Chloride 96 mmol/L (98-107); Cholesterol 208 mg/dl (140-200); Creatinine,Serum 1.50 mg/dl (0.66-1.25); Estimated Glomerular Filt Rate 48 ml/min (>60); GFR (African American) 58 ML/MIN (>60); Glucose 348 mg/dl (74-100); HDL Cholesterol 36 mg/dl (40-60); Magnesium 2.0 mg/dl (1.6-2.3); Potassium 3.6 mmoL/L (3.5-5.1); Sodium 137 mmol/L (136-145); Total Protein,Serum 8.4 g/dl (6.3-8.2)
[2025-11-13 16:53] LABS: Bilirubin,Urine Negative (Negative); Color,Urine YELLOW (Yellow); Glucose,Urine (UA) 3+ (Negative); Ketones,Urine Negative (Negative); Leukocyte Esterase,Urine Negative (Negative); NT Pro Brain Natriuretic Pep. 65.9 pg/mL (0-125); PH,Urine 5.5 (5.0-8.5); Protein,Urine Negative (Negative); Specific Gravity, Urine <= 1.005 (1.005-1.030); Urobilinogen,Urine 0.2 EU/dl (0.2)
[2025-11-13 17:02] LABS: Free T4 (Free Thyroxine) 1.28 ng/dl (0.78-2.19)
[2025-11-13 17:07] LABS: Triglycerides 519 mg/dl (30-150)
[2025-11-13 17:14] LABS: Thyroid Stimulating Hormone 1.22 uIU/mL (0.465-4.68)
[2025-11-13 17:45] LABS: Hemoglobin A1C 9.5 % (4.0-6.0)
[2025-11-13 20:25] LABS: Bacteria,Urine Trace /lpf; Squamous Epithelial Cell,Urine Occasional #/hpf (0-5); WBC,Urine Occasional #/hpf (0-3)
== END 2025-11-13 23:59 | disposition home or self-care (01) ==
LOC: LAB 15:26
PROVIDERS: PCP Nurse Practitioner Family; Visit Provider Internal Medicine
DX: I13.0 Hypertensive heart and chronic kidney disease with heart failure and stage 1 through stage 4 chronic kidney disease, or unspecified chronic kidney disease (principal); I50.33 Acute on chronic diastolic (congestive) heart failure; N18.9 Chronic kidney disease, unspecified; E11.9 Type 2 diabetes mellitus without complications; E78.2 Mixed hyperlipidemia
CPT/HCPCS: 36415; 80048; 80061; 80076; 81001; 82043; 83036; 83735; 83880; 84439; 84443; 85025

== ENCOUNTER 2025-11-26 09:35 | Outpatient (CLI) | payer OTHER, SELFPAY ==
--- OUTSIDE RECORDS SUMMARY | 2025-11-26 09:48 | XMS_ITS | Clinical Summary ---
Author Organization [facility] Address [address] [place] [facility] [address] [place] [address] Phone Care Team Providers Care Non Destructive Evaluation Manager Name Role Phone Unavailable Unavailable Conditions or Problems No information available. Medications No information available. Medications Administered No information available. Allergies, Adverse Reactions, Alerts No information available. Results No information available. Plan of Care No information available. Procedures No information available. Vital Signs No information available. Immunizations No information available. Advance Directives No information available.
--- OUTSIDE RECORDS SUMMARY | 2025-11-26 09:49 | XMS_ITS | Clinical Summary ---
Author Organization [facility] Address [address] [place] [address] Care Team Providers Care Contracts Specialist Name Role Phone Ross Bar APRN Primary Care Provider [phone] Allergies Active Allergy Reactions Criticality Noted Date [...] Date Type Department Care Team Description 11/11/2025 Refill [facility] [address] [place] [address] Graciela Maki APRN Stage 3a chronic kidney disease (CMS/HCC) from Last 3 Months Immunizations Immunization Administration Dates Next Due Influenza, injectable, quadrivalent, preservativ e free 10/01/2023,12/10/2020 Influenza, seasonal, injectable, preservative fr ee 10/24/2024 Moderna COVID-19 Vaccine (Cryptoanalysis Teacher) 12+ years 02/2021,01/06/2021 Pneumococcal 20-ramon Conj Vaccine [...] Description 12/07/2025 12:20 PM EST Office Visit [facility] [address] [place] [address] Graciela Maki, COURT OPERATIONS CLERK [address] [address] Health Maintenance Due Date Last [...] 2018 [facility]-Diabetes: Hemoglobin A1C 07/01/2025 04/01/2025, 07/24/2024 [id number] Vaccine (3 - season) 2025 10/02/2021, 01/06/2021 [...] this topic Medical Devices Implanted Type Area Long Chain Quiller Tender Device Identifier Shelf Expiration Date Model / Serial / Lot Ingevity +Pacing Lead Rv [place] [employer]-03/02 Implanted:02/2022 (Quantity not on file) Lead Chest Wall Miraculins 7842 / / Ingevity +Pacing Lead Ra [place] [employer]-03/02 Implanted:02/2022 (Quantity not on file) Lead Chest Wall Miraculins 7841 / / Accolade Mri [place] [employer] Pacemaker-2021 Implanted:02/2022 (Quantity not on file) Pacemaker Chest Wall Miraculins L311 / / Description:Complete system implanted on 03/02/2022 Generator model: L311 RV LEAD MODEL: 7842 RA LEAD MODEL: 7841 Procedures Procedure Name Priority Date/Time Associated Diagnosis Comments HEMOGLOBIN A1C Add-On 04/01/2025 4:42 PM EDT from Last 3 Months or Most Recently Relevant to Health Maintenance Results * (ABNORMAL) Hemoglobin A1c (04/01/2025 4:42 PM EDT) Hemoglobin A1c 7.6(H) <5.7 % 04/01/2025 8:40 PM EDT [facility] Blood Venous blood specimen / Unknown Venipuncture / Unknown 04/01/2025 4:42 PM EDT 04/01/2025 4:44 PM EDT Narrative [facility] - 04/01/2025 8:40 PM EDT HA1C Interpretive Data: Diagnosis of Diabetes: Diabetic > or = 6.5% Pre-diabetic 5.7 to 6.4% Non-diabetic < or = 5.6% Glycemic Targets for Type I and Type II Diabetics: Non- Adults <7.0% Adults <6.0% Children and Adolescents <7.5% Source: [place] Diabetes [employer]. Standards of medical care in diabetes,2017. Diabetes Care.2017:40 (suppl 1):S1-S135. us Fidencio Meza MD LAB BLOOD ORDERABLES Final Re sult [facility] [address] [phone] from Last 3 Months or Most Recently Relevant to Health Maintenance Insurance [facility] Advance Directives * Full Code (Latest Code Status on File) Date Activated Date Inactivated Comments 04/01/2025 2:27 PM 04/02/2025 7:34 PM Question Answer Comments I have reviewed the capacity from the link above and, if needed, have updated to appropriate status: Yes Care Teams Contracts Specialist Relationship Specialty Start Date End Date Ross Bar APRN [id number] PCP - General 03/09/24
--- OUTSIDE RECORDS SUMMARY | 2025-11-26 09:49 | XMS_ITS | Clinical Summary ---
Author Organization [facility] Address [address] [place] [address] Care Team Providers Care Atm Manager Name Role Phone Jr Ross Bar APRN [...] or training? Not on file Preferred Language Kyrgyz 07/24/2024 Sex and Gender Information Value Date [...] 10/01/2023, 11/29 Medical Devices Implanted Type Area Global Creative Chairman Device Identifier Shelf Expiration Date Model / Serial / Lot Sut Lp Bone Niceloop Nonabs W/Ndl Sz5 24in Grn - [id number] Implanted:Qty: 2 on 08/07/2024 by [facility] Cano [facility] at [facility] Implant Right: Scapula TORNIER [id number] 01/28/2028 [id number] / / [id number] Kwire Equinoxe Glenoid Nitnl 1o824zt Ns - [id number] - [id number] Implanted:Qty: 1 on 08/07/2024 by Ron Cano MD at [facility] Implant Right: Scapula EXACTECH [id number] 08/12/2029 [id number] / [id number] / N/A Scrw Equinoxe Torq Define Kt Sq - [id number] - [id number] Implanted:Qty: 1 on 08/07/2024 by Ron Cano MD at [facility] Implant Right: Scapula EXACTECH [id number] 11/28/2028 [id number] / [id number] / N/A Plt Hum Equinoxe Replicat Offst 4.5 - [id number] - [id number] Implanted:Qty: 1 on 08/07/2024 by Ron Cano MD at [facility] Implant Right: Scapula EXACTECH [id number] 02/25/2028 [id number] / [id number] / N/A Hd Hum Equinoxe Sht 50mm - [id number] - [id number] Implanted:Qty: 1 on 08/07/2024 by Ron Cano MD at [facility] Implant Right: Scapula EXACTECH [id number] 08/18/2033 [id number] / [id number] / N/A Totl Shldr Arthroplasty Sys - [id number] Implanted:Qty: 1 on 08/07/2024 by Ron Cano MD at [facility] Implant Right: Scapula EXACTECH CAPSHOULT [id number] / / Stem Hum Tricia Equinoxe Pressfit 6mm Sht - [id number] - [id number] Implanted:Qty: 1 on 08/07/2024 by Ron Cano MD at [facility] Implant Right: Scapula EXACTECH [id number] 04/12/2034 [id number] / [id number] / Sut Fw #2 W/Tpr Ndl / Cir 38in 97cm 26.5mm Nicolas - [id number] Implanted:Qty: 2 on 08/07/2024 by Ron Cano MD at [facility] Implant Right: Shoulder ARTHREX [id number] 03/28/2028 [id number] / / [id number] Hemost Abs Surgifoam Sz100 8x12 10mm - [id number] Implanted:Qty: 1 on 08/07/2024 by Ron Cano MD at [facility] Implant Right: Scapula ETHICON DIV OF J AND J [id number] 03/30/2028 1974 / / [id number] Cmt Bone Endurance Smartset 40gm - [id number] Implanted:Qty: 1 on 08/07/2024 by Ron Cano MD at [facility] Implant Right: Scapula DEPUY [id number] 09/28/2024 [id number] / / [id number] Aug Cage Oswaldo Zapata Md - [id number] - [id number] Implanted:Qty: 1 on 08/07/2024 by Ron Cano MD at [facility] Implant Right: Scapula EXACTECH [id number] 10/02/2028 [id number] / [id number] / Sut Lp Bone Niceloop Nonabs Br W/Ndl Sz5 24in Wht/Grn - [id number] Implanted:Qty: 1 on 08/07/2024 by Ron Cano MD at [facility] Implant Right: Scapula TORNIER [id number] 07/29/2027 [id number] / / [id number] Sut Lp Bone Niceloop Nonabs W/Ndl Sz5 24in Wht - [id number] Implanted:Qty: 1 on 08/07/2024 by Ron Cano MD at [facility] Implant Right: Scapula TORNIER [id number] 05/21/2026 [id number] / / [id number] Pacemaker-2021 Implanted:040 02/2022 (Quantity not on file) Pacemaker [employer] L311 / [id number] / Pain Pump-04/07/2024 Implanted:03/29 (Quantity not on file) Pain Pump MEDTRONIC 8667-20 / [id number] / Insurance Nba SANDERSON [address] [place] [id number] Care Teams Atm Manager Relationship Specialty Start Date End Date Jr Ross Bar APRN [address] [place] [address] PCP - General Nurse Practitioner 07/24/24
--- OUTSIDE RECORDS SUMMARY | 2025-11-26 09:49 | XMS_ITS | Encounter Summary ---
Author Organization [facility] Address [address] [place] [address] Care Team Providers Care Wildland Fire Fighter Specialist Name Role Phone Ross Bar APRN Primary Care Provider [phone] Reason for Visit * Reason Comments Med Refill Encounter Details Date Type Department Care Team (Late st Contact Info) Description 11/11/2025 Refill [facility] [address] [place] [address] Graciela Maki APRN [address] [address] Stage 3a chronic kidney disease [...] Description 12/07/2025 12:20 PM EST Office Visit [facility] [address] [place] [address] Graciela Maki APRN [address] [address] documented as of this encounter [...] documented as of this encounter Care Teams Wildland Fire Fighter Specialist Relationship Specialty Start Date End Date Ross Bar APRN [id number] PCP - General 03/09/24 documented as of this encounter
--- OUTSIDE RECORDS SUMMARY | 2025-11-26 09:49 | XMS_ITS | Clinical Summary ---
Author Organization [facility] ([place], [place], [place], [place], [place]) Address [address] [place] [address] Care Team Providers Care Patient Carrier Name Role Phone Ross Bar APRN Primary [...] Date Antony rded Speak language other than Qatari at home Not on file 12/17/2023 Want [...] 10/01/2023, 2020 Medical Devices Implanted Type Area Turkey Picker Device Identifier Shelf Expiration Date Model / Serial / Lot Pacemaker Sun-eee SCIENTIFIC L311 / [id number] / Description:Generator: L311 Lead: [id number] Lead: 7842 Insurance [facility] Care Teams Patient Carrier Relationship Specialty Start Date End Date Ross Bar APRN [address] [id number] PCP - General Nurse Practitioner 01/17/24
--- OUTSIDE RECORDS SUMMARY | 2025-11-26 09:49 | XMS_ITS | Referral Summary ---
Author Organization [facility] ([place], [place], [place], [place], [place]) Address [address] [place] [address] Care Team Providers Care Edge Molder Name Role Phone Ross Bar APRN Primary Care Provider [phone] Allergies Active Allergy Reactions Criticality Noted Date [...] Date Antony rded Speak language other than Ugandan at home Not on file 12/17/2023 Want [...] on file Medical Devices Implanted Type Area Screw Eye Assembler Device Identifier Shelf Expiration Date Model / Serial / Lot Pacemaker BOSTON SCIENT[employer] L311 / [id number] / Description:Generator: L311 Lead: [id number] Lead: 7842 Insurance [employer] Care Teams Edge Molder Relationship Specialty Start Date End Date Ross Bar APRN [address] [id number] PCP - General Nurse Practitioner 01/17/24
[2025-11-26 10:40] VITALS: PULSE 69; PULSE 72
[2025-11-26] MEDS: ALBUTEROL 0.083% 2.5 MG/3 ML NEB IH (10:40)
== END 2025-11-26 23:59 | disposition home or self-care (01) ==
LOC: RT 09:35
PROVIDERS: PCP Nurse Practitioner Family; Visit Provider Internal Medicine Pulmonary Disease
DX: R06.09 Other forms of dyspnea (principal)
CPT/HCPCS: 94060; 94618; 94640; 94726; 94729

== ENCOUNTER 2025-11-28 10:20 | Outpatient (CLI) | payer OTHER, SELFPAY ==
--- OUTSIDE RECORDS SUMMARY | 2025-12-03 10:30 | XMS_ITS | Referral Summary ---
Author Organization [employer] ([place], [place], [place], [place], [place]) Address [address] [place] [address] Care Team Providers Care Clinic Mgr Name Role Phone Ross Bar APRN Primary Care Provider [phone] Allergies Active Allergy Reactions Criticality Noted Date [...] Date Antony rded Speak language other than Taiwanese at home Not on file 12/17/2023 Want [...] on file Medical Devices Implanted Type Area License Clerk Device Identifier Shelf Expiration Date Model / Serial / Lot Pacemaker BOSTON [employer] L311 / [id number] / Description:Generator: L311 Lead: [id number] Lead: 7842 Insurance [employer] Care Teams Clinic Mgr Relationship Specialty Start Date End Date Ross Bar APRN [address] [id number] PCP - General Nurse Practitioner 01/17/24
--- OUTSIDE RECORDS SUMMARY | 2025-12-03 10:30 | XMS_ITS | Clinical Summary ---
Author Organization [facility] Address [address] [facility] [address] [address] [facility] [place] [address] Phone Care Team Providers Care Granite Polisher Apprentice Name Role Phone Unavailable Unavailable Conditions or Problems No information available. Medications No information available. Medications Administered No information available. Allergies, Adverse Reactions, Alerts No information available. Results No information available. Plan of Care No information available. Procedures No information available. Vital Signs No information available. Immunizations No information available. Advance Directives No information available.
--- OUTSIDE RECORDS SUMMARY | 2025-12-03 10:31 | XMS_ITS | Clinical Summary ---
Author Organization [facility] Address [address] [place] [address] Care Team Providers Care Injection Molding Operator Name Role Phone Ross Bar APRN Primary Care Provider [phone] Allergies Active Allergy Reactions Criticality Noted Date [...] Type Department Care Team Description 11/11/2025 Refill [facility] [address] [place] [address] Graciela Maki APRN Stage 3a chronic kidney disease (CMS/HCC) from Last 3 Months Immunizations Immunization Administration Dates Next Due Influenza, injectable, quadrivalent, preservativ e free 10/01/2023,12/10/2020 Influenza, seasonal, injectable, preservative fr ee 10/24/2024 Moderna COVID-19 Vaccine (Manufacturing Lead) 12+ years 02/2021,01/06/2021 Pneumococcal 20-ramon Conj Vaccine [...] Description 12/07/2025 12:20 PM EST Office Visit [facility] [address] [place] [address] Graciela Maki, CITY DESIGNER [address] [address] Health Maintenance Due Date Last Done Comments [facility]-Depression Screening 1968 [facility]-HIV Screening 1968 [facility]-Hepatitis C Screening 1968 [facility]-Infant/Child/Adol SDOH Screenings 1968 Diabetes: Dental Exam 1978 [facility]- SDOH Screenings 1986 [facility]-Adult SDOH Screenings 1986 [facility]-DTaP,Tdap,and Td Vaccines (1 - Tdap) 1987 [facility]-Hepatitis B Vaccines (1 of 3 - 19+ 3-dose series) 1987 CT Colonography 2013 Colonoscopy 2013 FIT-DNA 2013 FIT 2013 FOBT 2013 Sigmoidoscopy 2013 [facility]-Colorectal Cancer Screening 2013 [facility]-Zoster Vaccines (1 of 2) 2018 [facility]-Diabetes: Hemoglobin A1C 07/01/2025 04/01/2025, 07/24/2024 [facility]-OLQCN-13 Vaccine (3 - season) 2025 10/02/2021, 01/06/2021 [...] this topic Medical Devices Implanted Type Area Group Teacher Device Identifier Shelf Expiration Date Model / Serial / Lot Ingevity +Pacing Lead Rv Layton Scientific-03/02 Implanted:02/2022 (Quantity not on file) Lead Chest Wall engageSimply [id number] / / Ingevity +Pacing Lead Ra Layton Scientific-03/02 Implanted:02/2022 (Quantity not on file) Lead Chest Wall engageSimply 7841 / / Accolade Mri Layton Scientific Pacemaker-2021 Implanted:02/2022 (Quantity not on file) Pacemaker Chest Wall engageSimply L311 / / Description:Complete system implanted on 03/02/2022 Generator model: L311 RV LEAD MODEL: 7842 RA LEAD MODEL: 7841 Procedures Procedure Name Priority Date/Time Associated Diagnosis Comments HEMOGLOBIN A1C Add-On 04/01/2025 4:42 PM EDT from Last 3 Months or Most Recently Relevant to Health Maintenance Results * (ABNORMAL) Hemoglobin A1c (04/01/2025 4:42 PM EDT) Hemoglobin A1c 7.6(H) <5.7 % 04/01/2025 8:40 PM EDT [facility] Blood Venous blood specimen / Unknown Venipuncture / Unknown 04/01/2025 4:42 PM EDT 04/01/2025 4:44 PM EDT Narrative [facility] - 04/01/2025 8:40 PM EDT HA1C Interpretive Data: Diagnosis of Diabetes: Diabetic > or = 6.5% Pre-diabetic 5.7 to 6.4% Non-diabetic < or = 5.6% Glycemic Targets for Type I and Type II Diabetics: Non- Adults <7.0% Adults <6.0% Children and Adolescents <7.5% Source: [place] Diabetes Association. Standards of medical care in diabetes,2017. Diabetes Care.2017:40 (suppl 1):S1-S135. us Fidencio Meza MD LAB BLOOD ORDERABLES Final Re sult [facility] [address] [id number] from Last 3 Months or Most Recently Relevant to Health Maintenance Insurance [facility] Advance Directives * Full Code (Latest Code Status on File) Date Activated Date Inactivated Comments 04/01/2025 2:27 PM 04/02/2025 7:34 PM Question Answer Comments I have reviewed the capacity from the link above and, if needed, have updated to appropriate status: Yes Care Teams Injection Molding Operator Relationship Specialty Start Date End Date Ross Bar APRN [id number] PCP - General 03/09/24
--- OUTSIDE RECORDS SUMMARY | 2025-12-03 10:31 | XMS_ITS | Clinical Summary ---
Author Organization [employer] ([place], [place], [place], [place], [place]) Address [address] [place] [address] Care Team Providers Care Gatekeeper Name Role Phone Ross Bar APRN Primary Care Provider [phone] Allergies Active Allergy Reactions Criticality Noted Date [...] Date Antony rded Speak language other than Palauan at home Not on file 12/17/2023 Want [...] 10/01/2023, 2020 Medical Devices Implanted Type Area Agribusiness Internship Device Identifier Shelf Expiration Date Model / Serial / Lot Pacemaker [employer] SCIENTIFIC L311 / [id number] / Description:Generator: L311 Lead: [id number] Lead: 7842 Insurance [facility] Care Teams Gatekeeper Relationship Specialty Start Date End Date Ross Bar APRN [address] [id number] PCP - General Nurse Practitioner 01/17/24
--- OUTSIDE RECORDS SUMMARY | 2025-12-03 10:31 | XMS_ITS | Encounter Summary ---
Author Organization [facility] Address [address] [place] [address] Care Team Providers Care Die Holder Name Role Phone Ross Bar APRN Primary Care Provider [phone] Reason for Visit * Reason Comments Med Refill Encounter Details Date Type Department Care Team (Late st Contact Info) Description 11/11/2025 Refill [facility] [address] [place] [address] Graciela Maki APRN [address] [address] Stage 3a chronic kidney disease [...] Description 12/07/2025 12:20 PM EST Office Visit [facility] [address] [place] [address] Graciela Maki APRN [address] [address] documented as of this encounter [...] documented as of this encounter Care Teams Die Holder Relationship Specialty Start Date End Date Ross Bar APRN [id number] PCP - General 03/09/24 documented as of this encounter
--- OUTSIDE RECORDS SUMMARY | 2025-12-03 10:31 | XMS_ITS | Clinical Summary ---
Author Organization [facility] Address [address] [place] [address] Care Team Providers Care Equipment Mechanic Specialist Name Role Phone Jr Ross Bar APRN [...] or training? Not on file Preferred Language Afghan 07/24/2024 Sex and Gender Information Value Date [...] 10/01/2023, 11/29 Medical Devices Implanted Type Area Electrical Tryout Person Device Identifier Shelf Expiration Date Model / Serial / Lot Sut Lp Bone Niceloop Nonabs W/Ndl Sz5 24in Grn - [id number] Implanted:Qty: 2 on 08/07/2024 by Ron Cano MD at [facility] Implant Right: Scapula TORNIER [id number] 01/28/2028 [id number] / / [id number] Kwire Equinoxe Glenoid Nitnl 6b209mr Ns - [id number] - [id number] Implanted:Qty: 1 on 08/07/2024 by Ron Cano MD at [facility] Implant Right: Scapula EXACTECH [id number] 08/12/2029 [id number] / [id number] / N/A Scrw Equinoxe Torq Define Kt Sq - [id number] - [id number] Implanted:Qty: 1 on 08/07/2024 by Ron Cano MD at [facility] Implant Right: Scapula EXACTECH [id number] 11/28/2028 [id number] / [id number] / N/A Plt Hum Equinoxe Replicat Offst 4.5 - [id number] - [id number] Implanted:Qty: 1 on 08/07/2024 by Ron Cano MD at [facility] Implant Right: Scapula EXACTECH [id number] 02/25/2028 [id number] / [id number] / N/A Hd Hum Equinoxe Sht 50mm - [id number] - [id number] Implanted:Qty: 1 on 08/07/2024 by Ron Cano MD at [facility] Implant Right: Scapula EXACTECH [id number] 08/18/2033 [id number] / [id number] / N/A Totl Shldr Arthroplasty Sys - [id number] Implanted:Qty: 1 on 08/07/2024 by Ron Cano MD at [facility] Implant Right: Scapula EXACTECH CAPSHOULT OTEXACS3 / / Stem Hum Tricia Equinoxe Pressfit 6mm Sht - [id number] - [id number] Implanted:Qty: 1 on 08/07/2024 by Ron Cano MD at [facility] Implant Right: Scapula EXACTECH [id number] 04/12/2034 [id number] / [id number] / Sut Fw #2 W/Tpr Ndl / Cir 38in 97cm 26.5mm Nicolas - [id number] Implanted:Qty: 2 on 08/07/2024 by Ron Cano MD at [facility] Implant Right: Shoulder ARTHREX [id number] 03/28/2028 [id number] / / [id number] Hemost Abs Surgifoam Sz100 8x12 10mm - [id number] Implanted:Qty: 1 on 08/07/2024 by Ron Cano MD at [facility] Implant Right: Scapula ETHICON DIV OF J AND J [id number] 03/30/2028 1974 / / [id number] Cmt Bone Endurance Smartset 40gm - [id number] Implanted:Qty: 1 on 08/07/2024 by Ron Cano MD at [facility] Implant Right: Scapula DEPUY [id number] 09/28/2024 [id number] / / [id number] Aug Cage Oswaldo Zapata Md - [id number] - [id number] Implanted:Qty: 1 on 08/07/2024 by Ron Cano MD at [facility] Implant Right: Scapula EXACTECH [id number] 10/02/2028 [id number] / [id number] / Sut Lp Bone Niceloop Nonabs Br W/Ndl Sz5 24in Wht/Grn - [id number] Implanted:Qty: 1 on 08/07/2024 by Ron Cano MD at [facility] Implant Right: Scapula TORNIER [id number] 07/29/2027 [id number] / / [id number] Sut Lp Bone Niceloop Nonabs W/Ndl Sz5 24in Wht - [id number] Implanted:Qty: 1 on 08/07/2024 by Ron Cnao MD at [facility] Implant Right: Scapula TORNIER [id number] 05/21/2026 [id number] / / [id number] Pacemaker-2021 Implanted:040 02/2022 (Quantity not on file) Pacemaker [employer] Scientific L311 / [id number] / Pain Pump-04/07/2024 Implanted:03/29 (Quantity not on file) Pain Pump MEDTRONIC 8667-20 / [id number] / Insurance Nba SANDERSON [address] [place] [id number] Care Teams Equipment Mechanic Specialist Relationship Specialty Start Date End Date Jr Ross Bar APRN [address] [place] [address] PCP - General Nurse Practitioner 07/24/24
== END 2025-11-28 23:59 | disposition home or self-care (01) ==
LOC: LAB.DROPOF 12-03 10:21
PROVIDERS: PCP Nurse Practitioner Family; Visit Provider Student in an Organized Health Care Education/Training Program
DX: R74.8 Abnormal levels of other serum enzymes (principal)
CPT/HCPCS: 80074